=== PATIENT | male | born 1950 | race Caucasian/White ===

== ENCOUNTER 2021-03-01 10:02 | Outpatient (REF) | payer MEDICARE, SELFPAY ==
[2021-03-01 11:39] LABS: MANUAL DIFF FLAG NO
[2021-03-01 11:44] LABS: Basophils Percent Auto 1.1 % (0-2); Eosinophils Absolute Auto 0.1 X10*3/uL (0.0-0.4); Eosinophils Percent Auto 3.3 % (0-4); Glucose Urine UA NEG (NEG); Hemoglobin 14.7 g/dl (14.0-18.0); Imm Gran Abs Auto 0.01 X10*3/uL (0.00-0.03); Imm Gran Pct Auto 0.3 % (0.0-0.4); Leukocyte Esterase Urine NEG (NEG); Lymphocytes Absolute Auto 0.7 X10*3/uL (1.2-4.9); Lymphocytes Percent Auto 18.4 % (20-40); Mean Corpuscular HGB Conc 32.7 g/dl (31.0-36.0); Mean Corpuscular Hemoglobin 32.7 pg (27.0-33.0); Mean Corpuscular Volume 100.2 fL (80-98); Mean Platelet Volume 11.2 fL (9.4-12.4); Monocytes Absolute Auto 0.3 X10*3/uL (0.1-1.2); Monocytes Percent Auto 8.4 % (2-11); Neutrophils Absolute Auto 2.5 X10*3/uL (2.0-8.3); Neutrophils Percent Auto 68.5 % (45-73); Nitrite Urine NEG (NEG); Platelet Count 225 X10*3/uL (160-400); Red Blood Count 4.49 X10*6/uL (4.60-5.80); Red Cell Distribution Width 12.8 % (11.0-16.0); Urine Blood NEG (NEG); Urine Ketones NEG (NEG); Urine Protein NEG (NEG-TRACE); White Blood Count 3.6 X10*3/uL (4.8-10.8)
[2021-03-01 11:45] LABS: Appearance Urine CLEAR; Color Urine YELLOW
[2021-03-01 12:05] LABS: Alanine Aminotransferase 28 U/L (0-40); Albumin Level 4.3 g/dL (3.5-5.0); Alkaline Phosphatase 150 U/L (39-117); Anion Gap 14 (12-20); Aspartate Amino Transferase 33 U/L (5-37); Bilirubin Total 0.4 mg/dL (0.0-1.0); Blood Urea Nitrogen 16 mg/dL (9-16); Calcium 9.1 mg/dL (8.4-10.2); Carbon Dioxide 28 mmol/L (22-29); Chloride 104 mmol/L (96-108); Cholesterol 195 mg/dL; Estimated Glomerular Filt Rate > 60; Glucose Random 102 mg/dL (60-115); HDL Cholesterol 59 mg/dL; LDL Cholesterol Calculated 115 mg/dl; Magnesium 2.1 mg/dL (1.6-2.6); Potassium 4.3 mmol/L (3.3-5.1); Sodium 142 mmol/L (135-145); Total Protein 7.3 g/dL (6.5-8.0); Triglycerides 108 mg/dL
[2021-03-01 12:27] LABS: Free T4 (Free Thyroxine) 0.79 ng/dL (0.71-1.85); Prostate Specific Antigen Scr 1.79 ng/mL (<0.05-4.0); Thyroid Stimulating Hormone 2.53 uIU/mL (0.32-4.0)
[2021-03-01 12:37] LABS: WBC Urine 0 /HPF (0-4)
[2021-03-01 12:44] LABS: Phenytoin Dilantin 21.6 ug/mL (10.0-20.0)
[2021-03-01 12:47] LABS: Folate > 20.0 ng/mL (> or = 4.0); Vitamin B12 825 pg/mL (200-900)
== END 2021-03-01 10:03 | disposition home or self-care (01) ==
LOC: HO.LAB 10:02
PROVIDERS: PCP Internal Medicine; Visit Provider Internal Medicine
DX: G40.909 Epilepsy, unspecified, not intractable, without status epilepticus (principal); E78.00 Pure hypercholesterolemia, unspecified; R35.0 Frequency of micturition; Z12.5 Encounter for screening for malignant neoplasm of prostate
CPT/HCPCS: 36415; 80053; 80061; 80185; 81001; 82607; 82746; 83735; 84153; 84439; 84443; 85025

== ENCOUNTER 2021-06-23 08:00 | Inpatient (IN) | payer MEDICARE, SELFPAY ==
[2021-06-23] VITALS (10 sets, daily range): BP systolic 125–199; BP diastolic 47–87; PULSE 55–74; RESP 16–18; TEMP 35.6–36.9; O2SAT 92–100; BMI 17.9; BMI 20.3
--- NOTE | ~2021-06-23 | XR_ITS ---
EXAMINATION: XR HIP, RIGHT CLINICAL INFORMATION: Fall. COMPARISON: None TECHNIQUE: Two views of the right hip. AP view pelvis FINDINGS: There is a proximal right femoral fracture with mild displacement. There is no dislocation. The left hip joint is normal without any fracture or dislocation. The SI joints are symmetrical and normal. The pelvic bones are normal. The soft tissues are normal. XR/XR hip RT min 2V IMPRESSION: Proximal right femoral fracture with mild displacement. No dislocation.
--- NOTE | ~2021-06-23 | FL_ITS ---
EXAMINATION: Intraoperative fluoroscopy CLINICAL INFORMATION: Right intramedullary nail COMPARISON: Right hip x-rays 06/23/2021 TECHNIQUE: Intraoperative fluoroscopy was provided for use by Dr. Matthews. A total of 4 images were saved to PACS. A radiologist was not present during imaging. Today's dictation is only for administrative purposes to document intraoperative fluoroscopic usage. TOTAL FLUOROSCOPIC TIME: 0.5 minutes FL/FL guidance in OR FINDINGS~\^^ Intraoperative fluoroscopy provided for use by Dr. Matthews. Please see operative note for detailed findings.
--- NOTE | ~2021-06-23 | CT_ITS ---
EXAMINATION: CT BRAIN WITHOUT CONTRAST. CT CHEST WITHOUT CONTRAST. CLINICAL INFORMATION: Fall. COMPARISON: MRI brain 03/09/2019 TECHNIQUE: 5 mm thin axial and reformatted 2 mm thin sagittal and coronal images of brain were obtained without contrast. Subsequently axial 5 mm thin and reformatted 3 mm thin sagittal coronal images of chest were obtained. DLP 835. FINDINGS: There is no acute intra-axial, extra-axial bleed, masses, collection or midline shift. There is no acute infarction or lesion. There is no edema. The lateral ventricles are symmetrical in size and configuration but mildly prominent. There is mild periventricular hypodensity in both cerebral hemispheres without mass effect. There is a right parietal cortical hypodensity likely old infarct or postoperative change. 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 Bone windows reveal no calvarial abnormality. There is right parietal focal craniotomy from previous intervention. Bilateral paranasal sinuses and mastoid air cells are well-aerated. CHEST: Mild centrilobular emphysema without any acute process. There is no pulmonary nodule, mass or consolidation. There is mild bilateral upper and lower lobe dependent atelectasis. The heart size is enlarged. Great vessels are normal caliber. 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 There is no anterior to the pericardium is a hypodense elongated oval lesion measuring 4.9 x 2.7 cm on sagittal image 47/21 and 3.6 cm wide on axial image 32/16. It measures 9 Hounsfield units and most likely represent a pericardial cyst. Minimal coronary artery calcifications are seen bilaterally. No pericardial effusion seen. There is mild bilateral posterior pleural thickening. No effusion or calcified plaques. Small shotty lymph nodes are seen in the axilla. Imaging through the upper abdomen reveals visualized liver, spleen, gallbladder and pancreas to be unremarkable. There are bilateral renal cysts Bone windows reveal mild exaggerated thoracic kyphosis with degenerative spondylosis. No fracture or lytic process seen. The conus calcification is seen in T9 and T10 vertebra. CT/CT head/brain wo con IMPRESSION: Emphysematous changes of both lungs with dependent atelectasis in both upper and lower lobes. 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 There is no solid component visualized. There are coronary artery calcifications present. Bilateral posterior pleural thickening. Mild cardiomegaly. There is no acute intracranial process seen. Right parietal encephalomalacia with overlying right parietal small craniotomy from previous intervention. There is no finding of a prominent cisterna magna and left anterior middle cranial fossa arachnoid cyst.
--- NOTE | 2021-06-23 08:01 | ED_ITS ---
HPI - Fall General Chief Complaint: Fall Stated Complaint: mechanical fall Time Seen by Provider: 06/23/21 08:01 Source: patient and EMS Mode of arrival: EMS Limitations: no limitations History of Present Illness MD complaint: fall Onset (ago): minute(s) Fall from: standing Fall witnessed: yes, by bystander Place fall occurred: other (gym) Loss of consciousness: none Prolonged down time: no Symptoms prior to fall: none Context: tripped/slipped Location of injury: back and pelvis (r hip) Severity: moderate Quality: aching Associated symptoms (after fall): denies Related Data Home Medications Medication Instructions Recorded Confirmed ascorbic acid (vitamin C) 1,000 mg 1 g PO DAILY tab 03/01/21 06/23/21 tablet ferrous sulfate 325 mg (65 mg 325 mg PO DAILY 03/01/21 06/23/21 iron) tablet (Feosol) fexofenadine 180 mg tablet 180 mg PO DAILY 03/01/21 06/23/21 magnesium oxide 400 mg PO DAILY 03/01/21 06/23/21 vitamin B complex 1 tab PO DAILY 03/01/21 06/23/21 cyanocobalamin (vitamin B-12) 250 0 mcg PO DAILY 06/23/21 mcg tablet vitamin A 10,000 unit capsule 0 unit PO DAILY 06/23/21 Previous Rx's Medication Instructions Recorded amlodipine 10 mg tablet 10 mg PO DAILY #90 tab 09/08/20 metoprolol succinate 25 mg 25 mg PO DAILY #90 tab 09/08/20 tablet,extended release 24 hr phenytoin sodium extended 100 mg 300 mg PO DAILY 90 Days #270 cap 09/08/20 capsule Allergies Allergy/AdvReac Type Severity Reaction Status Date / Time hydrochlorothiazide Allergy Unknown Verified 09/29/19 00:00 lisinopril Allergy Unknown Verified 09/29/19 00:00 No Known Allergies Allergy Unknown Unverified 04/14/20 14:42 Review of Systems Review of Systems: Constitutional : No Fever, No Chills ENT/Mouth : No Ear Pain, No Hoarseness, No sore throat Eyes: No Eye Pain, No Swelling, No Redness, No Foreign Body Cardiovascular : No Chest Pain, No SOB Respiratory : No Cough, No Dyspnea Gastrointestinal : No Nausea, No Vomiting, No Diarrhea, No abdominal Pain Genitourinary : No Dysuria, No Hematuria Musculoskeletal : positive joint pain, No Myalgias, No Joint Swelling, pos back pain Skin : No Skin lacerations, No rash Neuro : No Weakness, No Numbness, No Loss of Consciousness, No Dizziness, No Headache Psych : No Anxiety/Panic, No Depression Heme/Lymph: no easy bruising, no Lymphadenopathy Endocrine : No Polyuria, No Polydipsia All other systems reviewed and are negative [facility] Past Medical History Attestation statement: The following information was validated with the patient. Source: old records reviewed Medical History Anxiety Cataract Hereditary hemorrhagic telangiectasia Hypertension Seizure disorder Vitamin B12 deficiency Surgical History H/O brain surgery History of hydrocelectomy Social History Social History Alcohol intake: never Patient Tobacco Use Status: Former Tobacco user Years Smoked: 1994 stopped Advance Directives: Yes Advance Directives Information Provided: Yes Advance Directives on File: No Physical Exam Vital Signs: Vital Signs: Last Vital Signs Temp 96.0 F L 06/23/21 08:14 Pulse 62 06/23/21 08:14 Resp 16 06/23/21 08:14 BP 199/73 H 06/23/21 08:14 Pulse Ox 97 06/23/21 08:14 Body Mass Index 17.9 Appearance: Alert. Oriented X3. No acute distress. Eyes: Pupils equal, round and reactive to light. ENT: Pharynx normal. Neck: Normal inspection. Neck supple. no pain in midline full ROM no pain CVS: Normal heart rate and rhythm. Pulses normal. Respiratory: No respiratory distress. Breath sounds normal. Abdomen: Soft and nontender. Back: ttp upper thoracic Skin: Skin warm and dry. Normal skin color. Normal skin turgor. Extremities: No lower extremity edema. R hip moderate ttp distal NV intact Neuro: Oriented X 3. No motor deficit. No sensory deficit. Course Course Course Narrative: message sent to orthopedics - Henny PA admit to medicine Procedures Orthopedic Splinting/Casting Injury #1: Side: right Lower Extremity Injury Location: upper leg Lower Extremity Immobilizer: knee immobilizer MDM - Fall MDM Narrative Medical decision making narrative: 71 yo male with no AC therapy presents with mechanical fall at gym at this time no head strike or LOC he has no neck pain - c/o R hip pain and thoracic pain will obtain CT head given age, CT chest and R hip films he declines pain medications at this time. Dispo per results and findings. Lab Data Result diagrams: 06/23/21 09:49 06/23/21 09:49 Labs: Lab Results 06/23/21 06/23/21 06/23/21 Range/Units 09:49 09:49 09:49 WBC 6.8 (4.8-10.8) X10*3/uL RBC 4.42 L (4.60-5.80) X10*6/uL Hgb 14.5 (14.0-18.0) g/dl Hct 42.8 (42.0-52.0) % MCV 96.8 (80.0-98.0) fL MCH 32.8 (27.0-33.0) pg MCHC 33.9 (31.0-36.0) g/dl RDW 13.0 (11.0-16.0) % Plt Count 175 (160-400) X10*3/uL MPV 10.0 (9.4-12.4) fL Immature Gran % (Auto) 0.9 H (0.0-0.4) % Neut % (Auto) 86.0 H (45-73) % Lymph % (Auto) 7.0 L (20-40) % [place] % (Auto) 5.4 (2-11) % Eos % (Auto) 0.6 (0-4) % Baso % (Auto) 0.1 (0-2) % Lymph # (Auto) 0.5 L (1.2-4.9) X10*3/uL [place] # (Auto) 0.4 (0.1-1.2) X10*3/uL Eos # (Auto) 0.0 (0.0-0.4) X10*3/uL Baso # (Auto) 0.0 (0.0-0.2) X10*3/uL Abs Immat Gran (auto) 0.06 H (0.00-0.03) X10*3/uL Absolute Neuts (auto) 5.9 (2.0-8.3) x10*3/uL Absolute Nucleated RBC 0.000 (0.0-0.012) X10*3/uL Nucleated RBC % (auto) 0.0 (0.0-0.2) /100WBC PT 13.1 H (9.9-13.0) SEC INR 1.2 H (0.9-1.1) APTT 29.7 (24.1-38.0) SEC Sodium 139 (135-145) mmol/L Potassium 4.5 (3.3-5.1) mmol/L Chloride 104 (96-108) mmol/L Carbon Dioxide 26 (22-29) mmol/L Anion Gap 14 (12-20) BUN 17 H (9-16) mg/dL Creatinine 1.02 (0.5-1.4) mg/dL Estim Creat Clear Calc 46.0 Estimated GFR > 60 Random Glucose 173 H D (60-115) mg/dL Calcium 8.9 (8.4-10.2) mg/dL COVID-19 (FELIX) (Negative) COVID-19 Clin Com 06/23/21 Range/Units 09:49 WBC (4.8-10.8) X10*3/uL RBC (4.60-5.80) X10*6/uL Hgb (14.0-18.0) g/dl Hct (42.0-52.0) % MCV (80.0-98.0) fL MCH (27.0-33.0) pg MCHC (31.0-36.0) g/dl RDW (11.0-16.0) % Plt Count (160-400) X10*3/uL MPV (9.4-12.4) fL Immature Gran % (Auto) (0.0-0.4) % Neut % (Auto) (45-73) % Lymph % (Auto) (20-40) % [place] % (Auto) (2-11) % Eos % (Auto) (0-4) % Baso % (Auto) (0-2) % Lymph # (Auto) (1.2-4.9) X10*3/uL [place] # (Auto) (0.1-1.2) X10*3/uL Eos # (Auto) (0.0-0.4) X10*3/uL Baso # (Auto) (0.0-0.2) X10*3/uL Abs Immat Gran (auto) (0.00-0.03) X10*3/uL Absolute Neuts (auto) (2.0-8.3) x10*3/uL Absolute Nucleated RBC (0.0-0.012) X10*3/uL Nucleated RBC % (auto) (0.0-0.2) /100WBC PT (9.9-13.0) SEC INR (0.9-1.1) APTT (24.1-38.0) SEC Sodium (135-145) mmol/L Potassium (3.3-5.1) mmol/L Chloride (96-108) mmol/L Carbon Dioxide (22-29) mmol/L Anion Gap (12-20) BUN (9-16) mg/dL Creatinine (0.5-1.4) mg/dL Estim Creat Clear Calc Estimated GFR Random Glucose (60-115) mg/dL Calcium (8.4-10.2) mg/dL COVID-19 (FELIX) Negative (Negative) COVID-19 Clin Com See Note ECG Data Attestation: I personally reviewed and interpreted this ECG as follows: ECG interpretation date: 06/23/21 ECG interpretation time: 09:58 Interpretation: Rate: 60 Rhythm: NSR with 1st degree AVB [place]: left, LVH Normal P waves. 1st degree AVB Normal QRS complex. ST T wave : nonspecific, no JORGE qTC: normal prior studies: no acute ischemia The study has been interpreted contemporaneously by me. . Discharge Plan Discharge Clinical Impression: Femoral fracture Qualifiers: Encounter type: initial encounter Femur location: unspecified portion of femur Fracture type: closed Fracture morphology: unspecified fracture morphology Laterality: right Qualified Code(s): S72.91XA - Unspecified fracture of right femur, initial encounter for closed fracture Patient Disposition: Admitted As Inpatient
--- NOTE | 2021-06-23 09:29 | ECG_ITS ---
Test Reason : FALL Blood Pressure : / mmHG Vent. Rate : 060 BPM Atrial Rate : 060 BPM P-R Int : 266 ms QRS Dur : 102 ms QT Int : 448 ms P-R-T Axes : 055 -22 029 degrees QTc Int : 448 ms Sinus rhythm with 1st degree A-V block Moderate voltage criteria for LVH, may be normal variant ( Sokolow-Moore , Fenton product ) Nonspecific T wave abnormality Left axis deviation Abnormal ECG When compared with ECG of 03-APR-2018 13:00, Nonspecific T wave abnormality now evident in Lateral leads Referred By: Brisa Sorenson Electronically Signed By:VIKTOR CARRILLO MD
[2021-06-23 09:55] LABS: MANUAL DIFF FLAG NO
[2021-06-23] MEDS: Morphine Sulfate 2 MG/ML CARTRIDGE IVPUSH ×2 (09:55→13:49)
[2021-06-23 10:03] LABS: Basophils Percent Auto 0.1 % (0-2); Eosinophils Percent Auto 0.6 % (0-4); Hematocrit 42.8 % (42.0-52.0); Hemoglobin 14.5 g/dl (14.0-18.0); Imm Gran Abs Auto 0.06 X10*3/uL (0.00-0.03); Imm Gran Pct Auto 0.9 % (0.0-0.4); Lymphocytes Absolute Auto 0.5 X10*3/uL (1.2-4.9); Mean Corpuscular HGB Conc 33.9 g/dl (31.0-36.0); Mean Corpuscular Hemoglobin 32.8 pg (27.0-33.0); Mean Corpuscular Volume 96.8 fL (80.0-98.0); Monocytes Absolute Auto 0.4 X10*3/uL (0.1-1.2); Monocytes Percent Auto 5.4 % (2-11); Neutrophils Absolute Auto 5.9 x10*3/uL (2.0-8.3); Platelet Count 175 X10*3/uL (160-400); Red Blood Count 4.42 X10*6/uL (4.60-5.80); White Blood Count 6.8 X10*3/uL (4.8-10.8)
--- NOTE | 2021-06-23 10:04 | PHA.MEDREC ---
Med rec complete no issues, patient takes several vitamins, a couple he does not know the strength of Pharmacy Consult ? Medication Reconciliation Pharmacy has completed the medication reconciliation.
[2021-06-23 10:06] LABS: INTERNATIONAL NORM RATIO 1.2 (0.9-1.1); Prothrombin Time 13.1 SEC (9.9-13.0)
[2021-06-23 10:09] LABS: Partial Thromboplastin Time 29.7 SEC (24.1-38.0)
[2021-06-23 10:10] LABS: Anion Gap 14 (12-20); Blood Urea Nitrogen 17 mg/dL (9-16); Calcium 8.9 mg/dL (8.4-10.2); Carbon Dioxide 26 mmol/L (22-29); Chloride 104 mmol/L (96-108); Estimated Glomerular Filt Rate > 60; Glucose Random 173 mg/dL (60-115); Potassium 4.5 mmol/L (3.3-5.1); Sodium 139 mmol/L (135-145)
[2021-06-23 10:12] LABS: COVID-19 Test Negative (Negative); IDNOW Serial# 9DD0AD1C
--- NOTE | 2021-06-23 10:42 | P.HPHOSP_ITS ---
History of Present Illness Date of Service: 06/23/21 Chief Complaint: Fall and right hip pain 71 year old male with Epilepsy-- has not had seizures in years, hypertension. Patient was in the gym this morning and was handling weight when he lost footing and fell, he is clear that there was no siezure, no dizziness, no chest pain, no sob. He was having pain in thr right hip and an xray has confirmed a right hip fracture. He suffered no head injury Review of Systems Review of Systems: Gen: no fever Resp: no sob, no cough CV: no chest, no NIEVES, no leg edema GI: No n/v, no abd pain Neuro: No confusion Yes all other systems are reviewed and are negative [facility] Medical History (Updated 06/23/21 @ 10:52 by Kenneth Lewis MD) Anxiety Cataract Hereditary hemorrhagic telangiectasia Hypertension Seizure disorder Vitamin B12 deficiency Family History Mother CAD (coronary artery disease) Surgical History H/O brain surgery History of hydrocelectomy Social History Household Members: None Housing: House Do you presently have visiting nurse or other home services: No Alcohol intake: never Patient Tobacco Use Status: Former Tobacco user Years Smoked: 1994 stopped Advance Directives Date on File: 06/23/21 service: No Current occupational status: retired Meds Allergies Allergy/AdvReac Type Severity Reaction Status Date / Time hydrochlorothiazide Allergy Unknown Unknown Verified 06/23/21 16:07 lisinopril Allergy Unknown Unknown Verified 06/23/21 16:07 Active Medications: Current Medications Pharmacy Consult (Consult Rx Perform Med Rec) 1 each MISCELLANE ONCE PRN PRN Reason: Consult order Home Medications Medication Instructions Recorded Confirmed Last Taken Type ascorbic acid (vitamin C) 1,000 mg 1 g PO DAILY tab 03/01/21 06/23/21 Unknown History tablet ferrous sulfate 325 mg (65 mg 325 mg PO DAILY 03/01/21 06/23/21 Unknown History iron) tablet (Feosol) fexofenadine 180 mg tablet 180 mg PO DAILY 03/01/21 06/23/21 Unknown History magnesium oxide 400 mg PO DAILY 03/01/21 06/23/21 Unknown History vitamin B complex 1 tab PO DAILY 03/01/21 06/23/21 Unknown History cyanocobalamin (vitamin B-12) 250 0 mcg PO DAILY 06/23/21 Unknown History mcg tablet vitamin A 10,000 unit capsule 0 unit PO DAILY 06/23/21 Unknown History Physical Exam Vital Signs and Narrative: Vital Signs: Last Vital Signs Temp 96.0 F L 06/23/21 08:14 Pulse 62 06/23/21 08:14 Resp 16 06/23/21 08:14 BP 199/73 H 06/23/21 08:14 Pulse Ox 97 06/23/21 08:14 Body Mass Index 17.9 Const: Other: Constitutional: Alert, in no distress, skiny. Mental Status: Oriented to person, place and time. Eyes: Pupils are equal, round and reactive to light. Ear, Nose and Throat: Oropharynx clear, mucous membranes moist. Ears and nose without eformities. Trachea midline. Respiratory: Clear to auscultation. No wheezing, rales or rhonchi. Cardiovascular: S1 S2 regular. No murmurs, rubs or gallops. Gastrointestinal: Abdomen soft, non-tender, non-distended. Normal bowel sounds.? Neurologic: Cranial nerves II-XII grossly intact. No focal neurological deficits. Moves all extremities spontaneously.? Skin: No rashes or lesions.? Musculoskeletal: No cyanosis or clubbing, right hip pain with movment of the hip Psychiatric: Normal mood and affect? Results Labs CBC and Chem 7: 06/24/21 05:42 06/24/21 05:42 Labs: Laboratory Results - last 24 hr 06/23/21 06/23/21 06/23/21 09:49 09:49 09:49 MCV 96.8 MCH 32.8 MCHC 33.9 RDW 13.0 Plt Count 175 MPV 10.0 Immature Gran % (Auto) 0.9 H Neut % (Auto) 86.0 H Lymph % (Auto) 7.0 L [place] % (Auto) 5.4 Eos % (Auto) 0.6 Baso % (Auto) 0.1 Lymph # (Auto) 0.5 L [place] # (Auto) 0.4 Eos # (Auto) 0.0 Baso # (Auto) 0.0 Abs Immat Gran (auto) 0.06 H Absolute Neuts (auto) 5.9 Absolute Nucleated RBC 0.000 Nucleated RBC % (auto) 0.0 PT 13.1 H INR 1.2 H APTT 29.7 Anion Gap 14 Estim Creat Clear Calc 46.0 Estimated GFR > 60 Random Glucose 173 H D Calcium 8.9 COVID-19 (FELIX) COVID-19 Clin Com 06/23/21 09:49 MCV MCH MCHC RDW Plt Count MPV Immature Gran % (Auto) Neut % (Auto) Lymph % (Auto) [place] % (Auto) Eos % (Auto) Baso % (Auto) Lymph # (Auto) [place] # (Auto) Eos # (Auto) Baso # (Auto) Abs Immat Gran (auto) Absolute Neuts (auto) Absolute Nucleated RBC Nucleated RBC % (auto) PT INR APTT Anion Gap Estim Creat Clear Calc Estimated GFR Random Glucose Calcium COVID-19 (FELIX) Negative COVID-19 Clin Com See Note Imaging Radiologist's Impressions: Impressions Chest CT 06/23/21 08:07 IMPRESSION: Emphysematous changes of both lungs with dependent atelectasis in both upper and lower lobes. 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 There is no solid component visualized. There are coronary artery calcifications present. Bilateral posterior pleural thickening. Mild cardiomegaly. There is no acute intracranial process seen. Right parietal encephalomalacia with overlying right parietal small craniotomy from previous intervention. There is no finding of a prominent cisterna magna and left anterior middle cranial fossa arachnoid cyst. Head CT 06/23/21 08:07 IMPRESSION: Emphysematous changes of both lungs with dependent atelectasis in both upper and lower lobes. 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 There is no solid component visualized. There are coronary artery calcifications present. Bilateral posterior pleural thickening. Mild cardiomegaly. There is no acute intracranial process seen. Right parietal encephalomalacia with overlying right parietal small craniotomy from previous intervention. There is no finding of a prominent cisterna magna and left anterior middle cranial fossa arachnoid cyst. Hip X-Ray 06/23/21 08:07 IMPRESSION: Proximal right femoral fracture with mild displacement. No dislocation. Assessment and Plan (1) Hypertension: Status: Acute (2) Femoral fracture: Qualifiers: Encounter type: initial encounter Femur location: unspecified portion of femur Fracture morphology: unspecified fracture morphology Fracture type: closed Laterality: right Qualified Code(s): S72.91XA - Unspecified fracture of right femur, initial encounter for closed fracture Status: Acute 71 year old male with HTN, seizure desorder here with mechanical fall resulting in right hip fracture, 1/ Hip fracture due to mechanical fall-- Will need operative repair, Ortho aware. I reviewed ECG with no acute ischemic changes, at low to moderate risk for periop cardiovascular complications, however no indication for further testing at this time. 2/ HTN--with accelerated BP, likely from from pain -continue home meds Metoprolol, Norvascs and if BP continues to be high will make further adjustment 3/Seizure d/o--continue Dilantin, check level 4/B12 deficiency--oral replacement. Quality Stroke Does the patient have a stroke diagnosis?: No VTE Prior VTE?: No VTE Risk Level:: Medical - moderate - high VTE Device Contraindication: Patient Refused VTE Drug Contraindication: N/A - Med Ordered
--- NOTE | 2021-06-23 10:53 | P.HPOP_ITS ---
History of Present Illness History of Present Illness Date of Service: 06/23/21 Chief complaint: mechanical fall Narrative: Terry Aguirre is a 71 year old male who presents to the emergency department after sustaining a fall earlier this morning at the gym. He states that he was putting away weight is when twisted and began to fall. he stated he protected is head and then fell onto the right hip and onto his back. There was another gym member nearby who assisted him and called for an ambulance to be transported to the emergency department. [facility] hip subtrochanteric hip fracture. Orthopedics was then consulted for further evaluation and treatment. The patient reports that he does not use any assistive devices for ambulation. He lives alone but has the help of family members and neighbors if needed. He denies any major surgeries. Past medical history is only significant for seizures last being many years ago and hypertension. Denies any alcohol, smoking or illicit drug use. Review of Systems Review of Systems: Yes all other systems are reviewed and are negative PMFSH Past Medical History Medical History (Updated 06/23/21 @ 10:52 by Kenneth Lewis MD) Anxiety Cataract Hereditary hemorrhagic telangiectasia Hypertension Seizure disorder Vitamin B12 deficiency Family History Family History Mother CAD (coronary artery disease) Surgical History Surgical History H/O brain surgery History of hydrocelectomy Social History Social History Alcohol intake: never Patient Tobacco Use Status: Former Tobacco user Years Smoked: 1994 stopped Advance Directives: Yes Advance Directives Information Provided: Yes Advance Directives on File: No Meds Allergies Allergy/AdvReac Type Severity Reaction Status Date / Time hydrochlorothiazide Allergy Unknown Verified 09/29/19 00:00 lisinopril Allergy Unknown Verified 09/29/19 00:00 No Known Allergies Allergy Unknown Unverified 04/14/20 14:42 Active Medications: Current Medications Pharmacy Consult (Consult Rx Perform Med Rec) 1 each MISCELLANE ONCE PRN PRN Reason: Consult order Home Medications Medication Instructions Recorded Confirmed Last Taken Type ascorbic acid (vitamin C) 1,000 mg 1 g PO DAILY tab 03/01/21 06/23/21 Unknown History tablet ferrous sulfate 325 mg (65 mg 325 mg PO DAILY 03/01/21 06/23/21 Unknown History iron) tablet (Feosol) fexofenadine 180 mg tablet 180 mg PO DAILY 03/01/21 06/23/21 Unknown History magnesium oxide 400 mg PO DAILY 03/01/21 06/23/21 Unknown History vitamin B complex 1 tab PO DAILY 03/01/21 06/23/21 Unknown History cyanocobalamin (vitamin B-12) 250 0 mcg PO DAILY 06/23/21 Unknown History mcg tablet vitamin A 10,000 unit capsule 0 unit PO DAILY 06/23/21 Unknown History Physical Exam Vital Signs: Vital Signs: Last Vital Signs Temp 96.0 F L 06/23/21 08:14 Pulse 62 06/23/21 08:14 Resp 16 06/23/21 08:14 BP 199/73 H 06/23/21 08:14 Pulse Ox 97 06/23/21 08:14 Body Mass Index 17.9 Const: General: cooperative, healthy appearing and no acute distress Resp: Effort & Inspection: normal respiratory effort and able to speak in complete sentences Cardio: Rate: regular rate Peripheral pulses: Peripheral pulses 2+ throughout GI: Palpation (GI): Soft to palpation Skin: Lesions: no lesions Rashes: no rashes Extrem: Other: Right lower extremity is externally rotated. Pain with log roll. Sensation is intact. Pedal pulse intact. Results Labs Result Diagrams: 06/23/21 09:49 06/23/21 09:49 Labs: Abnormal lab results 06/23/21 06/23/21 06/23/21 Range/Units 09:49 09:49 09:49 RBC 4.42 L (4.60-5.80) X10*6/uL Immature Gran % (Auto) 0.9 H (0.0-0.4) % Neut % (Auto) 86.0 H (45-73) % Lymph % (Auto) 7.0 L (20-40) % Lymph # (Auto) 0.5 L (1.2-4.9) X10*3/uL Abs Immat Gran (auto) 0.06 H (0.00-0.03) X10*3/uL PT 13.1 H (9.9-13.0) SEC INR 1.2 H (0.9-1.1) BUN 17 H (9-16) mg/dL Random Glucose 173 H D (60-115) mg/dL H & H 06/23/21 Range/Units 09:49 Hgb 14.5 (14.0-18.0) g/dl Hct 42.8 (42.0-52.0) % Coagulation 06/23/21 Range/Units 09:49 INR 1.2 H (0.9-1.1) All other labs normal. Assessment and Plan (1) Femoral fracture: Qualifiers: Encounter type: initial encounter Femur location: unspecified portion of femur Fracture morphology: unspecified fracture morphology Fracture type: closed Laterality: right Qualified Code(s): S72.91XA - Unspecified fracture of right femur, initial encounter for closed fracture Status: Acute Mr. Aguirre is a 71 year old male who presents to the emergency department after sustaining a fall earlier this morning at the gym. He states that he was putting away weight is when twisted and began to fall. he stated he protected is head and then fell onto the right hip and onto his back. There was another gym member nearby who assisted him and called for an ambulance to be transported to the emergency department. X-rays obtained in the emergency department reveal a right hip subtrochanteric hip fracture. Orthopedics was then consulted for further evaluation and treatment. The patient reports that he does not use any assistive devices for ambulation. He lives alone but has the help of family members and neighbors if needed. He denies any major surgeries. Past medical history is only significant for seizures last being many years ago and hypertension. Denies any alcohol, smoking or illicit drug use. I discussed the case with Dr. Matthews and explained the extent of the injury to the patient and options available which include surgical intervention. I explained the procedure in detail along with the length of recovery and rehab course. I explained the risk, benefits and alternatives. Risk including, but not limited to infection, blood clots, bleeding, non union or malunion and nerve/tissue damage to surrounding areas. I answered all their questions and wi th their understanding they have consented to move forward with Operative Fixation of the right hip. The patient will be T&S, med clearance obtained and NPO after midnight. Quality Stroke Does the patient have a stroke diagnosis?: No VTE Prior VTE?: No VTE Risk Level:: Surgical - high VTE Device Contraindication: N/A - Device Ordered VTE Drug Contraindication: N/A - Med Ordered Procedures Date of Service Date of Service: 06/23/21
--- NOTE | 2021-06-23 10:53 | PC.NURSE ---
Seen by ortho, plan for admission. R leg immobilizer placed. pt appears comfortable at this time
--- NOTE | 2021-06-23 11:28 | PC.NURSE ---
Plan for surgery tomorrow
--- NOTE | 2021-06-23 13:14 | MHC.CM.PN ---
pt lives alone in his home. he reports that he is very independent , he is retired; he drives a car and goes to the gym daily for 6 am. he has no children , but is freindly c his neighbors and has a brother that lives in [place] who will be involved in his dc plan if he returns home. Pt does not want to go to [facility] p his surgery ; he prefers to return home c home PT (for which a ref. has been made) and walker, and the help of neighbors and brother. his brother will transport pt home at [place]. cm to cont. to follow.
[2021-06-23] MEDS: 0.9 % Sodium Chloride Flush 3 ML SYRINGE IVFLUSH (15:54)
--- NOTE | 2021-06-23 18:15 | P.CONAN_ITS ---
[facility] Active Problems Active Problems: All Active Problems (Updated 06/23/21 @ 10:52 by Kenneth amezquita MD) Hypertension (Acute) Femoral fracture (Acute) Frequency of micturition (Acute) Medicare annual wellness visit, initial (Acute) Hereditary hemorrhagic telangiectasia (Acute) Seizure disorder (Acute) Past Medical History Medical History (Updated 06/23/21 @ 10:52 by Kenneth Lewis MD) Anxiety Cataract Hereditary hemorrhagic telangiectasia Hypertension Seizure disorder Vitamin B12 deficiency Family History Family History Mother CAD (coronary artery disease) Family history of problems with anesthesia: No Surgical History Surgical History H/O brain surgery History of hydrocelectomy History of Problems with Anesthesia: No Social History Social History Alcohol intake: never Patient Tobacco Use Status: Former Tobacco user Years Smoked: 1994 stopped service: No Current occupational status: retired [employer] Allergies Allergy/AdvReac Type Severity Reaction Status Date / Time hydrochlorothiazide Allergy Unknown Unknown Verified 06/23/21 16:07 lisinopril Allergy Unknown Unknown Verified 06/23/21 16:07 Active Medications: Current Medications Acetaminophen (Acetaminophen 325 Mg Tablet) 650 mg PO Q6H PRN PRN Reason: Pain, Mild (Pain Scale 1-3) Morphine Sulfate (Morphine Sulfate 2 Mg/Ml Cartridge) 2 mg IVPUSH Q6H PRN; Protocol PRN Reason: Pain, Severe (Pain Scale 7-10) Last Admin: 06/23/21 13:49 Dose: 2 mg Documented by: Pharmacy Consult (Consult Rx Perform Med Rec) 1 each MISCELLANE ONCE PRN PRN Reason: Consult order Sodium Chloride (0.9 % Sodium Chloride Flush 3 Ml Syringe) 3 ml IVFLUSH [facility] Last Admin: 06/23/21 15:54 Dose: 3 ml Documented by: Home Medications Medication Instructions Recorded Confirmed Last Taken Type ascorbic acid (vitamin C) 1,000 mg 1 g PO DAILY tab 03/01/21 06/23/21 Unknown History tablet ferrous sulfate 325 mg (65 mg 325 mg PO DAILY 03/01/21 06/23/21 Unknown History iron) tablet (Feosol) fexofenadine 180 mg tablet 180 mg PO DAILY 03/01/21 06/23/21 Unknown History magnesium oxide 400 mg PO DAILY 03/01/21 06/23/21 Unknown History vitamin B complex 1 tab PO DAILY 03/01/21 06/23/21 Unknown History cyanocobalamin (vitamin B-12) 250 0 mcg PO DAILY 06/23/21 Unknown History mcg tablet vitamin A 10,000 unit capsule 0 unit PO DAILY 06/23/21 Unknown History Exam Exam Date and Time: June 23, [id number] Height,Weight and Vital Signs: Height 5 ft 5 in Weight 48.988 kg Last Vital Signs Temp 97.8 F 06/23/21 15:08 Pulse 63 06/23/21 15:08 Resp 18 06/23/21 15:08 BP 153/58 H 06/23/21 15:08 Pulse Ox 97 06/23/21 15:08 Pertinent Lab Results Pertinent Lab Results: Laboratory Tests 06/23/21 06/23/21 06/23/21 09:49 09:49 09:49 WBC 6.8 RBC 4.42 L Hgb 14.5 Hct 42.8 MCV 96.8 MCH 32.8 MCHC 33.9 RDW 13.0 Plt Count 175 MPV 10.0 Immature Gran % (Auto) 0.9 H Neut % (Auto) 86.0 H Lymph % (Auto) 7.0 L [place] % (Auto) 5.4 Eos % (Auto) 0.6 Baso % (Auto) 0.1 Lymph # (Auto) 0.5 L [place] # (Auto) 0.4 Eos # (Auto) 0.0 Baso # (Auto) 0.0 Abs Immat Gran (auto) 0.06 H Absolute Neuts (auto) 5.9 Absolute Nucleated RBC 0.000 Nucleated RBC % (auto) 0.0 PT 13.1 H INR 1.2 H APTT 29.7 Sodium 139 Potassium 4.5 Chloride 104 Carbon Dioxide 26 Anion Gap 14 BUN 17 H Creatinine 1.02 Estim Creat Clear Calc 46.0 Estimated GFR > 60 Random Glucose 173 H D Calcium 8.9 COVID-19 (FELIX) COVID-19 Clin Com 06/23/21 09:49 WBC RBC Hgb Hct MCV MCH MCHC RDW Plt Count MPV Immature Gran % (Auto) Neut % (Auto) Lymph % (Auto) [place] % (Auto) Eos % (Auto) Baso % (Auto) Lymph # (Auto) [place] # (Auto) Eos # (Auto) Baso # (Auto) Abs Immat Gran (auto) Absolute Neuts (auto) Absolute Nucleated RBC Nucleated RBC % (auto) PT INR APTT Sodium Potassium Chloride Carbon Dioxide Anion Gap BUN Creatinine Estim Creat Clear Calc Estimated GFR Random Glucose Calcium COVID-19 (FELIX) Negative COVID-19 Clin Com See Note Airway Mallampati Class: II TM Dist: >3cm Neck ROM: Full Loose/Missing/Broken Teeth: No Heart: RRR Lungs: CTa Assessment and Plan Assessment Anesthesia Assessment: Anesthesia Plan Discussed Final Anesthetic Review Family History of Problems with Anesthesia: No History of Problems with Anesthesia: No NPO: Yes ASA Class: III Final Preanesthetic Review: No Changes in Pt Med Stat, Meds/Allgs Chart Reviewed, Consent Obtained/Reviewed and Anes Risks/Benef Reviewed Patient Risk: Intermediate Procedure Risk: Intermediate Anesthetic Plan Anesthetic Plan: GA Disposition: Standard PACU
--- NOTE | 2021-06-23 18:45 | MHC.SHP ---
Pre-Procedural Eval Section A Date of Service: 06/23/21 The patient is an INPATIENT: Yes Changes since office visit: Yes Patient answered all questions; No Cold of Flu in the past 2 weeks, No New Medical Problems and No Changes in Medication The History & Physical has been completed within 30 days and I have reviewed it.: Yes Section B Chief Complaint: hip fracture Allergies: Allergies Allergy/AdvReac Type Severity Reaction Status Date / Time hydrochlorothiazide Allergy Unknown Unknown Verified 06/23/21 16:07 lisinopril Allergy Unknown Unknown Verified 06/23/21 16:07 Plan I have reviewed the history and physical and performed a pertinent physical examination on my patient. No changes have occurred unless specified.
--- NOTE | 2021-06-23 19:43 | PM.OP ---
Brief Operative Note Date of Service: 06/23/21 Pre-op diagnosis: right hip IT fracture Post-op diagnosis: same Procedure: Right hip cephalomeduallry nail Implants: [place] [id number] x 130 deg with 105 x 10.5 hip screw and 37.5 5.0 interlocking Surgeon: Devendra Matthews MD Anesthesia: GETA, GLMA and local Was an Apparatus Repair Mechanic used for this Procedure?: No Estimated blood loss (mL): 100 IV fluids (mL): 700 Pathology: none sent Condition: stable Disposition: PACU
--- NOTE | 2021-06-23 19:46 | W.PM.OPN ---
Operative Note Operative Note Date of Service: 06/23/21 Narrative: Pre-op diagnosis: right hip IT fracture Post-op diagnosis: same Procedure: Right hip cephalomeduallry nail Implants: [place] [id number] x 130 deg with 105 x 10.5 hip screw and 37.5 5.0 interlocking Surgeon: Devendra Matthesw MD Anesthesia: GETA, GLMA and local Was an Senior Data Warehouse Architect used for this Procedure?: No Estimated blood loss (mL): 100 IV fluids (mL): 700 Pathology: none sent Condition: stable Disposition: PACU Procedure in detail: Patient was brought to the operating room and prepped and draped in standard sterile fashion. Time-out was called to identify proper site procedure proper surgeon and IV antibiotics per weight were administered. She was positioned on the fracture table and a traction and slight internal rotation were performed and biplanar fluoroscopy confirmed initial fracture reduction. I then made a stab incision proximal to the greater trochanter in using a guidewire made a entry point just lateral to the tip of the greater trochanter and placed a guidewire into the femoral metadiaphysis. I then over-reamed with 15 mm Reamer placed my ball-tip guidewire down distally in the femur. I selected a [id number] x 130 deg nail. I then turned my attention to the hip screw where I used a guidewire and a tip apex distance of less than 1.5 measured my hip screw. I then pre drilled and placed a 105 mm hip screw using biplanar fluoroscopy. Once I was satisfied with the position of the hip screw I turned my attention to the distal aspect of the nail. Using the targeting guide I drilled and measured and placed a 37.5 mm screw. I then placed my proximal set screw and then removed all extraneous instrumentation. Final biplanar radiographs were taken. I was satisfied with the position of the hardware and the fracture reduction. I copiously irrigated and closed with absorbable sutures varghese and injected 30 mL of into the area of the incisions. Traction was let down patient was placed in sterile dressing awakened from anesthesia brought to recovery room stable condition there were no known complications.
[2021-06-24] VITALS (7 sets, daily range): BP systolic 136–174; BP diastolic 64–73; PULSE 60–74; RESP 16–18; TEMP 36.2–37.2; O2SAT 94–97
[2021-06-24] MEDS: 0.9 % Sodium Chloride Flush 3 ML SYRINGE IVFLUSH ×5 (00:48→23:30)
[2021-06-24] MEDS: ceFAZolin Sodium/Dextrose,Iso 2 GM/50 ML PIGGYBACK IV (00:53)
[2021-06-24] MEDS: Morphine Sulfate 2 MG/ML CARTRIDGE IVPUSH ×3 (00:54→23:29)
[2021-06-24 06:15] LABS: MANUAL DIFF FLAG NO
[2021-06-24 06:23] LABS: Basophils Percent Auto 0.2 % (0-2); Hematocrit 39.5 % (42.0-52.0); Hemoglobin 13.3 g/dl (14.0-18.0); Imm Gran Abs Auto 0.03 X10*3/uL (0.00-0.03); Imm Gran Pct Auto 0.4 % (0.0-0.4); Lymphocytes Absolute Auto 0.8 X10*3/uL (1.2-4.9); Lymphocytes Percent Auto 9.6 % (20-40); Mean Corpuscular HGB Conc 33.7 g/dl (31.0-36.0); Mean Corpuscular Hemoglobin 32.9 pg (27.0-33.0); Mean Corpuscular Volume 97.8 fL (80.0-98.0); Mean Platelet Volume 10.5 fL (9.4-12.4); Monocytes Percent Auto 12.2 % (2-11); Neutrophils Absolute Auto 6.6 x10*3/uL (2.0-8.3); Neutrophils Percent Auto 77.6 % (45-73); Platelet Count 177 X10*3/uL (160-400); Red Blood Count 4.04 X10*6/uL (4.60-5.80); Red Cell Distribution Width 13.1 % (11.0-16.0); White Blood Count 8.5 X10*3/uL (4.8-10.8)
[2021-06-24 06:38] LABS: Anion Gap 14 (12-20); Blood Urea Nitrogen 20 mg/dL (9-16); Calcium 8.3 mg/dL (8.4-10.2); Carbon Dioxide 27 mmol/L (22-29); Chloride 103 mmol/L (96-108); Creatinine Clr Calc Pharmacy 49.7; Estimated Glomerular Filt Rate > 60; Glucose Random 80 mg/dL (60-115); Sodium 139 mmol/L (135-145)
--- NOTE | 2021-06-24 08:13 | P.PNOP_ITS ---
Subjective Subjective Date of Service: 06/24/21 Interval history: POD1 s/p right hip IM Nail. Patient is resting comfortably in bed. No overnight events. Pain is well managed. No additional complaints. Physical Exam Vital Signs: Vital Signs: Last Vital Signs Temp 98.5 F 06/24/21 08:00 Pulse 74 06/24/21 08:00 Resp 16 06/24/21 08:00 BP 160/70 H 06/24/21 08:00 Pulse Ox 94 06/24/21 08:00 Body Mass Index 20.3 Const: General: cooperative, healthy appearing and no acute distress Resp: Effort & Inspection: normal respiratory effort and able to speak in complete sentences Cardio: Rate: regular rate Peripheral pulses: Peripheral pulses 2+ th roughout GI: Palpation (GI): Soft to palpation Skin: Lesions: no lesions Rashes: no rashes Extrem: Other: Right hip dressing is clean, dry, and intact. Patient is able to dorsiflex and plantarflex. Sensation intact. Pedal pulse intact. Procedures Date of Service Date of Service: 06/24/21 Progress Note: A&P Assessment and plan (1) Femoral fracture: Status: Acute Assessment and Plan: Continue pain mgmnt Begin Lovenox for dvt ppx begin PT for right hip IM Nail Dispo planning-Pending PT eval, pain mgmnt Fall Risk Details Current Medications: Current Medications Acetaminophen (Acetaminophen 325 Mg Tablet) 650 mg PO Q6H PRN PRN Reason: Pain, Mild (Pain Scale 1-3) Fentanyl (Fentanyl Citrate/Pf 100 Mcg/2 Ml Vial) 25 mcg IVPUSH Q5M PRN; Protocol PRN Reason: Pain, Moderate (Pain Scale 4-6 Hydromorphone HCl (Hydromorphone Hcl 0.5 Mg/0.5 Ml Syringe) 0.5 mg IVPUSH Q5M PRN; Protocol PRN Reason: Pain, Severe (Pain Scale 7-10) Promethazine HCl 12.5 mg/ (Sodium Chloride) 50.5 mls @ 202 mls/hr IV ONCE PRN PRN Reason: Nausea and Vomiting Cefazolin Sodium/Dextrose (Ancef) 2 gm in 50 mls @ 100 mls/hr IV POSTOP YASMINE Last Infusion: 06/24/21 01:28 Dose: Infused Documented by: Morphine Sulfate (Morphine Sulfate 2 Mg/Ml Cartridge) 2 mg IVPUSH Q6H PRN; Protocol PRN Reason: Pain, Severe (Pain Scale 7-10) Last Admin: 06/24/21 00:54 Dose: 2 mg Documented by: Oxycodone HCl (Oxycodone Hcl Immed Release 5 Mg Tablet) 5 mg PO ONCE PRN PRN Reason: Pain, Severe (Pain Scale 7-10) Pharmacy Consult (Consult Rx Perform Med Rec) 1 each MISCELLANE ONCE PRN PRN Reason: Consult order Sodium Chloride (0.9 % Sodium Chloride Flush 3 Ml Syringe) [facility] Last Admin: 06/24/21 00:48 Dose: 3 ml Documented by: Time Spent With Patient Time: Total time spent is greater than 50% in coordination of care (as documented) at patient's floor/unit and/or counseling patient: Time with patient: less than 15 minutes Quality Stroke Does the patient have a stroke diagnosis?: No VTE Prior VTE?: No VTE Risk Level:: Surgical - high VTE Device Contraindication: N/A - Device Ordered VTE Drug Contraindication: N/A - Med Ordered
--- NOTE | 2021-06-24 09:16 | P.PNIM_ITS ---
Subjective Subjective Date of Service: 06/24/21 Interval History: f/u on hip fracture, operated on yesterday--doing well with pain Review of Systems no fever no hip pain Physical Exam Vital Signs: Vital Signs: Last Vital Signs Temp 98.5 F 06/24/21 08:00 Pulse 74 06/24/21 08:00 Resp 16 06/24/21 08:00 BP 160/70 H 06/24/21 08:00 Pulse Ox 94 06/24/21 08:00 Body Mass Index 20.3 Const: Other: General: AO X 3, no acute distress Resp: CTA bilateral CVS: S1,S2,RRR GI: +BS, NT, no distention Skin: No rash, wound d/c/i Neuro: motor grossly intact Psych: appropriate affect Objective Data Active Medications Acetaminophen (Acetaminophen 325 Mg Tablet) 650 mg PO Q6H PRN PRN Reason: Pain, Mild (Pain Scale 1-3) Amlodipine Besylate (Amlodipine Besylate 10 Mg Tablet) 10 mg PO DAILY YASMINE; Protocol Enoxaparin Sodium (Enoxaparin Sodium 40 Mg/0.4 Ml Syringe) 40 mg SUBCUT Q24H YASMINE Fentanyl (Fentanyl Citrate/Pf 100 Mcg/2 Ml Vial) 25 mcg IVPUSH Q5M PRN; Protocol PRN Reason: Pain, Moderate (Pain Scale 4-6 Hydromorphone HCl (Hydromorphone Hcl 0.5 Mg/0.5 Ml Syringe) 0.5 mg IVPUSH Q5M PRN; Protocol PRN Reason: Pain, Severe (Pain Scale 7-10) Promethazine HCl 12.5 mg/ (Sodium Chloride) 50.5 mls @ 202 mls/hr IV ONCE PRN PRN Reason: Nausea and Vomiting Cefazolin Sodium/Dextrose (Ancef) 2 gm in 50 mls @ 100 mls/hr IV POSTOP YASMINE Last Infusion: 06/24/21 01:28 Dose: 0 mls/hr Documented by: DOMINIQUE Magnesium Oxide (Magnesium Oxide 400 Mg Tablet) 400 mg PO DAILY YASMINE Metoprolol Succinate (Metoprolol Succinate Er 25 Mg Tab.Er.24h) 25 mg PO DAILY YASMINE; Protocol Morphine Sulfate (Morphine Sulfate 2 Mg/Ml Cartridge) 2 mg IVPUSH Q6H PRN; Protocol PRN Reason: Pain, Severe (Pain Scale 7-10) Last Admin: 06/24/21 08:21 Dose: 2 mg Documented by: MAYUR Multivitamins/Vitamin C (Multivitamin Tablet) 1 tab PO DAILY [facility] Non-Formulary Medication (Ferrous Sulfate [Feosol]) 325 mg PO DAILY [facility] Non-Formulary Medication (Fexofenadine) 180 mg PO DAILY [facility] Oxycodone HCl (Oxycodone Hcl Immed Release 5 Mg Tablet) 5 mg PO ONCE PRN PRN Reason: Pain, Severe (Pain Scale 7-10) Pharmacy Consult (Consult Rx Perform Med Rec) 1 each MISCELLANE ONCE PRN PRN Reason: Consult order Phenytoin Sodium (Phenytoin Sodium Extended 100 Mg Capsule) 300 mg PO DAILY [facility] Sodium Chloride (0.9 % Sodium Chloride Flush 3 Ml Syringe) 3 ml IVFLUSH QSHIFT [facility] Last Admin: 06/24/21 08:22 Dose: 3 ml Documented by: MAYUR Labs CBC & Chem 7: 06/24/21 05:42 06/24/21 05:42 Labs: Laboratory Results - last 24 hr 06/23/21 06/23/21 06/23/21 09:49 09:49 09:49 MCV 96.8 MCH 32.8 MCHC 33.9 RDW 13.0 Plt Count 175 MPV 10.0 Immature Gran % (Auto) 0.9 H Neut % (Auto) 86.0 H Lymph % (Auto) 7.0 L [place] % (Auto) 5.4 Eos % (Auto) 0.6 Baso % (Auto) 0.1 Lymph # (Auto) 0.5 L [place] # (Auto) 0.4 Eos # (Auto) 0.0 Baso # (Auto) 0.0 Abs Immat Gran (auto) 0.06 H Absolute Neuts (auto) 5.9 Absolute Nucleated RBC 0.000 Nucleated RBC % (auto) 0.0 PT 13.1 H INR 1.2 H APTT 29.7 Anion Gap 14 Estim Creat Clear Calc 46.0 Estimated GFR > 60 Random Glucose 173 H D Calcium 8.9 COVID-19 ([facility]EL[facility]) COVID-19 Clin Com 06/23/21 06/24/21 06/24/21 09:49 05:42 05:42 MCV 97.8 MCH 32.9 MCHC 33.7 RDW 13.1 Plt Count 177 MPV 10.5 Immature Gran % (Auto) 0.4 Neut % (Auto) 77.6 H Lymph % (Auto) 9.6 L [place] % (Auto) 12.2 H Eos % (Auto) 0.0 Baso % (Auto) 0.2 Lymph # (Auto) 0.8 L [place] # (Auto) 1.0 Eos # (Auto) 0.0 Baso # (Auto) 0.0 Abs Immat Gran (auto) 0.03 Absolute Neuts (auto) 6.6 Absolute Nucleated RBC 0.000 Nucleated RBC % (auto) 0.0 PT INR APTT Anion Gap 14 Estim Creat Clear Calc 49.7 Estimated GFR > 60 Random Glucose 80 D Calcium 8.3 L D COVID-19 (FELIX) Negative COVID-19 Clin Com See Note Assessment and Plan (1) Femoral fracture: Status: Acute (2) Seizure disorder: Status: Acute (3) Hypertension: Status: Acute Assessment and Plan: 71 year old male with HTN, seizure desorder here with mechanical fall resulting in right hip fracture, 1/ Hip fracture due to mechanical fall-- s/p operative repair 06/23, doing -pain management, PT/OT, lovenox for DVT prophylaxis 2/ HTN--restart Norvasc 10 daily, Toprolol 25 daily 3/Seizure d/o--continue Dilantin 4/B12 deficiency--oral replacement. Quality Stroke Does the patient have a stroke diagnosis?: No VTE Prior VTE?: No VTE Risk Level:: Medical - moderate - high VTE Device Contraindication: Patient Refused VTE Drug Contraindication: N/A - Med Ordered
[2021-06-24] MEDS: Magnesium Oxide 400 MG TABLET PO (09:48)
[2021-06-24] MEDS: Phenytoin Sodium Extended 100 MG CAPSULE 300 MG PO (09:48)
[2021-06-24] MEDS: Multivitamin TABLET 1 TAB PO (09:48)
[2021-06-24] MEDS: Metoprolol Succinate ER 25 MG TAB.ER.24H PO (09:48)
[2021-06-24] MEDS: amLODIPine Besylate 10 MG TABLET PO (09:49)
[2021-06-24] MEDS: Ferrous Sulfate 324 MG TABLET.DR PO (09:49)
[2021-06-24] MEDS: Loratadine 10 MG TABLET PO (09:49)
[2021-06-24] MEDS: Enoxaparin Sodium 40 MG/0.4 ML SYRINGE SUBCUT (15:18)
[2021-06-24] MEDS: Acetaminophen 325 MG TABLET 650 MG PO (15:29)
[2021-06-25] VITALS (7 sets, daily range): BP systolic 129–165; BP diastolic 60–70; PULSE 62–70; RESP 17–18; TEMP 36.2–37.3; O2SAT 94–98
[2021-06-25 06:07] LABS: MANUAL DIFF FLAG NO
[2021-06-25 06:26] LABS: Anion Gap 13 (12-20); Blood Urea Nitrogen 20 mg/dL (9-16); Calcium 8.1 mg/dL (8.4-10.2); Carbon Dioxide 27 mmol/L (22-29); Chloride 105 mmol/L (96-108); Estimated Glomerular Filt Rate > 60; Glucose Random 121 mg/dL (60-115); Potassium 4.6 mmol/L (3.3-5.1); Sodium 140 mmol/L (135-145)
[2021-06-25 06:32] LABS: Basophils Percent Auto 0.3 % (0-2); Eosinophils Percent Auto 0.1 % (0-4); Hematocrit 33.9 % (42.0-52.0); Hemoglobin 11.5 g/dl (14.0-18.0); Imm Gran Abs Auto 0.02 X10*3/uL (0.00-0.03); Imm Gran Pct Auto 0.3 % (0.0-0.4); Lymphocytes Absolute Auto 0.9 X10*3/uL (1.2-4.9); Lymphocytes Percent Auto 12.3 % (20-40); Mean Corpuscular HGB Conc 33.9 g/dl (31.0-36.0); Mean Corpuscular Hemoglobin 33.3 pg (27.0-33.0); Mean Corpuscular Volume 98.3 fL (80.0-98.0); Mean Platelet Volume 10.3 fL (9.4-12.4); Monocytes Absolute Auto 0.8 X10*3/uL (0.1-1.2); Monocytes Percent Auto 10.9 % (2-11); Neutrophils Absolute Auto 5.5 x10*3/uL (2.0-8.3); Neutrophils Percent Auto 76.1 % (45-73); Platelet Count 131 X10*3/uL (160-400); Red Blood Count 3.45 X10*6/uL (4.60-5.80); Red Cell Distribution Width 12.9 % (11.0-16.0); White Blood Count 7.2 X10*3/uL (4.8-10.8)
[2021-06-25] MEDS: Phenytoin Sodium Extended 100 MG CAPSULE 300 MG PO (08:24)
[2021-06-25] MEDS: 0.9 % Sodium Chloride Flush 3 ML SYRINGE IVFLUSH ×2 (08:24→15:12)
[2021-06-25] MEDS: Ferrous Sulfate 324 MG TABLET.DR PO (08:25)
[2021-06-25] MEDS: Loratadine 10 MG TABLET PO (08:25)
[2021-06-25] MEDS: Metoprolol Succinate ER 25 MG TAB.ER.24H PO (08:25)
[2021-06-25] MEDS: Multivitamin TABLET 1 TAB PO (08:25)
[2021-06-25] MEDS: Magnesium Oxide 400 MG TABLET PO (08:25)
[2021-06-25] MEDS: amLODIPine Besylate 10 MG TABLET PO (08:25)
[2021-06-25] MEDS: Acetaminophen 325 MG TABLET 650 MG PO (08:38)
[2021-06-25] MEDS: oxyCODONE HCl Immed Release 5 MG TABLET PO (08:38)
--- NOTE | 2021-06-25 09:05 | HO.POSTANES ---
Post Anesthesia Evaluation Post Anesthesia Evaluation Vital Signs: Vital Signs Temp Pulse Resp BP Pulse Ox 06/25/21 07:56 97.5 F 68 18 165/68 H 95 06/25/21 03:56 98.3 F 66 17 151/70 H 95 06/25/21 00:00 98.6 F 70 17 155/70 H 94 Anesthesia: General LMA Mental Status: Awake Pain Control: Satisfactory Nausea/Vomiting: None Hydration: Adequate Anesthesia-Related Issues: No Anes. Related Issues
--- NOTE | 2021-06-25 11:40 | HO.PM.IMPN ---
Subjective Subjective Date of Service: 06/25/21 Interval History: f/u on hip fracture, POD2, had some pain at night as he only wanted APAP, better pain control this morning. Review of Systems no fever no hip pain Physical Exam Vital Signs: Vital Signs: Last Vital Signs Temp 97.5 F 06/25/21 07:56 Pulse 68 06/25/21 07:56 Resp 18 06/25/21 07:56 BP 165/68 H 06/25/21 07:56 Pulse Ox 95 06/25/21 07:56 Body Mass Index 20.3 Const: Other: General: AO X 3, no acute distress Resp: CTA bilateral CVS: S1,S2,RRR GI: +BS, NT, no distention Skin: No rash, wound d/c/i Neuro: motor grossly intact Psych: appropriate affect Objective Data Active Medications Acetaminophen (Acetaminophen 325 Mg Tablet) 650 mg PO Q6H PRN PRN Reason: Pain, Mild (Pain Scale 1-3) Last Admin: 06/25/21 08:38 Dose: 650 mg Documented by: RICK Amlodipine Besylate (Amlodipine Besylate 10 Mg Tablet) 10 mg PO DAILY [facility]; Protocol Last Admin: 06/25/21 08:25 Dose: 10 mg Documented by: RICK Enoxaparin Sodium (Enoxaparin Sodium 40 Mg/0.4 Ml Syringe) 40 mg SUBCUT Q24H [facility] Last Admin: 06/24/21 15:18 Dose: 40 mg Documented by: SB Fentanyl (Fentanyl Citrate/Pf 100 Mcg/2 Ml Vial) 25 mcg IVPUSH Q5M PRN; Protocol PRN Reason: Pain, Moderate (Pain Scale 4-6 Ferrous Sulfate (Ferrous Sulfate 324 Mg Tablet.Dr) 324 mg PO DAILY [facility] Last Admin: 06/25/21 08:25 Dose: 324 mg Documented by: RICK Hydromorphone HCl (Hydromorphone Hcl 0.5 Mg/0.5 Ml Syringe) 0.5 mg IVPUSH Q5M PRN; Protocol PRN Reason: Pain, Severe (Pain Scale 7-10) Promethazine HCl 12.5 mg/ (Sodium Chloride) 50.5 mls @ 202 mls/hr IV ONCE PRN PRN Reason: Nausea and Vomiting Cefazolin Sodium/Dextrose (Ancef) 2 gm in 50 mls @ 100 mls/hr IV POSTOP [facility] Last Infusion: 06/24/21 01:28 Dose: 0 mls/hr Documented by: DOMINIQUE Loratadine (Loratadine 10 Mg Tablet) 10 mg PO DAILY [facility] Last Admin: 06/25/21 08:25 Dose: 10 mg Documented by: RICK Magnesium Oxide (Magnesium Oxide 400 Mg Tablet) 400 mg PO DAILY [facility] Last Admin: 06/25/21 08:25 Dose: 400 mg Documented by: RICK Metoprolol Succinate (Metoprolol Succinate Er 25 Mg Tab.Er.24h) 25 mg PO DAILY [facility]; Protocol Last Admin: 06/25/21 08:25 Dose: 25 mg Documented by: RICK Morphine Sulfate (Morphine Sulfate 2 Mg/Ml Cartridge) 2 mg IVPUSH Q6H PRN; Protocol PRN Reason: Pain, Severe (Pain Scale 7-10) Last Admin: 06/24/21 23:29 Dose: 2 mg Documented by: YING Multivitamins/Vitamin C (Multivitamin Tablet) 1 tab PO DAILY [facility] Last Admin: 06/25/21 08:25 Dose: 1 tab Documented by: RICK Pharmacy Consult (Consult Rx Perform Med Rec) 1 each MISCELLANE ONCE PRN PRN Reason: Consult order Phenytoin Sodium (Phenytoin Sodium Extended 100 Mg Capsule) 300 mg PO DAILY [facility] Last Admin: 06/25/21 08:24 Dose: 300 mg Documented by: RICK Sodium Chloride (0.9 % Sodium Chloride Flush 3 Ml Syringe) 3 ml IVFLUSH QSHIFT [facility] Last Admin: 06/25/21 08:24 Dose: 3 ml Documented by: RICK Labs CBC & Chem 7: 06/25/21 05:55 06/25/21 05:55 Labs: Laboratory Results - last 24 hr 06/25/21 06/25/21 05:55 05:55 MCV 98.3 H MCH 33.3 H MCHC 33.9 RDW 12.9 Plt Count 131 L D MPV 10.3 Immature Gran % (Auto) 0.3 Neut % (Auto) 76.1 H Lymph % (Auto) 12.3 L [place] % (Auto) 10.9 Eos % (Auto) 0.1 Baso % (Auto) 0.3 Lymph # (Auto) 0.9 L [place] # (Auto) 0.8 Eos # (Auto) 0.0 Baso # (Auto) 0.0 Abs Immat Gran (auto) 0.02 Absolute Neuts (auto) 5.5 Absolute Nucleated RBC 0.000 Nucleated RBC % (auto) 0.0 Anion Gap 13 Estim Creat Clear Calc 59.0 Estimated GFR > 60 Random Glucose 121 H D Calcium 8.1 L Assessment and Plan (1) Femoral fracture: Status: Acute (2) Hypertension: Status: Acute Assessment and Plan: 71 year old male with HTN, seizure desorder here with mechanical fall resulting in right hip fracture, 1/ Hip fracture due to mechanical fall-- s/p operative repair 06/23, doing well -pain management, PT/OT, lovenox for DVT prophylaxis--will likely need rehab, CM aware 2/ HTN--restart Norvasc 10 daily, Toprolol 25 daily 3/Seizure d/o--continue Dilantin, no seizure 4/B12 deficiency--oral replacement. Quality Stroke Does the patient have a stroke diagnosis?: No VTE Prior VTE?: No VTE Risk Level:: Medical - moderate - high VTE Device Contraindication: Patient Refused VTE Drug Contraindication: N/A - Med Ordered
[2021-06-25] MEDS: Enoxaparin Sodium 40 MG/0.4 ML SYRINGE SUBCUT (15:11)
[2021-06-25] MEDS: Morphine Sulfate 2 MG/ML CARTRIDGE IVPUSH (15:11)
[2021-06-26] MEDS: 0.9 % Sodium Chloride Flush 3 ML SYRINGE IVFLUSH ×2 (01:19→08:37)
[2021-06-26 03:55] VITALS: BP 144/63; PULSE 66; RESP 17; TEMP 36.9; O2SAT 95
[2021-06-26 04:38] LABS: MANUAL DIFF FLAG NO
[2021-06-26 04:40] LABS: Basophils Percent Auto 0.3 % (0-2); Eosinophils Absolute Auto 0.1 X10*3/uL (0.0-0.4); Eosinophils Percent Auto 1.1 % (0-4); Hematocrit 34.3 % (42.0-52.0); Hemoglobin 11.8 g/dl (14.0-18.0); Imm Gran Abs Auto 0.03 X10*3/uL (0.00-0.03); Imm Gran Pct Auto 0.5 % (0.0-0.4); Lymphocytes Percent Auto 15.7 % (20-40); Mean Corpuscular HGB Conc 34.4 g/dl (31.0-36.0); Mean Corpuscular Hemoglobin 33.6 pg (27.0-33.0); Mean Corpuscular Volume 97.7 fL (80.0-98.0); Mean Platelet Volume 10.4 fL (9.4-12.4); Monocytes Absolute Auto 0.7 X10*3/uL (0.1-1.2); Monocytes Percent Auto 11.6 % (2-11); Neutrophils Absolute Auto 4.5 x10*3/uL (2.0-8.3); Neutrophils Percent Auto 70.8 % (45-73); Platelet Count 151 X10*3/uL (160-400); Red Blood Count 3.51 X10*6/uL (4.60-5.80); Red Cell Distribution Width 12.9 % (11.0-16.0); White Blood Count 6.4 X10*3/uL (4.8-10.8)
[2021-06-26 04:59] LABS: Anion Gap 15 (12-20); Blood Urea Nitrogen 19 mg/dL (9-16); Calcium 8.2 mg/dL (8.4-10.2); Carbon Dioxide 24 mmol/L (22-29); Chloride 102 mmol/L (96-108); Estimated Glomerular Filt Rate > 60; Glucose Random 110 mg/dL (60-115); Potassium 4.1 mmol/L (3.3-5.1); Sodium 137 mmol/L (135-145)
[2021-06-26 07:37] VITALS: BP 185/77; PULSE 74; RESP 16; TEMP 36.6; O2SAT 98
--- NOTE | 2021-06-26 07:50 | P.PNOP_ITS ---
Subjective Subjective Date of Service: 06/26/21 Interval history: POD 3 s/p Rt hip IMN No overnight events He has been out of bed working with PT and getting in to a chair Has c/o left sided chest pain but point to his ribs. Pain is with inhale/exhale Physical Exam Vital Signs: Vital Signs: Last Vital Signs Temp 97.8 F 06/26/21 07:37 Pulse 74 06/26/21 07:37 Resp 16 06/26/21 07:37 BP 185/77 H 06/26/21 07:37 Pulse Ox 98 06/26/21 07:37 Body Mass Index 20.3 Const: General: cooperative, healthy appearing and no acute distress Resp: Effort & Inspection: normal respiratory effort and able to speak in complete sentences Cardio: Rate: regular rate Peripheral pulses: Peripheral pulses 2+ throughout GI: Palpation (GI): Soft to palpation Skin: General skin exam: no rashes or lesions noted Extrem: Other: Right hip bandage c/d/i. No erythema, hip flexion with mild discomfort. Procedures Date of Service Date of Service: 06/26/21 Progress Note: A&P Assessment and plan (1) Femoral fracture: Status: Acute Assessment and Plan: cont pain mgmnt cont PT/Ot cont lvoenox x 6 weeks dispo -cleared orthopedically Fall Risk Details Current Medications: Current Medications Acetaminophen (Acetaminophen 325 Mg Tablet) 650 mg PO Q6H PRN PRN Reason: Pain, Mild (Pain Scale 1-3) Last Admin: 06/25/21 08:38 Dose: 650 mg Documented by: Amlodipine Besylate (Amlodipine Besylate 10 Mg Tablet) 10 mg PO DAILY [facility]; Protocol Last Admin: 06/25/21 08:25 Dose: 10 mg Documented by: Enoxaparin Sodium (Enoxaparin Sodium 40 Mg/0.4 Ml Syringe) 40 mg SUBCUT Q24H [facility] Last Admin: 06/25/21 15:11 Dose: 40 mg Documented by: Fentanyl (Fentanyl Citrate/Pf 100 Mcg/2 Ml Vial) 25 mcg IVPUSH Q5M PRN; Protocol PRN Reason: Pain, Moderate (Pain Scale 4-6 Ferrous Sulfate (Ferrous Sulfate 324 Mg Tablet.) 324 mg PO DAILY [facility] Last Admin: 06/25/21 08:25 Dose: 324 mg Documented by: Hydromorphone HCl (Hydromorphone Hcl 0.5 Mg/0.5 Ml Syringe) 0.5 mg IVPUSH Q5M PRN; Protocol PRN Reason: Pain, Severe (Pain Scale 7-10) Promethazine HCl 12.5 mg/ (Sodium Chloride) 50.5 mls @ 202 mls/hr IV ONCE PRN PRN Reason: Nausea and Vomiting Cefazolin Sodium/Dextrose (Ancef) 2 gm in 50 mls @ 100 mls/hr IV POSTOP [facility] Last Infusion: 06/24/21 01:28 Dose: Infused Documented by: Loratadine (Loratadine 10 Mg Tablet) 10 mg PO DAILY [facility] Last Admin: 06/25/21 08:25 Dose: 10 mg Documented by: Magnesium Oxide (Magnesium Oxide 400 Mg Tablet) 400 mg PO DAILY [facility] Last Admin: 06/25/21 08:25 Dose: 400 mg Documented by: Metoprolol Succinate (Metoprolol Succinate Er 25 Mg Tab.Er.24h) 25 mg PO DAILY [facility]; Protocol Last Admin: 06/25/21 08:25 Dose: 25 mg Documented by: Morphine Sulfate (Morphine Sulfate 2 Mg/Ml Cartridge) 2 mg IVPUSH Q6H PRN; Protocol PRN Reason: Pain, Severe (Pain Scale 7-10) Last Admin: 06/25/21 15:11 Dose: 2 mg Documented by: Multivitamins/Vitamin C (Multivitamin Tablet) 1 tab PO DAILY [facility] Last Admin: 06/25/21 08:25 Dose: 1 tab Documented by: Pharmacy Consult (Consult Rx Perform Med Rec) 1 each MISCELLANE ONCE PRN PRN Reason: Consult order Phenytoin Sodium (Phenytoin Sodium Extended 100 Mg Capsule) 300 mg PO DAILY [facility] Last Admin: 06/25/21 08:24 Dose: 300 mg Documented by: Sodium Chloride (0.9 % Sodium Chloride Flush 3 Ml Syringe) 3 ml IVFLUSH QSHIFT [facility] Last Admin: 06/26/21 01:19 Dose: 3 ml Documented by: Time Spent With Patient Time: Total time spent is greater than 50% in coordination of care (as documented) at patient's floor/unit and/or counseling patient: Time with patient: less than 15 minutes Quality Stroke Does the patient have a stroke diagnosis?: No VTE Prior VTE?: No VTE Risk Level:: Medical - moderate - high VTE Device Contraindication: Patient Refused VTE Drug Contraindication: N/A - Med Ordered
[2021-06-26 08:19] VITALS: PULSE 74; O2SAT 98
[2021-06-26] MEDS: Metoprolol Succinate ER 25 MG TAB.ER.24H PO (08:36)
[2021-06-26] MEDS: Multivitamin TABLET 1 TAB PO (08:36)
[2021-06-26] MEDS: Morphine Sulfate 2 MG/ML CARTRIDGE IVPUSH (08:36)
[2021-06-26] MEDS: Ferrous Sulfate 324 MG TABLET.DR PO (08:36)
[2021-06-26] MEDS: Phenytoin Sodium Extended 100 MG CAPSULE 300 MG PO (08:37)
[2021-06-26] MEDS: amLODIPine Besylate 10 MG TABLET PO (08:37)
[2021-06-26] MEDS: Magnesium Oxide 400 MG TABLET PO (08:37)
[2021-06-26] MEDS: Loratadine 10 MG TABLET PO (08:37)
--- NOTE | 2021-06-26 09:23 | MHC.CM.PN ---
NURSE CARE MANAGRR NTE CASE DISCUSSED WITH STAFF NURSE AND PHYSICAL THEArpist , physicL JEAN[facility]TE IS RECOMENDING SHORT TERM REHAB , PATIENT IS IN AGREEMENT WITH THIS AND WOULD LIKE TO GO TO [facility] , REFERRAL SENT TO THEM DISCHARGE STR -REF TO [facility] ? DISCHARGE 06/26- WILL NEED HCP WILL NEED DATE OF SECOND MODERNA VACUINATION
--- NOTE | 2021-06-26 11:04 | P.DS_ITS ---
DS: Providers Provider Date of Service: 06/26/21 Date of admission: 06/23/21 11:00 Primary care physician: Ye Silveira MD DS: Diagnosis Discharge Diagnosis (1) Femoral fracture: Status: Acute DS: Summary Hospital Course Hospital Course: Chief Complaint: Fall and right hip pain 71 year old male with ? Epilepsy-- has not had seizures in years, hypertension.? Patient was in the gym this morning and was handling weight when he lost footing and fell, he is clear that there was no siezure, no dizziness, no chest pain, no sob. He was having pain in thr right hip and an xray has confirmed a right hip fracture. He suffered no head injury Hospital course: Patient Underwent operative field prepared the same day by Dr. Matthews and is doing well postoperatively. His has been evaluated by Physical therapy and advised to go to short-term rehab which the patient is agreeable to. He will be on oxycodone for pain control and Lovenox for DVT prophylaxis for a total of 6 weeks. He is to continue home meds for seizure desorder and HTN--Toprol XL is being increased to 50 from 25 for optimal blood pressure control. To short term rehab for less than 30 days Time Spent with Patient Time attestation: Total time spent providing and/or coordinating discharge services: Discharge coordination time: Greater than 30 minutes Quality: Stroke Does the patient have a stroke diagnosis?: No Physical Exam Vital Signs: Vital Signs: Last Vital Signs Temp 97.8 F 06/26/21 07:37 Pulse 74 06/26/21 08:19 Resp 16 06/26/21 07:37 BP 185/77 H 06/26/21 07:37 Pulse Ox 98 06/26/21 08:19 Body Mass Index 20.3 DS: Data Data Completed and Pending Labs on day of discharge: Laboratory Results - last 24 hr 06/26/21 06/26/21 04:24 04:24 WBC 6.4 RBC 3.51 L Hgb 11.8 L Hct 34.3 L MCV 97.7 MCH 33.6 H MCHC 34.4 RDW 12.9 Plt Count 151 L MPV 10.4 Immature Gran % (Auto) 0.5 H Neut % (Auto) 70.8 Lymph % (Auto) 15.7 L [place] % (Auto) 11.6 H Eos % (Auto) 1.1 Baso % (Auto) 0.3 Lymph # (Auto) 1.0 L [place] # (Auto) 0.7 Eos # (Auto) 0.1 Baso # (Auto) 0.0 Abs Immat Gran (auto) 0.03 Absolute Neuts (auto) 4.5 Absolute Nucleated RBC 0.000 Nucleated RBC % (auto) 0.0 Sodium 137 Potassium 4.1 Chloride 102 Carbon Dioxide 24 Anion Gap 15 BUN 19 H Creatinine 0.83 Estim Creat Clear Calc 64.0 Estimated GFR > 60 Random Glucose 110 Calcium 8.2 L Discharge Plan Discharge Anticipated Discharge Date/Time: 06/26/21 11:02 Patient Disposition: Xfer SNF Discharge Diagnosis: Hip fracture Referrals: [facility] [Outside] - 1 Day ([facility]- [phone] FOR SHORT TERM REHAB [address] [place] [id number] [facility] FOR TRANSPORTATION) Hiral Inman PA-C [Physician Manager Filter] - 2 Weeks (07/07/21 at 10:15) Po,Ye Chaparro MD [Primary Care Provider] - 1 Week Discharge Medications: New enoxaparin 40 mg/0.4 mL Syringe 40 mg subcut Q24H 42 Days Qty: 16.8 RF: 0 oxycodone 5 mg tablet 5 mg PO Q6H PRN (Reason: pain (scale score 7-10)) Qty: 14 RF: 0 docusate sodium [Colace] 100 mg capsule 100 mg PO BID Qty: 60 RF: 0 metoprolol succinate [Toprol XL] 50 mg tablet extended release 24 hr 50 mg PO DAILY Qty: 30 RF: 0 Continued amlodipine 10 mg tablet 10 mg PO DAILY Qty: 90 RF: 2 phenytoin sodium extended 100 mg capsule 300 mg PO DAILY 90 Days Qty: 270 RF: 2 vitamin A 10,000 unit Capsule 0 unit PO DAILY RF: 0 cyanocobalamin (vitamin B-12) 250 mcg Tablet 0 mcg PO DAILY RF: 0 ascorbic acid (vitamin C) 1,000 mg tablet 1 g PO DAILY RF: 0 ferrous sulfate [Feosol] 325 mg (65 mg iron) tablet 325 mg PO DAILY RF: 0 magnesium oxide 400 mg magnesium tablet 400 mg PO DAILY RF: 0 vitamin B complex Tablet 1 tab PO DAILY RF: 0 fexofenadine 180 mg tablet 180 mg PO DAILY RF: 0 Discontinued metoprolol succinate 25 mg tablet extended release 24 hr 25 mg PO DAILY Qty: 90 RF: 2 Discharge Orders: Discharge Order (Routine); Ordered 06/26/21 Ordered By: Kenneth Lewis Diet: advance to usual diet Activity on Discharge: As tolerated Stand Alone Forms: Patient Portal Discharge page Care Plan Goals: Gait training, strengthening, ADLs Continue lovenox x6 weeks Keep dressing clean,dry and intact-no showering or tub baths Follow up with Orthopedics in 2 weeks Health Concerns: See above Plan of Treatment: to short term rehab for less than 30 days Assessment: as above Discharge Date/Time: 06/26/21 15:40
--- NOTE | 2021-06-26 11:13 | HO.PM.IMPN ---
Subjective Subjective Date of Service: 06/26/21 Interval History: f/u on hip fracture, POD2, did ok with PT, pain is better Review of Systems no fever no hip pain Physical Exam Vital Signs: Vital Signs: Last Vital Signs Temp 97.8 F 06/26/21 07:37 Pulse 74 06/26/21 08:19 Resp 16 06/26/21 07:37 BP 185/77 H 06/26/21 07:37 Pulse Ox 98 06/26/21 08:19 Body Mass Index 20.3 Const: Other: General: AO X 3, no acute distress Resp: CTA bilateral CVS: S1,S2,RRR GI: +BS, NT, no distention Skin: No rash, wound d/c/i Neuro: motor grossly intact Psych: appropriate affect Objective Data Active Medications Acetaminophen (Acetaminophen 325 Mg Tablet) 650 mg PO Q6H PRN PRN Reason: Pain, Mild (Pain Scale 1-3) Last Admin: 06/25/21 08:38 Dose: 650 mg Documented by: RICK Amlodipine Besylate (Amlodipine Besylate 10 Mg Tablet) 10 mg PO DAILY [facility]; Protocol Last Admin: 06/26/21 08:37 Dose: 10 mg Documented by: JUWAN Enoxaparin Sodium (Enoxaparin Sodium 40 Mg/0.4 Ml Syringe) 40 mg SUBCUT Q24H [facility] Last Admin: 06/25/21 15:11 Dose: 40 mg Documented by: PIYUSH Fentanyl (Fentanyl Citrate/Pf 100 Mcg/2 Ml Vial) 25 mcg IVPUSH Q5M PRN; Protocol PRN Reason: Pain, Moderate (Pain Scale 4-6 Ferrous Sulfate (Ferrous Sulfate 324 Mg Tablet.) 324 mg PO DAILY [facility] Last Admin: 06/26/21 08:36 Dose: 324 mg Documented by: JUWAN Hydromorphone HCl (Hydromorphone Hcl 0.5 Mg/0.5 Ml Syringe) 0.5 mg IVPUSH Q5M PRN; Protocol PRN Reason: Pain, Severe (Pain Scale 7-10) Promethazine HCl 12.5 mg/ (Sodium Chloride) 50.5 mls @ 202 mls/hr IV ONCE PRN PRN Reason: Nausea and Vomiting Cefazolin Sodium/Dextrose (Ancef) 2 gm in 50 mls @ 100 mls/hr IV POSTOP [facility] Last Infusion: 06/24/21 01:28 Dose: 0 mls/hr Documented by: DOMINIQUE Loratadine (Loratadine 10 Mg Tablet) 10 mg PO DAILY [facility] Last Admin: 06/26/21 08:37 Dose: 10 mg Documented by: JUWAN Magnesium Oxide (Magnesium Oxide 400 Mg Tablet) 400 mg PO DAILY [facility] Last Admin: 06/26/21 08:37 Dose: 400 mg Documented by: JUWAN Metoprolol Succinate (Metoprolol Succinate Er 25 Mg Tab.Er.24h) 25 mg PO DAILY [facility]; Protocol Last Admin: 06/26/21 08:36 Dose: 25 mg Documented by: JUWAN Morphine Sulfate (Morphine Sulfate 2 Mg/Ml Cartridge) 2 mg IVPUSH Q6H PRN; Protocol PRN Reason: Pain, Severe (Pain Scale 7-10) Last Admin: 06/26/21 08:36 Dose: 2 mg Documented by: JUWAN Multivitamins/Vitamin C (Multivitamin Tablet) 1 tab PO DAILY [facility] Last Admin: 06/26/21 08:36 Dose: 1 tab Documented by: JUWAN Pharmacy Consult (Consult Rx Perform Med Rec) 1 each MISCELLANE ONCE PRN PRN Reason: Consult order Phenytoin Sodium (Phenytoin Sodium Extended 100 Mg Capsule) 300 mg PO DAILY [facility] Last Admin: 06/26/21 08:37 Dose: 300 mg Documented by: JUWAN Sodium Chloride (0.9 % Sodium Chloride Flush 3 Ml Syringe) 3 ml IVFLUSH QSHIFT [facility] Last Admin: 06/26/21 08:37 Dose: 3 ml Documented by: JUWAN Labs CBC & Chem 7: 06/26/21 04:24 06/26/21 04:24 Labs: Laboratory Results - last 24 hr 06/26/21 06/26/21 04:24 04:24 MCV 97.7 MCH 33.6 H MCHC 34.4 RDW 12.9 Plt Count 151 L MPV 10.4 Immature Gran % (Auto) 0.5 H Neut % (Auto) 70.8 Lymph % (Auto) 15.7 L [place] % (Auto) 11.6 H Eos % (Auto) 1.1 Baso % (Auto) 0.3 Lymph # (Auto) 1.0 L [place] # (Auto) 0.7 Eos # (Auto) 0.1 Baso # (Auto) 0.0 Abs Immat Gran (auto) 0.03 Absolute Neuts (auto) 4.5 Absolute Nucleated RBC 0.000 Nucleated RBC % (auto) 0.0 Anion Gap 15 Estim Creat Clear Calc 64.0 Estimated GFR > 60 Random Glucose 110 Calcium 8.2 L Assessment and Plan (1) Femoral fracture: Status: Acute Assessment and Plan: 71 year old male with HTN, seizure desorder here with mechanical fall resulting in right hip fracture, 1/ Hip fracture due to mechanical fall-- s/p operative repair 06/23, doing well -pain management, PT/OT, lovenox for DVT prophylaxis--will likely need rehab, CM aware 2/ HTN--continue Norvasc 10 daily, Toprolol 25 daily (increase to 50) for optimal BP control 3/Seizure d/o--continue Dilantin, no seizure 4/B12 deficiency--oral replacement. Lovenox for DVT prophylaxis Quality Stroke Does the patient have a stroke diagnosis?: No VTE Prior VTE?: No VTE Risk Level:: Medical - moderate - high VTE Device Contraindication: Patient Refused VTE Drug Contraindication: N/A - Med Ordered
[2021-06-26 11:29] VITALS: BP 153/65; PULSE 69; RESP 16; TEMP 36.4; O2SAT 98
--- NOTE | 2021-06-26 13:23 | MHC.CM.PN ---
NURSE CONTRACTOR GENERAL ENGINEERING NOTE PATIENT ACCEPTED AT ALL FACILITIES FIRST [facility] WOULD BE [facility] AND [facility] ACCEPTED BY BOTH. CALLED AND SPOKE WITH COLE DIEHL AT [facility] SHE WILL BE ACCEPTING PATIENT ACTION WHEELCHA[employer] [facility]AN TRANSPORT CONFIRMED WITH PATIENTS PHARMACY [facility] [address] [place] [phone] CONFIMED WITH THE PHARMACIST PATIENT RECIVED HIS FIRST MODERNA VACCINE 09/27/20 2ND 10/15/20 AND BOOSTER 05/22/21 PATIENT HAS HCP PREPARED BY PUNCH PRESS OPERATOR AT HOME , HE FEELS COMFORTABLE HAVING HIS FRIEND GO AND PICK IT UP AND BRING TO [facility] INFORMED HOSPITALIST , STAFF NRUSER AND GREASER OPERATOR OF THE DISCHARGED
[2021-06-26 14:09] LABS: COVID-19 Test Negative (Negative)
[2021-06-26 14:16] VITALS: BMI 20.3
[2021-06-26] MEDS: Enoxaparin Sodium 40 MG/0.4 ML SYRINGE SUBCUT (15:25)
== END 2021-06-26 15:40 | disposition skilled nursing facility (03) | DRG 482 ==
LOC: HO.ED 09:33 → HO.EDOVER 11:29 → HO.S3 18:41
PROVIDERS: Orthopaedic Surgery; Physician Assistant; Admitting Provider Internal Medicine; Emergency Provider Emergency Medicine; PCP Internal Medicine; Visit Provider Internal Medicine
PROC: 0QS636Z Reposition Right Upper Femur with Intramedullary Internal Fixation Device, Percutaneous Approach (ICD-10-PCS; principal; 2021-06-23 19:00)
DX: S72.91XA Unspecified fracture of right femur, initial encounter for closed fracture (principal); W18.30XA Fall on same level, unspecified, initial encounter; Y93.B9 Activity, other involving muscle strengthening exercises; Y92.9 Unspecified place or not applicable; G40.909 Epilepsy, unspecified, not intractable, without status epilepticus; E53.8 Deficiency of other specified B group vitamins; Z20.822 Contact with and (suspected) exposure to COVID-19; Z79.899 Other long term (current) drug therapy
CPT/HCPCS: 36415; 70450; 71250; 73502; 80048; 85025; 85610; 85730; 87635; 93005; 97110; 97116; 97162; 97166; 99285; C1713; C1769; J0131; J0690; J1100; J1650; J2250; J2270; J2405; J3010

== ENCOUNTER 2021-07-07 08:42 | Outpatient (REF) | payer MEDICARE, SELFPAY ==
--- NOTE | ~2021-07-07 | XR_ITS ---
EXAMINATION: XR PELVIS. XR HIP, RIGHT. CLINICAL INFORMATION: Pain, fracture fixation. COMPARISON: 06/23/2021 TECHNIQUE: AP radiograph of the pelvis. AP and crosstable lateral views of the right hip. FINDINGS: Surgical fixation of the right hip intertrochanteric fracture is in near-anatomic alignment. Skin varghese overlie the operative site. No sign of complication. XR/XR hip RT min 2V IMPRESSION: Standard postoperative appearance of the right hip fracture fixation.
--- NOTE | ~2021-07-07 | XR_ITS ---
EXAMINATION: XR PELVIS. XR HIP, RIGHT. CLINICAL INFORMATION: Pain, fracture fixation. COMPARISON: 06/23/2021 TECHNIQUE: AP radiograph of the pelvis. AP and crosstable lateral views of the right hip. FINDINGS: Surgical fixation of the right hip intertrochanteric fracture is in near-anatomic alignment. Skin varghese overlie the operative site. No sign of complication. XR/XR pelvis 1-2V IMPRESSION: Standard postoperative appearance of the right hip fracture fixation.
== END 2021-07-07 08:43 | disposition home or self-care (01) ==
LOC: HO.HOSX 08:42
PROVIDERS: Visit Provider Orthopaedic Surgery
DX: S72.91XD Unspecified fracture of right femur, subsequent encounter for closed fracture with routine healing (principal)
CPT/HCPCS: 72170; 73502; 99212

== ENCOUNTER 2021-07-10 00:15 | Outpatient (REF) | payer SELFPAY | END 2021-07-10 00:16 | disposition home or self-care (01) | LOC: HO.MMNH1L 00:15 | PROVIDERS: Visit Provider Family Medicine | DX: Z13.89 Encounter for screening for other disorder (principal) ==

== ENCOUNTER → 2021-08-04 08:57 | Outpatient (BNVA) | payer MEDICARE, SELFPAY | PROVIDERS: Visit Provider Orthopaedic Surgery | DX: S72.91XD Unspecified fracture of right femur, subsequent encounter for closed fracture with routine healing (principal); Z98.890 Other specified postprocedural states | CPT/HCPCS: 99212 ==

== ENCOUNTER 2021-11-02 08:51 | Outpatient (REF) | payer MEDICARE, SELFPAY ==
--- NOTE | ~2021-11-02 | XR_ITS ---
EXAMINATION: XR HAND AND WRIST, RIGHT CLINICAL INFORMATION: Pain. COMPARISON: None TECHNIQUE: 4 views of the right hand and wrist. FINDINGS: There is calcification of the triangular fibrocartilage. There is some degenerative narrowing with spurring about the triscaphe joint and mild spurring about the 1st carpometacarpal joint. There is some mild degenerative narrowing and spurring about the 2nd distal interphalangeal joint. No suspicious erosive changes are appreciated. There is soft tissue swelling seen overlying the dorsum of the wrist. There appears to be some spurring about the dorsum of the wrist in the proximal carpal row. I cannot tell if some of this may be related to a triquetral fracture and clinical correlation with trauma is suggested. XR/XR hand wrist RT IMPRESSION: Soft tissue swelling about the dorsum of the wrist. Degenerative change about the triscaphe joint and 1st carpometacarpal joint. Triangular cartilage calcification. Some irregularity which may be related to spurring seen on lateral view of the proximal carpal row. I cannot rule out a triquetral dorsal avulsion fracture on this study. Clinical correlation suggested.
[2021-11-02 09:18] LABS: MANUAL DIFF FLAG NO
[2021-11-02 09:45] LABS: Basophils Percent Auto 0.6 % (0-2); Eosinophils Absolute Auto 0.1 X10*3/uL (0.0-0.4); Hematocrit 44.2 % (42.0-52.0); Hemoglobin 14.7 g/dl (14.0-18.0); Imm Gran Abs Auto 0.01 X10*3/uL (0.00-0.03); Imm Gran Pct Auto 0.2 % (0.0-0.4); Lymphocytes Absolute Auto 0.9 X10*3/uL (1.2-4.9); Lymphocytes Percent Auto 17.8 % (20-40); Mean Corpuscular HGB Conc 33.3 g/dl (31.0-36.0); Mean Corpuscular Hemoglobin 32.4 pg (27.0-33.0); Mean Corpuscular Volume 97.4 fL (80.0-98.0); Mean Platelet Volume 9.8 fL (9.4-12.4); Monocytes Absolute Auto 0.4 X10*3/uL (0.1-1.2); Monocytes Percent Auto 8.2 % (2-11); Neutrophils Absolute Auto 3.5 x10*3/uL (2.0-8.3); Neutrophils Percent Auto 71.2 % (45-73); Platelet Count 271 X10*3/uL (160-400); Red Blood Count 4.54 X10*6/uL (4.60-5.80); Red Cell Distribution Width 12.1 % (11.0-16.0); White Blood Count 4.9 X10*3/uL (4.8-10.8)
[2021-11-02 10:25] LABS: Alanine Aminotransferase 27 U/L (0-40); Albumin Level 4.1 g/dL (3.5-5.0); Alkaline Phosphatase 170 U/L (39-117); Anion Gap 15 (12-20); Aspartate Amino Transferase 27 U/L (5-37); Bilirubin Total 0.5 mg/dL (0.0-1.0); Blood Urea Nitrogen 22 mg/dL (9-16); Calcium 9.1 mg/dL (8.4-10.2); Carbon Dioxide 27 mmol/L (22-29); Chloride 102 mmol/L (96-108); Estimated Glomerular Filt Rate > 60; Glucose Random 111 mg/dL (60-115); Potassium 4.6 mmol/L (3.3-5.1); Sodium 139 mmol/L (135-145); Total Protein 7.1 g/dL (6.5-8.0); Uric Acid 5.8 mg/dL (3.4-7.0)
[2021-11-08 14:06] LABS: Vitamin D 25-OH, D2 <4 ng/mL; Vitamin D 25-OH, D3 20 ng/mL; Vitamin D 25-OH, Total 20 ng/mL (30-100)
== END 2021-11-02 08:52 | disposition home or self-care (01) ==
LOC: HO.XRAY 08:51
PROVIDERS: PCP Internal Medicine; Visit Provider Nurse Practitioner Acute Care
DX: M25.531 Pain in right wrist (principal)
CPT/HCPCS: 36415; 73110; 73130; 80053; 82306; 84550; 85025

== ENCOUNTER 2021-11-16 09:12 | Outpatient (REF) | payer MEDICARE, SELFPAY ==
[2021-11-16 10:05] LABS: Appearance Urine CLEAR; Color Urine YELLOW; Glucose Urine UA NEG (NEG); Leukocyte Esterase Urine NEG (NEG); Nitrite Urine NEG (NEG); Specific Gravity - Urine <= 1.005 (1.005-1.025); UACC Culture Trigger NO; Urine Blood TRACE (NEG); Urine Ketones NEG (NEG); Urine Protein NEG (NEG-TRACE)
[2021-11-16 10:22] LABS: RBC Urine 0-2 /HPF (0); WBC Urine 0 /HPF (0-4)
== END 2021-11-16 09:13 | disposition home or self-care (01) ==
LOC: HO.LAB 09:12
PROVIDERS: PCP Internal Medicine; Visit Provider Nurse Practitioner Family
DX: R39.15 Urgency of urination (principal)
CPT/HCPCS: 81001; 81003

== ENCOUNTER 2021-11-28 10:44 | Outpatient (REF) | payer MEDICARE, SELFPAY ==
--- NOTE | ~2021-11-28 | XR_ITS ---
EXAMINATION: XR HAND, RIGHT CLINICAL INFORMATION: Pain. COMPARISON: None TECHNIQUE: PA, lateral, and oblique views of the right hand. FINDINGS: There is loss of PIP and DIP joint space with periarticular spurring. No visible acute fracture, dislocation or subluxation seen. There is calcification of TFC. There is diffuse osteopenia. XR/XR hand RT min 3V IMPRESSION: Mild degenerative changes right hand. No visible acute fracture or dislocation. Diffuse osteopenia.
== END 2021-11-28 10:45 | disposition home or self-care (01) ==
LOC: HO.HOSX 10:44
PROVIDERS: PCP Internal Medicine; Visit Provider Orthopaedic Surgery
DX: M79.641 Pain in right hand (principal); M25.531 Pain in right wrist; R20.0 Anesthesia of skin; R20.2 Paresthesia of skin
CPT/HCPCS: 73130; 99202

== ENCOUNTER 2021-11-29 07:26 | Outpatient (REF) | payer MEDICARE, SELFPAY ==
[2021-11-29 08:12] LABS: Appearance Urine CLEAR; Color Urine YELLOW; Glucose Urine UA NEG (NEG); Leukocyte Esterase Urine NEG (NEG); Nitrite Urine NEG (NEG); PH 6.5 (5.0-8.0); Specific Gravity - Urine 1.015 (1.005-1.025); Urine Blood NEG (NEG); Urine Ketones NEG (NEG); Urine Protein NEG (NEG-TRACE)
== END 2021-11-29 07:27 | disposition home or self-care (01) ==
LOC: HO.LAB 07:26
PROVIDERS: PCP Internal Medicine; Visit Provider Nurse Practitioner Family
DX: R31.9 Hematuria, unspecified (principal)
CPT/HCPCS: 81003

== ENCOUNTER 2022-02-22 08:33 | Outpatient (REF) | payer MEDICARE, SELFPAY ==
--- NOTE | 2022-02-22 08:36 | EMG_ITS ---
Bilateral median and ulnar motor and sensory studies were performed, bilateral radial sensory studies were performed, and paraspinal muscles were tested with a needle. IMPRESSION: 1. [id number] bilateral median neuropathy across carpal tunnel. 2. Mild bilateral ulnar neuropathy across cubital tunnel. MD LENNY Echavarria/DYLONL / [id number]
== END 2022-02-22 08:34 | disposition home or self-care (01) ==
LOC: HO.NEURO 08:33
PROVIDERS: Visit Provider Internal Medicine
DX: R20.0 Anesthesia of skin (principal)
CPT/HCPCS: 95886; 95911

== ENCOUNTER 2022-05-26 07:03 | Outpatient (REF) | payer MEDICARE, SELFPAY ==
[2022-05-26 08:43] LABS: Anion Gap 15 (12-20); Blood Urea Nitrogen 20 mg/dL (9-16); Calcium 8.9 mg/dL (8.4-10.2); Carbon Dioxide 27 mmol/L (22-29); Chloride 105 mmol/L (96-108); Estimated Glomerular Filt Rate > 60; Glucose Fasting 94 mg/dL (60-99); Potassium 4.4 mmol/L (3.3-5.1); Sodium 143 mmol/L (135-145)
[2022-05-26 09:06] LABS: Prostate Specific Antigen 2.27 ng/mL (<0.05-4.0)
== END 2022-05-26 07:04 | disposition home or self-care (01) ==
LOC: HO.LAB 07:03
PROVIDERS: PCP Internal Medicine; Visit Provider Nurse Practitioner Family
DX: Z13.1 Encounter for screening for diabetes mellitus (principal); Z12.5 Encounter for screening for malignant neoplasm of prostate
CPT/HCPCS: 36415; 80048; 84153

== ENCOUNTER 2022-06-06 08:06 | Outpatient (REF) | payer MEDICARE, SELFPAY ==
--- NOTE | ~2022-06-06 | MM_ITS ---
EXAMINATION: BONE DENSITOMETRY CLINICAL INDICATION: Age-related osteoporosis without current pathological fracture. COMPARISON: This is the patient's baseline examination. TECHNIQUE: Using a [employer] DXA System (software version: 13.1) manufactured by [email or web address], dual-energy x-ray absorptiometry was performed of the lumbar spine and left hip. The images are of good technical quality. Summary results are attached. FINDINGS: AP SPINE L1-L4: BMD 0.800 g/cm2, Z-score -2.0, T-score -3.5, osteoporosis. LEFT FEMUR, NECK: BMD 0.598 g/cm2, Z-score -1.7, T-score -3.6, osteoporosis. LEFT FEMUR, TOTAL: BMD 0.655 g/cm2, Z-score -1.8, T-score -3.1, osteoporosis. IDENTIFIED RISK FACTORS: History of adult fracture. Recurrent falls. Low body weight. HISTORY OF FRACTURE: Femur/hip. MEDICATIONS: Vitamin D. MM/XR DEXA axial skeleton IMPRESSION: 1. DIAGNOSIS: Severe osteoporosis based on the lowest T-score value of -3.6 in the femoral neck and the prior history of fracture applying World Health Organization criteria. 2. 10-YEAR FRACTURE RISK PREDICTION, FRAX: According to the guidelines, FRAX calculation should only be performed on patients in the osteopenia bone density category.?Therefore, FRAX was not performed on this patient.? 3. Treatment Recommendations: NOF guidelines recommend consideration for treatment in postmenopausal women and men age 50 and older presenting with the following: -A hip or vertebral (clinical or morphometric) fracture. -T-score less than or equal to -2.5 at the femoral neck or spine after appropriate evaluation to exclude secondary causes. -Low bone mass at the hip or spine and a 10-year fracture probability by FRAX of greater than or equal to 3% for hip fracture or greater than or equal to 20% for major osteoporotic fracture based on the [place] adapted WHO algorithm. 4. Other Recommendations: All treatment decisions require clinical judgment and consideration of individual patient factors, including patient preferences, comorbidities, previous drug use, risk factors not captured in the FRAX model (e.g. frailty, falls, vitamin D deficiency, increased bone turnover, interval significant decline in bone density) and possible under or overestimation of fracture risk by FRAX. Additional medical evaluation for secondary cause of low bone mineral density may be appropriate. FUTURE SCAN RECOMMENDATION: People with diagnosed cases of osteoporosis or at high risk for fracture should have regular bone mineral density tests. For patients eligible for Medicare, routine testing is allowed once every 2 years. The testing frequency can be increased to one year for patients who have rapidly progressing disease, those who are receiving or discontinuing medical therapy to restore bone mass, or have additional risk factors.
== END 2022-06-06 08:07 | disposition home or self-care (01) ==
LOC: HO.MAMMO 08:06
PROVIDERS: PCP Internal Medicine; Visit Provider Internal Medicine
DX: M81.0 Age-related osteoporosis without current pathological fracture (principal)
CPT/HCPCS: 77080

== ENCOUNTER 2022-06-08 09:53 | Outpatient (REF) | payer MEDICARE, SELFPAY ==
[2022-06-11 17:27] LABS: Calcium (PTHI) 9.2 mg/dL (8.6-10.3); PTHI 69 pg/mL (16-77)
[2022-06-15 05:28] LABS: Testosterone, Total 478 ng/dL (250-1100)
[2022-06-17 13:46] LABS: Creatinine Random Urine 72 mg/dL (20-320); Metanephrine, Free Rand Ur 362 mcg/g cr (21-153); Normetanephrine, Free Rand Ur 977 mcg/g cr (108-524); Total Metanephrine, Free RU 1339 mcg/g cr (149-603)
== END 2022-06-08 09:54 | disposition home or self-care (01) ==
LOC: HO.LAB 09:53
PROVIDERS: PCP Internal Medicine; Visit Provider Internal Medicine
DX: I10 Essential (primary) hypertension (principal); M80.851A Other osteoporosis with current pathological fracture, right femur, initial encounter for fracture
CPT/HCPCS: 36415; 83835; 83970; 84402; 84403

== ENCOUNTER 2022-06-11 12:23 | Outpatient (REF) | payer MEDICARE, SELFPAY ==
[2022-06-17 13:52] LABS: Metanephrine, Free 93 pg/mL (<=57); Normetanephrines, Free 405 pg/mL (<=148); Total Metanephrine, Free 498 pg/mL (<=205)
== END 2022-06-11 12:24 | disposition home or self-care (01) ==
LOC: HO.LAB 12:23
PROVIDERS: Visit Provider Internal Medicine
DX: I10 Essential (primary) hypertension (principal)
CPT/HCPCS: 36415; 83835

== ENCOUNTER → 2022-06-19 08:31 | Outpatient (BNVA) | payer MEDICARE, SELFPAY | PROVIDERS: PCP Internal Medicine; Visit Provider Internal Medicine Endocrinology, Diabetes & Metabolism | DX: I10 Essential (primary) hypertension (principal) | CPT/HCPCS: 36415; 82384; 99202 ==

== ENCOUNTER 2022-06-19 09:29 | Outpatient (REF) | payer MEDICARE, SELFPAY ==
[2022-07-04 12:33] LABS: Catecholamine Frac, Total 1747 pg/mL
== END 2022-06-19 09:30 | disposition home or self-care (01) ==
LOC: HO.10HDL 09:29
PROVIDERS: Visit Provider Internal Medicine Endocrinology, Diabetes & Metabolism
DX: Z13.89 Encounter for screening for other disorder (principal)
CPT/HCPCS: 36415; 82384

== ENCOUNTER 2022-06-22 07:56 | Outpatient (REF) | payer MEDICARE, SELFPAY ==
[2022-06-22 08:58] LABS: Creatinine, 24Hr Urine 1.2 G/Day (1.0-2.0); Creatinine, mg/dL 99.14; Total Volume 24 Hour Urine 1250 mL
[2022-06-27 14:58] LABS: Metanephrine, Free 24U 269 mcg/24 h (90-315); Normetanephrine, Free 24U 602 mcg/24 h (122-676); Total Metanephrine, Free 24U 871 mcg/24 h (224-832); Total Volume 24U 1250 mL
== END 2022-06-22 07:57 | disposition home or self-care (01) ==
LOC: HO.LNP 07:56
PROVIDERS: Visit Provider Internal Medicine Endocrinology, Diabetes & Metabolism
DX: I10 Essential (primary) hypertension (principal)
CPT/HCPCS: 82570; 83835

== ENCOUNTER 2022-07-05 06:50 | Outpatient (REF) | payer MEDICARE, SELFPAY ==
--- NOTE | ~2022-07-05 | CT_ITS ---
EXAMINATION: CT CHEST WITH CONTRAST CT ABDOMEN AND PELVIS WITH CONTRAST CLINICAL INFORMATION: Essential hypertension. Rule out pheochromocytoma. COMPARISON: 06/23/2021 TECHNIQUE: Multidetector volumetric imaging was performed through the chest, abdomen and pelvis following the administration of oral and 85 mL of Omnipaque 350 intravenous contrast. Sagittal and coronal reformatted images were obtained on the technologist's workstation. Axial MIP volume rendering provided. This CT examination was performed using dose optimization techniques as appropriate, variously including the following: *Automated exposure control *Adjustment of mA and/or kV according to patient size (this includes techniques or standardized protocols for targeted exams where dose is matched to indication/reason for exam; i.e. extremities or head) *Use of iterative reconstruction technique DLP: 265 mGy-cm. FINDINGS: CHEST: Lungs: Minimal secretions noted in the trachea. The central airways are otherwise patent. Bibasilar atelectasis/scarring. Mild paraseptal and centrilobular emphysema which is greatest at the apices. No dense consolidation. No pleural effusion or pneumothorax. Mediastinum: Mildly enlarged heart. No pericardial effusion. No mediastinal lymphadenopathy. Redemonstration of a thyroid goiter with the left lobe extending inferiorly into the anterior superior mediastinum. There is a prominent heterogeneous low-attenuation nodule measuring 3.8 cm again noted. Separately more inferiorly in the anterior mediastinum there is a cystic lesion measuring 3.9 x 2.7 x 4.9 cm. This is unchanged from the prior study and could be a pericardial cyst. There is no enhancing mass. Coronary Artery Calcification: Mild. Chest Wall/Axilla: No lymphadenopathy. No chest wall mass. ABDOMEN/PELVIS: Liver, Gallbladder, Biliary Tree: The liver is normal in size, shape, and attenuation. No focal hepatic lesion or biliary ductal dilatation is present. The gallbladder is unremarkable with no evidence of radiopaque gallstones, gallbladder wall thickening, or pericholecystic inflammatory changes. Pancreas: Unremarkable. Spleen: Unremarkable. Adrenal Glands: Unremarkable. Kidneys and Ureters: The kidneys are normal in size, shape, and attenuation. No hydronephrosis, hydroureter or calculi seen. No perinephric stranding. Simple bilateral renal cysts for which no specific follow-up is recommended. Bladder: Unremarkable. Gastrointestinal Tract: The stomach is unremarkable. Normal caliber small bowel. No obstruction. No colonic wall thickening or inflammation. Large diffuse colonic stool burden. Portions of the colon extend to the entry point of bilateral inguinal hernias. The appendix is unremarkable. Abdominal Wall: Bilateral inguinal hernias are noted with portions of the colon extending to the entry points, particularly on the right. Lymphovascular Structures: Lymph nodes: Normal. Vascular: Normal caliber aorta with moderate atherosclerotic calcification. Pelvic Viscera: The prostate and seminal vesicles are unremarkable. OSSEOUS STRUCTURES: No acute or suspicious osseous abnormality. Mild degenerative change throughout the spine. Chronic appearing mild compression deformity involving the T4 vertebral body, which is somewhat progressed from the [address]/CT abdomen pelvis w IV con IMPRESSION: 1. No suspicious findings in the chest, abdomen, or pelvis. 2. Redemonstration of thyroid goiter with the left lobe extending into the anterior superior mediastinum. There is a heterogeneous low-attenuation nodule measuring 3.8 cm. Not performed elsewhere, this can be further evaluated with thyroid ultrasound. 3. Unchanged cystic lesion in the anterior mediastinum which could be a pericardial cyst. 4. Large colonic stool burden. Portions of the colon extend to the entry point of bilateral inguinal hernias, particularly on the right. 5. Chronic appearing mild compression deformity of the T4 vertebral body, which is somewhat progressed from the 2020 study.
[2022-07-05 07:17] LABS: Blood Urea Nitrogen 20 mg/dL (9-16); Estimated Glomerular Filt Rate > 60
[2022-07-05] MEDS: iohexoL 350 MG/ML 100 ML INFUS..BTL IV (09:03)
[2022-07-05 10:41] LABS: Appearance Urine Turbid; Color Urine Yellow; Glucose Urine UA Negative (Negative); Leukocyte Esterase Urine Trace (Negative); Nitrite Urine Negative (Negative); PH >= 9.0 (5.0-9.0); UMIC TRIGGER UACC YES; Urine Blood Negative (Negative); Urine Ketones Negative (Negative); Urine Protein Negative (Neg-Trace)
[2022-07-05 10:51] LABS: Bacteria Urine None Seen (None Seen); Hyaline Casts Urine 0-2 /LPF (0-2); Squamous Epithelial Cell Urine 0-2 /HPF (0-2); WBC Urine 0-5 /HPF (0-5)
[2022-07-11 14:07] LABS: Metanephrine, Free 108 pg/mL (<=57); Normetanephrines, Free 436 pg/mL (<=148); Total Metanephrine, Free 544 pg/mL (<=205)
== END 2022-07-05 06:51 | disposition home or self-care (01) ==
LOC: HO.CT 06:50
PROVIDERS: Nurse Practitioner Family; PCP Internal Medicine; Visit Provider Internal Medicine Endocrinology, Diabetes & Metabolism
DX: D35.00 Benign neoplasm of unspecified adrenal gland (principal); I10 Essential (primary) hypertension
CPT/HCPCS: 36415; 71260; 74177; 81001; 82565; 83835; 84520; Q9967

== ENCOUNTER 2022-07-27 07:52 | Outpatient (REF) | payer MEDICARE, SELFPAY ==
--- NOTE | ~2022-07-27 | US_ITS ---
EXAMINATION: ULTRASOUND OF KIDNEYS WITH RENAL ARTERY DOPPLER CLINICAL INFORMATION: Hypertension. COMPARISON: CT abdomen pelvis on 07/05/2022. TECHNIQUE: Ultrasound of the kidneys was performed along with color flow Doppler imaging and velocity measurements in the proximal mid and distal renal arteries. Aortic velocities were measured and renal/aortic ratios were calculated. FINDINGS: The kidneys appeared normal with the right kidney measuring 13.2 cm and the left kidney measuring 11.5 cm. Bilateral simple renal cysts do not require follow-up. No renal masses, renal stones or hydronephrosis is seen. Renal cortical thickness appears normal. Velocity measurements in the proximal mid and distal renal arteries are normal aside from the mid right renal artery and the proximal left renal artery which were not visualized. Velocity in the aorta is normal and, therefore, the renal aortic ratios are normal.. T Interlobar resistive indices of the right kidney measure greater than 0.80. Interlobar resistive indices of the left kidney measure less than 0.80. he bladder appeared unremarkable. US/US renal BI IMPRESSION: 1. No evidence to suggest renal artery stenosis. 2. Elevated resistive indices of the bilateral kidneys can be seen with medical renal disease. .
--- NOTE | ~2022-07-27 | US_ITS ---
EXAMINATION: ULTRASOUND OF KIDNEYS WITH RENAL ARTERY DOPPLER CLINICAL INFORMATION: Hypertension. COMPARISON: CT abdomen pelvis on 07/05/2022. TECHNIQUE: Ultrasound of the kidneys was performed along with color flow Doppler imaging and velocity measurements in the proximal mid and distal renal arteries. Aortic velocities were measured and renal/aortic ratios were calculated. FINDINGS: The kidneys appeared normal with the right kidney measuring 13.2 cm and the left kidney measuring 11.5 cm. Bilateral simple renal cysts do not require follow-up. No renal masses, renal stones or hydronephrosis is seen. Renal cortical thickness appears normal. Velocity measurements in the proximal mid and distal renal arteries are normal aside from the mid right renal artery and the proximal left renal artery which were not visualized. Velocity in the aorta is normal and, therefore, the renal aortic ratios are normal.. T Interlobar resistive indices of the right kidney measure greater than 0.80. Interlobar resistive indices of the left kidney measure less than 0.80. he bladder appeared unremarkable. US/US renal doppler IMPRESSION: 1. No evidence to suggest renal artery stenosis. 2. Elevated resistive indices of the bilateral kidneys can be seen with medical renal disease. .
== END 2022-07-27 07:53 | disposition home or self-care (01) ==
LOC: HO.US 07:52
PROVIDERS: Visit Provider Internal Medicine
DX: I10 Essential (primary) hypertension (principal)
CPT/HCPCS: 76775; 93975

== ENCOUNTER 2022-08-13 14:34 | Outpatient (REF) | payer MEDICARE, SELFPAY ==
[2022-08-13 17:10] LABS: Urine Cytology See Pathology rpt
== END 2022-08-13 14:35 | disposition home or self-care (01) ==
LOC: HO.LAB 14:34
PROVIDERS: PCP Internal Medicine; Visit Provider Nurse Practitioner Family
DX: R39.15 Urgency of urination (principal); R35.0 Frequency of micturition; R31.29 Other microscopic hematuria
CPT/HCPCS: 51798; 88112; 99202

== ENCOUNTER 2022-08-23 12:49 | Outpatient (REF) | payer MEDICARE, SELFPAY ==
[2022-08-23 13:01] LABS: MANUAL DIFF FLAG NO
[2022-08-23 13:11] LABS: Basophils Percent Auto 0.7 % (0-2); Eosinophils Absolute Auto 0.1 X10*3/uL (0.0-0.4); Eosinophils Percent Auto 2.7 % (0-4); Hemoglobin 14.5 g/dl (14.0-18.0); Imm Gran Abs Auto 0.02 X10*3/uL (0.00-0.03); Imm Gran Pct Auto 0.5 % (0.0-0.4); Lymphocytes Absolute Auto 0.8 X10*3/uL (1.2-4.9); Lymphocytes Percent Auto 19.8 % (20-40); Mean Corpuscular HGB Conc 34.5 g/dl (31.0-36.0); Mean Corpuscular Hemoglobin 33.3 pg (27.0-33.0); Mean Corpuscular Volume 96.6 fL (80.0-98.0); Mean Platelet Volume 9.9 fL (9.4-12.4); Monocytes Absolute Auto 0.4 X10*3/uL (0.1-1.2); Monocytes Percent Auto 8.9 % (2-11); Neutrophils Absolute Auto 2.8 x10*3/uL (2.0-8.3); Neutrophils Percent Auto 67.4 % (45-73); Platelet Count 169 X10*3/uL (160-400); Red Blood Count 4.35 X10*6/uL (4.60-5.80); White Blood Count 4.1 X10*3/uL (4.8-10.8)
[2022-08-23 13:41] LABS: Alanine Aminotransferase 25 U/L (0-40); Albumin Level 3.9 g/dL (3.5-5.0); Alkaline Phosphatase 103 U/L (39-117); Anion Gap 10 (12-20); Aspartate Amino Transferase 24 U/L (5-37); Bilirubin Total 0.4 mg/dL (0.0-1.0); Blood Urea Nitrogen 29 mg/dL (9-16); Calcium 8.8 mg/dL (8.4-10.2); Carbon Dioxide 30 mmol/L (22-29); Chloride 105 mmol/L (96-108); Estimated Glomerular Filt Rate > 60; Glucose Random 121 mg/dL (60-115); Potassium 5.1 mmol/L (3.3-5.1); Sodium 140 mmol/L (135-145); Total Protein 6.3 g/dL (6.5-8.0)
[2022-08-23 13:56] LABS: Free T4 (Free Thyroxine) 0.87 ng/dL (0.71-1.85); Thyroid Stimulating Hormone 1.25 uIU/mL (0.32-4.0)
[2022-08-23 15:42] LABS: Appearance Urine Clear; Color Urine Yellow; Glucose Urine UA Negative (Negative); Leukocyte Esterase Urine Negative (Negative); Nitrite Urine Negative (Negative); PH 7.5 (5.0-9.0); Specific Gravity - Urine 1.015 (1.005-1.025); Urine Blood Negative (Negative); Urine Ketones Negative (Negative); Urine Protein Negative (Neg-Trace)
[2022-08-23 15:45] LABS: Bacteria Urine None Seen (None Seen); Hyaline Casts Urine 0-2 /LPF (0-2); RBC Urine 0-2 /HPF (0-2); Squamous Epithelial Cell Urine 0-2 /HPF (0-2); WBC Urine 0-5 /HPF (0-5)
[2022-08-27 13:53] LABS: Metanephrine, Free 106 pg/mL (<=57); Normetanephrines, Free 472 pg/mL (<=148); Total Metanephrine, Free 578 pg/mL (<=205)
== END 2022-08-23 12:50 | disposition home or self-care (01) ==
LOC: HO.LAB 12:49
PROVIDERS: Internal Medicine Endocrinology, Diabetes & Metabolism; PCP Internal Medicine; Visit Provider Internal Medicine
DX: I10 Essential (primary) hypertension (principal); R39.15 Urgency of urination; D35.00 Benign neoplasm of unspecified adrenal gland
CPT/HCPCS: 36415; 80053; 81001; 81003; 83835; 84439; 84443; 85025

== ENCOUNTER 2022-09-06 10:37 | Outpatient (REF) | payer MEDICARE, SELFPAY ==
--- NOTE | ~2022-09-06 | US_ITS ---
EXAMINATION: US PELVIS LIMITED (BLADDER) CLINICAL INFORMATION: Urgency of urination. COMPARISON: CT abdomen and pelvis with contrast 07/05/2022. TECHNIQUE: Real-time imaging of the bladder. FINDINGS: BLADDER: Well distended and normal. Bilateral ureteral jets are demonstrated. Prevoid bladder volume is 99.7 mL. Postvoid bladder volume is 79.5 mL. The prostate volume is 12.1 mL. US/US bladder IMPRESSION: Postvoid bladder residual of 79.5 mL.
== END 2022-09-06 10:38 | disposition home or self-care (01) ==
LOC: HO.US 10:37
PROVIDERS: Visit Provider Nurse Practitioner Family
DX: R39.15 Urgency of urination (principal); R35.0 Frequency of micturition; R35.1 Nocturia
CPT/HCPCS: 76857

== ENCOUNTER 2022-10-01 14:46 | Outpatient (REF) | payer MEDICARE, SELFPAY ==
--- NOTE | ~2022-10-01 | US_ITS ---
EXAMINATION: US THYROID CLINICAL INFORMATION: Nontoxic goiter, unspecified. COMPARISON: CT chest 07/05/2022. TECHNIQUE: Linear transducer grayscale and color Doppler examination with attention to the region of the thyroid. FINDINGS: SIZE: Measurements of the thyroid lobes and nodules are given in sagittal, anteroposterior and transverse dimensions respectively. Right Thyroid Lobe: 3.6 x 2.0 x 1.3 cm, volume 4.9 mL. Parenchyma: The gland echotexture is homogeneous. Thyroid vascularity is normal. Left Thyroid Lobe: 5.7 x 3.8 x 4.2 cm, volume 47.9 mL. Parenchyma: The gland echotexture is homogeneous. Thyroid vascularity is normal. Isthmus: 0.5 cm in maximum AP dimension. Estimated total number of nodules greater than or equal to 1 cm: 1. Belling Machine Operator nodules are described as follows: 1. Location: Right mid/lower pole. Size: 0.6 x 0.3 x 0.5 cm, volume 0.05 mL. Nodule characteristics: Composition: Cystic(0). ACR TI-RADS total points: 0 ACR TI-RADS category: 1 2. Location: Left mid pole. Size: 5.3 x 3.4 x 4.6 cm, volume 43.8 mL. Nodule characteristics: Composition: Solid/almost completely solid (2). Echogenicity: Hyperechoic (1). Shape: Not taller than wide (0). Margins: Extrathyroidal extension (3). Echogenic Foci: Macrocalcifications (1). ACR TI-RADS total points: 7 ACR TI-RADS category: 5 NODES: No lymphadenopathy is seen in the tissue surrounding the thyroid gland. US/US thyroid IMPRESSION: A 5.3 cm in maximal diameter left thyroid lobe nodule meets ACR biopsy criteria and is amenable to ultrasound-guided biopsy, if clinically indicated and not already performed. ACR TI-RADS RECOMMENDATION REFERENCE: Ultrasound-guided fine-needle aspiration, followup ultrasound, no further follow up. * TR1 (0 point) and TR2 (2 points): No FNA or follow up. * TR3 (3 points): FNA if more than or equal to 2.5 cm in maximum dimension, followup ultrasound in 1, 3 and 5 years if 1.5 to 2.4 cm in maximum dimension. * TR4 (4-6 points): FNA if more than or equal to 1.5 cm in maximum dimension, followup ultrasound in 1, 2, 3 and 5 years if 1 to 1.4 cm in maximum dimension. * TR5 (more than or equal to 7 points): FNA if more than or equal to 1 cm in maximum dimension, followup ultrasound every year for 5 years if 0.5 to 0.9 cm in maximum dimension. * TR3, TR4 or TR5 nodules that are below the size threshold for followup receive no follow up.
== END 2022-10-01 14:47 | disposition home or self-care (01) ==
LOC: HO.US 14:46
PROVIDERS: PCP Internal Medicine; Visit Provider Internal Medicine
DX: E04.9 Nontoxic goiter, unspecified (principal)
CPT/HCPCS: 76536

== ENCOUNTER → 2022-10-05 08:47 | Outpatient (BNVA) | payer MEDICARE, SELFPAY | PROVIDERS: PCP Internal Medicine; Visit Provider Nurse Practitioner Family | DX: N40.1 Benign prostatic hyperplasia with lower urinary tract symptoms (principal); R35.1 Nocturia | CPT/HCPCS: 51798; 99212 ==

== ENCOUNTER → 2022-10-12 08:49 | Outpatient (BNVA) | payer MEDICARE, SELFPAY | PROVIDERS: PCP Internal Medicine; Visit Provider Internal Medicine Endocrinology, Diabetes & Metabolism | DX: E04.9 Nontoxic goiter, unspecified (principal); I10 Essential (primary) hypertension; E53.8 Deficiency of other specified B group vitamins | CPT/HCPCS: 99212 ==

== ENCOUNTER 2022-10-23 08:28 | Outpatient (REF) | payer MEDICARE, SELFPAY ==
--- NOTE | ~2022-10-23 | US_ITS ---
EXAMINATION: US ULTRASOUND-GUIDED FINE-NEEDLE LEFT THYROID ASPIRATION BIOPSY CLINICAL INDICATION: Large left midpole nodule measuring 5.3 cm. COMPARISON: Ultrasound thyroid 10/03/2022. TECHNIQUE: Following explaining ultrasound-guided left thyroid nodule aspiration biopsy procedure, benefits and risks, a written consent was obtained. Patient was placed supine with head extended on an ultrasound stretcher. Preliminary ultrasound imaging was obtained through the left anterior neck and an optimal site was selected and marked on the skin. The marked area was cleaned and draped in usual sterile manner. 1% lidocaine was administered at the puncture site. Through a small skin incision, a 25-gauge fine-needle biopsy connected to a syringe was administered and aspiration biopsy was performed x4. Postprocedure complete hemostasis was achieved. Patient tolerated the procedure extremely well. Simple dressing was applied postprocedure. FINDINGS: There is a large cystic central and solid peripheral nodule midpole of left thyroid lobe measuring 5.4 x 3.7 cm. A 5-pass fine-needle aspiration biopsy of this nodule was performed. Preliminary results revealed atypical thyroid tissue. Definite results are pending US/US guided fine needle asp IMPRESSION: Successful ultrasound-guided fine-needle biopsy aspiration of left midpole nodule performed.
[2022-10-23] MEDS: Lidocaine HCl 1 % MPF 5 ML VIAL SUBCUT (09:37)
== END 2022-10-23 08:29 | disposition home or self-care (01) ==
LOC: HO.US 08:28
PROVIDERS: PCP Internal Medicine; Visit Provider Internal Medicine Endocrinology, Diabetes & Metabolism
DX: E04.9 Nontoxic goiter, unspecified (principal)
CPT/HCPCS: 10005; 88172; 88173; 88177; 88305

== ENCOUNTER → 2022-11-07 08:01 | Outpatient (BNVA) | payer MEDICARE, SELFPAY | PROVIDERS: PCP Internal Medicine; Visit Provider Internal Medicine Endocrinology, Diabetes & Metabolism | DX: E04.9 Nontoxic goiter, unspecified (principal) | CPT/HCPCS: 99212 ==

== ENCOUNTER 2023-02-05 07:41 | Outpatient (AMB) | payer MEDICARE, SELFPAY ==
--- NOTE | 2023-02-05 07:42 | MHC.OFFVIS ---
Intake Vital Signs 02/05/23 07:43 Height 5 ft 4.29 in Weight 120 lb 2.431 oz BMI 20.4 BP 108/58 L Blood Pressure Location Rt brachial Position Sitting Pulse 64 Pulse Source Pulse Oximeter Intake Visit Reasons: Thyroid nodule Intake Note: Patient present for Thyroid Nodule follow up visit. Simulation Engineer Required: No Accompanied by: Self / Same As Patient Allergies hydrochlorothiazide Allergy (Unknown, Verified 02/05/23 07:44) Unknown lisinopril Allergy (Unknown, Verified 02/05/23 07:44) Unknown Medication List - Last Reconciled 02/05/23 by Say Stafford MD amlodipine 10 mg PO DAILY ascorbic acid (vitamin C) 1 g PO DAILY calcitriol 0.25 mcg PO DAILY cyanocobalamin (vitamin B-12) PT UNSURE OF WHAT DOSE HE TAKES ferrous sulfate (Feosol) 325 mg PO DAILY fexofenadine 180 mg PO DAILY losartan 50 mg PO DAILY 90 days magnesium oxide 400 mg PO DAILY phenytoin sodium extended 300 mg (3 x 100 mg) PO DAILY 90 days sennosides-docusate sodium 8.6-50 mg (Senna-S) 2 tab-caps (2 x 8.6-50 mg) PO BEDTIME 30 days terazosin 5 mg PO BEDTIME 90 days vitamin A PATIENT NOT SURE OF WHAT DOSE vitamin B complex 1 tab PO DAILY Zn-pyg [id number] palmet caps PO HPI HPI Comments History of Present Illness Details This is a 72-year-old male with a history of uncontrolled hypertension found to have elevated plasma metanephrines and normetanephrines. Pt experiences no sx of pheochromoctyoma . He denies use of tricyclic antidepressants or use of Flexeril. He takes for HTN. There is no family hx of hypertension . Has hx of HTN for 10 yrs . Was seen at [facility] by endocrine who felt that a pheochromocytoma should not be pursued with negative imaging. Today, patient is here because of a large left midpole nodule. Pt just learned about it. Difficulty swallowing No dypnea on recumbency . Denies symptoms of hypothyroidism or hypothyroidism. Denies obstructive symptoms.Mom had thyroid problems but not sure of nature . No hx of neck irradiation. 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 Right Thyroid Lobe: 3.6 x 2.0 x 1.3 cm, volume 4.9 mL. Parenchyma: The gland echotexture is homogeneous. Thyroid vascularity is normal. Left Thyroid Lobe: 5.7 x 3.8 x 4.2 cm, volume 47.9 mL. Parenchyma: The gland echotexture is homogeneous. Thyroid vascularity is normal. Isthmus: 0.5 cm in maximum AP dimension. Estimated total number of nodules greater than or equal to 1 cm: 1. Projection Engineer nodules are described as follows: 1. Location: Right mid/lower pole. ?? ? Size: 0.6 x 0.3 x 0.5 cm, volume 0.05 mL. ?? ? Nodule characteristics: ?? ? Composition: Cystic(0). ?? ? ACR TI-RADS total points: 0 ?? ? ACR TI-RADS category: 1 2. Location: Left mid pole. ?? ? Size: 5.3 x 3.4 x 4.6 cm, volume 43.8 mL. ?? ? Nodule characteristics: ?? ? Composition: Solid/almost completely solid (2). ?? ? Echogenicity: Hyperechoic (1). ?? ? Shape: Not taller than wide (0). ?? ? Margins: Extrathyroidal extension (3). ?? ? Echogenic Foci: Macrocalcifications (1). ?? ? ACR TI-RADS total points: 7 ?? ? ACR TI-RADS category: 5 NODES: No lymphadenopathy is seen in the tissue surrounding the thyroid gland. US/US thyroid IMPRESSION: A 5.3 cm in maximal diameter left thyroid lobe nodule meets ACR biopsy criteria and is amenable to ultrasound-guided biopsy, if clinically indicated and not already performed. 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 Examination of monolayer preparation and cell block slides reveals a hypocellular specimen with atypical follicular cells with anisonucleosis, overlap, few grooves, and visible nucleoli.? Cyst-lining cells are also noted.? Few macrophages, some colloid, and abundant blood also present.? Afirma testing pending; addendum to follow. [facility] Medical History (Updated 12/28/22 @ 09:03 by Ye Silveira MD) Anxiety Cataract Dizziness Finger numbness Frequency of micturition Hematuria Hereditary hemorrhagic telangiectasia Hypertension Microscopic hematuria Nocturia Numbness and tingling in both hands Pheochromocytoma Right wrist pain Screening for diabetes mellitus Screening for prostate cancer Seizure disorder Urinary urgency Vitamin B12 deficiency Wrist pain, acute Surgical History H/O brain surgery History of colonoscopy History of hip surgery History of hydrocelectomy History of lobectomy of thyroid Family History Mother CAD (coronary artery disease) Social History Household Members: None Housing: House Do you presently have visiting nurse or other home services: No Alcohol intake: never Patient Tobacco Use Status: Former Tobacco user Tobacco use type: Cigarette Years Smoked: 1994 stopped e-Cigarette/Vaping Use: Never Used Second Hand Smoke Exposure: No Advance Directives Date on File: 06/23/21 service: No Current occupational status: retired Current occupation: left hand dominant Cognitive needs: No Hearing needs: No Vision needs: No Physical Exam Vital Signs: Last Vital Signs Pulse 64 02/05/23 07:43 BP 108/58 L 02/05/23 07:43 BMI result Body Mass Index 20.4 Const Other: Healing scar status post left lobectomy. Right lobe is without the presence of any palpable nodules Assessment & Plan Assessment & Plan (1) Thyroid goiter: Comment: 06/2022 Ct scan, Septembertypical follicular cells of undetermined significance (category 3) typical follicular cells of undetermined significance Code(s): E04.9 - Nontoxic goiter, unspecified Plan: This 72-year-old white male with a history of a large left midpole thyroid nodule. 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 Perhaps in a few years, repeat thyroid ultrasound to be done to tract the size of the right thyroid nodule which is subcentimeter. He returned back to endocrinology as needed. Orders: Orders Thyroid Stimulating Hormone Today K59.00 - Constipation, unspecified Free T4 (Free Thyroxine) Today K59.00 - Constipation, unspecified Coding Level of Care Code Est Pt Level 3 (53544) Diagnoses Thyroid goiter E04.9
[2023-02-05 07:43] VITALS: BP 108/58; PULSE 64; BMI 20.4
== END 2023-02-05 08:00 | disposition home or self-care (01) ==
LOC: HO.ENCR 07:41
PROVIDERS: PCP Internal Medicine; Visit Provider Internal Medicine Endocrinology, Diabetes & Metabolism
DX: E04.9 Nontoxic goiter, unspecified (principal)
CPT/HCPCS: 99213

== ENCOUNTER 2023-02-05 07:41 | Outpatient (REF) | payer MEDICARE, SELFPAY ==
[2023-02-05 08:30] LABS: MANUAL DIFF FLAG NO
[2023-02-05 09:15] LABS: Eosinophils Absolute Auto 0.1 X10*3/uL (0.0-0.4); Eosinophils Percent Auto 3.2 % (0-4); Hematocrit 42.7 % (42.0-52.0); Hemoglobin 14.6 g/dl (14.0-18.0); Lymphocytes Absolute Auto 0.6 X10*3/uL (1.2-4.9); Lymphocytes Percent Auto 20.6 % (20-40); Mean Corpuscular HGB Conc 34.2 g/dl (31.0-36.0); Mean Corpuscular Hemoglobin 33.3 pg (27.0-33.0); Mean Corpuscular Volume 97.3 fL (80.0-98.0); Mean Platelet Volume 10.2 fL (9.4-12.4); Monocytes Absolute Auto 0.4 X10*3/uL (0.1-1.2); Monocytes Percent Auto 11.3 % (2-11); Neutrophils Percent Auto 63.9 % (45-73); Platelet Count 158 X10*3/uL (160-400); Red Blood Count 4.39 X10*6/uL (4.60-5.80); Red Cell Distribution Width 13.1 % (11.0-16.0); White Blood Count 3.1 X10*3/uL (4.8-10.8)
[2023-02-05 10:01] LABS: Alanine Aminotransferase 28 U/L (0-40); Albumin Level 3.7 g/dL (3.5-5.0); Alkaline Phosphatase 127 U/L (39-117); Anion Gap 14 (12-20); Aspartate Amino Transferase 25 U/L (5-37); Bilirubin Total 0.4 mg/dL (0.0-1.0); Blood Urea Nitrogen 30 mg/dL (9-16); Calcium 9.2 mg/dL (8.4-10.2); Carbon Dioxide 25 mmol/L (22-29); Chloride 104 mmol/L (96-108); Cholesterol 165 mg/dL; Estimated Glomerular Filt Rate > 60; Glucose Random 81 mg/dL (60-115); HDL Cholesterol 69 mg/dL; LDL Cholesterol Calculated 91 mg/dl; Magnesium 2.1 mg/dL (1.6-2.6); Potassium 4.9 mmol/L (3.3-5.1); Sodium 138 mmol/L (135-145); Total Protein 6.5 g/dL (6.5-8.0); Triglycerides 28 mg/dL
[2023-02-05 10:23] LABS: Vitamin B12 893 pg/mL (200-900)
== END 2023-02-05 07:42 | disposition home or self-care (01) ==
LOC: HO.LAB 07:41
PROVIDERS: PCP Internal Medicine; Visit Provider Internal Medicine Endocrinology, Diabetes & Metabolism
DX: E04.9 Nontoxic goiter, unspecified (principal); K59.00 Constipation, unspecified; E78.00 Pure hypercholesterolemia, unspecified
CPT/HCPCS: 36415; 80053; 80061; 82607; 82746; 83735; 85025; 99212

== ENCOUNTER 2023-04-08 09:28 | Outpatient (REF) | payer MEDICARE, SELFPAY ==
[2023-04-08 11:42] LABS: Prostate Specific Antigen 3.07 ng/mL (<0.05-4.0)
[2023-04-08 11:43] LABS: Free T4 (Free Thyroxine) 0.67 ng/dL (0.71-1.85); Thyroid Stimulating Hormone 4.51 uIU/mL (0.32-4.0)
== END 2023-04-08 09:29 | disposition home or self-care (01) ==
LOC: HO.LAB 09:28
PROVIDERS: Absent Provider Internal Medicine; PCP Internal Medicine; Visit Provider Nurse Practitioner Family
DX: N40.0 Benign prostatic hyperplasia without lower urinary tract symptoms (principal); E04.9 Nontoxic goiter, unspecified; R35.1 Nocturia; I10 Essential (primary) hypertension; R39.9 Unspecified symptoms and signs involving the genitourinary system; K59.00 Constipation, unspecified; Z79.899 Other long term (current) drug therapy; Z12.5 Encounter for screening for malignant neoplasm of prostate
CPT/HCPCS: 36415; 51798; 81003; 83735; 84153; 84439; 84443; 99212

== ENCOUNTER 2023-04-08 09:28 | Outpatient (AMB) | payer MEDICARE, SELFPAY ==
--- NOTE | 2023-04-08 09:25 | MHC.OFFVIS ---
Intake Intake Visit Reasons: 6m/PVR Intake Note: Patient is present for follow up PVR/BPH/Nocturia Urology Medications: terazosin Blood Thinner: none PVR:0ml's Wastewater Superintendent Required: No Accompanied by: Self / Same As Patient Allergies hydrochlorothiazide Allergy (Unknown, Verified 04/08/23 22:23) Unknown lisinopril Allergy (Unknown, Verified 04/08/23 22:23) Unknown Medication List - Last Reconciled 04/08/23 by DENISE Ansari- amlodipine 10 mg PO DAILY ascorbic acid (vitamin C) 1 g PO DAILY calcitriol 0.25 mcg PO DAILY cyanocobalamin (vitamin B-12) PT UNSURE OF WHAT DOSE HE TAKES ferrous sulfate (Feosol) 325 mg PO DAILY fexofenadine 180 mg PO DAILY levothyroxine (Synthroid) 25 mcg PO DAILY losartan 50 mg PO DAILY 90 days magnesium oxide 400 mg PO DAILY phenytoin sodium extended 300 mg (3 x 100 mg) PO DAILY 90 days sennosides-docusate sodium 8.6-50 mg (Senna-S) 2 tab-caps (2 x 8.6-50 mg) PO BEDTIME 30 days terazosin 5 mg PO BEDTIME 90 days vitamin A PATIENT NOT SURE OF WHAT DOSE vitamin B complex 1 tab PO DAILY Zn-pyg [id number]-zzo palmet caps PO HPI HPI Comments History of Present Illness Details Holden is a pleasant 72-year-old male patient of Dr. Silveira. He has a past medical history of microscopic hematuria, nocturia, pheochromocytoma, dizziness, seizure disorder, hypertension, vitamin B12 deficiency, anxiety, and hereditary hemorrhagic telangiectasia. He presents to the office today for a follow up. Of note, patient was seen approximately 6 months ago at which time he was started on 5 mg of terazosin for lower urinary tract symptoms. Workup of lower urinary tract symptoms included a bladder ultrasound that resulted with the bladder being well distended in normal. Bilateral ureteral jets are demonstrated. Prostate volume is 12.1 mL. Patient had previously trialed tamsulosin however did not feel any improvement in lower urinary tract symptoms on this medication. He continues to report to be happy with current voiding parameters on terazosin 5 mg daily. He does report at times urinary frequency, urinary urgency, and episode of nocturia vary. He reports he feels urinary symptoms worsen with his anxiety. However, currently he denies any bothersome urinary issues or concerns at this time. In review of patients chart PSA 05/26/22 2.27 and Testsoterone 06/08/22 478 ng/dL. Patient reports that although he has erectile dysfunction it is not bothersome for him at this time. He denies hematuria, incontinence, flank pain, foul-smelling urine, dysuria, fever, and or chills. He otherwise denies any other issues or concerns at this time. In office urinalysis within normal limits. PVR 0 mL. PFS Medical History Microscopic hematuria Nocturia Pheochromocytoma Screening for prostate cancer Screening for diabetes mellitus Finger numbness Right wrist pain Numbness and tingling in both hands Hematuria Dizziness Urinary urgency Wrist pain, acute Frequency of micturition Cataract Seizure disorder Hypertension Vitamin B12 deficiency Anxiety Hereditary hemorrhagic telangiectasia Surgical History History of lobectomy of thyroid History of colonoscopy History of hip surgery History of hydrocelectomy H/O brain surgery Family History Mother CAD (coronary artery disease) Social History Household Members: None Housing: House Do you presently have visiting nurse or other home services: No Alcohol intake: never Patient Tobacco Use Status: Former Tobacco user Tobacco use type: Cigarette Years Smoked: 1994 stopped e-Cigarette/Vaping Use: Never Used Second Hand Smoke Exposure: No Advance Directives Date on File: 06/23/21 service: No Current occupational status: retired Current occupation: left hand dominant Cognitive needs: No Hearing needs: No Vision needs: No Review of Systems Const Reports as per HPI Eyes Reports no additional complaints ENT Reports no additional complaints Card Reports as per HPI Resp Reports no additional complaints GI Details: Patient reports having history of intermittent constipation. Reports as per HPI Musc Reports as per HPI Neuro Reports as per HPI Psych Reports as per HPI Endo Reports as per HPI Paulo/Lymph Details: Patient has a history of HHT Physical Exam Const General: cooperative, healthy appearing, comfortable, no acute distress, well developed, alert and awake Nutritional Appearance: thin Orientation/consciousness: patient oriented x3 Limitations: no limitations HEENT Head: Yes normal to inspection, Yes normocephalic and Yes atraumatic Ears: hearing grossly normal bilaterally Eyes General: appearance normal, both eyes and all related structures Neck Neck: Yes normal visual inspection and Yes trachea midline Chest Chest palpation & inspection: normal inspection of the chest Resp Effort & Inspection: normal respiratory effort and able to speak in complete sentences Cardio Rate: regular rate GI Inspection: Yes normal to inspection General: Yes no CVA tenderness Back/Spine/Pelvis Back: no CVA tenderness Neuro General: patient oriented x3 Extrem General: Yes normal to inspection Psych Appearance: grossly normal and well kempt Mental Status: mental status grossly normal Speech and movement: Normal speech and movement present and Clear speech present Affect: normal affect Attitude: cooperative Thought process: Normal thought process present Thought content: Normal thought content present Insight: Good insight present (Psych) Judgement: Good judgement present (Psych) Office Procedures Post Void Residual Post Residual Void Post Void Residual (PVR): 0 [id number] Void Residual by ultrasound Results AMB Urinalysis, Automated UA Leukoctes 0.2 Preeti/uL Last Edit by Crispy Gamer on 04/08/23 09:43 UA Nitrite Last Edit by Crispy Gamer on 04/08/23 09:43 UA Urobilinogen 0.2 mg/dL Last Edit by Crispy Gamer on 04/08/23 09:43 UA Protein 0 mg/dL Last Edit by Crispy Gamer on 04/08/23 09:43 UA pH 6.0 Last Edit by Crispy Gamer on 04/08/23 09:43 UA Blood 0 Puneet/uL Last Edit by Crispy Gamer on 04/08/23 09:43 UA Specific Benicia 1.015 Last Edit by Crispy Gamer on 04/08/23 09:43 UA Ketone Negative Last Edit by Crispy Gamer on 04/08/23 09:43 UA Bilirubin 0 mg/dL Last Edit by Crispy Gamer on 04/08/23 09:43 UA Glucose 0 mg/dL Last Edit by Crispy Gamer on 04/08/23 09:43 Results Reviewed Results Reviewed: Laboratory Last Values Urine pH (Auto) 6.0 04/08/23 09:42 Specific Benicia (Auto) 1.015 04/08/23 09:42 Urine Protein (Auto) 0 mg/dL 04/08/23 09:42 Glucose (UA)(Auto) 0 mg/dL 04/08/23 09:42 Urine Ketones (Auto) Negative 04/08/23 09:42 Urine Blood (Auto) 0 Puneet/uL 04/08/23 09:42 Urine Bilirubin (Auto) 0 mg/dL 04/08/23 09:42 Urine Urobilinogen (Auto) 0.2 mg/dL 04/08/23 09:42 Leukocyte Esterase (Auto) 0.2 Preeti/uL 04/08/23 09:42 Assessment & Plan Assessment & Plan (1) BPH (benign prostatic hyperplasia): Code(s): N40.0 - Benign prostatic hyperplasia without lower urinary tract symptoms (2) Lower urinary tract symptoms: Code(s): R39.9 - Unspecified symptoms and signs involving the genitourinary system Plan In office urinalysis results reviewed with the patient today; as noted above. PVR 0 mL. Patient reports significant improvement in lower urinary tract symptoms on terazosin 5 mg daily Patient denies any bothersome urinary issues or concerns at this time. Discussed obtaining PSA now and in 1 year for further assessment evaluation. Discussed bladder triggers/irritants. Discussed limiting fluids 3-4 hours prior to bed to assist with decreasing episodes of nocturia. Follow-up in 1 year with labs to be completed prior; or sooner with any issues, concerns, and or questions. Orders: Orders AMB Urinalysis Automated Today N40.0 - Benign prostatic hyperplasia without lower urinary tract symptoms, Z13.9 - Encounter for screening, unspecified Prostate Specific Antigen 364 Days N40.0 - Benign prostatic hyperplasia without lower urinary tract symptoms AMB Post Void Residual by ultrasound Today N40.0 - Benign prostatic hyperplasia without lower urinary tract symptoms Prostate Specific Antigen Today N40.0 - Benign prostatic hyperplasia without lower urinary tract symptoms Patient Instructions: The patient had an opportunity to ask questions regarding the treatment plan. All questions were answered. Physical exam, labs, and imaging were discussed and reviewed in detail. As well as risks, benefits, and discussion of treatment choices. No major barriers to understanding were identified. The patient expressed understanding and agreement with the above treatment plan. The patient was made aware they should contact our office by phone for worsening of their current condition, the appearance of new symptoms, or with any questions or concerns. Compliance is encouraged with any medications and follow up testing that is ordered. It is a privilege to be allowed the opportunity to participate in? your urological care.? Again, if you have any questions or concerns If you have any questions or concerns please do not hesitate to contact me. The office is [phone]. This note is constructed using voice recognition software. While every effort has been made to ensure accuracy job change crew member errors may have been included. Yours sincerely, DENISE Ansari-KRISTI Coding Level of Care Code Est Pt Level 3 (40046) Diagnoses BPH (benign prostatic hyperplasia) N40.0 Lower urinary tract symptoms R39.9 CPT Codes Post Residual Void - PVR CPT Code: 51395-Klrg Void Residual by ultrasound ([id number])
== END 2023-04-08 09:53 | disposition home or self-care (01) ==
PROVIDERS: PCP Internal Medicine; Visit Provider Nurse Practitioner Family
DX: N40.0 Benign prostatic hyperplasia without lower urinary tract symptoms (principal); R39.9 Unspecified symptoms and signs involving the genitourinary system
CPT/HCPCS: 99213

== ENCOUNTER 2023-04-18 09:20 | Outpatient (AMB) | payer MEDICARE, SELFPAY ==
[2023-04-18 09:22] VITALS: BP 138/62; PULSE 72; O2SAT 97; BMI 20.4
--- NOTE | 2023-04-18 09:22 | A.OFFPC_ITS ---
Vital Signs 04/18/23 09:22 Height 5 ft 4.29 in Weight 120 lb BMI 20.4 BP 138/62 Blood Pressure Location Lt brachial Position Sitting Pulse 72 Pulse Source Pulse Oximeter Pulse Oximetry (%) 97 Oxygen Delivery Method Room Air Intake Visit Reasons: 3 month f/u Allergies hydrochlorothiazide Allergy (Unknown, Verified 04/18/23 09:23) Unknown lisinopril Allergy (Unknown, Verified 04/18/23 09:23) Unknown Medication List - Last Reconciled 04/18/23 by Ye Silveira MD amlodipine 10 mg PO DAILY ascorbic acid (vitamin C) 1 g PO DAILY calcitriol 0.25 mcg PO DAILY cyanocobalamin (vitamin B-12) PT UNSURE OF WHAT DOSE HE TAKES ferrous sulfate (Feosol) 325 mg PO DAILY fexofenadine 180 mg PO DAILY levothyroxine (Synthroid) 25 mcg PO DAILY losartan 50 mg PO DAILY 90 days magnesium oxide 400 mg PO DAILY phenytoin sodium extended 300 mg (3 x 100 mg) PO DAILY 90 days sennosides-docusate sodium 8.6-50 mg (Senna-S) 2 tab-caps (2 x 8.6-50 mg) PO BEDTIME 30 days terazosin 5 mg PO BEDTIME 90 days vitamin A PATIENT NOT SURE OF WHAT DOSE vitamin B complex 1 tab PO DAILY Zn-pyg [id number]-yvu palmet caps PO Tobacco use date assessed: 12/28/22 Fall risk assessment: No Falls in past year Last assessed Fall Risk: 04/18/23 Dental Screening Dental Screen Date: 04/18/23 Did you have a dental visit in the last 12 months?: Yes Did you have a dental problem in the last 6 months where you did not have access to dental care?: No Was dental information given to patient?: Patient has dentist HPI 3 month f/u HPI Details 72-year-old male with the history of thy roid goiter , hypertension, urinary retention and BPH, osteoporosis and constipation last seen in December 2022. Patient is here for follow-up. Colonoscopy was in 2016 last bone density was May 2022 patient continues to follow-up with Urology seen in 04/08/2023. 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 Patient follows up with endocrinology PFSH Medical History Microscopic hematuria Nocturia Pheochromocytoma Screening for prostate cancer Screening for diabetes mellitus Finger numbness Right wrist pain Numbness and tingling in both hands Hematuria Dizziness Urinary urgency Wrist pain, acute Frequency of micturition Cataract Seizure disorder Hypertension Vitamin B12 deficiency Anxiety Hereditary hemorrhagic telangiectasia Surgical History History of lobectomy of thyroid History of colonoscopy History of hip surgery History of hydrocelectomy H/O brain surgery Family History Mother CAD (coronary artery disease) Social History Household Members: None Housing: House Do you presently have visiting nurse or other home services: No Alcohol intake: never Patient Tobacco Use Status: Former Tobacco user Tobacco use type: Cigarette Years Smoked: 1994 stopped e-Cigarette/Vaping Use: Never Used Second Hand Smoke Exposure: No Advance Directives Date on File: 06/23/21 service: No Current occupational status: retired Current occupation: left hand dominant Cognitive needs: No Hearing needs: No Vision needs: No Questionnaire PHQ-9 Over the last 2 weeks, how often have you been bothered by any of the following problems? 1. Little interest or pleasure in doing things: not at all 2. Feeling down, depressed, or hopeless: not at all 3. Trouble falling or staying asleep, or sleeping too much: not at all 4. Feeling tired or having little energy: not at all 5. Poor appetite or overeating: not at all 6. Feeling bad about yourself - or that you are a failure or have let yourself or your family down: not at all 7. Trouble concentrating on things, such as reading the newspaper or watching television: not at all 8. Moving or speaking so slowly that other people could have noticed. Or the opposite - being so fidgety or restless that you have been moving around a lot more than usual: not at all 9. Thoughts that you would be better off or of hurting yourself in some way: not at all Total score: 0 Depression Screening Interpretation: Negative Source: Developed by Drs. Say Wilkins, Judith Mcgovern, Pancho Kennedy and colleagues, with an educational rk from [employer]. Thrive Questionnaire Date Thrive assessed: 09/12/22 AUDIT C Alcohol Use Questionnaire (AUDIT-C) 1. How often do you have a drink containing alcohol?: Never 2. How many drinks containing alcohol do you have on a typical day when you are drinking?: 1 or 2 (0) 3. How often do you have six or more drinks on one occasion?: Never Total Score: 0 Score Reviewed/Action Taken: No BAIRON-7 AMB Questionnaire BAIRON-7 Date BAIRON - 7 assessed: 09/12/22 Source: Developed by Drs. Say Wilkins, Judith Mcgovern, Pancho Kennedy and colleagues, with an educational rk from [employer]. Physical exam (Primary Care) Vital Signs: Last Vital Signs Pulse 72 04/18/23 09:22 BP 138/62 04/18/23 09:22 Pulse Ox 97 04/18/23 09:22 Oxygen Delivery Method Room Air 04/18/23 09:22 BMI result Body Mass Index 20.4 Tobacco/Smoking Status: Tobacco use Status Tobacco use date assessed 12/28/22 04/18/23 09:27 Patient Tobacco Use Status Former Tobacco user 04/18/23 09:27 Tobacco use type Cigarette 04/18/23 09:27 e-Cigarette/Vaping Use Never Used 04/18/23 09:27 PHQ-9: PHQ-9 Score PHQ-9: Total score 0 04/18/23 09:27 Depression Screening Interpretation: Negative Thrive Assessment: Date of Thrive Assessment Date Thrive assessed 09/12/22 04/18/23 09:27 Const General: alert; No acute distress Eyes Conjunctivae: conjunctivae normal Resp Auscultation: clear to auscultation bilaterally Cardio Rate: regular rate Rhythm: regular rhythm GI Inspection: Yes normal to inspection Extrem General: Yes normal to inspection and No edema Assessment and Plan Assessment & Plan (1) Thyroid goiter: Comment: 06/2022 Ct scan, Septembertypical follicular cells of undetermined significance (category 3) typical follicular cells of undetermined significance 12/[address] Bennett follicular neoplasm Code(s): E04.9 - Nontoxic goiter, unspecified Plan: Status post left thyroid lobectomy patient has followed up with endocrinology. Retest of TSH revealed mildly elevated TSH and advised to retest in 2 months (2) Hypothyroid: Code(s): E03.9 - Hypothyroidism, unspecified Plan: Continue with present thyroid medication . Advised retesting of TSH (3) BPH (benign prostatic hyperplasia): Code(s): N40.0 - Benign prostatic hyperplasia without lower urinary tract symptoms Plan: Patient follows up with urology and has been placed on terazosin with good results (4) Osteoporosis with fracture: Code(s): M80.80XA - Other osteoporosis with current pathological fracture, unspecified site, initial encounter for fracture Plan: Calcium plus vitamin-D, placed on calcitriol will request for bone density next year (5) Hypertension: Code(s): I10 - Essential (primary) hypertension Plan: Continue with blood pressure medication. Decrease salt intake and exercise patient on amlodipine 10 mg once a day and losartan 50 mg once a day Coding Level of Care Code Est Pt Level 4 (00183) Diagnoses Thyroid goiter E04.9 Hypothyroid E03.9 BPH (benign prostatic hyperplasia) N40.0 Osteoporosis with fracture M80.80XA Hypertension I10 Additional Codes PHQ-9 - 70492 - PHQ-9 Billing: ([id number])
== END 2023-04-18 09:50 | disposition home or self-care (01) ==
PROVIDERS: PCP Internal Medicine; Visit Provider Internal Medicine
DX: E03.9 Hypothyroidism, unspecified (principal); E04.9 Nontoxic goiter, unspecified; I10 Essential (primary) hypertension; N40.0 Benign prostatic hyperplasia without lower urinary tract symptoms; M80.80XA Other osteoporosis with current pathological fracture, unspecified site, initial encounter for fracture
CPT/HCPCS: 99214

== ENCOUNTER 2023-05-29 08:51 | Outpatient (AMB) | payer MEDICARE, SELFPAY ==
[2023-05-29 09:04] VITALS: BP 126/58; PULSE 64; O2SAT 99; BMI 20.4
--- NOTE | 2023-05-29 09:04 | A.OFFVIS_ITS ---
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 Allergies hydrochlorothiazide Allergy (Unknown, Verified 05/29/23 09:15) Unknown lisinopril Allergy (Unknown, Verified 05/29/23 09:15) Unknown Medication List - Last Reconciled 05/29/23 by DENISE Cintron amlodipine 10 mg PO DAILY ascorbic acid (vitamin C) 1 g PO DAILY calcitriol 0.25 mcg PO DAILY cyanocobalamin (vitamin B-12) PT UNSURE OF WHAT DOSE HE TAKES ferrous sulfate (Feosol) 325 mg PO DAILY fexofenadine 180 mg PO DAILY levothyroxine (Synthroid) 25 mcg PO DAILY losartan 50 mg PO DAILY 90 days magnesium oxide 400 mg PO DAILY phenytoin sodium extended 300 mg (3 x 100 mg) PO DAILY 90 days sennosides-docusate sodium 8.6-50 mg (Senna-S) 2 tab-caps (2 x 8.6-50 mg) PO BEDTIME 30 days terazosin 5 mg PO BEDTIME 90 days vitamin A PATIENT NOT SURE OF WHAT DOSE vitamin B complex 1 tab PO DAILY Zn-pyg rlum-[id number]-jus palmet caps PO HPI [facility] G0439 HPI Details Patient is a 73-year-old male who presents today for subsequent wellness visit. Patient of Dr. Silveira. Patient is up-to-date with his health preventative screenings and immunizations. Bone density screen 05/2022 which showed severe osteoporosis. [place] of care was reviewed with the patient and he was provided with a screening schedule. Patient has a healthcare proxy in place and he will provide office with copy, patient was provided with a MOLST form. [facility] Medical History (Updated 05/29/23 @ 09:30 by DENISE Cintron) Uncontrolled hypertension Fracture of triquetral bone of wrist Lower urinary tract symptoms Compression fx, thoracic spine Femoral fracture Medicare annual wellness visit, initial Microscopic hematuria Nocturia Pheochromocytoma Screening for prostate cancer Screening for diabetes mellitus Finger numbness Right wrist pain Numbness and tingling in both hands Hematuria Dizziness Urinary urgency Wrist pain, acute Frequency of micturition Cataract Seizure disorder Hypertension Vitamin B12 deficiency Anxiety Hereditary hemorrhagic telangiectasia Surgical History History of lobectomy of thyroid History of colonoscopy History of hip surgery History of hydrocelectomy H/O brain surgery Family History Mother CAD (coronary artery disease) Social History Household Members: None Housing: House Do you presently have visiting nurse or other home services: No Alcohol intake: never Patient Tobacco Use Status: Former Tobacco user Tobacco use type: Cigarette Years Smoked: 1994 stopped e-Cigarette/Vaping Use: Never Used Second Hand Smoke Exposure: No Advance Directives Date on File: 06/23/21 service: No Current occupational status: retired Current occupation: left hand dominant Cognitive needs: No Hearing needs: No Vision needs: No Questionnaire Medicare Wellness Checkup [age] What gender do you identify with?: male During the past 4 weeks, how much have you been bothered by emotional problems such as feeling anxious, depressed, irritable, sad or downhearted, and blue?: not at all During the past 4 weeks, has your physical & emotional health limited your social activities with family, friends, neighbors, or groups?: not at all During the past 4 weeks, how much bodily pain have you generally had?: mild pain During the past 4 weeks, was someone available to help you if you needed & wanted help?: yes, as much as I wanted During the past 4 weeks, what was the hardest physical activity you could do for at least 2 minutes?: heavy Can you get to places out of walking distance without help? (For eg., can you travel alone on buses, taxis or drive your car?): Yes Can you go shopping for groceries or clothes without someone's help?: Yes Can you prepare your own meals?: Yes Can you do your housework without help?: Yes Because of any health problems, do you need the help of another person with your personal care needs such as eating, bathing, dressing or getting around the thiago se?: No Can you handle your own money without help?: Yes During the past 4 weeks, how would you rate your health in general?: very good During the past 4 weeks how have things been going for you?: pretty well Are you having difficulties driving your car?: no Do you always fasten your seat belt when you are in a car?: yes, usually During past 4 weeks, have you been bothered by the following: never: Trouble eating well?, seldom: Falling or dizzy when standing up (falling ) and sometimes: Sexual problems?, Teeth or denture problems?, Problems using the telephone? and Tiredness or fatigue? Have you fallen 2 or more times in the past year?: Yes Are you afraid of falling?: No Are you a smoker?: no During the past 4 weeks, how many drinks of wine, beer, or other alcoholic beverages did you have?: no alcohol at all Do you exercise for about 20 minutes 3 or more times a week?: yes, most of the time Have you been given information to help with the following?: no: Hazards in your house that might hurt you? and no: Keeping track of your medications? How often do you have trouble taking medicines the way you have been told to take them?: I always take medicine as prescribed How confident are you that you can control & manage most of your health problems?: somewhat confident What is your race?: White Mini Mental State Exam (MMSE) Orientation What is the (year) (season) (date) (day) (month)?: year, season, date, day and month Score Score: 5 Activity of Daily Living Bathing - sponge bath, tub bath or shower: receives no assistance (gets in/out by self, if usual bathing means Dressing - getting clothes from closets & drawers, including inner/outer garments & fasteners.: gets clothes & gets completely dressed without help Toileting - going to the 'toilet room' for urine/bowel elimination & cleaning self/arranging clothes: goes to toilet room, cleans self, arranges clothes without help Transfer: moves in & out of bed and chair without help (may use support object) Continence: controls urination/bowel movements completely by self Feeding: feeds self without help Total Score: 0 Information obtained from: patient Using telephone: independent Traveling: independent Shopping: independent Preparing meals: independent Housework: independent Taking medicine: independent Managing money: independent PHQ-9 Over the last 2 weeks, how often have you been bothered by any of the following problems? 1. Little interest or pleasure in doing things: not at all 2. Feeling down, depressed, or hopeless: not at all 3. Trouble falling or staying asleep, or sleeping too much: not at all 4. Feeling tired or having little energy: not at all 5. Poor appetite or overeating: not at all 6. Feeling bad about yourself - or that you are a failure or have let yourself or your family down: not at all 7. Trouble concentrating on things, such as reading the newspaper or watching television: not at all 8. Moving or speaking so slowly that other people could have noticed. Or the opposite - being so fidgety or restless that you have been moving around a lot more than usual: not at all 9. Thoughts that you would be better off or of hurting yourself in some way: not at all Total score: 0 Depression Screening Interpretation: Negative Depression Screening Done: Yes 70518 - PHQ-9 Billing: Yes Source: Developed by Drs. Say Wilkins, Judith Mcgovern, Pancho Kennedy and colleagues, with an educational rk from [employer]. Physical Exam Vital Signs: Last Vital Signs Pulse 64 05/29/23 09:04 BP 126/58 L 05/29/23 09:04 Pulse Ox 99 05/29/23 09:04 Oxygen Delivery Method Room Air 05/29/23 09:04 BMI result Body Mass Index 20.4 Const General: cooperative and no acute distress Orientation/consciousness: patient oriented x3 HEENT Other: Whisper test: pass Neuro Other: Balance: Normal Get up and walk: able to Romberg: negative Tandem gait: able to General: patient oriented x3 Assessment & Plan Assessment & Plan (1) Hypertension: Code(s): I10 - Essential (primary) hypertension Plan: Continue current treatment Low-sodium diet and exercise as tolerated (2) Adult general medical exam: Code(s): Z00.00 - Encounter for general adult medical examination without abnormal findings (3) Hypothyroid: Code(s): E03.9 - Hypothyroidism, unspecified Plan: On levothyroxine (4) Constipation: Code(s): K59.00 - Constipation, unspecified Plan: On sennosides-docusate sodium (5) BPH (benign prostatic hyperplasia): Code(s): N40.0 - Benign prostatic hyperplasia without lower urinary tract symptoms Plan: Continue to follow-up with [facility] Quality Reporting (2019) Depression/Bipolar (159/160/161/177) PHQ-9: Total score: 0 Coding Level of Care Code Medicare Subsequent (G0439) Diagnoses Hypertension I10 Adult general medical exam Z00.00 Hypothyroid E03.9 Constipation K59.00 BPH (benign prostatic hyperplasia) N40.0 CPT Codes Advance Care Planning - Time spent: 1-15 minutes, not on file ([id number]) Advance Care Planning Advance Care Planning discussion: Exists, not on file Date of discussion: 05/29/23 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
== END 2023-05-29 09:26 | disposition home or self-care (01) ==
PROVIDERS: Visit Provider Nurse Practitioner Family
DX: Z00.00 Encounter for general adult medical examination without abnormal findings (principal); I10 Essential (primary) hypertension; E03.9 Hypothyroidism, unspecified; K59.00 Constipation, unspecified; N40.0 Benign prostatic hyperplasia without lower urinary tract symptoms
CPT/HCPCS: 1124F; G0439

== ENCOUNTER 2023-09-30 08:35 | Outpatient (REF) | payer MEDICARE, SELFPAY ==
--- NOTE | ~2023-09-30 | XR_ITS ---
EXAMINATION: XR PELVIS CLINICAL INFORMATION: Right hip pain COMPARISON: 07/07/2021 TECHNIQUE: 2 views of pelvis. FINDINGS: Patient status post placement of intramedullary gabriel and dynamic screw in the right hip for fracture. Alignment is not seen. Hardware well positioned. There is no joint space narrowing. XR/XR pelvis 1-2V IMPRESSION: Well-positioned hardware with healed fracture.
== END 2023-09-30 08:36 | disposition home or self-care (01) ==
LOC: HO.HOSX 08:35
PROVIDERS: PCP Internal Medicine; Visit Provider Orthopaedic Surgery
DX: S72.91XD Unspecified fracture of right femur, subsequent encounter for closed fracture with routine healing (principal); M25.551 Pain in right hip; X58.XXXD Exposure to other specified factors, subsequent encounter; Z98.890 Other specified postprocedural states; Z96.9 Presence of functional implant, unspecified
CPT/HCPCS: 72170; 99212

== ENCOUNTER 2023-09-30 08:35 | Outpatient (AMB) | payer MEDICARE, SELFPAY ==
--- NOTE | 2023-09-30 08:39 | MHC.OFFVIS ---
Intake Vital Signs 09/30/23 08:40 Height 5 ft 4 in Weight 120 lb BMI 20.6 Intake Visit Reasons: Ov- Right hip pain Intake Note: Terry is a 73 year old male who presents today for a follow up of his right hip, s/p Right Hip IMN 06/23/21. Patient reports that he is doing well. He does have occasional flair ups of pain, he seems to have increased pain with more activity which resolves with rest. Allergies hydrochlorothiazide Allergy (Unknown, Verified 09/30/23 08:40) Unknown lisinopril Allergy (Unknown, Verified 09/30/23 08:40) Unknown HPI Ov- Right hip pain HPI Details Terry is a 73 year old man who presents for a follow up of his right hip IMN, DOS: 06/23/21. He says he is doing well overall. He has some flares of hip pain, but this is occasional, and some increased pain after some activity. He says his pain resolves with rest. The pain is over the thigh. He is unable to play tennis or return to his prior level of activity. [facility] Medical History (Updated 09/30/23 @ 10:16 by Devendra Matthews MD) Femoral fracture Uncontrolled hypertension Fracture of triquetral bone of wrist Lower urinary tract symptoms Compression fx, thoracic spine Medicare annual wellness visit, initial Microscopic hematuria Nocturia Pheochromocytoma Screening for prostate cancer Screening for diabetes mellitus Finger numbness Right wrist pain Numbness and tingling in both hands Hematuria Dizziness Urinary urgency Wrist pain, acute Frequency of micturition Cataract Seizure disorder Hypertension Vitamin B12 deficiency Anxiety Hereditary hemorrhagic telangiectasia Surgical History History of lobectomy of thyroid History of colonoscopy History of hip surgery History of hydrocelectomy H/O brain surgery Family History Mother CAD (coronary artery disease) Social History Household Members: None Housing: House Do you presently have visiting nurse or other home services: No Alcohol intake: never Comment: I don't really have a number; low Patient Tobacco Use Status: Former Tobacco user Tobacco use type: Cigarette Years Smoked: 1994 stopped e-Cigarette/Vaping Use: Never Used Second Hand Smoke Exposure: No Advance Directives Date on File: 06/23/21 service: No Current occupational status: retired Current occupation: left hand dominant Cognitive needs: No Hearing needs: No Vision needs: No Review of Systems Const All systems reviewed & are unremarkable except as noted in HPI and below Physical Exam Vital Signs: BMI result Body Mass Index 20.6 Const General: no acute distress, alert and awake Orientation/consciousness: patient oriented x3 HEENT Head: Yes normocephalic and Yes atraumatic Mouth: moist mucous membranes Eyes General: appearance normal, both eyes and all related structures EOM: EOMs intact bilaterally Chest Other: no audible wheezing. Resp Other: No audible wheezing Effort & Inspection: normal respiratory effort and able to speak in complete sentences Cardio Other: Radial pulse palpable with no rythmic abnormalities Jugular venous distension: no JVD Back/Spine/Pelvis Cervical Spine: normal cervical lordosis Skin General skin exam: turgor normal Rashes: no rashes Neuro General: patient oriented x3 Extrem Other: TTP lateral thigh over distal screw neg impingement nl gait Psych Appearance: grossly normal Mental Status: mental status grossly normal Speech and movement: Normal speech and movement present Affect: normal affect Attitude: cooperative Results Reviewed Results Reviewed: I personally reviewed relevant radiographs. Unchanged position right IMN. Trochanteric enthesophyte more prominent now. Mild hip OA bilaterally Assessment & Plan Assessment & Plan (1) Femoral fracture: Comment: Right June 2021 Dr. Matthews Code(s): S72.90XA - Unspecified fracture of unspecified femur, initial encounter for closed fracture Qualifiers: Encounter type: initial encounter Femur location: unspecified portion of femur Fracture morphology: unspecified fracture morphology Fracture type: closed Laterality: right Qualified Code(s): S72.91XA - Unspecified fracture of right femur, initial encounter for closed fracture (2) Retained orthopedic hardware: Code(s): Z96.9 - Presence of functional implant, unspecified Plan: S/p right IMN in 2020 Has been unable to get back to all activities with intermitant thigh pain. The fracture is healed. I recommend screw removal distally to see if this helps. I discussed that it may not be of benefit but that it is a small procedure. I discussed the risks benefits and alternatives including but not limited to the risk of pain, infection, fracture, need for further surgery as well as potential medical complications. He expressed understanding. Plan Prepared for Devendra Matthews MD by César Lopez, medical microbiologist, on 09/30/23 at 8:47 AM, EST. Orders: Orders XR pelvis 1-2V Today M25.559 - Pain in unspecified hip Coding Level of Care Code Est Pt Level 4 (91296) Diagnoses Femoral fracture S72.91XA Encounter type: initial encounter Femur location: unspecified portion of femur Fracture morphology: unspecified fracture morphology Fracture type: closed Laterality: right Retained orthopedic hardware Z96.9
[2023-09-30 08:40] VITALS: BMI 20.6
== END 2023-09-30 09:14 | disposition home or self-care (01) ==
PROVIDERS: PCP Internal Medicine; Visit Provider Orthopaedic Surgery
DX: T84.84XA Pain due to internal orthopedic prosthetic devices, implants and grafts, initial encounter (principal)
CPT/HCPCS: 99214

== ENCOUNTER 2023-10-17 08:29 | Outpatient (AMB) | payer MEDICARE, SELFPAY ==
[2023-10-17 08:38] VITALS: BP 138/60; PULSE 58; O2SAT 99; BMI 20.4
--- NOTE | 2023-10-17 08:38 | MHC.PC.OV ---
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 Allergies hydrochlorothiazide Allergy (Unknown, Verified 10/17/23 08:39) Unknown lisinopril Allergy (Unknown, Verified 10/17/23 08:39) Unknown Medication List - Last Reconciled 10/17/23 by Ye Silveira MD amlodipine 10 mg PO DAILY ascorbic acid (vitamin C) 1 g PO DAILY calcitriol 0.25 mcg PO DAILY cyanocobalamin (vitamin B-12) PT UNSURE OF WHAT DOSE HE TAKES ferrous sulfate (Feosol) 325 mg PO DAILY fexofenadine 180 mg PO DAILY levothyroxine (Synthroid) 25 mcg PO DAILY losartan 50 mg PO DAILY 90 days magnesium oxide 400 mg PO DAILY phenytoin sodium extended 300 mg (3 x 100 mg) PO DAILY 90 days sennosides-docusate sodium 8.6-50 mg (Senna-S) 2 tab-caps (2 x 8.6-50 mg) PO BEDTIME 30 days terazosin 5 mg PO BEDTIME 90 days vitamin A PATIENT NOT SURE OF WHAT DOSE vitamin B complex 1 tab PO DAILY Zn-pyg hmhi-[id number]-otr palmet caps PO Tobacco use date assessed: 10/17/23 Fall risk assessment: No Falls in past year Last assessed Fall Risk: 10/17/23 Dental Screening Dental Screen Date: 10/17/23 Did you have a dental visit in the last 12 months?: No Did you have a dental problem in the last 6 months where you did not have access to dental care?: No HPI Hypertension HPI Details 73-year-old male with thyroid goiter status post thyroid lobectomy left hypothyroid, BPH osteoporosis hypertension last seen in March 2023. Patient's colonoscopy last done in 2016 and bone density last done in May 2022. Review of the notes follows up with ortho for right hip pain status post right hip surgery intramedullary nailing May 2021 fracture has healed and has been recommended screw removal and this is scheduled.. Patient was seen by the nurse practitioner in May [facility] Medical History (Updated 10/17/23 @ 09:03 by Ye Silveira MD) Femoral fracture Uncontrolled hypertension Fracture of triquetral bone of wrist Lower urinary tract symptoms Compression fx, thoracic spine Medicare annual wellness visit, initial Microscopic hematuria Nocturia Pheochromocytoma Screening for prostate cancer Screening for diabetes mellitus Finger numbness Right wrist pain Numbness and tingling in both hands Hematuria Dizziness Urinary urgency Wrist pain, acute Frequency of micturition Cataract Seizure disorder Hypertension Vitamin B12 deficiency Anxiety Hereditary hemorrhagic telangiectasia Surgical History History of lobectomy of thyroid History of colonoscopy History of hip surgery History of hydrocelectomy H/O brain surgery Family History Mother CAD (coronary artery disease) Social History Household Members: None Housing: House Do you presently have visiting nurse or other home services: No Alcohol intake: never Comment: I don't really have a number; low Patient Tobacco Use Status: Former Tobacco user Tobacco use type: Cigarette Years Smoked: 1994 stopped e-Cigarette/Vaping Use: Never Used Second Hand Smoke Exposure: No Advance Directives Date on File: 06/23/21 service: No Current occupational status: retired Current occupation: left hand dominant Cognitive needs: No Hearing needs: No Vision needs: No Questionnaire Thrive Questionnaire Date Thrive assessed: 10/17/23 I am a: Patient What is your living situation today?: I have a steady place to live Within the past 12 months, did the food you bought not last and you didn't have the money to get more?: Never true Within the past 12 months, did you worry whether your food would run out before you got money to buy more?: Never true Do you have trouble paying for medicines?: No Do you have trouble getting transportation to medical appointments?: No Do you have trouble paying your heating and electricity bill?: No Do you have trouble taking care of your child, family member or friend?: No Do you have trouble with day-to-day activities such as bathing, preparing meals, shopping, managing finances, etc.?: No Are you currently unemployed and looking for a job?: No Are you interested in more education?: No Please select the resources that you would like help with: None THRIVE Score: 0 AUDIT C Alcohol Use Questionnaire (AUDIT-C) 1. How often do you have a drink containing alcohol?: Never 2. How many drinks containing alcohol do you have on a typical day when you are drinking?: 1 or 2 (0) 3. How often do you have six or more drinks on one occasion?: Never Total Score: 0 Score Reviewed/Action Taken: No BAIRON-7 AMB Questionnaire BAIRON-7 Date BAIRON - 7 assessed: 10/17/23 Source: Developed by Drs. Say Wilkins, Judith Mcgovern, Pancho Kennedy and colleagues, with an educational rk from [employer]. Physical exam (Primary Care) Vital Signs: Last Vital Signs Pulse 58 10/17/23 08:38 BP 138/60 10/17/23 08:38 Pulse Ox 99 10/17/23 08:38 Oxygen Delivery Method Room Air 10/17/23 08:38 BMI result Body Mass Index 20.4 Tobacco/Smoking Status: Tobacco use Status Tobacco use date assessed 10/17/23 10/17/23 08:44 Patient Tobacco Use Status Former Tobacco user 10/17/23 08:44 Tobacco use type Cigarette 10/17/23 08:44 e-Cigarette/Vaping Use Never Used 10/17/23 08:44 Thrive Assessment: Date of Thrive Assessment Date Thrive assessed 10/17/23 10/17/23 08:44 Const General: alert; No acute distress Eyes Conjunctivae: conjunctivae normal Resp Auscultation: clear to auscultation bilaterally Cardio Rate: regular rate Rhythm: regular rhythm GI Inspection: Yes normal to inspection Extrem General: Yes normal to inspection and No edema Assessment and Plan Assessment & Plan (1) Retained orthopedic hardware: Comment: June 2021 right IMN femoral fracture Code(s): Z96.9 - Presence of functional implant, unspecified Plan: Patient has a planned procedure to remove the screw on the rightIMNfemoral fracture (2) Hypothyroid: Code(s): E03.9 - Hypothyroidism, unspecified Plan: Continue with present thyroid medication but will need blood work (3) Osteoporosis with fracture: Code(s): M80.80XA - Other osteoporosis with current pathological fracture, unspecified site, initial encounter for fracture Plan: Bone density up-to-date May 2022 (4) Hypertension: Code(s): I10 - Essential (primary) hypertension Plan: Continue with blood pressure medication. Decrease salt intake and exercise presently on amlodipine 10 mg once a day losartan 50 mg once a day pressure remained to be a little bit elevated and so will increase the losartan to 100 mg once a day Orders: Orders Comprehensive Met. Panel 3 Months I10 - Essential (primary) hypertension Free T4 (Free Thyroxine) 3 Months I10 - Essential (primary) hypertension Lipid Panel 3 Months E78.00 - Pure hypercholesterolemia, unspecified, I10 - Essential (primary) hypertension Complete Blood Count Auto Diff 3 Months I10 - Essential (primary) hypertension Thyroid Stimulating Hormone 3 Months I10 - Essential (primary) hypertension Vitamin B12 and Folate 3 Months I10 - Essential (primary) hypertension Medications: Changed From losartan 50 mg PO DAILY 90 days 90 tabs 1RF I10 - Essential (primary) hypertension To losartan 100 mg PO DAILY 90 days 90 tabs 1RF I10 - Essential (primary) hypertension Coding Level of Care Code Est Pt Level 4 (90075) Diagnoses Retained orthopedic hardware Z96.9 Hypothyroid E03.9 Osteoporosis with fracture M80.80XA Hypertension I10
== END 2023-10-17 09:22 | disposition home or self-care (01) ==
PROVIDERS: PCP Internal Medicine; Visit Provider Internal Medicine
DX: E03.9 Hypothyroidism, unspecified (principal); Z96.9 Presence of functional implant, unspecified; M80.80XA Other osteoporosis with current pathological fracture, unspecified site, initial encounter for fracture; I10 Essential (primary) hypertension
CPT/HCPCS: 99214

== ENCOUNTER 2023-10-17 09:28 | Outpatient (REF) | payer MEDICARE, SELFPAY ==
[2023-10-17 11:04] LABS: Free T4 (Free Thyroxine) 0.69 ng/dL (0.71-1.85); Thyroid Stimulating Hormone 5.17 uIU/mL (0.32-4.0)
== END 2023-10-17 09:29 | disposition home or self-care (01) ==
LOC: HO.LAB 09:28
PROVIDERS: PCP Internal Medicine; Visit Provider Internal Medicine
DX: I10 Essential (primary) hypertension (principal)
CPT/HCPCS: 36415; 84439; 84443

== ENCOUNTER 2023-10-30 11:06 | Day surgery (SDC) | payer MEDICARE, SELFPAY ==
[2023-10-28 07:33] VITALS: BMI 20.6
--- NOTE | 2023-10-29 08:46 | HO.ANESPROP2 ---
Documented by User: Loraine King NP 10/29/23 08:48 HPI - Anesthesia Eval Consult details Narrative: 73yo Right Femoral Hardware Removal PMFSH Active Problems Active Problems: All Active Problems (Updated 10/17/23 @ 09:03 by Ye Silveira MD) Retained orthopedic hardware (Acute) Femoral fracture (Acute) Hypothyroid (Acute) Constipation (Acute) BPH (benign prostatic hyperplasia) (Acute) Bilateral inguinal hernia (Acute) Urinary retention (Acute) Thyroid goiter (Acute) Adult general medical exam (Acute) Ulnar neuropathy of both upper extremities (Acute) Carpal tunnel syndrome on both sides (Acute) Vitamin D deficiency (Acute) Osteoporosis with fracture (Acute) Hypertension (Acute) Vitamin D deficiency (Acute) Hereditary hemorrhagic telangiectasia (Acute) Past Medical History Medical History Lower urinary tract symptoms Compression fx, thoracic spine Microscopic hematuria Nocturia Pheochromocytoma Uncontrolled hypertension Screening for prostate cancer Screening for diabetes mellitus Finger numbness Right wrist pain Numbness and tingling in both hands Hematuria Fracture of triquetral bone of wrist Dizziness Urinary urgency Wrist pain, acute Femoral fracture Frequency of micturition Medicare annual wellness visit, initial Cataract Seizure disorder Hypertension Vitamin B12 deficiency Anxiety Hereditary hemorrhagic telangiectasia Family History Family History Mother CAD (coronary artery disease) Family history of problems with anesthesia: No Surgical History Surgical History History of lobectomy of thyroid History of colonoscopy History of hip surgery History of hydrocelectomy H/O brain surgery History of Problems with Anesthesia: No Social History Social History Household Members: None Housing: House Do you presently have visiting nurse or other home services: No Alcohol intake: never Comment: I don't really have a number; low Patient Tobacco Use Status: Former Tobacco user Quit Date: >10 yrs ago Tobacco use type: Cigarette Years Smoked: 1994 stopped e-Cigarette/Vaping Use: Never Used Second Hand Smoke Exposure: No Use of substances other than those prescribed or required for medical reasons: No Are you DNR?: No Advance Directives: No Advance Directives Information Provided: Yes Advance Directives Date on File: 06/23/21 service: No Current occupational status: retired Current occupation: left hand dominant Cognitive needs: No Hearing needs: No Vision needs: No Meds Allergies Allergy/AdvReac Type Severity Reaction Status Date / Time hydrochlorothiazide Allergy Unknown Unknown Verified 10/30/23 11:42 lisinopril Allergy Unknown Unknown Verified 10/30/23 11:42 Home Medications Medication Instructions Recorded Confirmed Last Taken Type ascorbic acid (vitamin C) 1,000 mg 1 g PO DAILY 03/01/21 10/17/23 Unknown History tablet ferrous sulfate 325 mg (65 mg 325 mg PO DAILY 03/01/21 10/17/23 Unknown History iron) tablet (Feosol) fexofenadine 180 mg tablet 180 mg PO DAILY 03/01/21 10/17/23 Unknown History magnesium oxide 400 mg PO DAILY 03/01/21 10/17/23 Unknown History vitamin B complex 1 tab PO DAILY 03/01/21 10/17/23 Unknown History cyanocobalamin (vitamin B-12) 250 0 mcg PO DAILY 06/23/21 10/17/23 Unknown History mcg tablet vitamin A 3,000 mcg (10,000 unit) 0 unit PO DAILY 06/23/21 10/17/23 Unknown History capsule Zn-pyg gduf-hsgpcn-jcs palmet cap PO 02/20/22 10/17/23 Unknown History capsule Exam Height,Weight and Vital Signs: Height 5 ft 4 in Weight 54.431 kg Assessment and Plan Assessment Anesthesia Assessment: Chart Reviewed Final Anesthetic Review Family History of Problems with Anesthesia: No History of Problems with Anesthesia: No Documented by User: Jan Max MD 10/30/23 14:01 [facility] Past Medical History Medical History Lower urinary tract symptoms Compression fx, thoracic spine Microscopic hematuria Nocturia Pheochromocytoma Uncontrolled hypertension Screening for prostate cancer Screening for diabetes mellitus Finger numbness Right wrist pain Numbness and tingling in both hands Hematuria Fracture of triquetral bone of wrist Dizziness Urinary urgency Wrist pain, acute Femoral fracture Frequency of micturition Medicare annual wellness visit, initial Cataract Seizure disorder Hypertension Vitamin B12 deficiency Anxiety Hereditary hemorrhagic telangiectasia Family History Family History Mother CAD (coronary artery disease) Surgical History Surgical History History of lobectomy of thyroid History of colonoscopy History of hip surgery History of hydrocelectomy H/O brain surgery Social History Social History Household Members: None Housing: House Do you presently have visiting nurse or other home services: No Alcohol intake: never Comment: I don't really have a number; low Patient Tobacco Use Status: Former Tobacco user Quit Date: >10 yrs ago Tobacco use type: Cigarette Years Smoked: 1994 stopped e-Cigarette/Vaping Use: Never Used Second Hand Smoke Exposure: No Use of substances other than those prescribed or required for medical reasons: No Are you DNR?: No Advance Directives: No Advance Directives Information Provided: Yes Advance Directives Date on File: 06/23/21 service: No Current occupational status: retired Current occupation: left hand dominant Cognitive needs: No Hearing needs: No Vision needs: No Meds Allergies Allergy/AdvReac Type Severity Reaction Status Date / Time hydrochlorothiazide Allergy Unknown Unknown Verified 10/30/23 11:42 lisinopril Allergy Unknown Unknown Verified 10/30/23 11:42 Home Medications Medication Instructions Recorded Confirmed Last Taken Type ascorbic acid (vitamin C) 1,000 mg 1 g PO DAILY 03/01/21 10/17/23 Unknown History tablet ferrous sulfate 325 mg (65 mg 325 mg PO DAILY 03/01/21 10/17/23 Unknown History iron) tablet (Feosol) fexofenadine 180 mg tablet 180 mg PO DAILY 03/01/21 10/17/23 Unknown History magnesium oxide 400 mg PO DAILY 03/01/21 10/17/23 Unknown History vitamin B complex 1 tab PO DAILY 03/01/21 10/17/23 Unknown History cyanocobalamin (vitamin B-12) 250 0 mcg PO DAILY 06/23/21 10/17/23 Unknown History mcg tablet vitamin A 3,000 mcg (10,000 unit) 0 unit PO DAILY 06/23/21 10/17/23 Unknown History capsule Zn-pyg edzx-hhgabw-nhm palmet cap PO 02/20/22 10/17/23 Unknown History capsule Exam Airway Mallampati Class: II TM Dist: >3cm Neck ROM: Full Loose/Missing/Broken Teeth: Yes Heart: rrr+[id number] Lungs: cta b/l Assessment and Plan Assessment Anesthesia Assessment: Anesthesia Plan Discussed Final Anesthetic Review NPO: Yes ASA Class: III Final Preanesthetic Review: No Changes in Pt Med Stat, Meds/Allgs Chart Reviewed, Consent Obtained/Reviewed and Anes Risks/Benef Reviewed Patient Risk: Intermediate Procedure Risk: Intermediate Assessment/Block/Sedation in SS: Assess/Block/Sedation-SS Anesthetic Plan Anesthetic Plan: MAC: Disposition: Standard PACU
--- NOTE | ~2023-10-30 | FL_ITS ---
EXAMINATION: XR FLUOROSCOPY WITH IMAGES CLINICAL INFORMATION: Right hip screw removal. COMPARISON: Pelvis 09/30/2023. TECHNIQUE: Fluoroscopy Supervised By: Dr. Devendra Matthews. Fluoroscopy Time: 0.0 minutes. Cumulative Dose: 0.81337 mGy. DAP: [id number] Gycm2. Images: 1. FINDINGS: The distal tip of the right intramedullary gabriel is visible on the single image and the distal retention screw has been removed. FL/FL guidance in OR IMPRESSION: Operative fluoroscopy.
[2023-10-30 11:47] VITALS: BMI 20.5
--- NOTE | 2023-10-30 12:05 | MHC.SHP ---
Pre-Procedural Eval Section A - 24 Hr Update-Section A only Date of Service: 10/30/23 The patient is an INPATIENT: No Changes since office visit: No Cold of Flu in the past 2 weeks, No New Medical Problems, No Changes in Medication and No Patient answered all questions The patient has been examined within 24 hours of the surgical procedure. The History & Physical has been completed within 30 days and I have reviewed it.: Yes Section B - Complete if H&P > 30 days Chief Complaint: Pain in unspecified hip Allergies: Allergies Allergy/AdvReac Type Severity Reaction Status Date / Time hydrochlorothiazide Allergy Unknown Unknown Verified 10/30/23 11:42 lisinopril Allergy Unknown Unknown Verified 10/30/23 11:42 Plan I have reviewed the history and physical and performed a pertinent physical examination on my patient. No changes have occurred unless specified. Time Spent With Patient Time: Total time managing care of this patient today ____ minutes.
[2023-10-30 12:09] VITALS: BP 146/60; PULSE 64; RESP 15; TEMP 36.8; O2SAT 97
[2023-10-30] MEDS: Lactated Ringers 1,000 ML 100 ML IVCONT (12:10)
[2023-10-30 14:08] VITALS: BP 122/45; PULSE 57; RESP 16; TEMP 36.7; O2SAT 100
--- NOTE | 2023-10-30 14:10 | PM.OP ---
Brief Operative Note Date of Service: 10/30/23 Pre-op diagnosis: Retained Ortho Hardware Post-op diagnosis: same Procedure: Removal of hardware right femur Surgeon: Devendra Matthews MD Anesthesia: MAC and local Was an Glove Turner And Former Automatic used for this Procedure?: No Estimated blood loss (mL): 1 IV fluids (mL): 400 Pathology: other Condition: stable Disposition: PACU
[2023-10-30 14:23] VITALS: BP 130/48; PULSE 57; RESP 18; TEMP 36.7; O2SAT 97
--- NOTE | 2023-11-01 16:36 | W.PM.OPN ---
Operative Note Operative Note Date of Service: 10/30/23 Narrative: Date of Service: 10/30/23 Pre-op diagnosis: Retained Ortho Hardware Post-op diagnosis: same Procedure: Removal of hardware right femur Surgeon: Devendra Matthews MD Anesthesia: MAC and local Was an Ironworker Machine Operator used for this Procedure?: No Estimated blood loss (mL): 1 IV fluids (mL): 400 Pathology: other Condition: stable Disposition: PACU Procedure in detail: Patient was brought to the operating room and placed in the supine position on the surgical table. He was prepped and draped in standard sterile fashion and a time out was called to identify proper site, proper procedure and IV antibiotics per weight were administered. I began by making an incision over the previous surgical incision. Blunt dissection was then taken down to the distal screw. RotaryView hexagonal screwdriver was used and the screws removed without difficulty. I then irrigated and performed a layered closure with varghese on the skin. Local anesthetic was administered before and after incision. The patient was placed in sterile dressings, extubated and brought to the recovery room in stable condition. There were no known complications.
== END 2023-10-30 15:41 | disposition home or self-care (01) ==
PROVIDERS: PCP Internal Medicine; Visit Provider Orthopaedic Surgery
PROC: (CPT 20680; principal; 2023-10-30 14:10)
DX: T85.848A Pain due to other internal prosthetic devices, implants and grafts, initial encounter (principal); G89.18 Other acute postprocedural pain; M25.551 Pain in right hip; Z96.9 Presence of functional implant, unspecified; M16.0 Bilateral primary osteoarthritis of hip; Y79.3 Surgical instruments, materials and orthopedic devices (including sutures) associated with adverse incidents; Y92.9 Unspecified place or not applicable; M81.0 Age-related osteoporosis without current pathological fracture; G40.909 Epilepsy, unspecified, not intractable, without status epilepticus; E55.9 Vitamin D deficiency, unspecified; I10 Essential (primary) hypertension; Z79.899 Other long term (current) drug therapy; Z88.8 Allergy status to other drugs, medicaments and biological substances; Z98.890 Other specified postprocedural states; Z87.891 Personal history of nicotine dependence
CPT/HCPCS: 20680; J0131; J0690; J2250; J2405; J2704; J2795; J3010

== ENCOUNTER → 2023-10-30 11:06 | Outpatient (BNV) | payer MEDICARE, SELFPAY | PROVIDERS: PCP Internal Medicine; Visit Provider Orthopaedic Surgery | DX: T84.84XA Pain due to internal orthopedic prosthetic devices, implants and grafts, initial encounter (principal) | CPT/HCPCS: 20680 ==

== ENCOUNTER 2023-11-07 09:13 | Outpatient (REF) | payer MEDICARE, SELFPAY ==
--- NOTE | ~2023-11-07 | XR_ITS ---
EXAMINATION: XR FEMUR, RIGHT CLINICAL INFORMATION: Presence of functional implant at an unspecified. COMPARISON: 09/30/2023, 07/07/2021. TECHNIQUE: AP and lateral views of the right femur were obtained. FINDINGS: Redemonstration of right intramedullary gabriel and dynamic screw. Transfixing right hip intertrochanteric fracture identified on exam of 07/07/2021. Hardware appears intact. Alignment maintained. Mild degenerative changes in the right hip and knee. Surgical varghese right thigh. XR/XR femur RT 2V IMPRESSION: Redemonstration of right intramedullary gabriel and dynamic screw transfixing right hip intertrochanteric fracture identified on exam of 07/07/2021. Hardware appears intact. Alignment maintained. Mild degenerative changes in the right hip and knee.
== END 2023-11-07 09:14 | disposition home or self-care (01) ==
LOC: HO.HOSX 09:13
PROVIDERS: Visit Provider Physician Assistant
DX: S72.91XD Unspecified fracture of right femur, subsequent encounter for closed fracture with routine healing (principal); Z96.9 Presence of functional implant, unspecified; Z98.890 Other specified postprocedural states; X58.XXXD Exposure to other specified factors, subsequent encounter
CPT/HCPCS: 73552; 99212

== ENCOUNTER 2023-11-07 12:30 | Outpatient (AMB) | payer MEDICARE, SELFPAY ==
[2023-11-07 12:39] VITALS: BMI 20.4
--- NOTE | 2023-11-07 12:39 | A.OFFVIS_ITS ---
Intake Vital Signs 11/07/23 12:39 Height 5 ft 4 in Weight 119 lb BMI 20.4 Intake Visit Reasons: PO RT KAM[place] 10/30/23 NE Intake Note: Holden is a 73 year old male who presents today for a post op appointment s/p RT hip KAMILLE 10/30/23 NE. Patient reports he is doing well he has changed his bandage and states it looks good and feeling better each day. Allergies hydrochlorothiazide Allergy (Unknown, Verified 11/07/23 12:49) Unknown lisinopril Allergy (Unknown, Verified 11/07/23 12:49) Unknown HPI PO RT KAMILLE 10/30/23 NE HPI Details 73-year-old male who presents in the off ice today 8 days status post right femur removal of hardware, which was performed on 10/30/[address] Matthews. While in the office today the patient reports he is doing well. He confirms changing his bandage. He claims the right lower extremity looks good and is feeling better daily. [facility] Medical History Lower urinary tract symptoms Compression fx, thoracic spine Microscopic hematuria Nocturia Pheochromocytoma Uncontrolled hypertension Screening for prostate cancer Screening for diabetes mellitus Finger numbness Right wrist pain Numbness and tingling in both hands Hematuria Fracture of triquetral bone of wrist Dizziness Urinary urgency Wrist pain, acute Femoral fracture Frequency of micturition Medicare annual wellness visit, initial Cataract Seizure disorder Hypertension Vitamin B12 deficiency Anxiety Hereditary hemorrhagic telangiectasia Surgical History History of lobectomy of thyroid History of colonoscopy History of hip surgery History of hydrocelectomy H/O brain surgery Family History Mother CAD (coronary artery disease) Social History Household Members: None Housing: House Do you presently have visiting nurse or other home services: No Alcohol intake: never Comment: I don't really have a number; low Patient Tobacco Use Status: Former Tobacco user Quit Date: >10 yrs ago Tobacco use type: Cigarette Years Smoked: 1994 stopped e-Cigarette/Vaping Use: Never Used Second Hand Smoke Exposure: No Advance Directives Date on File: 06/23/21 service: No Current occupational status: retired Current occupation: left hand dominant Cognitive needs: No Hearing needs: No Vision needs: No Physical Exam Vital Signs: BMI result Body Mass Index 20.4 Extrem Other: Small lateral thigh incision clean dry and intact Assessment & Plan Assessment & Plan (1) Retained orthopedic hardware: Comment: June 2021 right IMN femoral fracture Code(s): Z96.9 - Presence of functional implant, unspecified Plan: Status post removal of distal interlocking screw for intramedullary nail after intertrochanteric femur fracture 3 years ago. He feels fine. I think it is too early for his varghese to come out but incision looks good. Follow up next week for staple removal. Otherwise continue activity as tolerated. Orders: Orders XR femur RT 2V Today Z96.9 - Presence of functional implant, unspecified Coding Level of Care Code Global (97835) Diagnoses Retained orthopedic hardware Z96.9
== END 2023-11-07 13:02 | disposition home or self-care (01) ==
PROVIDERS: PCP Internal Medicine; Visit Provider Orthopaedic Surgery
DX: Z96.9 Presence of functional implant, unspecified (principal)
CPT/HCPCS: 99024

== ENCOUNTER 2023-11-13 08:30 | Outpatient (AMB) | payer MEDICARE, SELFPAY ==
--- NOTE | 2023-11-13 09:01 | MHC.OFFVIS ---
Intake Intake Visit Reasons: PO - RT KAMILLE 10/30/23 NE Intake Note: Terry is a 73 year old male who presents today for staple removal s/p RT hip KAMILLE 10/30/23 NE. Allergies hydrochlorothiazide Allergy (Unknown, Verified 11/13/23 09:02) Unknown lisinopril Allergy (Unknown, Verified 11/13/23 09:02) Unknown HPI PO - RT KAMILLE 10/30/23 NE HPI Details 73-year-old male who presents in the office today 2 weeks status removal of distal interlocking screw for intramedullary nail after a right intertrochanteric femur fracture 3 years ago, which was performed on 10/30/[address] Matthews. Patient was last seen in the office on 11/07/[address] Matthews. [facility] Medical History Lower urinary tract symptoms Compression fx, thoracic spine Microscopic hematuria Nocturia Pheochromocytoma Uncontrolled hypertension Screening for prostate cancer Screening for diabetes mellitus Finger numbness Right wrist pain Numbness and tingling in both hands Hematuria Fracture of triquetral bone of wrist Dizziness Urinary urgency Wrist pain, acute Femoral fracture Frequency of micturition Medicare annual wellness visit, initial Cataract Seizure disorder Hypertension Vitamin B12 deficiency Anxiety Hereditary hemorrhagic telangiectasia Surgical History History of lobectomy of thyroid History of colonoscopy History of hip surgery History of hydrocelectomy H/O brain surgery Family History Mother CAD (coronary artery disease) Social History Household Members: None Housing: House Do you presently have visiting nurse or other home services: No Alcohol intake: never Comment: I don't really have a number; low Patient Tobacco Use Status: Former Tobacco user Quit Date: >10 yrs ago Tobacco use type: Cigarette Years Smoked: 1994 stopped e-Cigarette/Vaping Use: Never Used Second Hand Smoke Exposure: No Advance Directives Date on File: 06/23/21 service: No Current occupational status: retired Current occupation: left hand dominant Cognitive needs: No Hearing needs: No Vision needs: No Review of Systems Const All systems reviewed & are unremarkable except as noted in HPI and below Physical Exam Const General: cooperative, healthy appearing and no acute distress Resp Effort & Inspection: normal respiratory effort and able to speak in complete sentences Cardio Rate: regular rate Peripheral pulses: Peripheral pulses 2+ throughout GI Palpation (GI): Soft to palpation Skin Lesions: no lesions Rashes: no rashes Extrem Other: Right thigh incision site is c/d/i. [place] intact. No signs of infection. NVI. Assessment & Plan Assessment & Plan (1) Retained orthopedic hardware: Comment: June 2021 right IMN femoral fracture Code(s): Z96.9 - Presence of functional implant, unspecified Plan Mr. Aguirre is a 73-year-old male who presents in the office today 2 weeks status removal of distal interlocking screw for intramedullary nail after a right intertrochanteric femur fracture 3 years ago, which was performed on 10/30/[address] Matthews. Patient was last seen in the office on 11/07/[address] Matthews. [place] were removed and steri-stripes were applied. He may return to normal activities as tolerated. Follow-up will be PRN, or sooner if needed. Patient Instructions: Scribed by Pat Engel medical librarian, for Hiral Inman PA-C on 11/12/2023 at 8:40 am, EST. Coding Level of Care Code Global (84355) Diagnoses Retained orthopedic hardware Z96.9
== END 2023-11-13 09:18 | disposition home or self-care (01) ==
PROVIDERS: PCP Internal Medicine; Visit Provider Physician Assistant
DX: Z96.9 Presence of functional implant, unspecified (principal)
CPT/HCPCS: 99024

== ENCOUNTER → 2023-11-13 08:30 | Outpatient (BNVA) | payer MEDICARE, SELFPAY | PROVIDERS: PCP Internal Medicine; Visit Provider Physician Assistant | DX: Z47.89 Encounter for other orthopedic aftercare (principal); Z96.9 Presence of functional implant, unspecified; Z98.890 Other specified postprocedural states | CPT/HCPCS: 99212 ==

== ENCOUNTER 2023-12-06 15:31 | Outpatient (AMB) | payer MEDICARE, SELFPAY ==
--- NOTE | 2023-12-06 11:41 | A.OFFPC_ITS ---
Intake Visit Reasons: Cold Symptoms Craft Recruiter Required: No Accompanied by: Self / Same As Patient Allergies hydrochlorothiazide Allergy (Unknown, Verified 11/13/23 09:02) Unknown lisinopril Allergy (Unknown, Verified 11/13/23 09:02) Unknown Tobacco use date assessed: 10/17/23 Dental Screening Dental Screen Date: 10/17/23 HPI Cold Symptoms HPI Details 73-year-old male with hypothyroid osteop orosis hypertension calling in for an acute problem. cough productive mid october, no fevers, , no sore throat, states lightheaded, states BP low 115/55 but this am 112/65 105 feels lot of gas patient has been feeling better now and discussed about the blood pressure if he is sick and blood pressure is low may cut the losartan to 50 mg only. [facility] Medical History Lower urinary tract symptoms Compression fx, thoracic spine Microscopic hematuria Nocturia Pheochromocytoma Uncontrolled hypertension Screening for prostate cancer Screening for diabetes mellitus Finger numbness Right wrist pain Numbness and tingling in both hands Hematuria Fracture of triquetral bone of wrist Dizziness Urinary urgency Wrist pain, acute Femoral fracture Frequency of micturition Medicare annual wellness visit, initial Cataract Seizure disorder Hypertension Vitamin B12 deficiency Anxiety Hereditary hemorrhagic telangiectasia Surgical History History of lobectomy of thyroid History of colonoscopy History of hip surgery History of hydrocelectomy H/O brain surgery Family History Mother CAD (coronary artery disease) Social History Household Members: None Housing: House Do you presently have visiting nurse or other home services: No Alcohol intake: never Comment: I don't really have a number; low Patient Tobacco Use Status: Former Tobacco user Quit Date: >10 yrs ago Tobacco use type: Cigarette Years Smoked: 1994 stopped e-Cigarette/Vaping Use: Never Used Second Hand Smoke Exposure: No Advance Directives Date on File: 06/23/21 service: No Current occupational status: retired Current occupation: left hand dominant Cognitive needs: No Hearing needs: No Vision needs: No Questionnaire PHQ-9 Over the last 2 weeks, how often have you been bothered by any of the following problems? 1. Little interest or pleasure in doing things: not at all 2. Feeling down, depressed, or hopeless: not at all 3. Trouble falling or staying asleep, or sleeping too much: not at all 4. Feeling tired or having little energy: not at all 5. Poor appetite or overeating: not at all 6. Feeling bad about yourself - or that you are a failure or have let yourself or your family down: not at all 7. Trouble concentrating on things, such as reading the newspaper or watching television: not at all 8. Moving or speaking so slowly that other people could have noticed. Or the opposite - being so fidgety or restless that you have been moving around a lot more than usual: not at all 9. Thoughts that you would be better off or of hurting yourself in some way: not at all Total score: 0 Depression Screening Interpretation: Negative Depression Screening Done: Yes 97288 - PHQ-9 Billing: Yes Source: Developed by Drs. Say Wilkins, Judith Mcgovern, Pancho Kennedy and colleagues, with an educational rk from [employer]. Thrive Questionnaire Date Thrive assessed: 12/06/23 I am a: Patient What is your living situation today?: I have a steady place to live Within the past 12 months, did the food you bought not last and you didn't have the money to get more?: Never true Within the past 12 months, did you worry whether your food would run out before you got money to buy more?: Never true Do you have trouble paying for medicines?: No Do you have trouble getting transportation to medical appointments?: No Do you have trouble paying your heating and electricity bill?: No Do you have trouble taking care of your child, family member or friend?: No Do you have trouble with day-to-day activities such as bathing, preparing meals, shopping, managing finances, etc.?: No Are you currently unemployed and looking for a job?: No Are you interested in more education?: No Please select the resources that you would like help with: None Currently or been in a relationship where the following occur: no concerns reported THRIVE Score: 0 AUDIT C Alcohol Use Questionnaire (AUDIT-C) 1. How often do you have a drink containing alcohol?: Never 3. How often do you have six or more drinks on one occasion?: Never Total Score: 0 BAIRON-7 AMB Questionnaire BAIRON-7 Date BAIRON - 7 assessed: 10/17/23 Source: Developed by Drs. Say Wilkins, Judith Mcgovern, Pancho Kennedy and colleagues, with an educational rk from [employer]. Physical exam (Primary Care) Tobacco/Smoking Status: Tobacco use Status Tobacco use date assessed 10/17/23 12/06/23 11:41 Patient Tobacco Use Status Former Tobacco user 12/06/23 11:41 Tobacco use type Cigarette 12/06/23 11:41 e-Cigarette/Vaping Use Never Used 12/06/23 11:41 PHQ-9: PHQ-9 Score PHQ-9: Total score 0 12/06/23 15:30 Depression Screening Interpretation: Negative Thrive Assessment: Date of Thrive Assessment Date Thrive assessed 12/06/23 12/06/23 15:30 Currently or been in a relationship where the following occur: no concerns reported Telehealth Telehealth Telehealth Platform: Telephone Location of provider rendering services: practice address Location of patient: address on file Patient Identification confirmed using: Name, : Yes Telehealth method: voice only Patient verbally consented to treatment: Yes Patient verbally consented to billing insurance company: Yes Patient informed of any privacy concerns related to visit: Yes Minutes spent on Phone/Video with Pt.: 15 Assessment and Plan Assessment & Plan (1) Hypertension: Code(s): I10 - Essential (primary) hypertension Plan: Discussed that if the blood pressure is low because he cigarette now to decrease the losartan to 50 mg once a day but once better and blood pressure is getting higher to get back to 100 mg. (2) Acute bronchitis: Code(s): J20.9 - Acute bronchitis, unspecified Plan: Increase oral fluids and did prescribe antibiotic just in case. Advised rest. Medications: New azithromycin (Zithromax) For 250 mg dose pack: take 500 mg today (day 1), then 250 mg for 4 days (days 2-5) PO 6 tabs 0RF J20.9 - Acute bronchitis, unspecified Coding Level of Care Code Tele Est Pt Level 3 (85651) Diagnoses Hypertension I10 Acute bronchitis J20.9
== END 2023-12-06 17:11 | disposition home or self-care (01) ==
LOC: HO.HMGH 15:31
PROVIDERS: PCP Internal Medicine; Visit Provider Internal Medicine
DX: I10 Essential (primary) hypertension (principal); J20.9 Acute bronchitis, unspecified
CPT/HCPCS: 99442

== ENCOUNTER 2024-01-10 07:16 | Outpatient (REF) | payer MEDICARE, SELFPAY ==
[2024-01-10 07:37] LABS: MANUAL DIFF FLAG NO
[2024-01-10 08:00] LABS: Basophils Absolute Auto 0.1 X10*3/uL (0.0-0.2); Basophils Percent Auto 1.2 % (0-2); Eosinophils Absolute Auto 0.2 X10*3/uL (0.0-0.4); Eosinophils Percent Auto 3.9 % (0-4); Hemoglobin 14.2 g/dl (14.0-18.0); Imm Gran Abs Auto 0.01 X10*3/uL (0.00-0.03); Imm Gran Pct Auto 0.2 % (0.0-0.4); Lymphocytes Absolute Auto 0.9 X10*3/uL (1.2-4.9); Lymphocytes Percent Auto 17.7 % (20-40); Mean Corpuscular HGB Conc 33.8 g/dl (31.0-36.0); Mean Corpuscular Hemoglobin 33.4 pg (27.0-33.0); Mean Corpuscular Volume 98.8 fL (80.0-98.0); Mean Platelet Volume 9.7 fL (9.4-12.4); Monocytes Absolute Auto 0.4 X10*3/uL (0.1-1.2); Monocytes Percent Auto 8.4 % (2-11); Neutrophils Absolute Auto 3.3 x10*3/uL (2.0-8.3); Neutrophils Percent Auto 68.6 % (45-73); Platelet Count 206 X10*3/uL (160-400); Red Blood Count 4.25 X10*6/uL (4.60-5.80); Red Cell Distribution Width 14.2 % (11.0-16.0); White Blood Count 4.9 X10*3/uL (4.8-10.8)
[2024-01-10 08:46] LABS: Alanine Aminotransferase 34 U/L (0-40); Albumin Level 3.7 g/dL (3.5-5.0); Alkaline Phosphatase 162 U/L (39-117); Anion Gap 13 (12-20); Aspartate Amino Transferase 38 U/L (5-37); Bilirubin Total 0.4 mg/dL (0.0-1.0); Blood Urea Nitrogen 26 mg/dL (9-16); Calcium 9.1 mg/dL (8.4-10.2); Carbon Dioxide 27 mmol/L (22-29); Chloride 108 mmol/L (96-108); Cholesterol 177 mg/dL (<200); Estimated Glomerular Filt Rate > 60; Glucose Random 94 mg/dL (60-115); HDL Cholesterol 61 mg/dL (>40); LDL Cholesterol Calculated 107 mg/dL (<100); Potassium 4.6 mmol/L (3.3-5.1); Sodium 143 mmol/L (135-145); Total Protein 6.7 g/dL (6.5-8.0); Triglycerides 47 mg/dL (<150)
[2024-01-10 09:02] LABS: Free T4 (Free Thyroxine) 0.86 ng/dL (0.71-1.85); Thyroid Stimulating Hormone 3.77 uIU/mL (0.32-4.0)
[2024-01-10 09:04] LABS: Folate 12.2 ng/mL (> or = 4.0); Vitamin B12 930 pg/mL (200-900)
== END 2024-01-10 07:17 | disposition home or self-care (01) ==
LOC: HO.LAB 07:16
PROVIDERS: PCP Internal Medicine; Visit Provider Internal Medicine
DX: E03.9 Hypothyroidism, unspecified (principal); I10 Essential (primary) hypertension; E78.00 Pure hypercholesterolemia, unspecified
CPT/HCPCS: 36415; 80053; 80061; 82607; 82746; 84439; 84443; 85025

== ENCOUNTER 2024-02-13 08:50 | Outpatient (AMB) | payer MEDICARE, SELFPAY ==
[2024-02-13 08:53] VITALS: BP 136/58; PULSE 67; O2SAT 96; BMI 20.4
--- NOTE | 2024-02-13 08:53 | A.OFFPC_ITS ---
Vital Signs 02/13/24 08:53 Height 5 ft 3 in Weight 115 lb BMI 20.4 BP 136/58 L Blood Pressure Location Lt brachial Position Sitting Pulse 67 Pulse Source Pulse Oximeter Pulse Oximetry (%) 96 Oxygen Delivery Method Room Air Intake Visit Reasons: hypothyroid, HTN Allergies hydrochlorothiazide Allergy (Unknown, Verified 02/13/24 08:54) Unknown lisinopril Allergy (Unknown, Verified 02/13/24 08:54) Unknown Tobacco use date assessed: 10/17/23 Fall risk assessment: No Falls in past year Last assessed Fall Risk: 02/13/24 Dental Screening Dental Screen Date: 10/17/23 HPI hypothyroid, HTN HPI Details 73-year-old male with a history of hered itary hemorrhagic telangiectasia hypertension osteoporosis thyroid goiter with hypothyroidism coming in for follow-up. Last seen in November 2023. Patient's colonoscopy last done in 2016 and the last bone density was done in 06/17/2022 patient is being followed up by orthopedics October 30 2023 status post removal of distal interlocking screw for intramedullary nail after a right intertrochanteric fracture femur 3 years ago. dry wall basement- has a cough- - February 04- sick but better now. BP at home cough is better. complains R knee pain deny fall or trauma- long time 70' and also L arm pain. R arm pain 1 year decline referral but advised physical therapy [facility] Medical History Lower urinary tract symptoms Compression fx, thoracic spine Microscopic hematuria Nocturia Pheochromocytoma Uncontrolled hypertension Screening for prostate cancer Screening for diabetes mellitus Finger numbness Right wrist pain Numbness and tingling in both hands Hematuria Fracture of triquetral bone of wrist Dizziness Urinary urgency Wrist pain, acute Femoral fracture Frequency of micturition Medicare annual wellness visit, initial Cataract Seizure disorder Hypertension Vitamin B12 deficiency Anxiety Hereditary hemorrhagic telangiectasia Surgical History History of lobectomy of thyroid History of colonoscopy History of hip surgery History of hydrocelectomy H/O brain surgery Family History Mother CAD (coronary artery disease) Social History Household Members: None Housing: House Do you presently have visiting nurse or other home services: No Alcohol intake: never Comment: I don't really have a number; low Patient Tobacco Use Status: Former Tobacco user Tobacco use type: Cigarette Years Smoked: 1994 stopped e-Cigarette/Vaping Use: Never Used Second Hand Smoke Exposure: No Advance Directives Date on File: 06/23/21 service: No Current occupational status: retired Current occupation: left hand dominant Cognitive needs: No Hearing needs: No Vision needs: No Questionnaire PHQ-9 Over the last 2 weeks, how often have you been bothered by any of the following problems? 1. Little interest or pleasure in doing things: not at all 2. Feeling down, depressed, or hopeless: not at all 3. Trouble falling or staying asleep, or sleeping too much: not at all 4. Feeling tired or having little energy: not at all 5. Poor appetite or overeating: not at all 6. Feeling bad about yourself - or that you are a failure or have let yourself or your family down: not at all 7. Trouble concentrating on things, such as reading the newspaper or watching television: not at all 8. Moving or speaking so slowly that other people could have noticed. Or the opposite - being so fidgety or restless that you have been moving around a lot more than usual: not at all 9. Thoughts that you would be better off or of hurting yourself in some way: not at all Total score: 0 Depression Screening Interpretation: Negative Depression Screening Done: Yes 96212 - PHQ-9 Billing: Yes Source: Developed by Drs. Say Wilkins, Judith Mcgovern, Pancho Kennedy and colleagues, with an educational rk from [employer]. Thrive Questionnaire Date Thrive assessed: 12/06/23 AUDIT C Alcohol Use Questionnaire (AUDIT-C) 1. How often do you have a drink containing alcohol?: Never 3. How often do you have six or more drinks on one occasion?: Never Total Score: 0 BAIRON-7 AMB Questionnaire BAIRON-7 Date BAIRON - 7 assessed: 10/17/23 Source: Developed by Drs. Say Wilkins, Judith Mcgovern, Pancho Kennedy and colleagues, with an educational rk from [employer]. Physical exam (Primary Care) Vital Signs: Last Vital Signs Pulse 67 02/13/24 08:53 BP 136/58 L 02/13/24 08:53 Pulse Ox 96 02/13/24 08:53 Oxygen Delivery Method Room Air 02/13/24 08:53 BMI result Body Mass Index 20.4 Tobacco/Smoking Status: Tobacco use Status Tobacco use date assessed 10/17/23 02/13/24 08:55 Patient Tobacco Use Status Former Tobacco user 02/13/24 08:55 Tobacco use type Cigarette 02/13/24 08:55 e-Cigarette/Vaping Use Never Used 02/13/24 08:55 PHQ-9: PHQ-9 Score PHQ-9: Total score 0 02/13/24 08:55 Depression Screening Interpretation: Negative Thrive Assessment: Date of Thrive Assessment Date Thrive assessed 12/06/23 02/13/24 08:55 Const General: alert; No acute distress Eyes Conjunctivae: conjunctivae normal Resp Auscultation: clear to auscultation bilaterally Cardio Rate: regular rate Rhythm: regular rhythm GI Inspection: Yes normal to inspection Extrem General: Yes normal to inspection and No edema Assessment and Plan Assessment & Plan (1) Hypothyroid: Code(s): E03.9 - Hypothyroidism, unspecified Plan: Continue with present thyroid medication at 25 mcg 2023 last blood work (2) Hypertension: Code(s): I10 - Essential (primary) hypertension Plan: Continue with blood pressure medication. Decrease salt intake and exercise presently on losartan 100 mg once a day and amlodipine 10 mg once a day (3) Osteoporosis with fracture: Comment: 05/2022 Code(s): M80.80XA - Other osteoporosis with current pathological fracture, unspecified site, initial encounter for fracture Plan: Patient is up-to-date with bone density (4) Right arm pain: Code(s): M79.601 - Pain in right arm Orders: Orders Phenytoin Dilantin Today I10 - Essential (primary) hypertension Complete Blood Count Auto Diff Today I10 - Essential (primary) hypertension XR shoulder RT min 2V Today M79.601 - Pain in right arm OT Evaluation and Treatment Today M79.601 - Pain in right arm Referrals Orthopedics Referral M79.601 - Pain in right arm Coding Level of Care Code Est Pt Level 4 (67903) Diagnoses Hypothyroid E03.9 Hypertension I10 Osteoporosis with fracture M80.80XA Right arm pain M79.601
== END 2024-02-13 09:39 | disposition home or self-care (01) ==
PROVIDERS: PCP Internal Medicine; Visit Provider Internal Medicine
DX: E03.9 Hypothyroidism, unspecified (principal); I10 Essential (primary) hypertension; M80.80XA Other osteoporosis with current pathological fracture, unspecified site, initial encounter for fracture; M79.601 Pain in right arm
CPT/HCPCS: 99214

== ENCOUNTER 2024-03-05 08:50 | Outpatient (AMB) | payer MEDICARE, SELFPAY ==
--- NOTE | 2024-03-05 08:54 | A.OFFVIS_ITS ---
Vital Signs 03/05/24 08:57 Height 5 ft 3 in Weight 115 lb BMI 20.4 Intake Visit Reasons: New Prob - Right shoulder pain Intake Note: Terry is a 73 year old left hand dominant male who presents today for a new problem visit with complaints of right shoulder pain. Patient reports that his shoulder has been increasingly painful with activity. He is unable to lift the arm, has painful and limited ROM. Denies numbness and tingling. Ne previous treatment, He will take a Tylenol occasionally for his pain. Allergies hydrochlorothiazide Allergy (Unknown, Verified 02/13/24 08:54) Unknown lisinopril Allergy (Unknown, Verified 02/13/24 08:54) Unknown HPI HPI New Prob - Right shoulder pain: Details: This is a 73-year-old gentleman who comes in today with right shoulder and right knee pain. His right shoulder has been bothering him for a few months now. He denies injury. He has pain with overhead activity and at night but he is sleeping. He is starting physical therapy tomorrow. He denies injury. With respect to his right knee he has intermittent right knee pain. There are days where he is able to walk without difficulty on other days where he feels pain with basic activities. Again he denies injury. [facility] Medical History Lower urinary tract symptoms Compression fx, thoracic spine Microscopic hematuria Nocturia Pheochromocytoma Uncontrolled hypertension Screening for prostate cancer Screening for diabetes mellitus Finger numbness Right wrist pain Numbness and tingling in both hands Hematuria Fracture of triquetral bone of wrist Dizziness Urinary urgency Wrist pain, acute Femoral fracture Frequency of micturition Medicare annual wellness visit, initial Cataract Seizure disorder Hypertension Vitamin B12 deficiency Anxiety Hereditary hemorrhagic telangiectasia Surgical History History of lobectomy of thyroid History of colonoscopy History of hip surgery History of hydrocelectomy H/O brain surgery Family History Mother CAD (coronary artery disease) Social History Household Members: None Housing: House Do you presently have visiting nurse or other home services: No Alcohol intake: never Comment: I don't really have a number; low Patient Tobacco Use Status: Former Tobacco user Tobacco use type: Cigarette Years Smoked: 1994 stopped e-Cigarette/Vaping Use: Never Used Second Hand Smoke Exposure: No Advance Directives Date on File: 06/23/21 service: No Current occupational status: retired Current occupation: left hand dominant Cognitive needs: No Hearing needs: No Vision needs: No Physical Exam Vital Signs: BMI result Body Mass Index 20.4 Extrem Other: Right shoulder with positive Traylor and Neer He is kyphotic and forward flexion and combined glenohumeral abduction are painf ul. He has a normal gait with tenderness to palpation medial compartment right knee Results Reviewed Results Reviewed: I reviewed his right shoulder radiographs and they are largely normal. Assessment & Plan Assessment & Plan (1) Right knee pain: Code(s): M25.561 - Pain in right knee Category: Medical Plan: Terry has intermittent right knee pain. I recommend a home exercise program with physical therapy. I will include this in a faxed note to them as he is starting physical therapy this week. (2) Painful arc syndrome of right shoulder: Code(s): M75.101 - Unspecified rotator cuff tear or rupture of right shoulder, not specified as traumatic Category: Medical Plan: He has been prescribed physical therapy for his right shoulder. We discussed this as well as the possibility of injections. At this time however he would prefer to stick with therapy only. He will return to see me up proximally 6-8 weeks after a full course of physical therapy. Orders: Orders PT Evaluation and Treatment Today Devendra Matthews MD M25.561 - Pain in right knee, M75.101 - Unspecified rotator cuff tear or rupture of right shoulder, not specified as traumatic XR shoulder RT min 2V Today Hiral Inman PA-C M25.519 - Pain in unspecified shoulder Coding Level of Care Code Est Pt Level 4 (68432) Diagnoses Right knee pain M25.561 Painful arc syndrome of right shoulder M75.101
[2024-03-05 08:57] VITALS: BMI 20.4
== END 2024-03-05 09:11 | disposition home or self-care (01) ==
PROVIDERS: PCP Internal Medicine; Visit Provider Physician Assistant
DX: M75.101 Unspecified rotator cuff tear or rupture of right shoulder, not specified as traumatic (principal); M25.561 Pain in right knee
CPT/HCPCS: 99214

== ENCOUNTER 2024-03-05 11:10 | Outpatient (REF) | payer MEDICARE, SELFPAY ==
--- NOTE | ~2024-03-05 | XR_ITS ---
EXAMINATION: XR SHOULDER, RIGHT CLINICAL INFORMATION: Pain in the shoulder. COMPARISON: X-rays of the right humerus December 2015. TECHNIQUE: 3 views of the right shoulder FINDINGS: The bones and soft tissues are normal. No fracture. Glenohumeral and acromioclavicular alignment is anatomic with normal joint space. No abnormal soft tissue calcifications. XR/XR shoulder RT min 2V IMPRESSION: Normal right shoulder. Electronically signed by: López Griggs MD 04/17/2024 07:54 AM EDT RP
== END 2024-03-05 11:11 | disposition home or self-care (01) ==
LOC: HO.HOSX 11:10
PROVIDERS: Visit Provider Physician Assistant
DX: M25.561 Pain in right knee (principal); M75.101 Unspecified rotator cuff tear or rupture of right shoulder, not specified as traumatic
CPT/HCPCS: 73030; 99212

== ENCOUNTER 2024-04-09 10:00 | Outpatient (RCR) | payer MEDICARE, SELFPAY ==
--- NOTE | 2024-03-24 13:11 | MHC.PT.EP ---
[facility] [place] Office [place] Office [place] Office [address] [phone] F: [phone] F: [phone] F: [phone] F: [phone] Physical Therapy Plan of Care Date of Evaluation: 03/24/24 Date of Surgery: NA Diagnosis: R SHOULDER PAIN Assessment: Pt IS 73 YO M REFERRED TO PT FROM ORTHO (DR FRAIRE) WITH R SHLDER PAIN WHICH IS CHRONIC. Pt REPORTS PAIN STARTED SAME TIME FRACTURED R HIP (3 YRS AGO) . HAD XRAY ON 03/05 (REPORT NOT IN COMPUTER YET). PRESENTS WITH POOR POSTURE LIMITED ROM AND STRENGTH R UE. NEG DROP ARM TEST FOR COMPLETE TEAR SUPRASPINATUS, BUT SEEMINGLY HAS SOME IRRITATION/TEARING SUPRASPINATUS. SHOULD BENEFIT FROM PT TO ADDRESS THESE ISSUES. Frequency and Duration: The patient will be seen 2X/WK X 6 WKS Short Term Goals: 1. INCREASED POSTURE AWARENESS AND AWARENESS OF SHLDER CARE 2. INCREASED R SHLDER ROM ABD X 10 DEGREES 3. 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 I HEP WITH DC EX PLAN 2. INCREASED R SHLDER ABDUCTION TO 100 DEGREES 3. DECREASED R SHLDER PAIN AT LEAST 50% WITH ADLS Treatment Plan: Modalities to reduce pain, spasms and effusion. Manual therapy to restore motion and function. Therapeutic exercise to improve strength and flexibility. Neuromuscular re-education for posture and balance. Therapeutic activities to return to functional activities of daily living. Electronically signed by: IAN MUSA PT Please sign and return to therapist. Thank you for your referral.
--- NOTE | 2024-05-13 15:24 | MHC.PT.DC ---
[facility] [place] Office [place] Office [place] Office [address] [phone] F: [phone] F: [phone] F: [phone] F: [phone] Physical Therapy Discharge Report Diagnosis: R SHOULDER PAIN Date of Surgery: NA Date of Evaluation: 03/24/24 Date of Discharge: 05/13/24 Treatments to Date: 6 Cancellations to Date: No Shows to Date: Discharge Status: Independent with HEP Patient Elected to Stop Recommend MD Follow-up Discharge Summary: PER LAST 2 ASSESSMENTS 'CONTINUES WITH POOR POSTURE BUT INCREASED POSTURE AWARENESS, POOR ABILITY TO CONTRACT SCAP MMS IN PRONE INITIALLY'[ End ] 'Pt progressed w/resisted bands w/o px. ' Pt THEN CALLED TO SELF-DC Electronically signed by: IAN MUSA PT Please sign and return to therapist. Thank you for your referral.
== END 2024-05-13 15:25 | disposition home or self-care (01) ==
LOC: HO.PT 10:00
PROVIDERS: PCP Internal Medicine; Visit Provider Orthopaedic Surgery
DX: M75.101 Unspecified rotator cuff tear or rupture of right shoulder, not specified as traumatic (principal); M25.561 Pain in right knee
CPT/HCPCS: 97110; 97161; 97535

== ENCOUNTER 2024-05-14 08:28 | Outpatient (REF) | payer MEDICARE, SELFPAY ==
--- NOTE | ~2024-05-14 | XR_ITS ---
EXAMINATION: XR SHOULDER, RIGHT CLINICAL INFORMATION: Pain in right arm COMPARISON: X-rays of the right shoulder March 05, 2024 TECHNIQUE: AP external rotation, Grashey, scapular Y, and axillary views of the right shoulder. FINDINGS: The bones and soft tissues are normal. No fracture. Glenohumeral and acromioclavicular alignment is anatomic with normal joint space. No abnormal soft tissue calcifications. XR/XR shoulder RT min 2V IMPRESSION: Normal right shoulder. Electronically signed by: López Griggs MD 05/20/2024 01:20 PM EDT
--- NOTE | ~2024-05-14 | XR_ITS ---
EXAMINATION: XR KNEE, RIGHT CLINICAL INFORMATION: Pain in the right knee COMPARISON: None available. TECHNIQUE: Two views of the right knee. FINDINGS: There are marginal osteophytes of the patellofemoral compartment without definite joint space narrowing indicative of mild arthrosis. The medial lateral compartments are unremarkable. Surrounding soft tissues normal. XR/XR knee RT 2V IMPRESSION: Mild osteoarthritis of the right knee. Electronically signed by: López Griggs MD 05/20/2024 09:59 AM EDT RP
[2024-05-14 08:52] LABS: MANUAL DIFF FLAG NO
[2024-05-14 09:12] LABS: Basophils Percent Auto 0.8 % (0-2); Eosinophils Absolute Auto 0.1 X10*3/uL (0.0-0.4); Eosinophils Percent Auto 2.4 % (0-4); Hematocrit 40.8 % (42.0-52.0); Hemoglobin 14.2 g/dl (14.0-18.0); Imm Gran Abs Auto 0.01 X10*3/uL (0.00-0.03); Imm Gran Pct Auto 0.3 % (0.0-0.4); Lymphocytes Absolute Auto 0.7 X10*3/uL (1.2-4.9); Lymphocytes Percent Auto 20.1 % (20-40); Mean Corpuscular HGB Conc 34.8 g/dl (31.0-36.0); Mean Corpuscular Volume 97.6 fL (80.0-98.0); Mean Platelet Volume 9.2 fL (9.4-12.4); Monocytes Absolute Auto 0.3 X10*3/uL (0.1-1.2); Monocytes Percent Auto 8.4 % (2-11); Neutrophils Absolute Auto 2.5 x10*3/uL (2.0-8.3); Platelet Count 199 X10*3/uL (160-400); Red Blood Count 4.18 X10*6/uL (4.60-5.80); Red Cell Distribution Width 13.5 % (11.0-16.0); White Blood Count 3.7 X10*3/uL (4.8-10.8)
[2024-05-14 09:40] LABS: Phenytoin Dilantin 16.5 ug/mL (10.0-20.0)
[2024-05-14 09:58] LABS: Prostate Specific Antigen 3.83 ng/mL (<0.05-4.0)
[2024-05-14 10:08] LABS: Free T4 (Free Thyroxine) 0.89 ng/dL (0.71-1.85); Thyroid Stimulating Hormone 3.65 uIU/mL (0.32-4.0)
== END 2024-05-14 08:29 | disposition home or self-care (01) ==
LOC: HO.LAB 08:28
PROVIDERS: Nurse Practitioner Family; PCP Internal Medicine; Visit Provider Internal Medicine
DX: M25.561 Pain in right knee (principal); M79.601 Pain in right arm; N40.0 Benign prostatic hyperplasia without lower urinary tract symptoms; I10 Essential (primary) hypertension; E03.9 Hypothyroidism, unspecified; Z12.5 Encounter for screening for malignant neoplasm of prostate
CPT/HCPCS: 36415; 73030; 73560; 80185; 84153; 84439; 84443; 85025

== ENCOUNTER 2024-06-04 10:19 | Outpatient (AMB) | payer MEDICARE, SELFPAY ==
[2024-06-04 10:22] VITALS: BP 120/58; PULSE 90; O2SAT 97; BMI 21.1
--- NOTE | 2024-06-04 10:22 | A.OFFVIS_ITS ---
Intake Vital Signs 06/04/24 10:22 Height 5 ft 3 in Weight 119 lb 0.6 oz BMI 21.1 BP 120/58 L Blood Pressure Location Lt brachial Position Sitting Pulse 90 Pulse Source Pulse Oximeter Pulse Oximetry (%) 97 Oxygen Delivery Method Room Air Intake Visit Reasons: SWV [id number] Allergies hydrochlorothiazide Allergy (Unknown, Verified 06/04/24 10:22) Unknown lisinopril Allergy (Unknown, Verified 06/04/24 10:22) Unknown Medication List - Last Reconciled 06/04/24 by Ye Silveira MD amlodipine 10 mg PO DAILY ascorbic acid (vitamin C) 1 g PO DAILY brimonidine 0.2% drps ophthalmic (eye) calcitriol 0.25 mcg PO DAILY cyanocobalamin (vitamin B-12) PT UNSURE OF WHAT DOSE HE TAKES ferrous sulfate (Feosol) 325 mg PO DAILY [kelp PO] levothyroxine (Synthroid) 25 mcg PO DAILY losartan 100 mg PO DAILY 90 days magnesium oxide 400 mg PO DAILY phenytoin sodium extended 300 mg (3 x 100 mg) PO DAILY 90 days vitamin A PATIENT NOT SURE OF WHAT DOSE vitamin B complex 1 tab PO DAILY vitamin E (dl, acetate) 450 mg PO DAILY HPI SWV G0439 HPI Details 74-year-old male with hypothyroid hypert ension osteoporosis last seen in 02/15/2024 patient is for annual well visit today. Patient's last colonoscopy was done in 2016. Bone density 06/17/2022. 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 Patient also had some right knee pain and was advised exercise program., notes am BP high . PAtient states problem with brimonidine tartrate and goes to eye and lasik. advised to call ophtha. complains of numbness of the feet for about a year, deny fall or trauma Colonoscopy colitis July 2016 Dr. Lucero Severe osteoporosis May 2022 [facility] Dr. Claudy Noble, Dr. Matthews,[facility] [place] History Lower urinary tract symptoms Compression fx, thoracic spine Microscopic hematuria Nocturia Pheochromocytoma Uncontrolled hypertension Screening for prostate cancer Screening for diabetes mellitus Finger numbness Right wrist pain Numbness and tingling in both hands Hematuria Fracture of triquetral bone of wrist Dizziness Urinary urgency Wrist pain, acute Femoral fracture Frequency of micturition Medicare annual wellness visit, initial Cataract Seizure disorder Hypertension Vitamin B12 deficiency Anxiety Hereditary hemorrhagic telangiectasia Surgical History History of lobectomy of thyroid History of colonoscopy History of hip surgery History of hydrocelectomy H/O brain surgery Family History Mother CAD (coronary artery disease) Social History Household Members: None Housing: House Do you presently have visiting nurse or other home services: No Alcohol intake: never Comment: I don't really have a number; low Patient Tobacco Use Status: Former Tobacco user Tobacco use type: Cigarette Years Smoked: 1994 stopped e-Cigarette/Vaping Use: Never Used Second Hand Smoke Exposure: No Advance Directives Date on File: 06/23/21 service: No Current occupational status: retired Current occupation: left hand dominant Cognitive needs: No Hearing needs: No Vision needs: No Questionnaire Medicare Wellness Checkup [age] What gender do you identify with?: male During the past 4 weeks, how much have you been bothered by emotional problems such as feeling anxious, depressed, irritable, sad or downhearted, and blue?: not at all During the past 4 weeks, has your physical & emotional health limited your social activities with family, friends, neighbors, or groups?: not at all During the past 4 weeks, how much bodily pain have you generally had?: very mild pain During the past 4 weeks, was someone available to help you if you needed & wanted help?: yes, a little During the past 4 weeks, what was the hardest physical activity you could do for at least 2 minutes?: heavy Can you get to places out of walking distance without help? (For eg., can you travel alone on buses, taxis or drive your car?): Yes Can you go shopping for groceries or clothes without someone's help?: Yes Can you prepare your own meals?: Yes Can you do your housework without help?: Yes Because of any health problems, do you need the help of another person with your personal care needs such as eating, bathing, dressing or getting around the house?: No Can you handle your own money without help?: Yes During the past 4 weeks, how would you rate your health in general?: very good During the past 4 weeks how have things been going for you?: pretty well Are you having difficulties driving your car?: no Do you always fasten your seat belt when you are in a car?: yes, usually During past 4 weeks, have you been bothered by the following: never: Falling or dizzy when standing up (falling ), Trouble eating well?, Teeth or denture problems? and Problems using the telephone? and sometimes: Sexual problems? and Tiredness or fatigue? Have you fallen 2 or more times in the past year?: No Are you afraid of falling?: Yes Are you a smoker?: no During the past 4 weeks, how many drinks of wine, beer, or other alcoholic beverages did you have?: no alcohol at all Do you exercise for about 20 minutes 3 or more times a week?: yes, most of the time Have you been given information to help with the following?: no: Hazards in your house that might hurt you? and no: Keeping track of your medications? How often do you have trouble taking medicines the way you have been told to take them?: I always take medicine as prescribed How confident are you that you can control & manage most of your health problems?: very confident What is your race?: White PHQ-9 Over the last 2 weeks, how often have you been bothered by any of the following problems? 1. Little interest or pleasure in doing things: more than half the days 2. Feeling down, depressed, or hopeless: not at all 3. Trouble falling or staying asleep, or sleeping too much: not at all 4. Feeling tired or having little energy: several days 5. Poor appetite or overeating: not at all 6. Feeling bad about yourself - or that you are a failure or have let yourself or your family down: not at all 7. Trouble concentrating on things, such as reading the newspaper or watching television: not at all 8. Moving or speaking so slowly that other people could have noticed. Or the opposite - being so fidgety or restless that you have been moving around a lot more than usual: not at all 9. Thoughts that you would be better off or of hurting yourself in some way: not at all Total score: 3 Depression Screening Interpretation: Negative Depression Screening Done: Yes 25370 - PHQ-9 Billing: Yes Source: Developed by Drs. Say Wilkins, Judith Mcgovern, Pancho Kennedy and colleagues, with an educational rk from [employer]. Review of Systems Const Denies poor appetite and Denies weakness Eyes Denies no additional complaints ENT Reports Normal hearing present, Denies dizziness, Denies nasal congestion, Denies tinnitus and Denies sore throat Card Denies chest pain, Denies syncope, Denies rapid heart rate and Denies dyspnea Resp Denies cough and Denies dyspnea GI Denies change in stool character, Reports constipation, Denies diarrhea, Denies nausea and Denies vomiting Denies dysuria and Denies urinary frequency Neuro Reports Normal hearing present, Denies confusion, Denies dizziness, Denies syncope and Denies weakness Psych Denies confusion Physical Exam Vital Signs: Last Vital Signs Pulse 90 06/04/24 10:22 BP 120/58 L 06/04/24 10:22 Pulse Ox 97 06/04/24 10:22 Oxygen Delivery Method Room Air 06/04/24 10:22 BMI result Body Mass Index 21.1 Const General: No confusion Orientation/consciousness: No confusion HEENT Head: Yes normocephalic Ears: external ears normal and TM's normal bilaterally Face and sinus: Yes normal facial exam Mouth: moist mucous membranes Throat: Yes tonsils normal Eyes Conjunctivae: conjunctivae normal Pupils: Equal, round and reactive pupils present and Pupil accommodation reflex normal Direct Ophthalmoscopy: normal light reflex Neck Neck: No lymphadenopathy Thyroid: Thyroid normal Chest Chest palpation & inspection: normal inspection of the chest Resp Effort & Inspection: normal respiratory effort and no audible wheezes Auscultation: clear to auscultation bilaterally, no crackles, no wheezes and lung sounds not diminished Cardio Rate: regular rate Rhythm: regular rhythm Peripheral pulses: radial pulses present and dorsalis pedis present GI Palpation (GI): no masses Auscultation: normal bowel sounds and normoactive bowel sounds Rectal Exam - Male: Yes deferred Skin General skin exam: no rashes or lesions noted Rashes: no rashes Neuro General: No confusion Cranial nerves: Yes Equal, round and reactive pupils present and Yes Normal hearing present Cognition (Neuro): normal cognition Gait exam (Neuro): Normal gait present Motor exam (neuro): 5/5 motor strength present throughout Deep tendon reflexes (DTR's): Right brachioradialis reflex intensity grade: 2+, Left brachioradialis reflex intensity grade: 2+, Right patellar reflex intensity grade: 2+ and Left patellar reflex intensity grade: 2+ Extrem General: No edema Assessment & Plan Assessment & Plan (1) Medicare annual wellness visit, subsequent: Code(s): Z00.00 - Encounter for general adult medical examination without abnormal findings Plan: Patient is advised to eat healthy, keep well hydrated, keep active and have adeq uate sleep. (2) Hereditary hemorrhagic telangiectasia: Comment: Larisa powell Code(s): I78.0 - Hereditary hemorrhagic telangiectasia Plan: Continuing to monitor (3) Hypertension: Code(s): I10 - Essential (primary) hypertension Qualifiers: Hypertension type: primary hypertension Qualified Code(s): I10 - Essential (primary) hypertension Plan: Continue with blood pressure medication. Decrease salt intake and exercise on amlodipine 10 mg once a day losartan 100 mg once a day (4) Osteoporosis with fracture: Comment: 05/2022 Code(s): M80.80XA - Other osteoporosis with current pathological fracture, unspecified site, initial encounter for fracture Plan: Continuing to monitor bone density. Discussed about calcium and vitamin-D. (5) Painful arc syndrome of right shoulder: Code(s): M75.101 - Unspecified rotator cuff tear or rupture of right shoulder, not specified as traumatic Plan: Patient follows up with ortho has had physical therapy (6) Hypothyroid: Code(s): E03.9 - Hypothyroidism, unspecified Qualifiers: Hypothyroidism type: acquired Qualified Code(s): E03.9 - Hypothyroidism, unspecified Plan: Continue with thyroid medication (7) BPH (benign prostatic hyperplasia): Code(s): N40.0 - Benign prostatic hyperplasia without lower urinary tract symptoms Qualifiers: Lower urinary tract symptom presence: symptoms present Lower urinary tract symptom detail: urinary frequency Qualified Code(s): N40.1 - Benign prostatic hyperplasia with lower urinary tract symptoms; R35.0 - Frequency of micturition Plan: Continue with terazosin (8) Numbness and tingling of both feet: Code(s): R20.0 - Anesthesia of skin; R20.2 - Paresthesia of skin Plan: nerve condution test advised Orders: Orders XR DEXA axial skeleton Today M80.80XA - Other osteoporosis with current pathological fracture, unspecified site, initial encounter for fracture, M81.0 - Age-related osteoporosis without current pathological fracture NE nerve conduction velocity Today R20.0 - Anesthesia of skin, R20.2 - Paresthesia of skin NE electromyogram (EMG) Today R20.0 - Anesthesia of skin, R20.2 - Paresthesia of skin Quality Reporting (2020) Depression/Bipolar (159/160/161/177) PHQ-9: Total score: 3 Coding Level of Care Code Medicare Subsequent (G0439) Diagnoses Medicare annual wellness visit, subsequent Z00.00 Hereditary hemorrhagic telangiectasia I78.0 Primary hypertension I10 Hypertension type: primary hypertension Osteoporosis with fracture M80.80XA Painful arc syndrome of right shoulder M75.101 Acquired hypothyroidism E03.9 Hypothyroidism type: acquired Benign prostatic hyperplasia with urinary frequency N40.1; R35.0 Lower urinary tract symptom presence: symptoms present Lower urinary tract symptom detail: urinary frequency Numbness and tingling of both feet R20.0; R20.2 Additional Codes PHQ-9 - 86599 - PHQ-9 Billing: Yes ([id number])
== END 2024-06-04 11:26 | disposition home or self-care (01) ==
LOC: HO.HMCH 10:20
PROVIDERS: PCP Internal Medicine; Visit Provider Internal Medicine
DX: Z00.00 Encounter for general adult medical examination without abnormal findings (principal); I78.0 Hereditary hemorrhagic telangiectasia; I10 Essential (primary) hypertension; M80.80XA Other osteoporosis with current pathological fracture, unspecified site, initial encounter for fracture; M75.101 Unspecified rotator cuff tear or rupture of right shoulder, not specified as traumatic; E03.9 Hypothyroidism, unspecified; N40.1 Benign prostatic hyperplasia with lower urinary tract symptoms; R35.0 Frequency of micturition; R20.0 Anesthesia of skin; R20.2 Paresthesia of skin

== ENCOUNTER → 2024-06-04 10:19 | Outpatient (BNVA) | payer MEDICARE, SELFPAY | PROVIDERS: PCP Internal Medicine; Visit Provider Internal Medicine | DX: Z00.00 Encounter for general adult medical examination without abnormal findings (principal); I78.0 Hereditary hemorrhagic telangiectasia; I10 Essential (primary) hypertension; M75.101 Unspecified rotator cuff tear or rupture of right shoulder, not specified as traumatic; E03.9 Hypothyroidism, unspecified; N40.1 Benign prostatic hyperplasia with lower urinary tract symptoms; R35.0 Frequency of micturition; R20.0 Anesthesia of skin; R20.2 Paresthesia of skin | CPT/HCPCS: 96127 ==

== ENCOUNTER 2024-06-23 05:29 | Outpatient (REF) | payer MEDICARE, SELFPAY ==
--- NOTE | 2024-06-23 05:30 | EMG_ITS ---
Bilateral tibial and peroneal motor studies were performed. Bilateral sural, superficial peroneal, and median, lateral plantar mixed sensory studies were performed. Tibial H-reflexes were obtained and needle examination was performed. 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 MD LENNY Echavarria/DYLONL / [id number]
== END 2024-06-23 05:30 | disposition home or self-care (01) ==
LOC: HO.NEURO 05:29
PROVIDERS: PCP Internal Medicine; Visit Provider Internal Medicine
DX: R20.0 Anesthesia of skin (principal); R20.2 Paresthesia of skin
CPT/HCPCS: 95886; 95913

== ENCOUNTER 2024-07-10 07:50 | Outpatient (REF) | payer MEDICARE, SELFPAY ==
--- NOTE | ~2024-07-10 | MM_ITS ---
EXAMINATION: BONE DENSITOMETRY CLINICAL INDICATION: Age-related osteoporosis without current pathological fracture. COMPARISON: Baseline BD dated 06/06/2022. TECHNIQUE: Using a Four Interactive DXA System (software version: 13.1) manufactured by [employer], dual-energy x-ray absorptiometry was performed of the lumbar spine and left hip. The images are of good technical quality. Summary results are attached. FINDINGS: LEFT FEMUR, NECK: Current: BMD 0.603 g/cm2, Z-score -1.7, T-score -3.6, osteoporosis. Baseline: BMD 0.598 g/cm2. LEFT FEMUR, TOTAL: Current: BMD 0.653 g/cm2, Z-score -1.8, T-score -3.1, osteoporosis, 0.3% decrease from baseline (<5% change is not significant). Baseline: BMD 0.655 g/cm2. AP SPINE L1-L4: Current: BMD 0.837 g/cm2, Z-score -1.8, T-score -3.2, osteoporosis, 4.6% increase from baseline (<5% change is not significant). Baseline: BMD 0.800 g/cm2. IDENTIFIED RISK FACTORS: Osteoporosis, recurrent falls, low body weight, history of fracture (adult). HISTORY OF FRACTURE: Hip. MEDICATIONS: Vitamin D. MM/XR DEXA axial skeleton IMPRESSION: 1. DIAGNOSIS: Severe osteoporosis based on the lowest T-score value of -3.6 in the femur neck and history of fracture of hip applying World Health Organization criteria. 2. 10-YEAR FRACTURE RISK PREDICTION, FRAX: According to the guidelines, FRAX calculation should only be performed on patients in the osteopenia bone density category. Therefore, FRAX was not performed on this patient. 3. Treatment Recommendations: NOF guidelines recommend consideration for treatment in postmenopausal women and men age 50 and older presenting with the following: -A hip or vertebral (clinical or morphometric) fracture. -T-score less than or equal to -2.5 at the femoral neck or spine after appropriate evaluation to exclude secondary causes. -Low bone mass at the hip or spine and a 10-year fracture probability by FRAX of greater than or equal to 3% for hip fracture or greater than or equal to 20% for major osteoporotic fracture based on the [place] adapted WHO algorithm. 4. Other Recommendations: All treatment decisions require clinical judgment and consideration of individual patient factors, including patient preferences, comorbidities, previous drug use, risk factors not captured in the FRAX model (e.g. frailty, falls, vitamin D deficiency, increased bone turnover, interval significant decline in bone density) and possible under or overestimation of fracture risk by FRAX. Additional medical evaluation for secondary cause of low bone mineral density may be appropriate. FUTURE SCAN RECOMMENDATION: People with diagnosed cases of osteoporosis or at high risk for fracture should have regular bone mineral density tests. For patients eligible for Medicare, routine testing is allowed once every 2 years. The testing frequency can be increased to one year for patients who have rapidly progressing disease, those who are receiving or discontinuing medical therapy to restore bone mass, or have additional risk factors. Electronically signed by: Atilio Ochoa MD 07/10/2024 01:55 PM SHAYLEE MCWILLIAMS
== END 2024-07-10 07:51 | disposition home or self-care (01) ==
LOC: HO.MAMMO 07:50
PROVIDERS: PCP Internal Medicine; Visit Provider Internal Medicine
DX: M81.0 Age-related osteoporosis without current pathological fracture (principal); M80.80XA Other osteoporosis with current pathological fracture, unspecified site, initial encounter for fracture
CPT/HCPCS: 77080

== ENCOUNTER 2024-08-26 10:19 | Outpatient (AMB) | payer MEDICARE, SELFPAY ==
--- NOTE | 2024-08-26 10:41 | A.OFFPC_ITS ---
Vital Signs 08/26/24 10:44 Height 5 ft 3 in Weight 123 lb BMI 21.8 BP 158/70 H Blood Pressure Location Lt brachial Position Sitting Pulse 78 Pulse Source Pulse Oximeter Pulse Oximetry (%) 96 Oxygen Delivery Method Room Air Intake Visit Reasons: high bp Allergies hydrochlorothiazide Allergy (Unknown, Verified 08/26/24 10:44) Unknown lisinopril Allergy (Unknown, Verified 08/26/24 10:44) Unknown Medication List - Last Reconciled 08/26/24 by Ye Silveira MD amlodipine 10 mg PO DAILY ascorbic acid (vitamin C) 1 g PO DAILY brimonidine 0.2% drps ophthalmic (eye) calcitriol 0.25 mcg PO DAILY cyanocobalamin (vitamin B-12) PT UNSURE OF WHAT DOSE HE TAKES ferrous sulfate (Feosol) 325 mg PO DAILY [kelp PO] levothyroxine (Synthroid) 25 mcg PO DAILY losartan 100 mg PO DAILY 90 days magnesium oxide 400 mg PO DAILY metoprolol succinate ER 25 mg PO DAILY phenytoin sodium extended 300 mg (3 x 100 mg) PO DAILY 90 days vitamin A PATIENT NOT SURE OF WHAT DOSE vitamin B complex 1 tab PO DAILY vitamin E (dl, acetate) 450 mg PO DAILY Tobacco use date assessed: 08/26/24 Fall risk assessment: No Falls in past year Last assessed Fall Risk: 08/26/24 Dental Screening Dental Screen Date: 08/26/24 Did you have a dental visit in the last 12 months?: Yes Did you have a dental problem in the last 6 months where you did not have access to dental care?: No Was dental information given to patient?: Patient has dentist HPI high bp HPI Details The patient is a 74-year-old male presenting with elevated blood pressure. The patient reports recent blood pressure measurements of 161 mmHg and 158 mmHg, despite his current regimen of amlodipine and losartan. He expressed frustration with these readings and a desire to avoid additional medications if possible. Lifestyle factors were discussed, including the patient's dietary habits, which occasionally include fast food. The patient acknowledged recent weight gain, which he attributed in part to wearing heavy boots during his last weigh-in. He reported compliance with his current medications, noting no recent changes. Additionally, the patient mentioned a history of neurologic problems with an upcoming nerve test scheduled in August and recent communication with his neurologist regarding adjustments to his current regimen. [facility] Medical History Lower urinary tract symptoms Compression fx, thoracic spine Microscopic hematuria Nocturia Pheochromocytoma Uncontrolled hypertension Screening for prostate cancer Screening for diabetes mellitus Finger numbness Right wrist pain Numbness and tingling in both hands Hematuria Fracture of triquetral bone of wrist Dizziness Urinary urgency Wrist pain, acute Femoral fracture Frequency of micturition Medicare annual wellness visit, initial Cataract Seizure disorder Hypertension Vitamin B12 deficiency Anxiety Hereditary hemorrhagic telangiectasia Surgical History History of lobectomy of thyroid History of colonoscopy History of hip surgery History of hydrocelectomy H/O brain surgery Family History Mother CAD (coronary artery disease) Social History Household Members: None Housing: House Do you presently have visiting nurse or other home services: No Alcohol intake: never Comment: I don't really have a number; low Patient Tobacco Use Status: Former Tobacco user Tobacco use type: Cigarette Years Smoked: 1994 stopped e-Cigarette/Vaping Use: Never Used Second Hand Smoke Exposure: No Advance Directives Date on File: 06/23/21 service: No Current occupational status: retired Current occupation: left hand dominant Cognitive needs: No Hearing needs: No Vision needs: No Questionnaire PHQ-9 Over the last 2 weeks, how often have you been bothered by any of the following problems? 1. Little interest or pleasure in doing things: more than half the days 2. Feeling down, depressed, or hopeless: not at all 3. Trouble falling or staying asleep, or sleeping too much: not at all 4. Feeling tired or having little energy: several days 5. Poor appetite or overeating: not at all 6. Feeling bad about yourself - or that you are a failure or have let yourself or your family down: not at all 7. Trouble concentrating on things, such as reading the newspaper or watching television: not at all 8. Moving or speaking so slowly that other people could have noticed. Or the opposite - being so fidgety or restless that you have been moving around a lot more than usual: not at all 9. Thoughts that you would be better off or of hurting yourself in some way: not at all Total score: 3 Depression Screening Interpretation: Negative Depression Screening Done: Yes 36347 - PHQ-9 Billing: Yes Source: Developed by Drs. Say Wilkins, Judith Mcgovern, Pancho Kennedy and colleagues, with an educational rk from [employer]. Thrive Questionnaire Date Thrive assessed: 08/26/24 I am a: Patient What is your living situation today?: I have a steady place to live Within the past 12 months, did the food you bought not last and you didn't have the money to get more?: Never true Within the past 12 months, did you worry whether your food would run out before you got money to buy more?: Never true Do you have trouble paying for medicines?: No Do you have trouble getting transportation to medical appointments?: No Do you have trouble paying your heating and electricity bill?: No Do you have trouble taking care of your child, family member or friend?: No Do you have trouble with day-to-day activities such as bathing, preparing meals, shopping, managing finances, etc.?: No Are you currently unemployed and looking for a job?: No Are you interested in more education?: No Currently or been in a relationship where the following occur: No concerns reported THRIVE Score: 0 AUDIT C Alcohol Use Questionnaire (AUDIT-C) 1. How often do you have a drink containing alcohol?: Never 3. How often do you have six or more drinks on one occasion?: Never Total Score: 0 BAIRON-7 AMB Questionnaire BAIRON-7 Date BAIRON - 7 assessed: 08/26/24 Feeling nervous, anxious, or on edge: 0 = Not at all Not being able to stop or control worryin = Not at all Worrying too much about different things: 0 = Not at all Trouble relaxin = Not at all Being so restless that it is hard to sit still: 0 = Not at all Becoming easily annoyed or irritable: 0 = Not at all Feeling afraid as if something awful might happen: 0 = Not at all Total BAIRON-7 score (0-4 normal; 5-9 mild; 10-14 moderate; 15-21 severe): 0 Source: Developed by Judith Argueta.W. Froilan, Pancho Kennedy and colleagues, with an educational rk from [employer]. Physical exam (Primary Care) Vital Signs: Last Vital Signs Pulse 78 08/26/24 10:44 BP 158/70 H 08/26/24 10:44 Pulse Ox 96 08/26/24 10:44 Oxygen Delivery Method Room Air 08/26/24 10:44 BMI result Body Mass Index 21.8 Tobacco/Smoking Status: Tobacco use Status Tobacco use date assessed 08/26/24 08/26/24 10:47 Patient Tobacco Use Status Former Tobacco user 08/26/24 10:43 Tobacco use type Cigarette 08/26/24 10:43 e-Cigarette/Vaping Use Never Used 08/26/24 10:43 PHQ-9: PHQ-9 Score PHQ-9: Total score 3 08/26/24 11:30 Depression Screening Interpretation: Negative Thrive Assessment: Date of Thrive Assessment Date Thrive assessed 08/26/24 08/26/24 10:47 Currently or been in a relationship where the following occur: No concerns reported Const General: alert; No acute distress Eyes Conjunctivae: conjunctivae normal Resp Auscultation: clear to auscultation bilaterally Cardio Rate: regular rate Rhythm: regular rhythm GI Inspection: Yes normal to inspection Extrem General: Yes normal to inspection and No edema Coding Level of Care Code Est Pt Level 4 (87300) Complex EM visit Add On G2211 Diagnoses Primary hypertension I10 Hypertension type: primary hypertension Acquired hypothyroidism E03.9 Hypothyroidism type: acquired Peripheral neuropathy G62.9 Additional Codes PHQ-9 - 13869 - PHQ-9 Billing: Yes ([id number]) Assessment & Plan Assessment & Plan (1) Hypertension: Code(s): I10 - Essential (primary) hypertension Category: Medical Qualifiers: Hypertension type: primary hypertension Qualified Code(s): I10 - Essential (primary) hypertension (2) Hypothyroid: Code(s): E03.9 - Hypothyroidism, unspecified Category: Medical Qualifiers: Hypothyroidism type: acquired Qualified Code(s): E03.9 - Hypothyroidism, unspecified (3) Peripheral neuropathy: Code(s): G62.9 - Polyneuropathy, unspecified Category: Medical Plan - Essential Hypertension: Initiate a low-dose third antihypertensive medication to further manage elevated blood pressure. Continue current medications, amlodipine and losartan, with the new medication taken in the morning. Monitor dietary habits and encourage adherence to a healthy diet, minimizing fast food intake. - History of neurologic problems: Proceed with the scheduled nerve test in August for further evaluation. Recommend following up with the neurologist for any necessary adjustments to current neurologic treatment. - Preventative Health: Encourage flu vaccination and update for RSV, emphasizing the importance of vaccinations for protection during flu season and cautioning that vaccines do not confer invincibility. Remind patient to maintain caution regarding viral exposures. Orders: Orders Free T4 (Free Thyroxine) Today E03.9 - Hypothyroidism, unspecified Lipid Panel Today E03.9 - Hypothyroidism, unspecified, E78.00 - Pure hypercholesterolemia, unspecified Thyroid Stimulating Hormone Today E03.9 - Hypothyroidism, unspecified Comprehensive Met. Panel Today E03.9 - Hypothyroidism, unspecified Vitamin B12 and Folate Today E03.9 - Hypothyroidism, unspecified Magnesium Today E03.9 - Hypothyroidism, unspecified Complete Blood Count Auto Diff Today E03.9 - Hypothyroidism, unspecified Phenytoin Dilantin Today E03.9 - Hypothyroidism, unspecified Phosphorus Today E03.9 - Hypothyroidism, unspecified Medications: New metoprolol succinate ER 25 mg PO DAILY 30 tabs 4RF I10 - Essential (primary) hypertension
[2024-08-26 10:44] VITALS: BP 158/70; PULSE 78; O2SAT 96; BMI 21.8
--- OUTSIDE RECORDS SUMMARY | 2024-08-26 12:19 | XMS_ITS ---
Author Organization [facility] Address Unknown Allergies, Adverse Reactions, Alerts Substance Reaction Status Noted Date Resolved Date Lisinopril active 06/26/2021 Hydrochlorothiazide active 06/26/2021 Problems Problem Status Start Date End Date FRACTURE OF UNSPECIFIED PART OF NECK OF RIGHT FEMUR, SUBSEQUENT ENCOUNTER FOR CLOSED FRACTURE WITH ROUTINE HEALING (Primary) (S72.001D - ICD-10-CM) ACTIVE 06/26/2021 OTHER SEIZURES (G40.89 - ICD-10-CM) ACTIVE 06/26 VITAMIN B12 DEFICIENCY ANEMI A, UNSPECIFIED (D51.9 - ICD-10-CM) ACTIVE 06/26/2021 ANXIETY DISORDER, UNSPECIFIED (F41.9 - ICD-10-CM) ACTI VE 06/26/2021 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 with no home health services [facility] 1 04:03 pm EST - 1 04:02 pm EST Immunizations Vaccine Date SARS-COV-2 (COVID-19) 10/25/2020 12:00 a m EDT SARS-COV-2 (COVID-19) 09/28/2020 12:00 a m EST Pfizer Covid-19 Booster (SARS-COV-2) vac cine 05/22/2021 12:00 am EDT Social History
== END 2024-08-26 11:47 | disposition home or self-care (01) ==
LOC: HO.HMCH 10:19
PROVIDERS: PCP Internal Medicine; Visit Provider Internal Medicine
DX: I10 Essential (primary) hypertension (principal); E03.9 Hypothyroidism, unspecified; G62.9 Polyneuropathy, unspecified

== ENCOUNTER → 2024-08-26 10:19 | Outpatient (BNVA) | payer MEDICARE, SELFPAY | PROVIDERS: PCP Internal Medicine; Visit Provider Internal Medicine | DX: I10 Essential (primary) hypertension (principal); E03.9 Hypothyroidism, unspecified; G62.9 Polyneuropathy, unspecified | CPT/HCPCS: 96127; 99212 ==

== ENCOUNTER 2024-09-09 07:00 | Outpatient (REF) | payer MEDICARE, SELFPAY ==
[2024-09-09 07:13] LABS: MANUAL DIFF FLAG NO
[2024-09-09 07:37] LABS: Basophils Absolute Auto 0.1 X10*3/uL (0.0-0.2); Basophils Percent Auto 1.3 % (0-2); Eosinophils Absolute Auto 0.2 X10*3/uL (0.0-0.4); Eosinophils Percent Auto 5.5 % (0-4); Imm Gran Abs Auto 0.02 X10*3/uL (0.00-0.03); Imm Gran Pct Auto 0.5 % (0.0-0.4); Lymphocytes Absolute Auto 0.9 X10*3/uL (1.2-4.9); Lymphocytes Percent Auto 24.3 % (20-40); Mean Corpuscular HGB Conc 34.9 g/dl (31.0-36.0); Mean Corpuscular Hemoglobin 33.3 pg (27.0-33.0); Mean Corpuscular Volume 95.6 fL (80.0-98.0); Mean Platelet Volume 9.6 fL (9.4-12.4); Monocytes Absolute Auto 0.5 X10*3/uL (0.1-1.2); Neutrophils Absolute Auto 2.2 x10*3/uL (2.0-8.3); Neutrophils Percent Auto 56.4 % (45-73); Platelet Count 187 X10*3/uL (160-400); Red Cell Distribution Width 13.2 % (11.0-16.0); White Blood Count 3.8 X10*3/uL (4.8-10.8)
[2024-09-09 08:15] LABS: Phenytoin Dilantin 11.1 ug/mL (10.0-20.0)
[2024-09-09 08:22] LABS: Alanine Aminotransferase 27 U/L (0-40); Alkaline Phosphatase 112 U/L (39-117); Anion Gap 11 (12-20); Aspartate Amino Transferase 34 U/L (5-37); Bilirubin Total 0.5 mg/dL (0.0-1.0); Blood Urea Nitrogen 19 mg/dL (9-16); Carbon Dioxide 26 mmol/L (22-29); Chloride 109 mmol/L (96-108); Cholesterol 184 mg/dL (<200); Estimated Glomerular Filt Rate > 60; Glucose Random 95 mg/dL (60-115); HDL Cholesterol 76 mg/dL (>40); LDL Cholesterol Calculated 98 mg/dL (<100); Phosphorus 3.6 mg/dL (2.7-4.5); Potassium 4.4 mmol/L (3.3-5.1); Sodium 142 mmol/L (135-145); Total Protein 7.3 g/dL (6.5-8.0); Triglycerides 53 mg/dL (<150)
[2024-09-09 08:41] LABS: Free T4 (Free Thyroxine) 0.94 ng/dL (0.71-1.85); Thyroid Stimulating Hormone 4.26 uIU/mL (0.32-4.0)
[2024-09-09 08:43] LABS: Folate 16.2 ng/mL (> or = 4.0); Vitamin B12 1110 pg/mL (200-900)
== END 2024-09-09 07:01 | disposition home or self-care (01) ==
LOC: HO.LAB 07:00
PROVIDERS: PCP Internal Medicine; Visit Provider Internal Medicine
DX: E03.9 Hypothyroidism, unspecified (principal); E78.00 Pure hypercholesterolemia, unspecified
CPT/HCPCS: 36415; 80053; 80061; 80185; 82607; 82746; 83735; 84100; 84439; 84443; 85025

== ENCOUNTER 2024-09-11 16:01 | Outpatient (AMB) | payer MEDICARE, SELFPAY ==
--- NOTE | 2024-09-11 16:02 | A.OFFPC_ITS ---
Intake Visit Reasons: Cold Symptoms Allergies hydrochlorothiazide Allergy (Unknown, Verified 09/11/24 16:03) Unknown lisinopril Allergy (Unknown, Verified 09/11/24 16:03) Unknown Tobacco use date assessed: 08/26/24 Fall risk assessment: No Falls in past year Last assessed Fall Risk: 09/11/24 Dental Screening Dental Screen Date: 08/26/24 HPI Cold Symptoms HPI Details 74-year-old male with a history of hyper tension calling in due to blood pressure is running high patient was recently started on metoprolol. [facility] Medical History Lower urinary tract symptoms Compression fx, thoracic spine Microscopic hematuria Nocturia Pheochromocytoma Uncontrolled hypertension Screening for prostate cancer Screening for diabetes mellitus Finger numbness Right wrist pain Numbness and tingling in both hands Hematuria Fracture of triquetral bone of wrist Dizziness Urinary urgency Wrist pain, acute Femoral fracture Frequency of micturition Medicare annual wellness visit, initial Cataract Seizure disorder Hypertension Vitamin B12 deficiency Anxiety Hereditary hemorrhagic telangiectasia Surgical History History of lobectomy of thyroid History of colonoscopy History of hip surgery History of hydrocelectomy H/O brain surgery Family History Mother CAD (coronary artery disease) Social History Household Members: None Housing: House Do you presently have visiting nurse or other home services: No Alcohol intake: never Comment: I don't really have a number; low Patient Tobacco Use Status: Former Tobacco user Tobacco use type: Cigarette Years Smoked: 1994 stopped e-Cigarette/Vaping Use: Never Used Second Hand Smoke Exposure: No Advance Directives Date on File: 06/23/21 service: No Current occupational status: retired Current occupation: left hand dominant Cognitive needs: No Hearing needs: No Vision needs: No Questionnaire Thrive Questionnaire Date Thrive assessed: 08/26/24 BAIRON-7 AMB Questionnaire BAIRON-7 Date BAIRON - 7 assessed: 08/26/24 Source: Developed by Drs. Say Wilkins, Judith Mcgovern, Pancho Kennedy and colleagues, with an educational rk from [employer]. Physical exam (Primary Care) Tobacco/Smoking Status: Tobacco use Status Tobacco use date assessed 08/26/24 09/11/24 16:03 Patient Tobacco Use Status Former Tobacco user 09/11/24 16:03 Tobacco use type Cigarette 09/11/24 16:03 e-Cigarette/Vaping Use Never Used 09/11/24 16:03 Thrive Assessment: Date of Thrive Assessment Date Thrive assessed 08/26/24 09/11/24 16:03 Telehealth Telehealth Telehealth Platform: Telephone Location of provider rendering services: practice address Location of patient: address on file Patient Identification confirmed using: Name, : Yes Telehealth method: voice only Patient verbally consented to treatment: Yes Patient verbally consented to billing insurance company: Yes Patient informed of any privacy concerns related to visit: Yes Minutes spent on Phone/Video with Pt.: 15 Coding Level of Care Code Tele Est Pt Level 3 (99183) Diagnoses Primary hypertension I10 Hypertension type: primary hypertension Assessment & Plan Assessment & Plan (1) Hypertension: Code(s): I10 - Essential (primary) hypertension Category: Medical Qualifiers: Hypertension type: primary hypertension Qualified Code(s): I10 - Essential (primary) hypertension Plan: Patient presently is on amlodipine 10 mg once a day losartan 100 mg once a day and recently added metoprolol 25 mg once a day. Patient can not take hydrochlorothiazide. Advised patient to increase metoprolol to 50 mg once a day Medications: Changed From metoprolol succinate ER 25 mg PO DAILY 30 tabs 4RF I10 - Essential (primary) hypertension To metoprolol succinate ER 50 mg PO DAILY 30 tabs 4RF I10 - Essential (primary) hypertension
== END 2024-09-11 16:44 | disposition home or self-care (01) ==
LOC: HO.HMCH 16:01
PROVIDERS: PCP Internal Medicine; Visit Provider Internal Medicine
DX: I10 Essential (primary) hypertension (principal)

== ENCOUNTER → 2024-09-11 16:01 | Outpatient (BNVA) | payer MEDICARE, SELFPAY | PROVIDERS: PCP Internal Medicine; Visit Provider Internal Medicine ==

== ENCOUNTER 2024-12-01 08:32 | Outpatient (AMB) | payer MEDICARE, SELFPAY ==
[2024-12-01 08:39] VITALS: BP 134/62; PULSE 75; BMI 22.0
--- NOTE | 2024-12-01 08:39 | MHC.PC.OV ---
Vital Signs 12/01/24 08:39 Height 5 ft 3 in Weight 124 lb BMI 22.0 BP 134/62 Blood Pressure Location Lt brachial Position Sitting Pulse 75 Pulse Source Pulse Oximeter Oxygen Delivery Method Room Air Intake Visit Reasons: Hypertension Allergies hydrochlorothiazide Allergy (Unknown, Verified 12/01/24 08:39) Unknown lisinopril Allergy (Unknown, Verified 12/01/24 08:39) Unknown Medication List - Last Reconciled 12/01/24 by Ye Silveira MD amlodipine 10 mg PO DAILY ascorbic acid (vitamin C) 1 g PO DAILY brimonidine 0.2% drps ophthalmic (eye) calcitriol 0.25 mcg PO DAILY cyanocobalamin (vitamin B-12) PT UNSURE OF WHAT DOSE HE TAKES ferrous sulfate (Feosol) 325 mg PO DAILY [kelp PO] levothyroxine (Synthroid) 25 mcg PO DAILY losartan 100 mg PO DAILY 90 days magnesium oxide 400 mg PO DAILY metoprolol succinate ER 50 mg PO DAILY vitamin A PATIENT NOT SURE OF WHAT DOSE vitamin B complex 1 tab PO DAILY vitamin E (dl, acetate) 450 mg PO DAILY Tobacco use date assessed: 08/26/24 Fall risk assessment: No Falls in past year Last assessed Fall Risk: 12/01/24 Dental Screening Dental Screen Date: 08/26/24 HPI Hypertension HPI Details dilantin tapered by Dr. Dodge and doing good. so far no seizures. [facility] Medical History Lower urinary tract symptoms Compression fx, thoracic spine Microscopic hematuria Nocturia Pheochromocytoma Uncontrolled hypertension Screening for prostate cancer Screening for diabetes mellitus Finger numbness Right wrist pain Numbness and tingling in both hands Hematuria Fracture of triquetral bone of wrist Dizziness Urinary urgency Wrist pain, acute Femoral fracture Frequency of micturition Medicare annual wellness visit, initial Cataract Seizure disorder Hypertension Vitamin B12 deficiency Anxiety Hereditary hemorrhagic telangiectasia Surgical History History of lobectomy of thyroid History of colonoscopy History of hip surgery History of hydrocelectomy H/O brain surgery Family History Mother CAD (coronary artery disease) Social History Household Members: None Housing: House Do you presently have visiting nurse or other home services: No Alcohol intake: never Comment: I don't really have a number; low Patient Tobacco Use Status: Former Tobacco user Tobacco use type: Cigarette Years Smoked: 1994 stopped e-Cigarette/Vaping Use: Never Used Second Hand Smoke Exposure: No Advance Directives Date on File: 06/23/21 service: No Current occupational status: retired Current occupation: left hand dominant Cognitive needs: No Hearing needs: No Vision needs: No Questionnaire PHQ-9 Over the last 2 weeks, how often have you been bothered by any of the following problems? 1. Little interest or pleasure in doing things: more than half the days 2. Feeling down, depressed, or hopeless: more than half the days 3. Trouble falling or staying asleep, or sleeping too much: not at all 4. Feeling tired or having little energy: not at all 5. Poor appetite or overeating: not at all 6. Feeling bad about yourself - or that you are a failure or have let yourself or your family down: not at all 7. Trouble concentrating on things, such as reading the newspaper or watching television: not at all 8. Moving or speaking so slowly that other people could have noticed. Or the opposite - being so fidgety or restless that you have been moving around a lot more than usual: not at all 9. Thoughts that you would be better off or of hurting yourself in some way: not at all Total score: 4 Depression Screening Interpretation: Positive Depression Screening Done: Yes 60487 - PHQ-9 Billing: Yes Source: Developed by Drs. Say Wilkins, Judith Mcgovern, Pancho Kennedy and colleagues, with an educational rk from [employer]. Thrive Questionnaire Date Thrive assessed: 11/24/24 I am a: Patient What is your living situation today?: I have a steady place to live Within the past 12 months, did the food you bought not last and you didn't have the money to get more?: I choose not to answer this question Within the past 12 months, did you worry whether your food would run out before you got money to buy more?: Never true Do you have trouble paying for medicines?: No Do you have trouble getting transportation to medical appointments?: I choose not to answer this question Do you have trouble paying your heating and electricity bill?: I choose not to answer this question Do you have trouble taking care of your child, family member or friend?: No Do you have trouble with day-to-day activities such as bathing, preparing meals, shopping, managing finances, etc.?: No Are you currently unemployed and looking for a job?: No Are you interested in more education?: I choose not to answer this question Please select the resources that you would like help with: Transportation Currently or been in a relationship where the following occur: No concerns reported THRIVE Score: 0 AUDIT C Alcohol Use Questionnaire (AUDIT-C) 1. How often do you have a drink containing alcohol?: Never 2. How many drinks containing alcohol do you have on a typical day when you are drinking?: 1 or 2 3. How often do you have six or more drinks on one occasion?: Never Total Score: 0 BAIRON-7 AMB Questionnaire BAIRON-7 Date BAIRON - 7 assessed: 08/26/24 Feeling nervous, anxious, or on edge: 0 = Not at all Not being able to stop or control worryin = Not at all Worrying too much about different things: 1 = Several days Trouble relaxin = Several days Being so restless that it is hard to sit still: 0 = Not at all Becoming easily annoyed or irritable: 0 = Not at all Feeling afraid as if something awful might happen: 1 = Several days Total BAIRON-7 score (0-4 normal; 5-9 mild; 10-14 moderate; 15-21 severe): 3 Source: Developed by Drs. Say Wilkins, Judith Mcgovern, Pancho Kennedy and colleagues, with an educational rk from [employer]. BAIRON-7 Assessment Billing BAIRON-7 Assessment Tool: BAIRON-7 Assessment 08004 Physical exam (Primary Care) Vital Signs: Last Vital Signs Pulse 75 12/01/24 08:39 BP 134/62 12/01/24 08:39 Oxygen Delivery Method Room Air 12/01/24 08:39 BMI result Body Mass Index 22.0 Tobacco/Smoking Status: Tobacco use Status Tobacco use date assessed 08/26/24 12/01/24 08:40 Patient Tobacco Use Status Former Tobacco user 12/01/24 08:40 Tobacco use type Cigarette 12/01/24 08:40 e-Cigarette/Vaping Use Never Used 12/01/24 08:40 PHQ-9: PHQ-9 Score PHQ-9: Total score 4 12/01/24 09:09 Depression Screening Interpretation: Positive Thrive Assessment: Date of Thrive Assessment Date Thrive assessed 11/24/24 12/01/24 08:40 Currently or been in a relationship where the following occur: No concerns reported Const General: alert; No acute distress Eyes Conjunctivae: conjunctivae normal Resp Auscultation: clear to auscultation bilaterally Cardio Rate: regular rate Rhythm: regular rhythm GI Inspection: Yes normal to inspection Extrem General: Yes normal to inspection and No edema Coding Level of Care Code Est Pt Level 4 (84364) Diagnoses Acquired hypothyroidism E03.9 Hypothyroidism type: acquired Primary hypertension I10 Hypertension type: primary hypertension Benign prostatic hyperplasia with urinary frequency N40.1; R35.0 Lower urinary tract symptom detail: urinary frequency Lower urinary tract symptom presence: symptoms present Carpal tunnel syndrome on both sides G56.03 Additional Codes BAIRON-7 Assessment Billing - BAIRON-7 Assessment Tool: BAIRON-7 Assessment 48329 ([id number]) PHQ-9 - 34957 - PHQ-9 Billing: Yes ([id number]) Assessment & Plan Assessment & Plan (1) Hypothyroid: Code(s): E03.9 - Hypothyroidism, unspecified Category: Medical Qualifiers: Hypothyroidism type: acquired Qualified Code(s): E03.9 - Hypothyroidism, unspecified Plan: Continue with thyroid medication August 2024 last blood work (2) Hypertension: Code(s): I10 - Essential (primary) hypertension Category: Medical Qualifiers: Hypertension type: primary hypertension Qualified Code(s): I10 - Essential (primary) hypertension Plan: Continue with blood pressure medication. Decrease salt intake and exercise on amlodipine 10 mg once a day losartan 100 mg once a day metoprolol 50 mg once a day (3) BPH (benign prostatic hyperplasia): Code(s): N40.0 - Benign prostatic hyperplasia without lower urinary tract symptoms Category: Medical Qualifiers: Lower urinary tract symptom detail: urinary frequency Lower urinary tract symptom presence: symptoms present Qualified Code(s): N40.1 - Benign prostatic hyperplasia with lower urinary tract symptoms; R35.0 - Frequency of micturition Plan: Stable (4) Carpal tunnel syndrome on both sides: Comment: Right thumb, 3rd and 4th finger January 2022 Code(s): G56.03 - Carpal tunnel syndrome, bilateral upper limbs Category: Medical Plan History of Present Illness The patient is a 74-year-old male presenting with a follow-up for multiple chronic conditions. He has a history of essential hypertension managed with medications, most recently excluding losartan due to lower blood pressure readings, particularly since November. Despite experiencing pressures as low as 107/70 mmHg, he remains stable, with the patient instructed to report any significant drops. The patient?s thyroid condition, indicated by mildly elevated TSH, is monitored through continued thyroid medication. Additionally, elevated vitamin B12 levels were found, prompting discontinuation of B12 supplements. Carpal tunnel syndrome presents with nocturnal pins and needles in both hands, more so on the left, not improved with current wrist splint use. Previous tests confirmed carpal tunnel but further evaluation may be required given ongoing symptoms affecting physical activity, including resistance training. Dietary management is in place to reduce gastrointestinal discomfort caused by certain foods, with modifications yielding some relief upon avoiding dairy and peanuts. The patient is adapting to lactose-free products while moderating intake of other trigger foods. Health Maintenance - Bone Density: Conducted in June 2024 - Colonoscopy: Last done in 2016 - Current dietary adjustments for management of gastrointestinal symptoms - Exercise recommended but limited due to carpal tunnel symptoms Social History - Reduced physical activity due to carpal tunnel syndrome - Moderates dietary intake to alleviate gastrointestinal symptoms - Enjoys tennis, currently limited due to hand symptoms Review of Systems - Cardiovascular: Denies chest pain or palpitations - Neurological: Reports pins and needles sensations in hands; denies seizures - Gastrointestinal: Reports excessive gas, improves with dietary adjustments - Musculoskeletal: Reports symptoms consistent with carpal tunnel syndrome Physical Exam - Cardiovascular- Blood pressure measurements conducted Results - Labs: August blood work showed mildly elevated TSH, high vitamin B12 levels, normal complete blood count except for mild leukopenia, normal electrolytes, stable kidney function, normal blood sugar, normal liver function tests, and good cholesterol levels. Plan I have advised the continuation of current antihypertensive regimen, noting excellent control for the most part, with a plan to monitor blood pressure closely. We have discontinued losartan and will reassess if pressures drop below recommended thresholds. For carpal tunnel syndrome, wrist splints will be used while observing if the symptoms persist; if so, a referral to orthopedics might be warranted. I have discussed vitamin management by stopping current supplements due to elevated levels. Hypothyroidism medication adjustment will follow TSH level monitoring. Dietary adjustments were suggested for gastrointestinal issues, stressing lactose-free options and moderation in consumption of trigger foods. Regular follow-ups in three months or sooner if adverse symptoms develop are scheduled. Patient was informed and verbally consented to the use of an ambient scribe for clinic note documentation during this visit. Discussion Notes I discussed with the patient the need for ongoing monitoring of blood pressure, especially given the recent cessation of losartan. We agreed on using amlodipine and metoprolol as mainstays of management for essential hypertension. The patient was informed about the importance of tracking and reporting any abnormal falls in blood pressure to prevent hypotensive complications. For hypothyroidism, continuous medication with planned follow-up on TSH status was agreed upon. With elevated vitamin B12 linked to supplements, I advised discontinuation to avoid potential side effects. Regarding carpal tunnel treatment, we agreed on current wrist splint use, allowing possible future orthopedic evaluation if symptoms intensify. Dietary modifications for gastrointestinal relief were recommended, and the patient acknowledged replacing lactose-rich foods with lactose-free alternatives. Follow-up was set for three months unless further issues arose, encouraged open communication if necessary. Patient Instructions - Continue taking blood pressure medications as prescribed. - Measure blood pressure at home; report if below 110 mmHg. - Stop taking B12 supplements due to high levels. - Use wrist splints at night for carpal tunnel syndrome. - Adjust diet by avoiding trigger foods such as peanuts and dairy. - Use lactose-free products as needed. - Follow up in three months or sooner if any issues arise. - Notify me if experiencing significant changes in symptoms. Orders: Orders NE electromyogram (EMG) Today G56.03 - Carpal tunnel syndrome, bilateral upper limbs NE nerve conduction velocity Today G56.03 - Carpal tunnel syndrome, bilateral upper limbs
--- OUTSIDE RECORDS SUMMARY | 2024-12-01 08:56 | XMS_ITS ---
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 Name Role Phone Daniel Paredes Unavailable Unavailable Jolie, Kayla Unavailable Unavailable Allergies and adverse reactions Code CodeSystem Substance Reaction Severity StartDate Concern Status 35512 RXNORM Lisinopril Unknown 06/26/2021 active 5487 RXNORM Hydrochlorothiazide Unknown 06/26/2021 a ctive Care Team Name Role Address Phone Organization Dates Kayla Dave PCP [address], [address], [place] (Office): [facility] 06/26/2021 - 07/06/2021 Daniel Paredes Attending Physician [address] [facility] [address] [place], [address], [place] (Office): : [facility] 06/26/2021 - 07/06/2021 Immunizations Immunization Status Vaccine Details Vaccine Code CodeSystem Andry e Notes SARS-COV-2 (COVID-19) completed SARS-COV-2 (COVID-19) vaccine, mRNA, spike protein, LNP, preservative free, 10 mcg/0.2mL dose, keyana-sucrose formulation Mfg: MODERNA Step 2 of Multi-step with next step required 218 CVX created date: 06/26/2021 administered date: 10/25/2020 SARS-COV-2 (COVID-19) completed SARS-COV-2 (COVID-19) vaccine, mRNA, spike protein, LNP, preservative free, 10 mcg/0.2mL dose, keyana-sucrose formulation Mfg: MODERNA Step 1 of Multi-step with next step required 218 CVX created date: 06/26/2021 administered date: 09/28/2020 Pfizer Covid-19 Booster (SARS-COV-2) vaccine completed SARS-COV-2 (COVID-19) vaccine, mRNA, spike protein, LNP, preservative free, 30 mcg/0.3mL dose Mfg: MODERNA 208 CVX created date: 06/26/2021 administered date: 05/22/2021 Mental Status Section Date Assessment Total Score Description 07/06/2021 BIMS 14 cognitively int act CAM 0 No delirium ind icated PHQ-9 02 minimal depress ion 07/02/2021 BIMS 14 cognitively int act CAM 0 No delirium ind icated PHQ-9 02 minimal depress ion Problems Problem # Description Date of onset Resolved Date Code CodeSystem Concern Status 1 ANXIETY DISORDER, UNSPECIFIED 06/26/[address] active 2 DIFFICULTY IN WALKING, NOT ELSEWHERE CLASSIFIED 06/26/[address] active 3 DYSPHAGIA, OROPHARYNGEAL PHASE 06/26/[address] active 4 ESSENTIAL (PRIMARY) HYPERTENSION 06/26/[address] active 5 FRACTURE OF UNSPECIFIED PART OF NECK OF RIGHT FEMUR, SUBSEQUENT ENCOUNTER FOR CLOSED FRACTURE WITH ROUTINE HEALING 06/26/[address] active 6 HEREDITARY HEMORRHAGIC TELANGIECTASIA 06/26/[address] active 7 HISTORY OF FALLING 06/26/[address] active 8 OTHER SEIZURES 06/26/[address] act jordon 9 UNSPECIFIED CATARACT 06/26/[address] active 10 VITAMIN B12 DEFICIENCY ANEMIA, UNSPECIFIED 06/26/[address] active Reason for Referral No Reasons for Referral Entered Social History Social History Observation Description Start Date End Date Code Code System Current Smoking Status Tobacco smoking consumption unknown 163987243 SNOMED CT Sex Assigned At Male 1950 52568-6 [facility] Vital Signs Code Code System Vitals Name Values and Units Timing Information 10316-9 [facility] Pain Level Value=0.0 07/06/2021 8462-4 [facility] Blood Pressure-Diastolic Value=65 Un its=mmHg 07/05/2021 8480-6 [facility] Blood Pressure-Systolic Hgwuy=388 Un its=mmHg 07/05/2021 8867-4 [facility] Heart rate Value=62.0 Units=/min 02/2021 9279-1 [facility] Respiratory Rate Value=18.0 Units=/m in 07/05/2021 8310-5 [facility] Body Temperature Value=97.7 Units=?? F 07/05/2021 11897-9 [facility] O2 % BldC Oximetry Value=98.0 Units= % 07/05/2021 93554-4 [facility] Weight Bydqo=647.8 Units=Lbs 02/2021 8302-2 [facility] Height Value=65.0 Units=Inches 06/27/2021
== END 2024-12-01 09:25 | disposition home or self-care (01) ==
LOC: HO.HMCH 08:33
PROVIDERS: PCP Internal Medicine; Visit Provider Internal Medicine
DX: E03.9 Hypothyroidism, unspecified (principal); I10 Essential (primary) hypertension; N40.1 Benign prostatic hyperplasia with lower urinary tract symptoms; R35.0 Frequency of micturition; G56.03 Carpal tunnel syndrome, bilateral upper limbs

== ENCOUNTER → 2024-12-01 08:32 | Outpatient (BNVA) | payer MEDICARE, SELFPAY | PROVIDERS: PCP Internal Medicine; Visit Provider Internal Medicine | DX: E03.9 Hypothyroidism, unspecified (principal); I10 Essential (primary) hypertension; N40.1 Benign prostatic hyperplasia with lower urinary tract symptoms; R35.0 Frequency of micturition; G56.03 Carpal tunnel syndrome, bilateral upper limbs | CPT/HCPCS: 96127; 99212 ==

== ENCOUNTER 2025-04-02 08:35 | Outpatient (AMB) | payer MEDICARE, SELFPAY ==
--- NOTE | 2025-04-02 08:40 | MHC.PC.OV ---
Vital Signs 04/02/25 08:42 Height 5 ft 3 in Weight 118 lb BMI 20.9 BP 148/68 H Blood Pressure Location Lt brachial Position Sitting Pulse 54 Pulse Source Pulse Oximeter Pulse Oximetry (%) 98 Oxygen Delivery Method Room Air Intake Visit Reasons: Hypertension Allergies hydrochlorothiazide Allergy (Unknown, Verified 04/02/25 08:43) Unknown lisinopril Allergy (Unknown, Verified 04/02/25 08:43) Unknown Medication List - Last Reconciled 04/02/25 by Ye Silveira MD amlodipine 10 mg PO DAILY ascorbic acid (vitamin C) 1 g PO DAILY brimonidine 0.2% drps ophthalmic (eye) calcitriol 0.25 mcg PO DAILY cyanocobalamin (vitamin B-12) PT UNSURE OF WHAT DOSE HE TAKES ferrous sulfate (Feosol) 325 mg PO DAILY [kelp PO] levothyroxine (Synthroid) 25 mcg PO DAILY magnesium oxide 400 mg PO DAILY metoprolol succinate ER 50 mg PO DAILY vitamin A PATIENT NOT SURE OF WHAT DOSE vitamin B complex 1 tab PO DAILY vitamin E (dl, acetate) 450 mg PO DAILY Tobacco use date assessed: 08/26/24 Fall risk assessment: No Falls in past year Last assessed Fall Risk: 04/02/25 Dental Screening Dental Screen Date: 08/26/24 HPI Hypertension HPI Details BP at home is good . noted dizziness but concern on bradycardia. but not taking losartan also. BP has remaied under control but heart rate has been in the bradycardic rate. Patient has had 1 episode of dizziness but has not had it since then. Blood pressure under control otherwise no nausea no vomiting no chest pains no shortness a breath no bowel bladder symptoms. [facility] Medical History Lower urinary tract symptoms Compression fx, thoracic spine Microscopic hematuria Nocturia Pheochromocytoma Uncontrolled hypertension Screening for prostate cancer Screening for diabetes mellitus Finger numbness Right wrist pain Numbness and tingling in both hands Hematuria Fracture of triquetral bone of wrist Dizziness Urinary urgency Wrist pain, acute Femoral fracture Frequency of micturition Medicare annual wellness visit, initial Cataract Seizure disorder Hypertension Vitamin B12 deficiency Anxiety Hereditary hemorrhagic telangiectasia Surgical History History of lobectomy of thyroid History of colonoscopy History of hip surgery History of hydrocelectomy H/O brain surgery Family History Mother CAD (coronary artery disease) Social History Household Members: None Housing: House Do you presently have visiting nurse or other home services: No Alcohol intake: never Comment: I don't really have a number; low Patient Tobacco Use Status: Former Tobacco user Tobacco use type: Cigarette Years Smoked: 1994 stopped e-Cigarette/Vaping Use: Never Used Second Hand Smoke Exposure: No Advance Directives Date on File: 06/23/21 service: No Current occupational status: retired Current occupation: left hand dominant Cognitive needs: No Hearing needs: No Vision needs: No Questionnaire PHQ-9 Over the last 2 weeks, how often have you been bothered by any of the following problems? 1. Little interest or pleasure in doing things: more than half the days 2. Feeling down, depressed, or hopeless: more than half the days 3. Trouble falling or staying asleep, or sleeping too much: not at all 4. Feeling tired or having little energy: not at all 5. Poor appetite or overeating: not at all 6. Feeling bad about yourself - or that you are a failure or have let yourself or your family down: not at all 7. Trouble concentrating on things, such as reading the newspaper or watching television: not at all 8. Moving or speaking so slowly that other people could have noticed. Or the opposite - being so fidgety or restless that you have been moving around a lot more than usual: not at all 9. Thoughts that you would be better off or of hurting yourself in some way: not at all Total score: 4 Depression Screening Interpretation: Positive Depression Screening Done: Yes [id number] - PHQ-9 Billing: Yes Source: Developed by Drs. Say Wilkins, Judith Mcgovern, Pancho Kennedy and colleagues, with an educational rk from [id number]. Thrive Questionnaire Date Thrive assessed: 11/24/24 I am a: Patient What is your living situation today?: I have a steady place to live Within the past 12 months, did the food you bought not last and you didn't have the money to get more?: I choose not to answer this question Within the past 12 months, did you worry whether your food would run out before you got money to buy more?: Never true Do you have trouble paying for medicines?: No Do you have trouble getting transportation to medical appointments?: I choose not to answer this question Do you have trouble paying your heating and electricity bill?: I choose not to answer this question Do you have trouble taking care of your child, family member or friend?: No Do you have trouble with day-to-day activities such as bathing, preparing meals, shopping, managing finances, etc.?: No Are you currently unemployed and looking for a job?: No Are you interested in more education?: I choose not to answer this question Please select the resources that you would like help with: Transportation Currently or been in a relationship where the following occur: No concerns reported THRIVE Score: 0 AUDIT C Alcohol Use Questionnaire (AUDIT-C) 1. How often do you have a drink containing alcohol?: Never 2. How many drinks containing alcohol do you have on a typical day when you are drinking?: 1 or 2 3. How often do you have six or more drinks on one occasion?: Never Total Score: 0 BAIRON-7 AMB Questionnaire BAIRON-7 Date BAIRON - 7 assessed: 08/26/24 Source: Developed by Drs. Say Wilkins, Judith Mcgovern, Pancho Kennedy and colleagues, with an educational rk from [employer]. Physical exam (Primary Care) Vital Signs: Last Vital Signs Pulse 54 04/02/25 08:42 BP 148/68 H 04/02/25 08:42 Pulse Ox 98 04/02/25 08:42 Oxygen Delivery Method Room Air 04/02/25 08:42 BMI result Body Mass Index 20.9 Tobacco/Smoking Status: Tobacco use Status Tobacco use date assessed 08/26/24 04/02/25 08:51 Patient Tobacco Use Status Former Tobacco user 04/02/25 08:51 Tobacco use type Cigarette 04/02/25 08:51 e-Cigarette/Vaping Use Never Used 04/02/25 08:51 PHQ-9: PHQ-9 Score PHQ-9: Total score 4 04/02/25 09:02 Depression Screening Interpretation: Positive Thrive Assessment: Date of Thrive Assessment Date Thrive assessed 11/24/24 04/02/25 08:51 Currently or been in a relationship where the following occur: No concerns reported Const General: alert; No acute distress Eyes Conjunctivae: conjunctivae normal Resp Auscultation: clear to auscultation bilaterally Cardio Rate: regular rate Rhythm: regular rhythm GI Inspection: Yes normal to inspection Extrem General: Yes normal to inspection and No edema Coding Level of Care Code Est Pt Level 4 (03740) Diagnoses Primary hypertension I10 Hypertension type: primary hypertension Acquired hypothyroidism E03.9 Hypothyroidism type: acquired Osteoporosis with fracture M80.80XA Peripheral neuropathy G62.9 Additional Codes PHQ-9 - 50232 - PHQ-9 Billing: Yes ([id number]) Assessment & Plan Assessment & Plan (1) Hypertension: Code(s): I10 - Essential (primary) hypertension Category: Medical Qualifiers: Hypertension type: primary hypertension Qualified Code(s): I10 - Essential (primary) hypertension Plan: Continue with blood pressure medication. Decrease salt intake and exercise patient on amlodipine 10 mg once a day metoprolol 50 mg once a day (2) Hypothyroid: Code(s): E03.9 - Hypothyroidism, unspecified Category: Medical Qualifiers: Hypothyroidism type: acquired Qualified Code(s): E03.9 - Hypothyroidism, unspecified Plan: Continue with thyroid medication (3) Osteoporosis with fracture: Comment: 05/2022 Code(s): M80.80XA - Other osteoporosis with current pathological fracture, unspecified site, initial encounter for fracture Category: Medical Plan: Discussed about calcium and vitamin-D and keeping active (4) Peripheral neuropathy: Code(s): G62.9 - Polyneuropathy, unspecified Category: Medical Plan: Conservative treatment Plan History of Present Illness The patient is a 74-year-old male presenting for follow-up on multiple chronic conditions including hypertension, hypothyroidism, and peripheral neuropathy. The patient has a history of erythritire hemorrhagic telangiectasia and hypertension, managed with amlodipine and metoprolol. He reports a 6-pound weight loss and has experienced dizziness, which he attributes to metoprolol, although it has not recurred recently. The patient underwent a thyroidectomy in December 2022 due to goiter and is currently hypothyroid, managed with thyroid medication. His thyroid levels were noted to be mildly elevated in recent blood work, necessitating follow-up. He has osteoporosis, for which calcium and vitamin D intake, along with physical activity, were discussed as part of conservative management. Peripheral neuropathy is another chronic condition, with the patient reporting no recent exacerbations. Preventative care includes a colonoscopy last performed in 2016 and a bone density test in June 2024. Recent blood work in August showed normal blood counts with mild leukopenia, normal electrolytes, renal function, and cholesterol levels, but elevated B12 and thyroid levels. Health Maintenance - Colonoscopy last performed in 2016 - Bone density test in June 2024 - Discussed calcium and vitamin D intake for osteoporosis management - Encouraged physical activity - Blood pressure management with amlodipine and metoprolol - Thyroid function follow-up due to mild elevation Social History - Exercise: Regular gym attendance - Nutrition: Consumes fruits, vegetables, and calcium-rich foods such as milk and leafy greens Review of Systems - General: Reports 6-pound weight loss - Neurological: Reports dizziness, denies recent episodes - Cardiovascular: Denies chest pain, palpitations - Gastrointestinal: Reports normal bowel movements - Genitourinary: Reports increased urination one night, denies ongoing issues Physical Exam Results - Labs: Normal blood count with mild leukopenia, normal electrolytes, renal function, and cholesterol levels, elevated B12 and thyroid levels Plan Patient was informed and verbally consented to the use of an ambient scribe for clinic note documentation during this visit. 1. Hypertension The patient is currently managed on amlodipine 10 mg and metoprolol 50 mg daily. Blood pressure is under control, and the patient is advised to continue with the current regimen. 2. Hypothyroidism The patient is on thyroid medication following a thyroidectomy in December 2022. Recent labs indicate mildly elevated thyroid levels, and follow-up testing is planned before the next visit. 3. Osteoporosis Management includes dietary calcium and vitamin D supplementation, along with regular physical activity. The patient is encouraged to maintain a diet rich in calcium and engage in weight-bearing exercises. 4. Peripheral Neuropathy The patient reports no recent exacerbations of peripheral neuropathy. 5. Leukopenia Mild leukopenia was noted in recent blood work, with no immediate intervention required. 6. Bradycardia The patient has experienced bradycardia, which is being monitored. Discussion Notes During the visit, we discussed the management of hypertension with amlodipine and metoprolol, ensuring blood pressure remains controlled. The patient is advised to continue thyroid medication with follow-up labs planned due to mildly elevated thyroid levels. We emphasized the importance of calcium and vitamin D intake for osteoporosis management and encouraged regular physical activity. The patient is informed about the need for follow-up on thyroid function and to maintain current medications for blood pressure control. Patient Instructions - Continue taking amlodipine and metoprolol as prescribed. - Maintain thyroid medication and follow up with labs before the next visit. - Ensure adequate intake of calcium and vitamin D through diet. - Engage in regular physical activity, including weight-bearing exercises. - Monitor for any symptoms of dizziness or changes in health status. Orders: Orders Complete Blood Count Auto Diff 2 Months I10 - Essential (primary) hypertension Comprehensive Met. Panel 2 Months I10 - Essential (primary) hypertension Free T4 (Free Thyroxine) 2 Months I10 - Essential (primary) hypertension Prostate Specific Antigen Scr 2 Months I10 - Essential (primary) hypertension Lipid Panel 2 Months E78.00 - Pure hypercholesterolemia, unspecified, I10 - Essential (primary) hypertension Thyroid Stimulating Hormone 2 Months I10 - Essential (primary) hypertension Vitamin B12 and Folate 2 Months I10 - Essential (primary) hypertension Vitamin D 25-OH Total 2 Months I10 - Essential (primary) hypertension
[2025-04-02 08:42] VITALS: BP 148/68; PULSE 54; O2SAT 98; BMI 20.9
--- OUTSIDE RECORDS SUMMARY | 2025-04-02 09:04 | XMS_ITS | Patient Health Record ---
Author Organization [facility] Address [address] [place] [address] Care Team Providers Care Oceanography Professor Name Role Phone Po Ye OLIVAS Primary Care Provider Say Dominguez [phone] Reason For Referral No Information Medications Medication SIG (Take, Route, Frequency, Duration) Notes Start Date End Date Status Phenytoin Sodium Extended 100 MG TK ONE C PO TID Oral for 30 Active amLODIPine Besylate 10 MG TK 1 T PO ONCE A DAY Oral for 30 Active iron Active Metoprolol Succinate ER 25 MG TK 1 T PO D Oral for 30 Acti ve Immunizations Vaccine Route Administration Date Status Comme nts Influenza Unknown 04/28/2016 Administered Problems Problem Type SNOMED Code ICD Code Onset Dates Problem Status W/U Status Risk Notes Problem [id number] Encounter for screening for malignant neoplasm of colon (Z12.11) Active confirmed Problem [id number] 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 Problem Screening for malignant neoplasm of rectum ([id number]) Encounter for screening for malignant neoplasm of rectum (Z12.12) Active confirmed Plan Of Treatment Future Test Test Name Order Date COLONOSCOPY 06/05/2016 Insurance Providers Payer Name Payer Address Payer Phone Subscriber Number Group Number Insured Name Patient Relationship to Insured Coverage Start Date Coverage End Date MEDICARE OF [place] [address] [place] [address] [id number] GINA KEY Self - patient is the insured [employer] ATTN CLAIMS [address] [place] [address] [id number] GINA KEY Self - patient is the insured Medical (General) History Medical History History ICD Code EGD 06/2006--question of gas tric telangiectasias, but otherwise normal upper endoscopy History of ischemic colitis--colonoscopy 06/2006--no polyps Hereditary hemorrhagic telan giectasia--history of epistaxis and anemia--on Iron supplements Seizure disorder Denies VT,DM,CVA,Lung disease,renal dise ase HTN Surgical History Surgery Date(Month/Year) Craniotomy as a child for a head injury Hydrocele 2016
== END 2025-04-02 09:16 | disposition home or self-care (01) ==
LOC: HO.HMCH 08:36
PROVIDERS: PCP Internal Medicine; Visit Provider Internal Medicine
DX: I10 Essential (primary) hypertension (principal); E03.9 Hypothyroidism, unspecified; M80.80XA Other osteoporosis with current pathological fracture, unspecified site, initial encounter for fracture; G62.9 Polyneuropathy, unspecified

== ENCOUNTER → 2025-04-02 08:35 | Outpatient (BNVA) | payer MEDICARE, SELFPAY | PROVIDERS: PCP Internal Medicine; Visit Provider Internal Medicine | DX: I10 Essential (primary) hypertension (principal); E03.9 Hypothyroidism, unspecified; G62.9 Polyneuropathy, unspecified; D72.819 Decreased white blood cell count, unspecified; R00.1 Bradycardia, unspecified; E78.00 Pure hypercholesterolemia, unspecified; M80.80XA Other osteoporosis with current pathological fracture, unspecified site, initial encounter for fracture; X58.XXXA Exposure to other specified factors, initial encounter; Y93.9 Activity, unspecified; Y92.9 Unspecified place or not applicable; Y99.9 Unspecified external cause status | CPT/HCPCS: 96127; 99212 ==

== ENCOUNTER 2025-05-19 06:06 | Outpatient (REF) | payer MEDICARE, SELFPAY ==
--- OUTSIDE RECORDS SUMMARY | 2025-05-19 06:09 | XMS_ITS | Patient Health Record ---
Author Organization [facility] Address [address] [place] [address] Care Team Providers Care Insurance Administrative Assistant Name Role Phone Po Ye OLIVAS Primary Care Provider Say Dominguez [phone] Reason For Referral No Information Medications Medication SIG (Take, Route, Frequency, Duration) Notes Start Date End Date Status Phenytoin Sodium Extended 100 MG TK ONE C PO TID Oral; Duration: 30 Active amLODIPine Besylate 10 MG TK 1 T PO ONCE A DAY Oral; Duration: 30 Active iron Active Metoprolol Succinate ER 25 MG TK 1 T PO D Oral; Duration: 30 Active Immunizations Vaccine Route Administration Date Status Comme nts Influenza Unknown 04/28/2016 Administered Problems Problem Type SNOMED Code ICD Code Onset Dates Problem Status W/U Status Risk Notes Problem Screening for malignant neoplasm of colon (510389677) Encounter for screening for malignant neoplasm of colon (Z12.11) Active confirmed Problem Hereditary hemorrhagic telangiectasia (84637525) 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 Problem Screening for malignant neoplasm of rectum (573533405) Encounter for screening for malignant neoplasm of rectum (Z12.12) Active confirmed Plan Of Treatment Future Test Test Name Order Date COLONOSCOPY 06/05/2016 Insurance Providers Payer Name Payer Address Payer Phone Subscriber Number Group Number Insured Name Patient Relationship to Insured Coverage Start Date Coverage End Date MEDICARE OF [place] [address] [place] [id number] [phone] [id number] GINA KEY Self - patient is the insured MED[employer] ATTN CLAIMS [address] [place] [address] [id number] GINA KEY Self - patient is the insured Medical (General) History Medical History History ICD Code EGD 06/2006--question of gas tric telangiectasias, but otherwise normal upper endoscopy History of ischemic colitis--colonoscopy 06/2006--no polyps Hereditary hemorrhagic telan giectasia--history of epistaxis and anemia--on Iron supplements Seizure disorder Denies OR,DM,CVA,Lung disease,renal dise ase HTN Surgical History Surgery Date(Month/Year) Craniotomy as a child for a head injury Hydrocele 2016
[2025-05-19 06:20] LABS: MANUAL DIFF FLAG NO
[2025-05-19 07:47] LABS: Hematocrit 39.2 % (42.0-52.0); Hemoglobin 12.8 g/dl (14.0-18.0); Imm Gran Abs Auto 0.01 X10*3/uL (0.00-0.03); Imm Gran Pct Auto 0.2 % (0.0-0.4); Lymphocytes Absolute Auto 1.1 X10*3/uL (1.2-4.9); Mean Corpuscular HGB Conc 32.7 g/dl (31.0-36.0); Mean Corpuscular Hemoglobin 31.8 pg (27.0-33.0); Mean Corpuscular Volume 97.3 fL (80.0-98.0); NRBC Abs Auto 0.000 X10*3/uL (0.0-0.012); NRBC Pct Auto 0.0 /100WBC (0.0-0.2); Platelet Count 189 X10*3/uL (160-400); Red Blood Count 4.03 X10*6/uL (4.60-5.80); White Blood Count 4.6 X10*3/uL (4.8-10.8)
[2025-05-19 08:19] LABS: Albumin Level 3.8 g/dL (3.5-5.0); Alkaline Phosphatase 136 U/L (39-117); Anion Gap 12 (12-20); Aspartate Amino Transferase 51 U/L (5-37); Blood Urea Nitrogen 35 mg/dL (9-16); Calcium 8.7 mg/dL (8.4-10.2); Carbon Dioxide 24 mmol/L (22-29); Chloride 110 mmol/L (96-108); Cholesterol 154 mg/dL (<200); Estimated Glomerular Filt Rate 51; HDL Cholesterol 59 mg/dL (>40); Potassium 3.9 mmol/L (3.3-5.1); Sodium 142 mmol/L (135-145); Total Protein 6.5 g/dL (6.5-8.0); Triglycerides 47 mg/dL (<150)
[2025-05-19 08:30] LABS: Alanine Aminotransferase 44 U/L (0-40)
[2025-05-19 08:41] LABS: Free T4 (Free Thyroxine) 1.05 ng/dL (0.71-1.85); Thyroid Stimulating Hormone 3.26 uIU/mL (0.32-4.0)
[2025-05-19 09:04] LABS: Folate 13.6 ng/mL (> or = 4.0); Vitamin B12 349 pg/mL (200-900)
== END 2025-05-19 06:07 | disposition home or self-care (01) ==
LOC: HO.LAB 06:06
PROVIDERS: PCP Internal Medicine; Visit Provider Internal Medicine
DX: I10 Essential (primary) hypertension (principal); E78.00 Pure hypercholesterolemia, unspecified; Z12.5 Encounter for screening for malignant neoplasm of prostate
CPT/HCPCS: 36415; 80053; 80061; 82306; 82607; 82746; 84153; 84439; 84443; 85025

== ENCOUNTER 2025-05-21 13:54 | Emergency (ER) | payer MEDICARE, SELFPAY ==
--- NOTE | ~2025-05-21 | CT_ITS ---
EXAMINATION: CT HEAD NECK ANGIOGRAPHY WITH IV CONTRAST STROKE HISTORY: Sudden onset dizziness, difficulty with COMPARISON: Correlation is made with the unenhanced head CT performed immediately prior. TECHNIQUE: Helical axial images were obtained from the aortic arch to the vertex after intravenous injection of contrast per standard departmental protocol. MIP/3D reconstructions were obtained and reviewed. One or more of the following techniques was used for dose reduction: Automated exposure control, adjustment of the mA and/or kV according to patient size, use of iterative reconstruction technique. DLP: 694 mGy-cm FINDINGS: CTA NECK: AORTIC ARCH: The visualized portions of the arch as well as innominate, right subclavian, and left subclavian arteries show no hemodynamically significant stenosis. Right common carotid artery: There is no large vessel occlusion or hemodynamically significant stenosis. Right internal carotid artery: There is a small amount of calcified plaque at the origin of the internal carotid artery. There is no large vessel occlusion or hemodynamically significant stenosis. Left common carotid artery: There is no large vessel occlusion or hemodynamically significant stenosis. Left internal carotid artery: There is a small amount of calcified plaque at the origin of the internal carotid artery. There is no large vessel occlusion or hemodynamically significant stenosis. (Extracranial internal carotid artery stenosis estimates are based on use of distal ICA as the denominator.) Right vertebral artery: There is no large vessel occlusion or hemodynamically significant stenosis. Left vertebral artery: There is no large vessel occlusion or hemodynamically significant stenosis. CTA HEAD: Right intracranial ICA: There is no large vessel occlusion, hemodynamically significant stenosis, or aneurysm. Right FARSHAD: There is no large vessel occlusion, hemodynamically significant stenosis, or aneurysm. Right MCA: There is no large vessel occlusion, hemodynamically significant stenosis, or aneurysm. Left intracranial ICA: There is no large vessel occlusion or hemodynamically significant stenosis. There is a 3 mm aneurysm at the intracranial internal carotid artery bifurcation. An elongated neck extends superiorly. Left FARSHAD: There is no large vessel occlusion, hemodynamically significant stenosis, or aneurysm. Left MCA: There is no large vessel occlusion, hemodynamically significant stenosis, or aneurysm. Basilar artery: There is no large vessel occlusion, hemodynamically significant stenosis, or aneurysm. Superior cerebellar arteries: There is no large vessel occlusion, hemodynamically significant stenosis, or aneurysm. Right HOT [employer] O[employer]ATOR: There is no large vessel occlusion, hemodynamically significant stenosis, or aneurysm. Left HOT METAL [employer] OPERATOR: There is no large vessel occlusion, hemodynamically significant stenosis, or aneurysm. VEINS: Venous enhancement is within normal limits for this technique. SOFT TISSUES: The bilateral parotid and submandibular glands are unremarkable. There is a subcentimeter right thyroid nodule. The left thyroid gland appears absent. No laryngeal abnormality is identified. There is no cervical lymphadenopathy. CT/CT angio head neck STROKE IMPRESSION: 1. No evidence of large vessel occlusion or hemodynamically significant stenosis in the head or neck. 2. 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 Electronically signed by: Say Ugarte MD 05/21/2025 02:29 PM EDT
--- NOTE | ~2025-05-21 | CT_ITS ---
EXAMINATION: CT HEAD WITHOUT IV CONTRAST STROKE HISTORY: Sudden onset of dizziness, difficulty. TECHNIQUE: Unenhanced helical CT of the head was performed per standard departmental protocol. Coronal and sagittal reformats of the head were also evaluated. One or more of the following techniques was used for dose reduction: Automated exposure control, adjustment of the mA and/or kV according to patient size, use of iterative reconstruction technique. DLP: 728 mGy-cm COMPARISON: Comparison is made with the prior examination dated 06/23/2021. FINDINGS: BRAIN: There is diffuse prominence of the ventricular system and cortical sulci, consistent with atrophy. Periventricular and subcortical white matter hypodensities are noted which are nonspecific, but often seen in the setting of small vessel ischemic disease. 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 There is no mass effect or midline shift. No intra- or extra-axial fluid collections are identified. SINUSES: There are polyps versus mucous retention cysts in the right maxillary sinus. The mastoid air cells and middle ear cavities are well pneumatized. ORBITS: The visualized orbits are unremarkable. BONES/SOFT TISSUES: The extracranial soft tissues are unremarkable. The calvarium is intact. No suspicious lytic or sclerotic lesions. CT/CT head for STROKE IMPRESSION: No acute intracranial abnormality. Findings were discussed with Dr. Bridges in the emergency room on 05/21/2025 at 2:18 PM. Electronically signed by: Say Ugarte MD 05/21/2025 02:19 PM EDT
--- NOTE | 2025-05-21 13:59 | ED.NEUROSD ---
HPI - Neuro Symptoms/Deficit General Chief Complaint: Abdominal Pain Stated Complaint: STROKE ALERT,N/O DIZZINESS,SPEECH,LKW [id number] Time Seen by Provider: 05/21/25 13:59 Source: patient and EMS Mode of arrival: EMS Limitations: no limitations History of Present Illness ED Provider: Dr. Carlos Alberto Bridges HPI Narrative: 75-year-old male with a history of hypertension, thyroid disease, pheochromocytoma, seizures who was brought to emergency department by EMS for possible stroke alert. The patient's last well-known time was noon. Patient states that he was raking leaves in his yd for about 1 hour. He then went into the house and developed ?stomach pain?. He points to his epigastric area and lower abdomen when asked to localize the pain. He states the pain has been intermittent and was 6/10 at its worse. States the pain is almost completely resolved. He states he felt lightheaded, his whole-body felt weak, his mouth was dry, he had difficulty talking and thinking. He denied chest pain, shortness of breath, dyspnea on exertion, fever or chills. Patient states he has difficulty with indigestion and ?a lot of gas?. He takes antacids and charcoal which makes his stool black but he has noted bloody stools. He states that 1 week prior when he was raking leaves he states that his phone notified him that he was in atrial fibrillation. Related Data Home Medications ?Medication ?Instructions ?Recorded ?Confirmed ascorbic acid (vitamin C) 1,000 mg 1 g PO DAILY 03/01/21 04/02/25 tablet ferrous sulfate 325 mg (65 mg 325 mg PO DAILY 03/01/21 04/02/25 iron) tablet (Feosol) magnesium oxide 400 mg PO DAILY 03/01/21 04/02/25 vitamin B complex 1 tab PO DAILY 03/01/21 04/02/25 cyanocobalamin (vitamin B-12) 250 0 mcg PO DAILY 06/23/21 04/02/25 mcg tablet vitamin A 3,000 mcg (10,000 unit) 0 unit PO DAILY 06/23/21 04/02/25 capsule brimonidine 0.2 % eye drops drp ophthalmic (eye) 06/04/24 04/02/25 kelp PO 06/04/24 04/02/25 vitamin E (dl, acetate) 450 mg 450 mg PO DAILY 06/04/24 04/02/25 (1,000 unit) capsule Previous Rx's ?Medication ?Instructions ?Recorded amlodipine 10 mg tablet 10 mg PO DAILY #90 tabs 10/07/24 levothyroxine 25 mcg tablet 25 mcg PO DAILY #90 tabs 10/07/24 (Synthroid) metoprolol succinate 50 mg 50 mg PO DAILY #90 tabs 12/11/24 tablet,extended release 24 hr calcitriol 0.25 mcg capsule 0.25 mcg PO DAILY #90 caps 02/08/25 Allergies Allergy/AdvReac Type Severity Reaction Status Date / Time hydrochlorothiazide Allergy Unknown Unknown Verified 05/21/25 14:22 lisinopril Allergy Unknown Unknown Verified 05/21/25 14:22 Review of Systems Review of Systems: Yes all other systems are reviewed and are negative [facility] Past Medical History [facility] Narrative: Social history: Patient lives alone. He denies tobacco, alcohol and drug use. Medical History Lower urinary tract symptoms Compression fx, thoracic spine Microscopic hematuria Nocturia Pheochromocytoma Uncontrolled hypertension Screening for prostate cancer Screening for diabetes mellitus Finger numbness Right wrist pain Numbness and tingling in both hands Hematuria Fracture of triquetral bone of wrist Dizziness Urinary urgency Wrist pain, acute Femoral fracture Frequency of micturition Medicare annual wellness visit, initial Cataract Seizure disorder Hypertension Vitamin B12 deficiency Anxiety Hereditary hemorrhagic telangiectasia Surgical History History of lobectomy of thyroid History of colonoscopy History of hip surgery History of hydrocelectomy H/O brain surgery Family History Family History Mother CAD (coronary artery disease) Social History Social History Household Members: None Housing: House Do you presently have visiting nurse or other home services: No Alcohol intake: never Comment: I don't really have a number; low Patient Tobacco Use Status: Former Tobacco user Tobacco use type: Cigarette Years Smoked: 1994 stopped e-Cigarette/Vaping Use: Never Used Second Hand Smoke Exposure: No Use of substances other than those prescribed or required for medical reasons: No Advance Directives: Yes Advance Directives on File: Yes Advance Directives Date on File: 06/23/21 Do you have a plan to hurt others: No Plan service: No Current occupational status: retired Current occupation: left hand dominant Cognitive needs: No Hearing needs: No Vision needs: No Physical Exam Vital Signs: Vital Signs: Last Vital Signs Temp 97.6 F 05/21/25 14:00 Pulse 56 05/21/25 19:16 Resp 18 05/21/25 19:16 BP 145/49 H 05/21/25 19:16 Pulse Ox 95 05/21/25 19:16 O2 Del Method Room Air 05/21/25 19:16 BMI result Body Mass Index 20.4 Exam: General: Awake, alert in no distress Head: Normocephalic, atraumatic EENT: PERRL, sclera and conjunctiva are normal, mouth with no erythema or exudates Neck: Supple, no adenopathy Lung: breath sounds symmetric, no wheezing, no rales and no rhonchi Chest: symmetric movement, nontender Heart: regular rate and rhythm, normal S1, S2 no murmurs or rubs Abdomen: soft, non-tender, nondistended, normal bowel sounds Back: no vertebral tenderness, no CVAT Extremities: no deformities, moves all extremities symmetrically, no edema Neuro: General: ?Awake, alert, oriented, normal speech Cranial nerves: ?Cranial nerves ?intact Strength: ?Moves all extremities symmetrically, strength 5/5 Sensory: Diminished noxious stimuli to left lower extremity compared to right Cerebellar: ?Good [id number]-finger, good rapid finger movement, normal heel to hendrix Psych: Pleasant, cooperative Medications Administered Discontinued Medications Generic Name Dose Route Start Last Admin Trade Name Annita PRN Reason Stop Dose Admin Sodium Chloride 1,000 mls @ 999 mls/hr 05/21/25 14:15 05/21/25 16:01 Ns IV 05/21/25 15:15 Infused .Q1H1M YASMINE Infusion Iohexol 100 ml 05/21/25 14:05 05/21/25 14:06 Iohexol 350 Mg/Ml 100 Ml Infus..Btl IV 05/21/25 14:06 75 ml ONCE ONE Administration Ondansetron HCl 4 mg 05/21/25 13:59 05/21/25 14:30 Ondansetron Hcl 4 Mg/2 Ml Vial IVPUSH 05/21/25 14:00 4 mg ONCE ONE Administration Medical Decision Making Medical Decision Making [facility] Narrative: 75-year-old male with a history of hypertension, thyroid disease, pheochromocytoma, seizures who was brought to emergency department by EMS for possible stroke alert. The patient's last well-known time was noon. Patient states that he was raking leaves in his yd for about 1 hour. He then went into the house and developed ?stomach pain?. He points to his epigastric area and lower abdomen when asked to localize the pain. He states the pain has been intermittent and was 6/10 at its worse. States the pain is almost completely resolved. He states he felt lightheaded, his whole-body felt weak, his mouth was dry, he had difficulty talking and thinking. He denied chest pain, shortness of breath, dyspnea on exertion, fever or chills. Patient states he has difficulty with indigestion and ?a lot of gas?. He takes antacids and charcoal which makes his stool black but he has noted bloody stools. He states that 1 week prior when he was raking leaves he states that his phone notified him that he was in atrial fibrillation. Vital signs revealed an elevated blood pressure of 156/57 otherwise unremarkable. NIH stroke scale was 1, neurologic exam was otherwise unremarkable. Patient had no abdominal tenderness on my exam, he had no right upper quadrant tenderness. Differential diagnosis: ?Includes but is not limited to cerebral stroke, cerebellar stroke, TIA, myocardial infarction, myocardial ischemia, diverticulitis, gastritis, pancreatitis, arrhythmia, anemia, electrolyte abnormality Course: 14:43 CT scan of the head without contrast revealed no significant abnormalities. CT angiogram of the head and neck did not reveal any large vessel occlusion or hemodynamically significant stenosis of the head or neck. 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 Given the patient's normal neurologic exam and low NIH stroke scale, I do not think that the patient is a TNK candidate at this time Twelve EKG was unremarkable 19:40 My independent interpretation patient's laboratory evaluation is as follows: WBC 4300. Normocytic anemia with an H&H of 12.1 and 36.9. Coags were normal. Chloride elevated 111. Bicarb low 21. Glucose elevated 139. AST and ALT elevated 75 and 62. AST elevated 163-unclear etiology, the patient is scheduled for an ultrasound as an outpatient. All MRSA and 2nd troponins were detectable but not elevated at 5.7 and 6.7. Urine tox was normal. Alcohol was detectable but below. That has time I do not have a clear etiology for the patient's symptoms. I do not think that the patient had a stroke or myocardial infarction and I did discuss this with him. The patient is feeling back to normal. He was discharged home with printed and verbal instructions. I did discuss the left intracranial internal carotid aneurysm with him. Jamie's given printed and verbal instructions and discharged home Differential Diagnosis Differential Diagnoses: The differential diagnosis associated with the presentation includes (See above) Admission/Observation Consideration of admission/observation: Escalation of care including admission/observation considered (Yes) Lab Data MDM Lab Attestation statement: I reviewed the patient's lab results. 05/21/25 14:42 05/21/25 14:42 Labs: Lab Results 05/21/25 05/21/25 05/21/25 Range/Units 14:02 14:20 14:42 WBC 4.3 L (4.8-10.8) X10*3/uL RBC 3.84 L (4.60-5.80) X10*6/uL Hgb 12.1 L (14.0-18.0) g/dl Hct 36.9 L (42.0-52.0) % MCV 96.1 (80.0-98.0) fL MCH 31.5 (27.0-33.0) pg MCHC 32.8 (31.0-36.0) g/dl RDW 12.9 (11.0-16.0) % Plt Count 182 (160-400) X10*3/uL MPV 10.5 (9.4-12.4) fL Immature Gran % (Auto) 0.2 (0.0-0.4) % Neut % (Auto) 70.5 (45-73) % Lymph % (Auto) 17.0 L (20-40) % Banks % (Auto) 8.4 (2-11) % Eos % (Auto) 3.0 (0-4) % Baso % (Auto) 0.9 (0-2) % Lymph # (Auto) 0.7 L (1.2-4.9) X10*3/uL Banks # (Auto) 0.4 (0.1-1.2) X10*3/uL Eos # (Auto) 0.1 (0.0-0.4) X10*3/uL Baso # (Auto) 0.0 (0.0-0.2) X10*3/uL Abs Immat Gran (auto) 0.01 (0.00-0.03) X10*3/uL Absolute Neuts (auto) 3.0 (2.0-8.3) x10*3/uL Absolute Nucleated RBC 0.000 (0.0-0.012) X10*3/uL Nucleated RBC % (auto) 0.0 (0.0-0.2) /100WBC PT 13.3 H (10.9-12.4) SEC Whole Blood PT 13.9 H (11.1-13.5) sec INR 1.2 H (0.9-1.1) Whole Blood INR 1.2 H (0.9-1.1) APTT 29.2 (26.7-34.1) SEC Sodium 142 (135-145) mmol/L Potassium 4.8 D (3.3-5.1) mmol/L Chloride 111 H (96-108) mmol/L Carbon Dioxide 21 L (22-29) mmol/L Anion Gap 15 (12-20) BUN 25 H (9-16) mg/dL Creatinine 1.27 (0.5-1.4) mg/dL Estim Creat Clear Calc 39.5 Estimated GFR 55 POC Glucose 111 (60-115) mg/dL Random Glucose 139 H (60-115) mg/dL Calcium 8.7 (8.4-10.2) mg/dL Total Bilirubin 0.5 (0.0-1.0) mg/dL Direct Bilirubin 0.3 (0.0-0.5) mg/dL AST 75 H (5-37) U/L ALT 62 H (0-40) U/L Alkaline Phosphatase 163 H (39-117) U/L Troponin I High Sens 5.7 (<3.5-35.0) ng/L Total Protein 6.8 (6.5-8.0) g/dL Albumin 4.0 (3.5-5.0) g/dL Triglycerides 54 (<150) mg/dL Cholesterol 147 (<200) mg/dL LDL Cholesterol, Calc 76 (<100) mg/dL HDL Cholesterol 61 (>40) mg/dL Lipase 25 (8-78) U/L Urine Color Urine Appearance Urine pH (5.0-9.0) Ur Specific [place] (1.005-1.025) Urine Protein (Neg-Trace) mg/dL Urine Glucose (UA) (Negative) mg/dL Urine Ketones (Negative) mg/dL Urine Blood (Negative) Urine Nitrite (Negative) Ur Leukocyte Esterase (Negative) Urine Opiates Screen (Not Detect) Ur Buprenorphine Scrn (Not Detect) ng/mL Ur Oxycodone Screen (Not Detect) ng/mL Urine Methadone Screen (Not Detect) ng/mL Urine Fentanyl Screen (Not Detect) Ur Barbiturates Screen (Not Detect) Ur Phencyclidine Scrn (Not Detect) Ur Amphetamines Screen (Not Detect) U Benzodiazepines Scrn (Not Detect) Urine Cocaine Screen (Not Detect) U Marijuana (THC) Screen (Not Detect) Ethyl Alcohol 12 mg/dL 05/21/25 Range/Units 18:42 WBC (4.8-10.8) X10*3/uL RBC (4.60-5.80) X10*6/uL Hgb (14.0-18.0) g/dl Hct (42.0-52.0) % MCV (80.0-98.0) fL MCH (27.0-33.0) pg MCHC (31.0-36.0) g/dl RDW (11.0-16.0) % Plt Count (160-400) X10*3/uL MPV (9.4-12.4) fL Immature Gran % (Auto) (0.0-0.4) % Neut % (Auto) (45-73) % Lymph % (Auto) (20-40) % Banks % (Auto) (2-11) % Eos % (Auto) (0-4) % Baso % (Auto) (0-2) % Lymph # (Auto) (1.2-4.9) X10*3/uL Banks # (Auto) (0.1-1.2) X10*3/uL Eos # (Auto) (0.0-0.4) X10*3/uL Baso # (Auto) (0.0-0.2) X10*3/uL Abs Immat Gran (auto) (0.00-0.03) X10*3/uL Absolute Neuts (auto) (2.0-8.3) x10*3/uL Absolute Nucleated RBC (0.0-0.012) X10*3/uL Nucleated RBC % (auto) (0.0-0.2) /100WBC PT (10.9-12.4) SEC Whole Blood PT (11.1-13.5) sec INR (0.9-1.1) Whole Blood INR (0.9-1.1) APTT (26.7-34.1) SEC Sodium (135-145) mmol/L Potassium (3.3-5.1) mmol/L Chloride (96-108) mmol/L Carbon Dioxide (22-29) mmol/L Anion Gap (12-20) BUN (9-16) mg/dL Creatinine (0.5-1.4) mg/dL Estim Creat Clear Calc Estimated GFR POC Glucose (60-115) mg/dL Random Glucose (60-115) mg/dL Calcium (8.4-10.2) mg/dL Total Bilirubin (0.0-1.0) mg/dL Direct Bilirubin (0.0-0.5) mg/dL AST (5-37) U/L ALT (0-40) U/L Alkaline Phosphatase (39-117) U/L Troponin I High Sens 6.7 (<3.5-35.0) ng/L Total Protein (6.5-8.0) g/dL Albumin (3.5-5.0) g/dL Triglycerides (<150) mg/dL Cholesterol (<200) mg/dL LDL Cholesterol, Calc (<100) mg/dL HDL Cholesterol (>40) mg/dL Lipase (8-78) U/L Urine Color Yellow Urine Appearance Clear Urine pH 5.5 (5.0-9.0) Ur Specific [place] >= 1.030 H (1.005-1.025) Urine Protein Negative (Neg-Trace) mg/dL Urine Glucose (UA) Negative (Negative) mg/dL Urine Ketones Negative (Negative) mg/dL Urine Blood Negative (Negative) Urine Nitrite Negative (Negative) Ur Leukocyte Esterase Negative (Negative) Urine Opiates Screen Not Detected (Not Detect) Ur Buprenorphine Scrn Not Detected (Not Detect) ng/mL Ur Oxycodone Screen Not Detected (Not Detect) ng/mL Urine Methadone Screen Not Detected (Not Detect) ng/mL Urine Fentanyl Screen Not Detected (Not Detect) Ur Barbiturates Screen Not Detected (Not Detect) Ur Phencyclidine Scrn Not Detected (Not Detect) Ur Amphetamines Screen Not Detected (Not Detect) U Benzodiazepines Scrn Not Detected (Not Detect) Urine Cocaine Screen Not Detected (Not Detect) U Marijuana (THC) Screen Not Detected (Not Detect) Ethyl Alcohol mg/dL Independent Interpretation I performed an independent interpretation of an: EKG Interpretation: My independent interpretation patient's 12 EKG done on 05/21/2025 at 14:29 hours is as follows: Sinus bradycardia rate 54, with a first-degree AV block with a PA interval of 260 milliseconds, normal QRS, prolonged QTC of 491 milliseconds. Inverted T-wave in lead 3 and V1, no ST segment elevation, no ST segment depression, no PACs, no PVCs. Compared to EKG dated 06/23/2021 at 09:53 hours, inverted T-waves are new, first-degree AV block old, prolonged QTC new Radiology Impression Discussion of test interpretation with radiology: I discussed test interpretation with the radiologist and I have reviewed the radiologist's reading. Radiologist Impression: CT head for STROKE IMPRESSION: No acute intracranial abnormality. Findings were discussed with Dr. Bridges in the emergency room on 05/21/2025 at 2:18 PM. Electronically signed by: Say Ugarte MD 05/21/2025 02:[address] angio head neck STROKE IMPRESSION: 1. No evidence of large vessel occlusion or hemodynamically significant stenosis in the head or neck. 2. 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 Electronically signed by: Say Ugarte MD 05/21/2025 02:29 PM EDT Independent Historian Clinical information obtained from an independent historian. History obtained from or confirmed by: EMS Chronic Conditions Patient?s care impacted by: Hypertension Critical Care Time Critical Care Time Critical Care Time: Yes Total Critical Care Time: 45 Attestation: Critical Care: The patient was critically ill with a high probability of imminent or life threatening deterioration. I spent greater than 30 minutes of discontinuous time evaluating the patient,delivering critical care at the bedside, discussing and evaluating pertinent data with consultants. Critical care time does not include time spent performing separately billable procedures or teaching. Total time spent performing critical care was 45 minutes. Discharge Plan Discharge Clinical Impression: Acute alteration in mental status, Chest pain Patient Disposition: Home, Self-Care Additional Instructions: The CT scan of your head did not reveal any stroke or bleeding in the brain The CT angiogram of your head and neck did not reveal any blood clots in your arteries or significant narrowing of the arteries which is reassuring At this time I do not think that you had a stroke as the cause of your symptoms The CT angiogram did reveal a 3 mm carotid artery aneurysm. This has not the cause of your symptoms but you will need to follow up with your doctor for re-evaluation. You may need an MRI and you may possibly need to be seen by a neurologist and Neurosurgery to determine if this aneurysm needs treatment. Your EKG was normal. Your marker of heart damage (troponin) were not elevated. At this time I do not have a clear cause for your symptoms. I do not want you to do any strenuous exercise until your re-evaluated by your doctor. Continue taking medications as prescribed by your providers Follow-up with your doctor in 2 days. Please return to the emergency department if your symptoms get worse or if you develop any symptoms that are concerning to you. CT angio head neck STROKE IMPRESSION: 1. No evidence of large vessel occlusion or hemodynamically significant stenosis in the head or neck. 2. 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 Electronically signed by: Say Ugarte MD 05/21/2025 02:29 PM EDT Prescriptions: No Action amlodipine 10 mg tablet 10 mg PO DAILY Qty: 90 2RF levothyroxine [Synthroid] 25 mcg tablet 25 mcg PO DAILY Qty: 90 3RF metoprolol succinate 50 mg tablet extended release 24 hr 50 mg PO DAILY Qty: 90 1RF calcitriol 0.25 mcg capsule 0.25 mcg PO DAILY Qty: 90 2RF vitamin A 10,000 unit Capsule 0 unit PO DAILY Rx Instructions: PATIENT NOT SURE OF WHAT DOSE cyanocobalamin (vitamin B-12) 250 mcg Tablet 0 mcg PO DAILY Rx Instructions: PT UNSURE OF WHAT DOSE HE TAKES ascorbic acid (vitamin C) 1,000 mg tablet 1 g PO DAILY ferrous sulfate [Feosol] 325 mg (65 mg iron) tablet 325 mg PO DAILY magnesium oxide 400 mg magnesium tablet 400 mg PO DAILY vitamin B complex Tablet 1 tab PO DAILY brimonidine 0.2 % drops ophthalmic (eye) kelp PO vitamin E (dl, acetate) 450 mg (1,000 unit) capsule 450 mg PO DAILY Print Language: Croatian
[2025-05-21 14:00] VITALS: BP 156/57; PULSE 52; RESP 16; TEMP 36.4; O2SAT 97; BMI 20.4
--- NOTE | 2025-05-21 14:02 | ECG_ITS ---
Test Reason : DIZZINESS,APHASIA,R/O AFIB Blood Pressure : */* mmHG Vent. Rate : 54 BPM Atrial Rate : 54 BPM P-R Int : 262 ms QRS Dur : 98 ms QT Int : 518 ms P-R-T Axes : 63 -17 11 degrees QTcB Int : 491 ms Sinus bradycardia with 1st degree A-V block Moderate voltage criteria for LVH, may be normal variant ( R in aVL , Harshal product ) Prolonged QT Abnormal ECG When compared with ECG of 23-Jun-2021 09:53, Nonspecific T wave abnormality no longer evident in Lateral leads Referred By: Carlos Alberto Bridges Electronically Signed By: YAMIL GRESHAM MD
[2025-05-21] MEDS: iohexoL 350 MG/ML 100 ML INFUS..BTL IV (14:06)
[2025-05-21 14:09] LABS: Glucose, Whole Blood 111 mg/dL (60-115)
[2025-05-21 14:26] LABS: Prothrombin Time Whole Bld POC 13.9 sec (11.1-13.5); ~PT, ~INR - Anti Coag Clinic 1.2 (0.9-1.1)
[2025-05-21 14:47] LABS: MANUAL DIFF FLAG NO
[2025-05-21 14:52] LABS: Hematocrit 36.9 % (42.0-52.0); Hemoglobin 12.1 g/dl (14.0-18.0); Imm Gran Abs Auto 0.01 X10*3/uL (0.00-0.03); Imm Gran Pct Auto 0.2 % (0.0-0.4); Lymphocytes Absolute Auto 0.7 X10*3/uL (1.2-4.9); Mean Corpuscular HGB Conc 32.8 g/dl (31.0-36.0); Mean Corpuscular Hemoglobin 31.5 pg (27.0-33.0); Mean Corpuscular Volume 96.1 fL (80.0-98.0); NRBC Abs Auto 0.000 X10*3/uL (0.0-0.012); NRBC Pct Auto 0.0 /100WBC (0.0-0.2); Platelet Count 182 X10*3/uL (160-400); Red Blood Count 3.84 X10*6/uL (4.60-5.80); White Blood Count 4.3 X10*3/uL (4.8-10.8)
[2025-05-21 14:58] LABS: INTERNATIONAL NORM RATIO 1.2 (0.9-1.1); Prothrombin Time 13.3 SEC (10.9-12.4)
[2025-05-21 15:01] LABS: Partial Thromboplastin Time 29.2 SEC (26.7-34.1)
[2025-05-21 15:03] LABS: Stroke Lab Use COMPLETE
[2025-05-21 15:04] LABS: Lipase 25 U/L (8-78)
[2025-05-21 15:06] LABS: Alanine Aminotransferase 62 U/L (0-40); Albumin Level 4.0 g/dL (3.5-5.0); Alkaline Phosphatase 163 U/L (39-117); Anion Gap 15 (12-20); Aspartate Amino Transferase 75 U/L (5-37); Blood Urea Nitrogen 25 mg/dL (9-16); Calcium 8.7 mg/dL (8.4-10.2); Carbon Dioxide 21 mmol/L (22-29); Chloride 111 mmol/L (96-108); Cholesterol 147 mg/dL (<200); Creatinine Clr Calc Pharmacy 39.5; Estimated Glomerular Filt Rate 55; HDL Cholesterol 61 mg/dL (>40); Potassium 4.8 mmol/L (3.3-5.1); Sodium 142 mmol/L (135-145); Total Protein 6.8 g/dL (6.5-8.0); Triglycerides 54 mg/dL (<150)
[2025-05-21 15:10] LABS: Troponin-I High Sensitivity 5.7 ng/L (<3.5-35.0)
--- OUTSIDE RECORDS SUMMARY | 2025-05-21 16:38 | XMS_ITS | Patient Health Record ---
Author Organization 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 Problem Screening for malignant neoplasm of rectum (911085657) Encounter for screening for malignant neoplasm of rectum (Z12.12) Active confirmed Plan Of Treatment Future Test Test Name Order Date COLONOSCOPY 06/05/2016 Insurance Providers Payer Name Payer Address Payer Phone Subscriber Number Group Number Insured Name Patient Relationship to Insured Coverage Start Date Coverage End Date MEDICARE OF [place] [address] [place] [address] [id number] GINA KEY Self - patient is the insured [employer] ATT[employer] CLAIMS [address] [place] [address] [phone] [id number] GINA KEY Self - patient is the insured Medical (General) History Medical History History ICD Code EGD 06/2006--question of gas tric telangiectasias, but otherwise normal upper endoscopy History of ischemic colitis--colonoscopy 06/2006--no polyps Hereditary hemorrhagic telan giectasia--history of epistaxis and anemia--on Iron supplements Seizure disorder Denies CO,DM,CVA,Lung disease,renal dise ase HTN Surgical History Surgery Date(Month/Year) Craniotomy as a child for a head injury Hydrocele 2016
[2025-05-21 18:48] LABS: Appearance Urine Clear; Glucose Urine UA Negative (Negative); PH 5.5 (5.0-9.0); Specific Gravity - Urine >= 1.030 (1.005-1.025)
[2025-05-21 19:16] VITALS: BP 145/49; PULSE 56; RESP 18; O2SAT 95
[2025-05-21 19:21] LABS: Cannabinoid Screen Urine Not Detected (Not Detect)
[2025-05-21 19:28] LABS: Troponin-I High Sensitivity 6.7 ng/L (<3.5-35.0)
--- NOTE | 2025-05-21 20:16 | PC.NURSE ---
Reviewed discharge instructions with pt. pt verbalized understanding, no sign of distress, notified primarily nurse Barbara
--- NOTE | 2025-05-21 20:24 | PC.NURSE ---
While preparing pt for discharge, pt states I dont feel any better than I did when I first got here. Pt c/o feeling lightheaded and my stomach still hurts . Pt was able to eat 1/2 sandwich without diff. Will notify physician
--- NOTE | 2025-05-21 20:30 | PC.NURSE ---
provider into assess pt, per reporting he feeling weak and has upset stomach.
[2025-05-21] MEDS: Magnesium Hydrox/Alum Hydrox 30 ML ORAL.SUSP PO (20:42)
[2025-05-21] MEDS: Lidocaine HCl Viscous 2 % 15 ML SOLUTION 10 ML PO (20:42)
== END 2025-05-21 20:46 | disposition home or self-care (01) ==
PROVIDERS: Emergency Provider Emergency Medicine Emergency Medical Services; PCP Internal Medicine
DX: R10.9 Unspecified abdominal pain (principal)
CPT/HCPCS: 36415; 70450; 70496; 70498; 80048; 80061; 80076; 80307; 81003; 82947; 83690; 84484; 85025; 85610; 85730; 93005; 99285; J2405; Q9967

== ENCOUNTER → 2025-05-21 13:59 | Outpatient (BNV) | payer MEDICARE, SELFPAY | PROVIDERS: Emergency Provider Emergency Medicine Emergency Medical Services; PCP Internal Medicine; Visit Provider Radiology Diagnostic Radiology | DX: I72.0 Aneurysm of carotid artery (principal); R42 Dizziness and giddiness | CPT/HCPCS: 70450; 70496; 70498 ==

== ENCOUNTER → 2025-05-21 14:02 | Outpatient (BNV) | payer MEDICARE, SELFPAY | PROVIDERS: Emergency Provider Emergency Medicine Emergency Medical Services; PCP Internal Medicine; Visit Provider Internal Medicine Cardiovascular Disease | DX: R00.1 Bradycardia, unspecified (principal); I44.0 Atrioventricular block, first degree | CPT/HCPCS: 93010 ==

== ENCOUNTER 2025-05-24 10:05 | Inpatient (IN) | payer MEDICARE, SELFPAY ==
[2025-05-24] VITALS (7 sets, daily range): BP systolic 144–200; BP diastolic 58–80; PULSE 80–120; RESP 14–20; TEMP 36.9–38.1; O2SAT 95–98; BMI 17.6; BMI 16.9
--- NOTE | ~2025-05-24 | CT_ITS ---
EXAMINATION: CT HEAD WITHOUT CONTRAST (STROKE PROTOCOL) CLINICAL INFORMATION: Left-sided weakness. Change in mental status. Concerning stroke. COMPARISON: May 21, 2025. TECHNIQUE: Contiguous axial imaging was performed from the skull base to vertex without intravenous administration of contrast. This CT examination was performed using dose optimization techniques as appropriate, variously including the following: *Automated exposure control *Adjustment of mA and/or kV according to patient size (this includes techniques or standardized protocols for targeted exams where dose is matched to indication/reason for exam; i.e. extremities or head) *Use of iterative reconstruction technique DLP: 772 mGy-cm FINDINGS: Extensive area of hypodensity and gonzalez-white matter effacement with the questionable areas of isodensity involving the entire opercular branches of the right MCA causing the effacement of the insular subinsular external capsule opercular and parietal lobe. No mass effect, midline shift, hydrocephalus or herniation. Posterior cranial fossa contents demonstrated negative cisterna magna. Normal position of the cerebellar tonsils. Sellar/suprasellar region demonstrated no gross masses. Calcified plaques in the cavernous supracavernous segments both ICA. Polypoid paranasal sinus disease. Tympanic cavities and mastoid cells are aerated.. CT/CT head for STROKE IMPRESSION: Acute right MCA territory infarct/ischemia. Questionable microhemorrhages component. This critical result was discussed with the emergency department at 10:23 AM hours on May 24, 2025.. It was ascertained that the content and urgency of the report was understood at the time of direct communication. Electronically signed by: Fede Ashby MD 05/24/2025 10:33 AM EDT
--- NOTE | ~2025-05-24 | CT_ITS ---
EXAMINATION: CT CHEST ANGIOGRAPHY WITH IV CONTRAST INDICATION: evaluate for pulm AVMs - CVA, hx of HHT COMPARISON: There is an is made with the prior examination dated 07/05/2022. TECHNIQUE: Helical CT scan of the chest was performed following administration of intravenous contrast (65 mL Omnipaque 350). The contrast bolus was timed to optimally opacify the pulmonary arteries. Thin sections were obtained through the pulmonary arteries. Coronal and sagittal reformatted images were generated. 3D/MIP reconstructed images are also obtained and reviewed. This CT exam was performed with one or more of the following dose reduction techniques: automated exposure control, adjustment of the mA and/or kV according to patient size, use of iterative reconstruction technique. DLP: 110 mGy-cm CHEST: THYROID: The thyroid gland is unremarkable. PULMONARY ARTERIES: No intraluminal filling defects are identified within the pulmonary arteries to suggest pulmonary emboli. LUNGS: There is mild to moderate emphysema. There is dependent atelectasis in both lower lobes. No pulmonary nodules or vascular malformations are identified. MEDIASTINUM: There is no mediastinal lymphadenopathy. PASTORA: There is no hilar lymphadenopathy. CARDIOVASCULATURE: The heart is markedly enlarged. There is no pericardial effusion. The thoracic aorta is normal in caliber. DEGREE OF CORONARY CALCIFICATION: not evaluable, due to dense contrast in the coronary arteries. PLEURA: There is no pleural effusion. No pneumothorax. MAIN AIRWAYS: The mainstem bronchi and proximal branches are patent. AXILLA: There is no axillary lymphadenopathy. UPPER ABDOMEN: There is dilatation of the hepatic artery and dilatation of multiple hepatic arterial branches in the left lobe of the liver. Small blushes of contrast enhancement are seen in the left lobe, consistent with telangiectasias and shunting. No early filling of the hepatic or portal veins is identified. The spleen is normal in size. The adrenals are unremarkable. There are bilateral renal cysts measuring up to 4.5 cm on the right and 5.1 cm on the left. BONES AND SOFT TISSUES: Unremarkable. CT/CT angio chest PE protocol IMPRESSION: 1. No evidence of pulmonary emboli. 2. No evidence of vascular malformations in the lungs. 3. Mild to moderate emphysema. Marked cardiomegaly. 4. Findings consistent with the findings consistent with HHT involvement in the liver as described. Electronically signed by: Say Ugarte MD 05/26/2025 10:14 AM EDT
--- NOTE | ~2025-05-24 | XR_ITS ---
EXAMINATION: XR CHEST 1 VIEW HISTORY: AMS COMPARISON: There are no prior studies available for comparison. FINDINGS: A single AP portable view of the chest performed at 10:57 AM is submitted. There is prominence of the pulmonary vasculature, consistent with congestion. There is a probable small left pleural effusion. No pneumothorax. The heart is enlarged. There is degenerative disc disease of the spine. XR/XR chest 1V IMPRESSION: Cardiomegaly and mild pulmonary vascular congestion. Probable small left pleural effusion. Electronically signed by: Say Ugarte MD 05/24/2025 11:11 AM EDT
--- NOTE | ~2025-05-24 | CT_ITS ---
EXAMINATION: CT HEAD WITHOUT CONTRAST CLINICAL INFORMATION: 4 stability post CVA. Question hemorrhage. COMPARISON: CT brain 05/24/2025 TECHNIQUE: Contiguous axial imaging was performed from the skull base to vertex without intravenous administration of contrast. This CT examination was performed using dose optimization techniques as appropriate, variously including the following: *Automated exposure control *Adjustment of mA and/or kV according to patient size (this includes techniques or standardized protocols for targeted exams where dose is matched to indication/reason for exam; i.e. extremities or head) *Use of iterative reconstruction technique FINDINGS: There is a dense right MCA hypodensity involving the parietal lobe it appears the temporal lobe has been spared. There is mild right to left midline shift secondary to mass effect. Right lateral ventricle is mildly compressed and shifted to the left of midline. No acute hemorrhagic component seen at this time. Scattered within the area of right parietal infarction infarction there that are preserved normal cortex along the superior sylvian fissure. Bone windows reveal no calvarial abnormality. Bilateral paranasal sinuses and mastoid air cells are well-aerated. There is a small polyp or retention cyst right maxillary sinus. Visualized calvarium and the scalp soft tissues are normal. CT/CT head/brain wo IV con IMPRESSION: Dense right MCA infarction involving most of the parietal lobe. The temporal lobe appears spared. No hemorrhagic conversion in the area of infarct. Mild to moderate right to left midline shift is noted and stable. Electronically signed by: William Chavarria MD 05/27/2025 12:44 PM EDT
--- NOTE | ~2025-05-24 | CT_ITS ---
EXAMINATION: CTA NECK WITH CONTRAST (STROKE) CTA BRAIN WITH CONTRAST (STROKE) CLINICAL INFORMATION: Left-sided deficit. Change in mental status. Acute stroke. COMPARISON: May 21, 2025. TECHNIQUE: CTA of the head and neck was performed in the axial plane from the mediastinum to the skull vertex using 70 mL Omnipaque 350 intravenous contrast. Additional reformatted multiplanar images including maximum intensity projection MIP images are generated on the CT workstation. This CT examination was performed using dose optimization techniques as appropriate, variously including the following: *Automated exposure control *Adjustment of mA and/or kV according to patient size (this includes techniques or standardized protocols for targeted exams where dose is matched to indication/reason for exam; i.e. extremities or head) *Use of iterative reconstruction technique. DLP: 648 mGy-cm FINDINGS: The degree of stenosis determined by criteria similar to NASCET. Chest CTA: Calcified plaques in the periphery of the thoracic aortic arch without focal stenosis or intimal flap. Normal diameter. Calcified plaques in the origin of the main branches. Limited [id number]. Neck CTA: Right CCA: Normal patency. No focal stenosis. No intimal flap. Right ICA: Calcified plaque. Normal patency. No focal stenosis. No intimal flap. Tortuosity. Left CCA: Normal patency. No focal stenosis. No intimal flap. Left ICA: Calcified plaque representing 60% stenosis. No intimal flap. Tortuosity. V1/V2 segments: Calcified plaque in the origin at the subclavian arteries. Tortuosity. Normal patency. No focal stenosis. No intimal flap. Codominant vertebral arteries. Brain CTA: Anterior cerebral circulation: ICAs: Calcified plaques. Normal patency. No focal stenosis. No abrupt cut off. There is a 3 x 2 mm contrast enhanced vascular abnormality at the left ICA terminus with a cephalad orientation and a focal neck. MCA's: Normal patency. No focal stenosis. No abrupt cut off. There is asymmetric decreased intraluminal enhancement of the opercular branches right MCA. ACAs: Normal patency. No focal stenosis. No abrupt cut off. Ophthalmic arteries are patent without vascular irregularity. Posterior communicating arteries are patent with a robust right artery. No gross vascular abnormality. Anterior communicating artery is short and patent. No vascular irregularity. Posterior cerebral circulation: V3/V4 segments: Normal patency. No focal stenosis. No intimal flap. Codominant. Posterior inferior cerebral arteries are patent without vascular irregularity. Basilar artery: Normal patency. No focal stenosis. No intimal flap. Anterior inferior cerebral arteries are patent without vascular irregularity. Superior cerebellar arteries are patent without gross vascular irregularity. occupational medicine specialist: Normal patency. No focal stenosis. No abrupt cut off. Ancillary findings: Extensive volume loss gonzalez-white matter effacement and hypodensity involving the right MCA territory. Magna cisterna magna. Incomplete fusion posterior arch of C1. Subcentimeter low density nodules, right thyroid gland. Absent left thyroid lobe. Pulmonary mosaic pattern. Centrilobular and paraseptal emphysematous changes, lung apices. Multilevel spondylosis. Secretions within the left piriform sinus. 2 mm granuloma, right lung apex.. CT/CT angio head neck STROKE IMPRESSION: Acute right MCA territory infarct with decreased enhancement of the opercular branches and no definite main embolus on the CT angiogram. 3 x 2 mm nonruptured aneurysm, left ICA terminus. 60% stenosis secondary to calcified plaque, left ICA. No dissection. Emphysematous changes. Probable aspiration with questionable penetration. Status post left hemithyroidectomy and subcentimeter cystic nodule right thyroid lobe This critical test result is communicated to: Dr. Dee Sorenson at 11:16 AM on May 24, 2025 the [employer]. Electronically signed by: Fede Ashby MD 05/24/2025 11:19 AM EDT
--- NOTE | 2025-05-24 10:08 | ECG_ITS ---
Test Reason : stroke symptoms Blood Pressure : */* mmHG Vent. Rate : 114 BPM Atrial Rate : 340 BPM P-R Int : * ms QRS Dur : 88 ms QT Int : 338 ms P-R-T Axes : * -31 71 degrees QTcB Int : 465 ms Atrial fibrillation Left axis deviation Anterior infarct , age undetermined Abnormal ECG When compared with ECG of 21-May-2025 14:29, Rhythm change Vent. rate has increased by 60 bpm Referred By: Dee Sorenson Electronically Signed By: XI YOST
--- NOTE | 2025-05-24 10:12 | ED.GENADULT ---
HPI - General Adult General Chief complaint: Altered Mental Status Stated complaint: STROKE ALERT, LEFT SIDE WEAKNESS, SLURRED Time Seen by Provider: 05/24/25 10:09 Source: patient, EMS, RN notes reviewed and old records reviewed Mode of arrival: EMS Limitations: other (Garbled speech) History of Present Illness ED Provider: KARTHIK Pelaez HPI narrative: 75-year-old male with medical history of pheochromocytoma, HTN, vitamin B12 deficiency, anxiety presents to ED by EMS after patient was found down in his home. EMS explains a neighbor called for a well check on the patient, who was found down on the ground and soiled with urine. Patient currently with garbled speech and is incredibly difficult to understand. MD complaint: AMS, found down Related Data Home Medications ?Medication ?Instructions ?Recorded ?Confirmed ascorbic acid (vitamin C) 1,000 mg 1 g PO DAILY 03/01/21 04/02/25 tablet ferrous sulfate 325 mg (65 mg 325 mg PO DAILY 03/01/21 04/02/25 iron) tablet (Feosol) magnesium oxide 400 mg PO DAILY 03/01/21 04/02/25 vitamin B complex 1 tab PO DAILY 03/01/21 04/02/25 cyanocobalamin (vitamin B-12) 250 0 mcg PO DAILY 06/23/21 04/02/25 mcg tablet vitamin A 3,000 mcg (10,000 unit) 0 unit PO DAILY 06/23/21 04/02/25 capsule brimonidine 0.2 % eye drops drp ophthalmic (eye) 06/04/24 04/02/25 kelp PO 06/04/24 04/02/25 vitamin E (dl, acetate) 450 mg 450 mg PO DAILY 06/04/24 04/02/25 (1,000 unit) capsule latanoprost 0.005 % eye drops 1 drp ophthalmic (eye) BEDTIME 05/24/25 05/24/25 Previous Rx's ?Medication ?Instructions ?Recorded amlodipine 10 mg tablet 10 mg PO DAILY #90 tabs 10/07/24 levothyroxine 25 mcg tablet 25 mcg PO DAILY #90 tabs 10/07/24 (Synthroid) metoprolol succinate 50 mg 50 mg PO DAILY #90 tabs 12/11/24 tablet,extended release 24 hr calcitriol 0.25 mcg capsule 0.25 mcg PO DAILY #90 caps 02/08/25 Allergies Allergy/AdvReac Type Severity Reaction Status Date / Time hydrochlorothiazide Allergy Unknown Unknown Verified 05/24/25 10:40 lisinopril Allergy Unknown Unknown Verified 05/24/25 10:40 Review of Systems Review of Systems: Can not perform accurate ROS as patient has garbled speech, and is difficult to understand. [facility] Past Medical History Medical History Lower urinary tract symptoms Compression fx, thoracic spine Microscopic hematuria Nocturia Pheochromocytoma Uncontrolled hypertension Screening for prostate cancer Screening for diabetes mellitus Finger numbness Right wrist pain Numbness and tingling in both hands Hematuria Fracture of triquetral bone of wrist Dizziness Urinary urgency Wrist pain, acute Femoral fracture Frequency of micturition Medicare annual wellness visit, initial Cataract Seizure disorder Hypertension Vitamin B12 deficiency Anxiety Hereditary hemorrhagic telangiectasia Surgical History History of lobectomy of thyroid History of colonoscopy History of hip surgery History of hydrocelectomy H/O brain surgery Family History Family History Mother CAD (coronary artery disease) Social History Social History Household Members: None Housing: House Do you presently have visiting nurse or other home services: No Alcohol intake: never Comment: I don't really have a number; low Patient Tobacco Use Status: Former Tobacco user Tobacco use type: Cigarette Years Smoked: 1994 stopped Smoked in Last 30 Days: Yes e-Cigarette/Vaping Use: Never Used Second Hand Smoke Exposure: No Use of substances other than those prescribed or required for medical reasons: No Currently Displaying Signs/Symptoms of Drug Intoxication Withdrawal: No Advance Directives: Yes Advance Directives on File: Yes Advance Directives Date on File: 06/23/21 Do you have a plan to hurt others: No Plan Recently lost weight without trying: Yes How much weight loss: 2-13 pounds Nutrition Risks: Dental problems, Difficulty chewing and Difficulty swallowing service: No Current occupational status: retired Current occupation: left hand dominant Cognitive needs: No Hearing needs: No Vision needs: No Physical Exam ED Vital Signs: Vital Signs - 24 hr 05/24/25 10:36 05/24/25 11:33 05/24/25 13:01 Temperature 100.6 F H 100.0 F 99.8 F Pulse Rate 120 H 108 H 114 H Respiratory Rate 20 14 15 Blood Pressure 167/73 H 149/79 H 152/77 H Pulse Oximetry 96 98 96 Oxygen Delivery Method Room Air Room Air Room Air 05/24/25 16:32 Temperature 100.0 F Pulse Rate 98 Respiratory Rate 20 Blood Pressure 170/80 H Pulse Oximetry 97 Oxygen Delivery Method Room Air BMI result Body Mass Index 17.6 GENERAL APPEARANCE: ?AxO, hard to understand patient due to garbled speech, unable to assess his level of orientation. HEENT: ?NC, AT. MMM. EOMI, clear conjunctiva, oropharynx clear. Currently in C collar NECK: ?Supple without lymphadenopathy.? No stiffness or restricted ROM. HEART:? Normal rate and regular rhythm, normal S1/S2, no m/r/g LUNGS:? CTAB, moving air well. No crackles or wheezes are heard. ABDOMEN: ?Soft, nontender, nondistended BACK: No CVAT, no obvious deformity. EXTREMITIES: ?Without cyanosis, clubbing or edema. NEUROLOGICAL: Patient is alert and following commands, unable to move the L upper extremity, mild ataxia to B/L lower extremities Skin: ?Warm and dry without any rash. NIH Stroke Scale Internal: Initial- Upon Arrival Level of Consciousness: Alert Level of Consciousness Questions: Answers both questions correctly Level of Consciousness Commands: Performs both tasks correctly Best Gaze: Forced deviation (R sided ) Visual: No visual loss Facial Palsy: Normal Motor Arm (Right): No drift Motor Arm (Left): No movement Motor Leg (Right): No drift Motor Leg (Left): Some effort against gravity Limb Ataxia: Present in two limbs (b/L lower extremities ) Sensory: Normal Best Language: No aphasia Dysarthia: Mild to moderate dysarthria (garbled speech ) Extinction and Inattention: No abnormality Score: 11 Medications Administered Generic Name Dose Route Start Last Admin Trade Name Freq PRN Reason Stop Dose Admin Aspirin 300 mg 05/24/25 18:45 05/24/25 20:28 Aspirin 300 Mg Supp.Rect RI 300 mg DAILY YASMINE Administration Heparin Sodium (Porcine) 5,000 unit 05/24/25 17:15 05/25/25 01:28 Heparin Sodium,Porcine 5,000 Unit/Ml Vial SUBCUT 5,000 unit Q8H YASMINE Administration Sodium Chloride 3 ml 05/25/25 00:00 05/25/25 01:11 0.9 % Sodium Chloride Flush 3 Ml Syringe IVFLUSH Not Given QSHIFT YASMINE Discontinued Medications Generic Name Dose Route Start Last Admin Trade Name Freq PRN Reason Stop Dose Admin Lactated Ringer's 1,000 mls @ 999 mls/hr 05/24/25 10:08 05/24/25 11:43 Lr IV 05/24/25 11:08 Infused .Q1H1M ONE Infusion Ceftriaxone Sodium 2 gm/ 50 mls @ 100 mls/hr 05/24/25 10:11 05/24/25 11:24 Sodium Chloride IV 05/24/25 10:40 Infused ONCE ONE Infusion Acetaminophen 1,000 mg in 100 mls @ 400 mls/hr 05/24/25 11:29 05/24/25 11:51 Ofirmev IV 05/24/25 11:43 Infused ONCE ONE Infusion Iohexol 100 ml 05/24/25 10:29 05/24/25 10:30 Iohexol 350 Mg/Ml 100 Ml Infus..Btl IV 05/24/25 10:30 70 ml ONCE ONE Administration Medical Decision Making Medical Decision Making MDM Narrative: 75-year-old male with medical history of pheochromocytoma, HTN, vitamin B12 deficiency, anxiety presents to ED by EMS after patient was found down in his home. EMS explains a neighbor called for a well check on the patient, who was found down on the ground and soiled with urine. Patient currently with garbled speech and is incredibly difficult to understand. Was recently seen in the ED on 05/21/2025 due to abdominal pain, with difficulty thinking and speaking. Patient had labs, CT head/brain, CTA head and neck which was negative for any acute findings. Patient was discharged home and instructed to follow up with Urology. EKG reveals a flutter, left axis deviation, lateral ST depression no significant ST elevation, initial troponin of 34 Labs without leukocytosis/leukopenia, left shift of 82.8, H&H stable, hypernatremia of 147, lactic acid of 2.5, CPK of 401, CRP of 16.32 Course At 11:15 I suspected infection, Patient medicated with IV fluids and 2g of ceftriaxone for bacterial coverage. Does not meet sepsis criteria. CT head/brain reveals an acute right MCA territory infarct/ischemia CTA head/neck reveals an acute right MCA territory infarct with decreased enhancement of the upper killer branches and no definite main embolus on CT angiogram. 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 Subcentimeter cystic nodule of the R thyroid lobe Speech/swallow eval reveals patient is unable to swallow at this time, they are recommending moist oral swabs for oral mucosa. I spoke with Stroke nurse Liz Michel, who reviewed the patients images with Dr. Barrios who recommend admission to medicine. I spoke with Dr. Silva who will admit patient to medicine service. Differential Diagnosis Differential Diagnoses: The differential diagnosis associated with the presentation includes ICH Stroke Dysrhythmia Electrolyte abnormality Admission/Observation Consideration of admission/observation: Escalation of care including admission/observation considered Consult Healthcare Provider Management of the patient was discussed with: Hospitalist (Dr. Silva) Lab Data MDM Lab Attestation statement: I reviewed the patient's lab results. 05/25/25 05:15 05/25/25 05:15 Labs: Lab Results 05/24/25 05/24/25 05/24/25 Range/Units 10:20 10:20 10:20 WBC 9.5 (4.8-10.8) X10*3/uL RBC 5.16 D (4.60-5.80) X10*6/uL Hgb 16.1 D (14.0-18.0) g/dl Hct 49.1 D (42.0-52.0) % MCV 95.2 (80.0-98.0) fL MCH 31.2 (27.0-33.0) pg MCHC 32.8 (31.0-36.0) g/dl RDW 13.2 (11.0-16.0) % Plt Count 196 (160-400) X10*3/uL MPV 11.0 (9.4-12.4) fL Immature Gran % (Auto) 0.3 (0.0-0.4) % Neut % (Auto) 82.8 H (45-73) % Lymph % (Auto) 6.7 L (20-40) % [place] % (Auto) 9.9 (2-11) % Eos % (Auto) 0.0 (0-4) % Baso % (Auto) 0.3 (0-2) % Lymph # (Auto) 0.6 L (1.2-4.9) X10*3/uL [place] # (Auto) 0.9 (0.1-1.2) X10*3/uL Eos # (Auto) 0.0 (0.0-0.4) X10*3/uL Baso # (Auto) 0.0 (0.0-0.2) X10*3/uL Abs Immat Gran (auto) 0.03 (0.00-0.03) X10*3/uL Absolute Neuts (auto) 7.8 (2.0-8.3) x10*3/uL Absolute Nucleated RBC 0.000 (0.0-0.012) X10*3/uL Nucleated RBC % (auto) 0.0 (0.0-0.2) /100WBC PT 14.1 H (10.9-12.4) SEC INR 1.2 H (0.9-1.1) VBG pH (7.32-7.43) VBG pCO2 mmHg VBG pO2 mmHg VBG HCO3 (22-26) mmol/L VBG O2 Saturation % VBG Base Excess mmol/L Sodium 147 H (135-145) mmol/L Potassium 3.7 D (3.3-5.1) mmol/L Chloride 112 H (96-108) mmol/L Carbon Dioxide 23 (22-29) mmol/L Anion Gap 16 (12-20) BUN 24 H (9-16) mg/dL Creatinine 1.02 (0.5-1.4) mg/dL Estim Creat Clear Calc 45.0 Estimated GFR > 60 Random Glucose 129 H (60-115) mg/dL Lactic Acid 2.5 H* (0.5-2.0) mmol/L Lactic Acid F/U @ 2Hr (0.5-2.0) mmol/L Lactic Acid F/U @ 4Hr (0.5-2.0) mmol/L Calcium 8.9 (8.4-10.2) mg/dL Magnesium 2.3 (1.6-2.6) mg/dL Total Bilirubin 1.0 (0.0-1.0) mg/dL Direct Bilirubin 0.4 (0.0-0.5) mg/dL AST 61 H (5-37) U/L ALT 39 (0-40) U/L Alkaline Phosphatase 136 H (39-117) U/L Total Creatine Kinase 401 H (38-174) U/L Troponin I High Sens 34.0 D (<3.5-35.0) ng/L C-Reactive Protein 16.32 H (< or = 0.50) mg/dL Total Protein 7.3 (6.5-8.0) g/dL Albumin 3.8 (3.5-5.0) g/dL Lipase 13 (8-78) U/L Procalcitonin 0.18 ng/mL TSH 1.06 Cancelled (0.32-4.0) uIU/mL Urine Color Urine Appearance Urine pH (5.0-9.0) Ur Specific [place] (1.005-1.025) Urine Protein (Neg-Trace) mg/dL Urine Glucose (UA) (Negative) mg/dL Urine Ketones (Negative) mg/dL Urine Blood (Negative) Urine Nitrite (Negative) Ur Leukocyte Esterase (Negative) Urine RBC (0-2) /HPF Urine WBC (0-5) /HPF Ur Squamous Epith Cells (0-2) /HPF Urine Bacteria (None Seen) Hyaline Casts (0-2) /LPF Urine Opiates Screen (Not Detect) Ur Buprenorphine Scrn (Not Detect) ng/mL Ur Oxycodone Screen (Not Detect) ng/mL Urine Methadone Screen (Not Detect) ng/mL Urine Fentanyl Screen (Not Detect) Ur Barbiturates Screen (Not Detect) Ur Phencyclidine Scrn (Not Detect) Ur Amphetamines Screen (Not Detect) U Benzodiazepines Scrn (Not Detect) Urine Cocaine Screen (Not Detect) U Marijuana (THC) Screen (Not Detect) Ethyl Alcohol < 10 Cancelled mg/dL COVID-19 (FELIX) (Negative) COVID-19 Clin Com 05/24/25 05/24/25 05/24/25 Range/Units 10:28 10:52 11:46 WBC (4.8-10.8) X10*3/uL RBC (4.60-5.80) X10*6/uL Hgb (14.0-18.0) g/dl Hct (42.0-52.0) % MCV (80.0-98.0) fL MCH (27.0-33.0) pg MCHC (31.0-36.0) g/dl RDW (11.0-16.0) % Plt Count (160-400) X10*3/uL MPV (9.4-12.4) fL Immature Gran % (Auto) (0.0-0.4) % Neut % (Auto) (45-73) % Lymph % (Auto) (20-40) % [place] % (Auto) (2-11) % Eos % (Auto) (0-4) % Baso % (Auto) (0-2) % Lymph # (Auto) (1.2-4.9) X10*3/uL [place] # (Auto) (0.1-1.2) X10*3/uL Eos # (Auto) (0.0-0.4) X10*3/uL Baso # (Auto) (0.0-0.2) X10*3/uL Abs Immat Gran (auto) (0.00-0.03) X10*3/uL Absolute Neuts (auto) (2.0-8.3) x10*3/uL Absolute Nucleated RBC (0.0-0.012) X10*3/uL Nucleated RBC % (auto) (0.0-0.2) /100WBC PT (10.9-12.4) SEC INR (0.9-1.1) VBG pH 7.47 H (7.32-7.43) VBG pCO2 38 mmHg VBG pO2 38 mmHg VBG HCO3 27 H (22-26) mmol/L VBG O2 Saturation 60.0 % VBG Base Excess 4.3 mmol/L Sodium (135-145) mmol/L Potassium (3.3-5.1) mmol/L Chloride (96-108) mmol/L Carbon Dioxide (22-29) mmol/L Anion Gap (12-20) BUN (9-16) mg/dL Creatinine (0.5-1.4) mg/dL Estim Creat Clear Calc Estimated GFR Random Glucose (60-115) mg/dL Lactic Acid (0.5-2.0) mmol/L Lactic Acid F/U @ 2Hr (0.5-2.0) mmol/L Lactic Acid F/U @ 4Hr (0.5-2.0) mmol/L Calcium (8.4-10.2) mg/dL Magnesium (1.6-2.6) mg/dL Total Bilirubin (0.0-1.0) mg/dL Direct Bilirubin (0.0-0.5) mg/dL AST (5-37) U/L ALT (0-40) U/L Alkaline Phosphatase (39-117) U/L Total Creatine Kinase (38-174) U/L Troponin I High Sens (<3.5-35.0) ng/L C-Reactive Protein (< or = 0.50) mg/dL Total Protein (6.5-8.0) g/dL Albumin (3.5-5.0) g/dL Lipase (8-78) U/L Procalcitonin ng/mL TSH (0.32-4.0) uIU/mL Urine Color Yellow Urine Appearance Clear Urine pH 6.5 (5.0-9.0) Ur Specific [place] >= 1.030 H (1.005-1.025) Urine Protein 100 (2+) H (Neg-Trace) mg/dL Urine Glucose (UA) Negative (Negative) mg/dL Urine Ketones 15 (Negative) mg/dL Urine Blood Large (3+) H (Negative) Urine Nitrite Negative (Negative) Ur Leukocyte Esterase Negative (Negative) Urine RBC >20 H (0-2) /HPF Urine WBC 0-5 (0-5) /HPF Ur Squamous Epith Cells 0-2 (0-2) /HPF Urine Bacteria None Seen (None Seen) Hyaline Casts 0-2 (0-2) /LPF Urine Opiates Screen Not Detected (Not Detect) Ur Buprenorphine Scrn Not Detected (Not Detect) ng/mL Ur Oxycodone Screen Not Detected (Not Detect) ng/mL Urine Methadone Screen Not Detected (Not Detect) ng/mL Urine Fentanyl Screen Not Detected (Not Detect) Ur Barbiturates Screen Not Detected (Not Detect) Ur Phencyclidine Scrn Not Detected (Not Detect) Ur Amphetamines Screen Not Detected (Not Detect) U Benzodiazepines Scrn Not Detected (Not Detect) Urine Cocaine Screen Not Detected (Not Detect) U Marijuana (THC) Screen Not Detected (Not Detect) Ethyl Alcohol mg/dL COVID-19 (FELIX) Negative (Negative) COVID-19 Clin Com See Note 05/24/25 05/24/25 Range/Units 12:46 14:57 WBC (4.8-10.8) X10*3/uL RBC (4.60-5.80) X10*6/uL Hgb (14.0-18.0) g/dl Hct (42.0-52.0) % MCV (80.0-98.0) fL MCH (27.0-33.0) pg MCHC (31.0-36.0) g/dl RDW (11.0-16.0) % Plt Count (160-400) X10*3/uL MPV (9.4-12.4) fL Immature Gran % (Auto) (0.0-0.4) % Neut % (Auto) (45-73) % Lymph % (Auto) (20-40) % [place] % (Auto) (2-11) % Eos % (Auto) (0-4) % Baso % (Auto) (0-2) % Lymph # (Auto) (1.2-4.9) X10*3/uL [place] # (Auto) (0.1-1.2) X10*3/uL Eos # (Auto) (0.0-0.4) X10*3/uL Baso # (Auto) (0.0-0.2) X10*3/uL Abs Immat Gran (auto) (0.00-0.03) X10*3/uL Absolute Neuts (auto) (2.0-8.3) x10*3/uL Absolute Nucleated RBC (0.0-0.012) X10*3/uL Nucleated RBC % (auto) (0.0-0.2) /100WBC PT (10.9-12.4) SEC INR (0.9-1.1) VBG pH (7.32-7.43) VBG pCO2 mmHg VBG pO2 mmHg VBG HCO3 (22-26) mmol/L VBG O2 Saturation % VBG Base Excess mmol/L Sodium (135-145) mmol/L Potassium (3.3-5.1) mmol/L Chloride (96-108) mmol/L Carbon Dioxide (22-29) mmol/L Anion Gap (12-20) BUN (9-16) mg/dL Creatinine (0.5-1.4) mg/dL Estim Creat Clear Calc Estimated GFR Random Glucose (60-115) mg/dL Lactic Acid (0.5-2.0) mmol/L Lactic Acid F/U @ 2Hr 2.6 H* (0.5-2.0) mmol/L Lactic Acid F/U @ 4Hr 1.7 (0.5-2.0) mmol/L Calcium (8.4-10.2) mg/dL Magnesium (1.6-2.6) mg/dL Total Bilirubin (0.0-1.0) mg/dL Direct Bilirubin (0.0-0.5) mg/dL AST (5-37) U/L ALT (0-40) U/L Alkaline Phosphatase (39-117) U/L Total Creatine Kinase (38-174) U/L Troponin I High Sens (<3.5-35.0) ng/L C-Reactive Protein (< or = 0.50) mg/dL Total Protein (6.5-8.0) g/dL Albumin (3.5-5.0) g/dL Lipase (8-78) U/L Procalcitonin ng/mL TSH (0.32-4.0) uIU/mL Urine Color Urine Appearance Urine pH (5.0-9.0) Ur Specific [place] (1.005-1.025) Urine Protein (Neg-Trace) mg/dL Urine Glucose (UA) (Negative) mg/dL Urine Ketones (Negative) mg/dL Urine Blood (Negative) Urine Nitrite (Negative) Ur Leukocyte Esterase (Negative) Urine RBC (0-2) /HPF Urine WBC (0-5) /HPF Ur Squamous Epith Cells (0-2) /HPF Urine Bacteria (None Seen) Hyaline Casts (0-2) /LPF Urine Opiates Screen (Not Detect) Ur Buprenorphine Scrn (Not Detect) ng/mL Ur Oxycodone Screen (Not Detect) ng/mL Urine Methadone Screen (Not Detect) ng/mL Urine Fentanyl Screen (Not Detect) Ur Barbiturates Screen (Not Detect) Ur Phencyclidine Scrn (Not Detect) Ur Amphetamines Screen (Not Detect) U Benzodiazepines Scrn (Not Detect) Urine Cocaine Screen (Not Detect) U Marijuana (THC) Screen (Not Detect) Ethyl Alcohol mg/dL COVID-19 (FELIX) (Negative) COVID-19 Clin Com Independent Interpretation I performed an independent interpretation of an: EKG Interpretation: I personally interpreted the EKG which reveals a flutter, left axis deviation, ST depression in lateral leads, no significant ST-elevation Vent. Rate : 114 BPM Atrial Rate : 340 BPM P-R Int : * ms QRS Dur : 88 ms QT Int : 338 ms P-R-T Axes : * -31 71 degrees QTcB Int : 465 ms Atrial flutter with variable A-V block Left axis deviation Anterior infarct , age undetermined Abnormal ECG When compared with ECG of 21-May-2025 14:29, Atrial flutter has replaced Sinus rhythm Vent. rate has increased by [address] now depressed in Lateral leads Nonspecific T wave abnormality, worse in Inferior leads Nonspecific T wave abnormality now evident in Lateral leads I personally interpreted the CXR which reveals pulmonary congestion, cardiomegaly, I agree with the radiologist's interpretation Radiology Impression Discussion of test interpretation with radiology: I have reviewed the radiologist's reading. Radiologist Impression: CT head/brain FINDINGS: Extensive area of hypodensity and gonzalez-white matter effacement with the questionable areas of isodensity involving the entire opercular branches of the right MCA causing the effacement of the insular subinsular external capsule opercular and parietal lobe. No mass effect, midline shift, hydrocephalus or herniation. Posterior cranial fossa contents demonstrated negative cisterna magna. Normal position of the cerebellar tonsils. Sellar/suprasellar region demonstrated no gross masses. Calcified plaques in the cavernous supracavernous segments both ICA. Polypoid paranasal sinus disease. Tympanic cavities and mastoid cells are aerated.. CT/CT head for STROKE IMPRESSION: Acute right MCA territory infarct/ischemia. Questionable microhemorrhages component. This critical result was discussed with the emergency department at 10:23 AM hours on May 24, 2025.. It was ascertained that the content and urgency of the report was understood at the time of direct communication. Electronically signed by: Fede Ashby MD 05/24/2025 10:33 AM EDT Dictated By: Fede Frias MD Signed By: <Electronically signed by Fede Portillo MD in OV> 05/24/25 1033 CTA head/neck CXR Independent Historian Clinical information obtained from an independent historian. History obtained from or confirmed by: EMS External Record Review External record reviewed: Inpatient record, Office record and Outpatient record Chronic Conditions Patient?s care impacted by: Hypertension and Other (pheochromcytoma, vitamin B12 deficiency, anxiety ) Discharge Plan Discharge Clinical Impression: Cerebral infarction Qualifiers: Cerebral infarction mechanism: unspecified mechanism Qualified Code(s): I63.9 - Cerebral infarction, unspecified Patient Disposition: Admitted As Inpatient Interventions: Admission Worksheet (ED) Last Done: 05/24/25 18:03 Discharge Date/Time: 05/24/25 19:09
[2025-05-24 10:30] LABS: MANUAL DIFF FLAG NO
[2025-05-24] MEDS: iohexoL 350 MG/ML 100 ML INFUS..BTL IV (10:30)
[2025-05-24 10:31] LABS: Venous Blood Gas Refer to POC result
[2025-05-24 10:32] LABS: VBG HCO3 27 mmol/L (22-26); VBG O2 % Saturation 60.0 %
[2025-05-24 10:32] LABS: Hematocrit 49.1 % (42.0-52.0); Hemoglobin 16.1 g/dl (14.0-18.0); Imm Gran Abs Auto 0.03 X10*3/uL (0.00-0.03); Imm Gran Pct Auto 0.3 % (0.0-0.4); Lymphocytes Absolute Auto 0.6 X10*3/uL (1.2-4.9); Mean Corpuscular HGB Conc 32.8 g/dl (31.0-36.0); Mean Corpuscular Hemoglobin 31.2 pg (27.0-33.0); Mean Corpuscular Volume 95.2 fL (80.0-98.0); NRBC Abs Auto 0.000 X10*3/uL (0.0-0.012); NRBC Pct Auto 0.0 /100WBC (0.0-0.2); Platelet Count 196 X10*3/uL (160-400); Red Blood Count 5.16 X10*6/uL (4.60-5.80); White Blood Count 9.5 X10*3/uL (4.8-10.8)
[2025-05-24 10:36] LABS: INTERNATIONAL NORM RATIO 1.2 (0.9-1.1); Prothrombin Time 14.1 SEC (10.9-12.4)
[2025-05-24] MEDS: Lactated Ringers 1,000 ML 999 ML IV (10:53)
[2025-05-24 10:55] LABS: Alanine Aminotransferase 39 U/L (0-40); Albumin Level 3.8 g/dL (3.5-5.0); Alkaline Phosphatase 136 U/L (39-117); Anion Gap 16 (12-20); Aspartate Amino Transferase 61 U/L (5-37); Blood Urea Nitrogen 24 mg/dL (9-16); Calcium 8.9 mg/dL (8.4-10.2); Carbon Dioxide 23 mmol/L (22-29); Chloride 112 mmol/L (96-108); Creatinine Clr Calc Pharmacy 45.0; Estimated Glomerular Filt Rate > 60; Lipase 13 U/L (8-78); Magnesium 2.3 mg/dL (1.6-2.6); Potassium 3.7 mmol/L (3.3-5.1); Sodium 147 mmol/L (135-145); Total Protein 7.3 g/dL (6.5-8.0); Troponin-I High Sensitivity 34.0 ng/L (<3.5-35.0)
[2025-05-24 11:10] LABS: Procalcitonin 0.18 ng/mL
--- NOTE | 2025-05-24 11:17 | PC.NURSE ---
pt's neighbor called for a well being call, pt found on the floor and c-josefa, pt's last well time would be 05/21/25 when seen in the ED. pt is alert and oriented, skin pwd, respirations even and unlabored, pt is coming in as a stroke per ems with the entire left sided weakness-unable to move the left arm is able to move the left leg a little, slurred/garbled speech , no facial droop, a-fib on the monitor 120-130's delay in the ABX because the pt was in CT and waiting for blood coutures to be drawn, also straight cath placed but no urine out put-per Dr upton to hang the ABX before the urine sample,
[2025-05-24 11:19] LABS: COVID-19 Test Negative (Negative); IDNOW Serial# 55D5AD1C
[2025-05-24 11:53] LABS: Appearance Urine Clear; Glucose Urine UA Negative (Negative); PH 6.5 (5.0-9.0); Specific Gravity - Urine >= 1.030 (1.005-1.025); UMIC TRIGGER UACC YES
[2025-05-24 12:06] LABS: Cannabinoid Screen Urine Not Detected (Not Detect)
--- NOTE | 2025-05-24 12:17 | MHC.EDTECH ---
male purewick placed on pt with excellent tolleranc e
[2025-05-24 12:30] LABS: Reflex Lactate? Lactic Acid Added
[2025-05-24 13:06] LABS: ~Lactic Acid-LAB USE ONLY 2.6 mmol/L (0.5-2.0)
--- NOTE | 2025-05-24 13:55 | MHC.EDTECH ---
Pt transferred to hospital bed, bed alarm on, call [facility] within reach
--- NOTE | 2025-05-24 13:56 | MHC.EDTECH ---
pt pulled off [place]
--- NOTE | 2025-05-24 14:08 | PC.NURSE ---
did a bedside swallow evaluation with one sip of water with a tablespoon pt started to cough, did not continuo the test, failed the pt and speech consult ordered
--- OUTSIDE RECORDS SUMMARY | 2025-05-24 14:25 | XMS_ITS | Patient Health Record ---
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 Problem Screening for malignant neoplasm of rectum (034510978) Encounter for screening for malignant neoplasm of rectum (Z12.12) Active confirmed Plan Of Treatment Future Test Test Name Order Date COLONOSCOPY 06/05/2016 Insurance Providers Payer Name Payer Address Payer Phone Subscriber Number Group Number Insured Name Patient Relationship to Insured Coverage Start Date Coverage End Date MEDICARE OF [place] [address] [place] [address] [id number] GINA KEY Self - patient is the insured [employer] ATTN CLAIMS [address] [place] [address] [id number] GINA KEY Self - patient is the insured Medical (General) History Medical History History ICD Code EGD 06/2006--question of gas tric telangiectasias, but otherwise normal upper endoscopy History of ischemic colitis--colonoscopy 06/2006--no polyps Hereditary hemorrhagic telan giectasia--history of epistaxis and anemia--on Iron supplements Seizure disorder Denies ME,DM,CVA,Lung disease,renal dise ase HTN Surgical History Surgery Date(Month/Year) Craniotomy as a child for a head injury Hydrocele 2016
--- NOTE | 2025-05-24 14:26 | PM.NEUROCN ---
History of Present Illness Data of Consult Service Date: 05/24/25 Primary Care Provider: Ye Silveira MD [facility] Reason for consult: Stroke 75 years old man with history of epilepsy since he was in his 20s or 30s and cerebellar ataxia who came to hospital with new onset of left-sided weakness. Apparently he was found home on the floor and time of onset was unclear. His head CT revealed probably a subacute large middle cerebral artery infarct in I saw him in emergency room. There was no sign of any seizure. He was not in any physical distress. Review of Systems Review of Systems: No cold or flu-like illness. No witness history of trauma or report of trauma. He was found on the ground. No chest pain or shortness of breath palpitation. No seizure. [facility] Past Medical History Medical History Lower urinary tract symptoms Compression fx, thoracic spine Microscopic hematuria Nocturia Pheochromocytoma Uncontrolled hypertension Screening for prostate cancer Screening for diabetes mellitus Finger numbness Right wrist pain Numbness and tingling in both hands Hematuria Fracture of triquetral bone of wrist Dizziness Urinary urgency Wrist pain, acute Femoral fracture Frequency of micturition Medicare annual wellness visit, initial Cataract Seizure disorder Hypertension Vitamin B12 deficiency Anxiety Hereditary hemorrhagic telangiectasia Family History Family History Mother CAD (coronary artery disease) Surgical History Surgical History History of lobectomy of thyroid History of colonoscopy History of hip surgery History of hydrocelectomy H/O brain surgery Social History Social History Household Members: None Housing: House Do you presently have visiting nurse or other home services: No Alcohol intake: never Comment: I don't really have a number; low Patient Tobacco Use Status: Former Tobacco user Tobacco use type: Cigarette Years Smoked: 1994 stopped Smoked in Last 30 Days: Yes e-Cigarette/Vaping Use: Never Used Second Hand Smoke Exposure: No Use of substances other than those prescribed or required for medical reasons: No Advance Directives: Yes Advance Directives on File: Yes Advance Directives Date on File: 06/23/21 Do you have a plan to hurt others: No Plan service: No Current occupational status: retired Current occupation: left hand dominant Cognitive needs: No Hearing needs: No Vision needs: No Meds Allergies Allergy/AdvReac Type Severity Reaction Status Date / Time hydrochlorothiazide Allergy Unknown Unknown Verified 05/24/25 10:40 lisinopril Allergy Unknown Unknown Verified 05/24/25 10:40 Home Medications ?Medication ?Instructions ?Recorded ?Confirmed ?Last Taken ?Type ascorbic acid (vitamin C) 1,000 mg 1 g PO DAILY 03/01/21 04/02/25 Unknown History tablet ferrous sulfate 325 mg (65 mg 325 mg PO DAILY 03/01/21 04/02/25 Unknown History iron) tablet (Feosol) magnesium oxide 400 mg PO DAILY 03/01/21 04/02/25 Unknown History vitamin B complex 1 tab PO DAILY 03/01/21 04/02/25 Unknown History cyanocobalamin (vitamin B-12) 250 0 mcg PO DAILY 06/23/21 04/02/25 Unknown History mcg tablet vitamin A 3,000 mcg (10,000 unit) 0 unit PO DAILY 06/23/21 04/02/25 Unknown History capsule brimonidine 0.2 % eye drops drp ophthalmic (eye) 06/04/24 04/02/25 Unknown History kelp PO 06/04/24 04/02/25 Unknown History vitamin E (dl, acetate) 450 mg 450 mg PO DAILY 06/04/24 04/02/25 Unknown History (1,000 unit) capsule Physical Exam Vital Signs: Vital Signs: Last Vital Signs Temp 99.8 F 05/24/25 13:01 Pulse 114 H 05/24/25 13:01 Resp 15 05/24/25 13:01 BP 152/77 H 05/24/25 13:01 Pulse Ox 96 05/24/25 13:01 O2 Del Method Room Air 05/24/25 13:01 BMI result Body Mass Index 17.6 Neuro: Other: Mental Status: He was little bit drowsy but able to recognize me right away in make a conversation and follow commands. Spontaneity and fluency of speech were intact. Cranial Nerves: CN II: Dense left hemianopsia. CN III, IV, : Rightward gaze. accommodation. Extraocular movements are normal. CN V: Facial sensation is normal. CN VII: Left-sided facial weakness CN VIII: Hearing intact to bedside conversation is normal. CN IX, X: Palate elevates symmetrically. CN XI: Shoulder shrug and head turn symmetrical. CN XII: Tongue midline without atrophy or fasciculations. Motor: He was unable to move his left arm but was able to lift his left leg against gravity. There was moderate left-sided neglect. Extrapyramidal: Full facial expressions and blinking. No rigidity. Movements are appropriate with no tremor or abnormality. Speech: Normal; no dysarthria or tremor. Results Labs 05/24/25 10:20 05/24/25 10:20 Labs: Short CBC 05/24/25 Range/Units 10:20 WBC 9.5 (4.8-10.8) X10*3/uL Hgb 16.1 D (14.0-18.0) g/dl Hct 49.1 D (42.0-52.0) % Plt Count 196 (160-400) X10*3/uL BMP 05/24/25 10:20 Sodium 147 H Potassium 3.7 D Chloride 112 H Carbon Dioxide 23 BUN 24 H Creatinine 1.02 Calcium 8.9 Cardiac Enzymes 05/24/25 Range/Units 10:20 Total Creatine Kinase 401 H (38-174) U/L Liver Function 05/24/25 Range/Units 10:20 Total Bilirubin 1.0 (0.0-1.0) mg/dL Direct Bilirubin 0.4 (0.0-0.5) mg/dL AST 61 H (5-37) U/L ALT 39 (0-40) U/L Alkaline Phosphatase 136 H (39-117) U/L Albumin 3.8 (3.5-5.0) g/dL Urine 05/24/25 Range/Units 11:46 Urine Color Yellow Urine Appearance Clear Urine pH 6.5 (5.0-9.0) Ur Specific [place] >= 1.030 H (1.005-1.025) Urine Protein 100 (2+) H (Neg-Trace) mg/dL Urine Glucose (UA) Negative (Negative) mg/dL CTA NECK WITH CONTRAST (STROKE) CTA BRAIN WITH CONTRAST (STROKE) CLINICAL INFORMATION: Left-sided deficit. Change in mental status. Acute stroke. COMPARISON: May 21, 2025. TECHNIQUE: CTA of the head and neck was performed in the axial plane from the mediastinum to the skull vertex using 70 mL Omnipaque 350 intravenous contrast. Additional reformatted multiplanar images including maximum intensity projection MIP images are generated on the CT workstation. This CT examination was performed using dose optimization techniques as appropriate, variously including the following: *Automated exposure control *Adjustment of mA and/or kV according to patient size (this includes techniques or standardized protocols for targeted exams where dose is matched to indication/reason for exam; i.e. extremities or head) *Use of iterative reconstruction technique. DLP: 648 mGy-cm FINDINGS: The degree of stenosis determined by criteria similar to NASCET. Chest CTA: Calcified plaques in the periphery of the thoracic aortic arch without focal stenosis or intimal flap. Normal diameter. Calcified plaques in the origin of the main branches. Limited [id number]. Neck CTA: Right CCA: Normal patency. No focal stenosis. No intimal flap. Right ICA: Calcified plaque. Normal patency. No focal stenosis. No intimal flap. Tortuosity. Left CCA: Normal patency. No focal stenosis. No intimal flap. Left ICA: Calcified plaque representing 60% stenosis. No intimal flap. Tortuosity. V1/V2 segments: Calcified plaque in the origin at the subclavian arteries. Tortuosity. Normal patency. No focal stenosis. No intimal flap. Codominant vertebral arteries. Brain CTA: Anterior cerebral circulation: ICAs: Calcified plaques. Normal patency. No focal stenosis. No abrupt cut off. There is a 3 x 2 mm contrast enhanced vascular abnormality at the left ICA terminus with a cephalad orientation and a focal neck. MCA's: Normal patency. No focal stenosis. No abrupt cut off. There is asymmetric decreased intraluminal enhancement of the opercular branches right MCA. ACAs: Normal patency. No focal stenosis. No abrupt cut off. Ophthalmic arteries are patent without vascular irregularity. Posterior communicating arteries are patent with a robust right artery. No gross vascular abnormality. Anterior communicating artery is short and patent. No vascular irregularity. Posterior cerebral circulation: V3/V4 segments: Normal patency. No focal stenosis. No intimal flap. Codominant. Posterior inferior cerebral arteries are patent without vascular irregularity. Basilar artery: Normal patency. No focal stenosis. No intimal flap. Anterior inferior cerebral arteries are patent without vascular irregularity. Superior cerebellar arteries are patent without gross vascular irregularity. hammer setter: Normal patency. No focal stenosis. No abrupt cut off. Ancillary findings: Extensive volume loss gonzalez-white matter effacement and hypodensity involving the right MCA territory. Magna cisterna magna. Incomplete fusion posterior arch of C1. Subcentimeter low density nodules, right thyroid gland. Absent left thyroid lobe. Pulmonary mosaic pattern. Centrilobular and paraseptal emphysematous changes, lung apices. Multilevel spondylosis. Secretions within the left piriform sinus. 2 mm granuloma, right lung apex.. CT/CT angio head neck STROKE IMPRESSION: Acute right MCA territory infarct with decreased enhancement of the opercular branches and no definite main embolus on the CT angiogram. 3 x 2 mm nonruptured aneurysm, left ICA terminus. 60% stenosis secondary to calcified plaque, left ICA. No dissection. Emphysematous changes. Probable aspiration with questionable penetration. Status post left hemithyroidectomy and subcentimeter cystic nodule right thyroid lobe Assessment and Plan (1) Cerebral infarction: Qualifiers: Cerebral infarction mechanism: unspecified mechanism Qualified Code(s): I63.9 - Cerebral infarction, unspecified Status: Acute 75 years old man with large subacute right middle cerebral artery ischemic infarct resulting in left hemiparesis mostly affecting his face and arm. He also has left hemianopsia. This probably happened 12-36 hours before. Unfortunately it could not be treated with any acute intervention. My recommendation is subcu heparin for DVT prophylaxis, baby aspirin, cardiac evaluation for any source of embolism, in involvement of PT and OT. Procedures Date of Service Date of Service: 05/24/25
[2025-05-24 14:49] LABS: Reflex Lactate? 2 Y
[2025-05-24 15:15] LABS: ~Lactic Acid-LAB USE ONLY 1.7 mmol/L (0.5-2.0)
--- NOTE | 2025-05-24 18:58 | P.HPHOSP_ITS ---
History of Present Illness Date of Service: 05/24/25 Attending physician on admission: Berlin Silva Chief Complaint: Altered mental status, left-sided weakness, and slurred speech. This is a 75-year-old left-hand dominant male with a history of epilepsy (since his 20s or 30s), cerebellar ataxia, Hereditary hemorrhagic telangiectasia, pheochromocytoma, hypertension, vitamin B12 deficiency, and anxiety, who presented to the ED after being found down at home by a neighbor. The exact time of symptom onset is unclear; the patient reports symptoms may have started on Saturday, Saturday, or Saturday, but is unable to specify. No collateral history is available. EMS found the patient on the ground, soiled with urine, with garbled speech and left-sided weakness. On arrival, he was alert but difficult to understand. He was last seen in the ED on 05/21/2025 for abdominal pain, lightheadedness, and transient speech/thinking difficulties, but was discharged after negative imaging and resolution of symptoms. On this presentation, the patient was noted to have garbled speech, left upper extremity paralysis, and mild ataxia of both lower extremities. Neurology evaluation revealed dense left hemianopsia, rightward gaze preference, left facial weakness, inability to move the left arm, and moderate left-sided neglect. There was no evidence of seizure activity or trauma. Imaging (CT and CTA) revealed a large right MCA territory infarct, likely subacute (estimated 12?36 hours old), with decreased enhancement of the opercular branches of the right MCA, but no large vessel occlusion or definite embolus. 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 Speech and swallow evaluation indicates the patient is currently unable to swallow safely. Review of Systems 2 Review of Systems: Yes Unobtainable due to mental condition and Unobtainable due to mental status [facility] Medical History Lower urinary tract symptoms Compression fx, thoracic spine Microscopic hematuria Nocturia Pheochromocytoma Uncontrolled hypertension Screening for prostate cancer Screening for diabetes mellitus Finger numbness Right wrist pain Numbness and tingling in both hands Hematuria Fracture of triquetral bone of wrist Dizziness Urinary urgency Wrist pain, acute Femoral fracture Frequency of micturition Medicare annual wellness visit, initial Cataract Seizure disorder Hypertension Vitamin B12 deficiency Anxiety Hereditary hemorrhagic telangiectasia Family History Mother CAD (coronary artery disease) Surgical History History of lobectomy of thyroid History of colonoscopy History of hip surgery History of hydrocelectomy H/O brain surgery Social History Household Members: None Housing: House Do you presently have visiting nurse or other home services: No Alcohol intake: never Comment: I don't really have a number; low Patient Tobacco Use Status: Former Tobacco user Tobacco use type: Cigarette Years Smoked: 1994 stopped e-Cigarette/Vaping Use: Never Used Second Hand Smoke Exposure: No Advance Directives Date on File: 06/23/21 service: No Current occupational status: retired Current occupation: left hand dominant Cognitive needs: No Hearing needs: No Vision needs: No Meds Allergies Allergy/AdvReac Type Severity Reaction Status Date / Time hydrochlorothiazide Allergy Unknown Unknown Verified 05/24/25 10:40 lisinopril Allergy Unknown Unknown Verified 05/24/25 10:40 Active Medications: Current Medications Acetaminophen (Acetaminophen 325 Mg Tablet) 650 mg PO Q6H PRN PRN Reason: Pain, Mild 1-3,fever,headache Aspirin (Aspirin 300 Mg Supp.Rect) 300 mg VA DAILY YASMINE Calcium Carbonate (Calcium Carbonate 750 Mg Tab.Chew) 750 mg PO Q4H PRN PRN Reason: Heartburn Heparin Sodium (Porcine) (Heparin Sodium,Porcine 5,000 Unit/Ml Vial) 5,000 unit SUBCUT Q8H [facility] Last Admin: 05/24/25 18:36 Dose: 5,000 unit Magnesium Hydroxide (Milk Of Magnesia 30 Ml Oral.Susp) 30 ml PO DAILY PRN PRN Reason: Constipation Melatonin (Melatonin 3 Mg Tablet) 6 mg PO BEDTIME PRN PRN Reason: Insomnia Sodium Chloride (0.9 % Sodium Chloride Flush 3 Ml Syringe) 3 ml IVFLUSH QSHIFT [facility] Home Medications ?Medication ?Instructions ?Recorded ?Confirmed ?Last Taken ?Type ascorbic acid (vitamin C) 1,000 mg 1 g PO DAILY 04/02/25 Unknown History tablet ferrous sulfate 325 mg (65 mg 325 mg PO DAILY 03/01/21 04/02/25 Unknown History iron) tablet (Feosol) magnesium oxide 400 mg PO DAILY 03/01/2112/20 Unknown History vitamin B complex 1 tab PO DAILY 03/01/2112/20 Unknown History cyanocobalamin (vitamin B-12) 250 0 mcg PO DAILY 06/2304/02/25 Unknown History mcg tablet vitamin A 3,000 mcg (10,000 unit) 0 unit PO DAILY 05/3004/02/25 Unknown History capsule brimonidine 0.2 % eye drops drp ophthalmic (eye) 06/0404/02/25 Unknown History kelp PO 06/04/24 04/02/25 Unknown History vitamin E (dl, acetate) 450 mg 450 mg PO DAILY 4 04/02/25 Unknown History (1,000 unit) capsule latanoprost 0.005 % eye drops 1 drp ophthalmic (eye) B EDTIME 05/24/25 05/24/25 Unknown History Physical Exam 2 Vital Signs and Narrative: Vital Signs: Last Vital Signs Temp 100.0 F 05/24/25 16:32 Pulse 98 05/24/25 16:32 Resp 20 05/24/25 16:32 BP 170/80 H 05/24/25 16:32 Pulse Ox 97 05/24/25 16:32 O2 Del Method Room Air 05/24/25 16:32 BMI result Body Mass Index 17.6 General: Alert, drowsy but arousable, able to recognize examiner and follow commands. Speech is garbled but spontaneous and fluent. HEENT: Normocephalic, atraumatic, mucous membranes moist, EOMI, clear conjunctiva, oropharynx clear. Neck: Supple, no lymphadenopathy, no stiffness. Cardiac: Regular rate and rhythm, normal S1/S2, no murmurs/rubs/gallops. Lungs: Clear to auscultation bilaterally, no crackles or wheezes. Adomen: Soft, nontender, nondistended. Back: No CVA tenderness, no deformity. Extremities: No cyanosis, clubbing, or edema. Skin: Multiple sites of petechiae at the fingertips and toes; multiple telangiectasias noted throughout body & face Neurological: - Mental Status: Drowsy but arousable, r ecognizes examiner, follows commands. Speech spontaneous and fluent. - Cranial Nerves: II: Dense left hemianopsia III, IV, : Rightward gaze preference, EOMI otherwise normal V: Facial sensation normal VII: Left facial weakness VIII: Hearing intact IX, X: Palate elevates symmetrically XI: Shoulder shrug/head turn symmetric XII: Tongue midline, no atrophy/fasciculations - Motor: Unable to move left arm; left l eg can be lifted against gravity. Moderate left-sided neglect. - Extrapyramidal: No rigidity, tremor, o r abnormal movements. - Speech: expressive aphasia with possib le receptive element Results Labs 05/24/25 10:20 05/24/25 10:20 Labs: Laboratory Results - last 24 hr 05/24/25 05/24/25 05/24/25 10:20 10:20 10:20 MCV 95.2 MCH 31.2 MCHC 32.8 RDW 13.2 Plt Count 196 MPV 11.0 Immature Gran % (Auto) 0.3 Neut % (Auto) 82.8 H Lymph % (Auto) 6.7 L Sanders % (Auto) 9.9 Eos % (Auto) 0.0 Baso % (Auto) 0.3 Lymph # (Auto) 0.6 L Sanders # (Auto) 0.9 Eos # (Auto) 0.0 Baso # (Auto) 0.0 Abs Immat Gran (auto) 0.03 Absolute Neuts (auto) 7.8 Absolute Nucleated RBC 0.000 Nucleated RBC % (auto) 0.0 PT 14.1 H INR 1.2 H VBG pH VBG pCO2 VBG pO2 VBG HCO3 VBG O2 Saturation VBG Base Excess Anion Gap 16 Estim Creat Clear Calc 45.0 Estimated GFR > 60 Random Glucose 129 H Lactic Acid 2.5 H* Lactic Acid F/U @ 2Hr Lactic Acid F/U @ 4Hr Calcium 8.9 Magnesium 2.3 Total Bilirubin 1.0 Direct Bilirubin 0.4 AST 61 H ALT 39 Alkaline Phosphatase 136 H Total Creatine Kinase 401 H Troponin I High Sens 34.0 D C-Reactive Protein 16.32 H Total Protein 7.3 Albumin 3.8 Lipase 13 Procalcitonin 0.18 TSH 1.06 Cancelled Urine Color Urine Appearance Urine pH Ur Specific [place] Urine Protein Urine Glucose (UA) Urine Ketones Urine Blood Urine Nitrite Ur Leukocyte Esterase Urine RBC Urine WBC Ur Squamous Epith Cells Urine Bacteria Hyaline Casts Urine Opiates Screen Ur Buprenorphine Scrn Ur Oxycodone Screen Urine Methadone Screen Urine Fentanyl Screen Ur Barbiturates Screen Ur Phencyclidine Scrn Ur Amphetamines Screen U Benzodiazepines Scrn Urine Cocaine Screen U Marijuana (THC) Screen Ethyl Alcohol < 10 Cancelled COVID-19 ([facility]IX) COVID-19 Clin Com 05/24/25 05/24/25 05/24/25 10:28 10:52 11:46 MCV MCH MCHC RDW Plt Count MPV Immature Gran % (Auto) Neut % (Auto) Lymph % (Auto) Sanders % (Auto) Eos % (Auto) Baso % (Auto) Lymph # (Auto) Sanders # (Auto) Eos # (Auto) Baso # (Auto) Abs Immat Gran (auto) Absolute Neuts (auto) Absolute Nucleated RBC Nucleated RBC % (auto) PT INR VBG pH 7.47 H VBG pCO2 38 VBG pO2 38 VBG HCO3 27 H VBG O2 Saturation 60.0 VBG Base Excess 4.3 Anion Gap Estim Creat Clear Calc Estimated GFR Random Glucose Lactic Acid Lactic Acid F/U @ 2Hr Lactic Acid F/U @ 4Hr Calcium Magnesium Total Bilirubin Direct Bilirubin AST ALT Alkaline Phosphatase Total Creatine Kinase Troponin I High Sens C-Reactive Protein Total Protein Albumin Lipase Procalcitonin TSH Urine Color Yellow Urine Appearance Clear Urine pH 6.5 Ur Specific [place] >= 1.030 H Urine Protein 100 (2+) H Urine Glucose (UA) Negative Urine Ketones 15 Urine Blood Large (3+) H Urine Nitrite Negative Ur Leukocyte Esterase Negative Urine RBC >20 H Urine WBC 0-5 Ur Squamous Epith Cells 0-2 Urine Bacteria None Seen Hyaline Casts 0-2 Urine Opiates Screen Not Detected Ur Buprenorphine Scrn Not Detected Ur Oxycodone Screen Not Detected Urine Methadone Screen Not Detected Urine Fentanyl Screen Not Detected Ur Barbiturates Screen Not Detected Ur Phencyclidine Scrn Not Detected Ur Amphetamines Screen Not Detected U Benzodiazepines Scrn Not Detected Urine Cocaine Screen Not Detected U Marijuana (THC) Screen Not Detected Ethyl Alcohol COVID-19 ([facility]) Negative COVID-19 Clin Com See Note 05/24/25 05/24/25 12:46 14:57 MCV MCH MCHC RDW Plt Count MPV Immature Gran % (Auto) Neut % (Auto) Lymph % (Auto) Sanders % (Auto) Eos % (Auto) Baso % (Auto) Lymph # (Auto) Sanders # (Auto) Eos # (Auto) Baso # (Auto) Abs Immat Gran (auto) Absolute Neuts (auto) Absolute Nucleated RBC Nucleated RBC % (auto) PT INR VBG pH VBG pCO2 VBG pO2 VBG HCO3 VBG O2 Saturation VBG Base Excess Anion Gap Estim Creat Clear Calc Estimated GFR Random Glucose Lactic Acid Lactic Acid F/U @ 2Hr 2.6 H* Lactic Acid F/U @ 4Hr 1.7 Calcium Magnesium Total Bilirubin Direct Bilirubin AST ALT Alkaline Phosphatase Total Creatine Kinase Troponin I High Sens C-Reactive Protein Total Protein Albumin Lipase Procalcitonin TSH Urine Color Urine Appearance Urine pH Ur Specific [place] Urine Protein Urine Glucose (UA) Urine Ketones Urine Blood Urine Nitrite Ur Leukocyte Esterase Urine RBC Urine WBC Ur Squamous Epith Cells Urine Bacteria Hyaline Casts Urine Opiates Screen Ur Buprenorphine Scrn Ur Oxycodone Screen Urine Methadone Screen Urine Fentanyl Screen Ur Barbiturates Screen Ur Phencyclidine Scrn Ur Amphetamines Screen U Benzodiazepines Scrn Urine Cocaine Screen U Marijuana (THC) Screen Ethyl Alcohol COVID-19 ([facility]) COVID-19 Clin Com Imaging Radiologist's Impressions: Impressions Head CT 05/24/25 10:10 IMPRESSION: Acute right MCA territory infarct/ischemia. Questionable microhemorrhages component. This critical result was discussed with the emergency department at 10:23 AM hours on May 24, 2025.. It was ascertained that the content and urgency of the report was understood at the time of direct communication. Electronically signed by: Fede Ashby MD 05/24/2025 10:33 AM EDT Head/Neck CTA 05/24/25 10:18 IMPRESSION: Acute right MCA territory infarct with decreased enhancement of the opercular branches and no definite main embolus on the CT angiogram. 3 x 2 mm nonruptured aneurysm, left ICA terminus. 60% stenosis secondary to calcified plaque, left ICA. No dissection. Emphysematous changes. Probable aspiration with questionable penetration. Status post left hemithyroidectomy and subcentimeter cystic nodule right thyroid lobe This critical test result is communicated to: Dr. Dee Sorenson at 11:16 AM on May 24, 2025 the [employer] [facility]. Electronically signed by: Fede Ashby MD 05/24/2025 11:19 AM EDT RP Chest X-Ray 05/24/25 10:57 IMPRESSION: Cardiomegaly and mild pulmonary vascular congestion. Probable small left pleural effusion. Electronically signed by: Say Ugarte MD 05/24/2025 11:11 AM EDT RP Assessment and Plan (1) Hypertension: Qualifiers: Hypertension type: primary hypertension Qualified Code(s): I10 - Essential (primary) hypertension Status: Acute (2) Thyroid goiter: Status: Acute (3) Hypothyroid: Qualifiers: Hypothyroidism type: acquired Qualified Code(s): E03.9 - Hypothyroidism, unspecified Status: Acute (4) Vitamin D deficiency: Status: Acute (5) Vitamin D deficiency: Status: Acute (6) Constipation: Qualifiers: Constipation type: slow transit constipation Qualified Code(s): K59.01 - Slow transit constipation Status: Acute (7) Cerebral infarction: Qualifiers: Cerebral infarction mechanism: unspecified mechanism Qualified Code(s): I63.9 - Cerebral infarction, unspecified Status: Acute (8) Peripheral neuropathy: Qualifiers: Peripheral neuropathy type: polyneuropathy, unspecified Qualified Code(s): G62.9 - Polyneuropathy, unspecified Status: Acute (9) Hereditary hemorrhagic telangiectasia: Status: Acute (10) Acute CVA (cerebrovascular accident): Status: Acute (11) Atrial flutter: Qualifiers: Atrial flutter type: typical Qualified Code(s): I48.3 - Typical atrial flutter Status: Acute Plan 75-year-old left-hand dominant male with a history of epilepsy, cerebellar ataxia, pheochromocytoma, hypertension, and vitamin B12 deficiency, presenting after being found down at home with unclear time of onset, now with dense left hemiparesis, right gaze preference, left hemianopsia, and moderate neglect, found to have a large right MCA territory infarct on imaging, complicated by new atrial flutter and dysphagia Acute Right MCA Territory Infarct (Ischemic Stroke) Large right MCA territory infarct, likely subacute (12?36 hours old), with dense left hemiplegia, right gaze preference, left hemianopsia, and neglect. Not a candidate for thrombolysis or thrombectomy due to unclear time of onset and absence of large vessel occlusion. PLAN * Admit to stroke unit/medicine service * ASA 300mg daily VA * Atorvastatin 80mg OD PO once able to intake PO * Monitor neurological status closely (NIHSS, neuro checks) * Maintain permissive hypertension (goal SBP < 180 mmHg) * DVT prophylaxis with SCDs; avoid pharmacologic prophylaxis until hemorrhagic transformation is excluded * Swallow evaluation: NPO, oral care with moist swabs, consider early enteral access if prolonged NPO anticipated * Early physical, occupational, and speech therapy consults * Monitor for complications: aspiration, infection, cerebral edema, hemorrhagic transformation Atrial Flutter (New Onset) New atrial flutter with variable AV block, left axis deviation, and ST changes on EKG. No prior history of atrial flutter; possible cardioembolic source for stroke. PLAN * Telemetry monitoring * Cardiology consult for atrial flutter management and anticoagulation recommendations * Assess for rate vs. rhythm control as appropriate * Initiate anticoagulation for secondary stroke prevention (timing per neurology/cardiology, considering infarct size and risk of hemorrhagic transformation) * Continue patient metoprolol 50mg OD PO ER * Echocardiogram to assess for structural heart disease and intracardiac thrombus Dysphagia and Aspiration Risk Failed swallow evaluation; high risk for aspiration. * Strict NPO status * Oral care with moist swabs * Speech therapy to reassess swallowing * Consider early enteral feeding (NG or PEG) if prolonged NPO anticipated Hypertension History of uncontrolled hypertension; currently elevated BP, likely contributing to stroke risk. PLAN * Continue home antihypertensives as tolerated (amlodipine, metoprolol, etc.) * Maintain permissive hypertension in acute stroke phase (SBP < 180 mmHg) * Reassess BP goals after acute phase Secondary Stroke Prevention Multiple vascular risk factors (HTN, atrial flutter, possible carotid disease). PLAN * Atorvastatin 80mg OD PO (once able to intake PO) * Antiplatelet therapy (hold if anticoagulation started) * Address modifiable risk factors: optimize BP, glucose, lipids * Smoking cessation counseling (former smoker) * Outpatient follow-up for carotid disease and aneurysm Carotid Artery Disease Intracranial Aneurysm 3 mm left ICA terminus aneurysm and 60% left ICA stenosis (calcified plaque) on imaging. PLAN * No acute intervention indicated for aneurysm or carotid stenosis at this time * Outpatient neurosurgery and vascular surgery follow-up for further evaluation and management * Monitor for symptoms of TIA or aneurysm rupture Seizure Disorder/Epilepsy History of epilepsy, no witnessed seizure activity during this admission. PLAN * Continue home antiepileptic regimen if applicable * Monitor for seizure activity * EEG if clinical suspicion arises Pheochromocytoma Remote history, unclear current activity. PLAN * Monitor for paroxysmal hypertension, tachycardia, or other symptoms * No acute management required unless symptomatic Malnutrition/Low BMI BMI 17.6, at risk for malnutrition, especially with NPO status. * Nutrition consult * Monitor prealbumin, albumin, and weight * Early enteral nutrition if unable to resume oral intake CHRONIC MEDICAL CONDITIONS Vitamin B12 deficiency Hereditary Hemorrhagic Telangiectasia Anxiety QUALITY METRICS - VTE:SCDs - CODE STATUS:Ful - DIET: NPO Quality Stroke Does the patient have a stroke diagnosis?: Yes Reason for No Anti-thrombotic by Day Two: N/A - Med Ordered VTE Prior VTE?: No VTE Risk Level:: Medical - moderate - high VTE Device Contraindication: N/A - Device Ordered VTE Drug Contraindication: N/A - Med Ordered
--- NOTE | 2025-05-24 21:14 | PC.NURSE ---
patient is able to communicate needs. points to mouth and states in garbled voice that he would like something to eat. informed of reason for NPO status and potential implications of aspiration. patient in agreement, verbalized I want to get better. call [facility] in reach, seizure precautions in place, HOB at least 30 degrees, bed alarm on, #20 LFA intact, patent, flushed. patient is strong on right side, flaccid left arm with ability to feel painful stimuli to nailbeds. wash cloth rolled and placed into flaccid left hands to prevent contracture
[2025-05-25] VITALS (7 sets, daily range): BP systolic 101–170; BP diastolic 54–78; PULSE 75–102; RESP 16–18; TEMP 36.8–37.1; O2SAT 94–98; BMI 18.0
[2025-05-25 06:30] LABS: Hematocrit 44.2 % (42.0-52.0); Hemoglobin 14.5 g/dl (14.0-18.0); Mean Corpuscular HGB Conc 32.8 g/dl (31.0-36.0); Mean Corpuscular Hemoglobin 31.2 pg (27.0-33.0); Mean Corpuscular Volume 95.1 fL (80.0-98.0); NRBC Abs Auto 0.000 X10*3/uL (0.0-0.012); NRBC Pct Auto 0.0 /100WBC (0.0-0.2); Platelet Count 176 X10*3/uL (160-400); Red Blood Count 4.65 X10*6/uL (4.60-5.80); White Blood Count 7.1 X10*3/uL (4.8-10.8)
[2025-05-25 06:35] LABS: Anion Gap 12 (12-20); Blood Urea Nitrogen 26 mg/dL (9-16); Calcium 8.3 mg/dL (8.4-10.2); Carbon Dioxide 24 mmol/L (22-29); Chloride 118 mmol/L (96-108); Cholesterol 136 mg/dL (<200); Creatinine Clr Calc Pharmacy 42.1; Estimated Glomerular Filt Rate > 60; HDL Cholesterol 51 mg/dL (>40); Potassium 3.4 mmol/L (3.3-5.1); Sodium 151 mmol/L (135-145); Triglycerides 61 mg/dL (<150)
[2025-05-25 06:50] LABS: Procalcitonin 0.16 ng/mL
--- NOTE | 2025-05-25 07:00 | CA_ITS ---
Transthoracic Echocardiogram Patient (Last, First, Middle): Terry Aguirre A Gender: Male Date of : 1950 Age: 75 Procedure Date: 05/25/2025 Procedure Type: Transthoracic Echocardiogram Location: [facility] [place] Height: 170.18 cm Weight: 48.99 kg BSA: 1.56 m2 Heart Rate: bpm BP: 119 / 73 mmHg Field Nurse Case Manager: Referring MD: Berlin Silva MD Symptoms: CVA Study Quality: Adequate ECG Rhythm: Atrial Fibrillation Conclusions: - The left ventricular systolic function is normal. The calculated ejection fraction is 65% by biplane method. - [id number] concentric left ventricular hypertrophy. - The left atrium is severely dilated. - No obvious valvular pathology seen on this study. Findings Left Ventricle Normal left ventricular cavity size. The left ventricular systolic function is normal. The calculated ejection fraction is 65% by biplane method. There is no evidence of regional wall motion abnormalities. Diastolic function is indeterminate on the basis of available data. [id number] concentric left ventricular hypertrophy. Right Ventricle Normal right ventricular cavity size and systolic function. Atria The left atrium is severely dilated. The right atrium is normal in size. Aortic Valve There is a normal trileaflet aortic valve. There is no aortic valve stenosis. There is trace (trivial) aortic valve regurgitation. Mitral Valve The mitral valve appears normal. There is trace mitral valve regurgitation. There is no mitral valve stenosis. Pulmonic Valve The pulmonic valve is likely normal. Tricuspid Valve Normal tricuspid valve structure. There is trace tricuspid valve regurgitation. There is no evidence of pulmonary hypertension. Great Vessels The asc aorta is normal in size. Venous The inferior vena cava is normal in size and collapses greater than 50% with inspiration. Pericardium/Pleural There is no evidence of pericardial effusion. Prior Study Comparison No prior study available for comparison. Recommendations, Care & Conclusions No obvious valvular pathology seen on this study. Measurements 2D Linear Measurements IVSd: 1.61 0.6-0.9/0.6-1.0 cm LVIDd: 4.00 3.9-5.3/4.2-5.9 cm LVIDd Index: 2.56 2.4-3.2/2.2-3.1 cm/m2 LVIDs: 2.84 2.0-3.6 cm LVPWd: 1.69 0.7-1.1 cm Ao Root: 4.20 2.1-3.5 cm LA Diam: 4.70 2.7-3.8/3.0-4.0 cm LAIDs Index: 3.01 1.5-2.3 cm/m2 LV Mass: 338.02 67-162/88-224 g LV Mass Index: 216.68 43-95/49-115 g/m2 LVOT Diam: 2.10 3.0+(-)1.3 cm 2D Systolic Function EF 4C: 67.20 >55% EF 2C: 61.50 >55% EF BiP: 65.00 >55% Mitral Valve MV Pk E: 1.06 MV Decel Time: 197.00 E'Lateral: 8.49 E'Medial: 8.92 E/E' Med: 11.90 E/E' Lat: 12.50 PHT: 58.00 MVA PHT: 3.79 Decel Glades: 5.37 Aortic Valve AoV Pk Le[place]: 1.12 AoV Mn Le[place]: 0.74 AoV VTI: 0.19 AoV Pk Grad: 5.00 Aov Mn Grad: 2.00 FRANK Cont.VTI: 2.20 LVOT LVOT Pk Le[place]: 0.80 LVOT Mn León: 0.46 LVOT VTI: 0.12 LVOT Pk Grad: 3.00 LVOT Mn Grad: 1.00 LVOT Diam: 2.10 LVOT Area: 3.46 Diastolic Function MV Pk E: 1.06 E'Medial: 8.92 E/E' Med: 11.90 E' Laterial: 8.49 E/E' Lat: 12.50 Tricuspid Valve TR Pk Le[place]: 1.91 TR Pk Grad: 15.00 RA Press: 3.00 RVSP: 18.00 Great Vessels Aorta Ao Root-2D: 4.20 2.0-3.7 cm Ao Asc: 3.80 2.1-3.4 cm Pulmonary Valve PV Pk Le[place]: 0.92 Peak PV Grad: 3.00 Updated in Other Vendor System with Status of Final Fredi Colin MD electronically signed on 05/26/2025 10:14:12 AM with status of Final
[2025-05-25 07:07] LABS: Atypical Lymph Absolute Manual 0.1 x10*3/uL; Atypical Lymphs Percent Manual 1 % (0-6); Band Neutrophils Percent 1 % (3-5); Basophils Abs Manual 0.1 X10*3/uL (0.0-0.2); Basophils Percent Manual 1 % (0-2); Lymphocytes Absolute Manual 0.4 X10*3/uL (1.2-4.9); Lymphocytes Percent Manual 5 % (20-40); Monocytes Absolute Manual 0.4 X10*3/uL (0.1-1.2); Monocytes Percent Manual 6 % (2-11); Neutrophils Absolute Manual 6.2 X10*3/uL (2.0-8.3); Neutrophils Percent Manual 86 % (45-73)
[2025-05-25 07:10] LABS: Burr Cells 2+ (3-5) /OIF; Large Platelet PRESENT; Ovalocytes 1+ (5-14) /OIF; RBC Morphology NOTED
--- NOTE | 2025-05-25 09:37 | MHC.CM.PN ---
IMM GIVEN 05/25. THIS CM MET WITH PATIENT, HE STATES HE LIVES ALONE AT HOME, SELF-CARE. PATIENT STATES HE HAS A CANE AND A WALKER, BUT DOESN'T REALLY USE THEM. PATIENT STATES HE WILL ARRANGE HIS OWN TRANSPORT HOME AT DISCHARGE. PATIENT STATES HIS BROTHER LAURA IS HIS HCP, COPY REQUESTED. PCP: DR. JOE FRASER
--- NOTE | 2025-05-25 10:06 | PM.CNCAR ---
History of Present Illness History of Present Illness Date of Service: 05/25/25 Chief complaint: acute CVA, aspiration PNA Narrative: This is a cardiology consultation regarding atrial fibrillation. Patient has many comorbidities listed including epilepsy, cerebellar ataxia, hereditary hemorrhagic telangiectasia, pheochromocytoma among others. Patient is difficult to understand because of his speech issue after the stroke. Any case, he states there was no previous cardiac history like coronary artery disease or myocardial infarction. When I questioned him if he has any prior atrial fibrillation I am not clear what he is saying. Otherwise, he has got no active complaints like chest pains or shortness of breath. At the current time, he is admitted with a diagnosis of acute right MCA territory infarct and in that setting, he has been documented to have atrial flutter of new onset. We had asked to see him for further evaluation. Review of Systems Review of Systems: Yes all other systems are reviewed and are negative Constitutional: Constitutional: Reports as per HPI and Reports no additional constitutional complaints Eyes: Eyes: Reports as per HPI and Denies no additional eye complaints ENT: Denies system reviewed and no additional complaints, except as documented and Reports as per HPI Cardiovascular: Cardiovascular: Reports as per HPI, Reports no additional cardiovascular complaints, Denies acrocyanosis, Denies cool extremities, Denies chest pain, Denies leg edema, Denies lightheadedness, Denies palpitations and Denies dyspnea Respiratory: Respiratory: Reports as per HPI, Denies no additional respiratory complaints and Denies dyspnea Gastrointestinal: Gastrointestinal: Reports as per HPI and Denies no additional gastrointestinal complaints Genitourinary: Genitourinary: Reports no additional male genitourinary complaints and Reports as per HPI Musculoskeletal: Musculoskeletal: Reports no additional musculoskeletal complaints and Reports as per HPI Integumentary/Breasts: Skin/Breast: Reports system reviewed and no additional complaints, except as docu Neurologic: Reports system reviewed and no additional complaints, except as documented and Reports as per HPI Psychiatric: Psychiatric: Reports no additional psychiatric complaints and Reports as per HPI Endocrine: Endocrine: Reports no additional endocrine complaints, Reports as per HPI and Denies palpitations Hematologic/Lymphatic: Hematologic/Lymphatic: Reports no additional hematologic/lymphatic complaints and Reports as per HPI Allergic/Immunologic: Allergic/Immunologic: Reports no additional allergic/immunologic complaints and Reports as per HPI [facility] Past Medical History Medical History Lower urinary tract symptoms Compression fx, thoracic spine Microscopic hematuria Nocturia Pheochromocytoma Uncontrolled hypertension Screening for prostate cancer Screening for diabetes mellitus Finger numbness Right wrist pain Numbness and tingling in both hands Hematuria Fracture of triquetral bone of wrist Dizziness Urinary urgency Wrist pain, acute Femoral fracture Frequency of micturition Medicare annual wellness visit, initial Cataract Seizure disorder Hypertension Vitamin B12 deficiency Anxiety Hereditary hemorrhagic telangiectasia Family History Family History Mother CAD (coronary artery disease) Surgical History Surgical History History of lobectomy of thyroid History of colonoscopy History of hip surgery History of hydrocelectomy H/O brain surgery Social History Social History Household Members: None Housing: House Do you presently have visiting nurse or other home services: No Alcohol intake: never Comment: I don't really have a number; low Patient Tobacco Use Status: Former Tobacco user Tobacco use type: Cigarette Years Smoked: 1994 stopped Smoked in Last 30 Days: Yes e-Cigarette/Vaping Use: Never Used Second Hand Smoke Exposure: No Use of substances other than those prescribed or required for medical reasons: No Currently Displaying Signs/Symptoms of Drug Intoxication Withdrawal: No Advance Directives: Yes Advance Directives on File: Yes Advance Directives Date on File: 06/23/21 Do you have a plan to hurt others: No Plan Recently lost weight without trying: Yes How much weight loss: 2-13 pounds Nutrition Risks: Dental problems, Difficulty chewing and Difficulty swallowing service: No Current occupational status: retired Current occupation: left hand dominant Cognitive needs: No Hearing needs: No Vision needs: No Meds Allergies Allergy/AdvReac Type Severity Reaction Status Date / Time hydrochlorothiazide Allergy Unknown Unknown Verified 05/24/25 10:40 lisinopril Allergy Unknown Unknown Verified 05/24/25 10:40 Active Medications: Current Medications Acetaminophen (Acetaminophen 325 Mg Tablet) 650 mg PO Q6H PRN PRN Reason: Pain, Mild 1-3,fever,headache Aspirin (Aspirin 300 Mg Supp.Rect) 300 mg MS DAILY YASMINE Last Admin: 05/24/25 20:28 Dose: 300 mg Calcium Carbonate (Calcium Carbonate 750 Mg Tab.Chew) 750 mg PO Q4H PRN PRN Reason: Heartburn Carvedilol (Carvedilol 12.5 Mg Tablet) 12.5 mg PO BID [facility]; Protocol Heparin Sodium (Porcine) (Heparin Sodium,Porcine 5,000 Unit/Ml Vial) 5,000 unit SUBCUT Q8H [facility] Last Admin: 05/25/25 01:28 Dose: 5,000 unit Magnesium Hydroxide (Milk Of Magnesia 30 Ml Oral.Susp) 30 ml PO DAILY PRN PRN Reason: Constipation Melatonin (Melatonin 3 Mg Tablet) 6 mg PO BEDTIME PRN PRN Reason: Insomnia Sodium Chloride (0.9 % Sodium Chloride Flush 3 Ml Syringe) 3 ml IVFLUSH QSHIFT [facility] Last Admin: 05/25/25 01:11 Dose: Not Given Home Medications ?Medication ?Instructions ?Recorded ?Confirmed ?Last Taken ?Type ascorbic acid (vitamin C) 1,000 mg 1 g PO DAILY 03/01/21 04/02/25 Unknown History tablet ferrous sulfate 325 mg (65 mg 325 mg PO DAILY 03/01/21 04/02/25 Unknown History iron) tablet (Feosol) magnesium oxide 400 mg PO DAILY 03/01/21 04/02/25 Unknown History vitamin B complex 1 tab PO DAILY 03/01/21 04/02/25 Unknown History cyanocobalamin (vitamin B-12) 250 0 mcg PO DAILY 06/23/21 04/02/25 Unknown History mcg tablet vitamin A 3,000 mcg (10,000 unit) 0 unit PO DAILY 06/23/21 04/02/25 Unknown History capsule brimonidine 0.2 % eye drops drp ophthalmic (eye) 06/04/24 04/02/25 Unknown History kelp PO 06/04/24 04/02/25 Unknown History vitamin E (dl, acetate) 450 mg 450 mg PO DAILY 06/04/24 04/02/25 Unknown History (1,000 unit) capsule latanoprost 0.005 % eye drops 1 drp ophthalmic (eye) BEDTIME 05/24/25 05/24/25 Unknown History Physical Exam Vital Signs: Vital Signs: Last Vital Signs Temp 98.2 F 05/25/25 07:25 Pulse 78 05/25/25 07:25 Resp 16 05/25/25 07:25 BP 170/78 H 05/25/25 07:25 Pulse Ox 96 05/25/25 07:25 O2 Del Method Room Air 05/25/25 07:25 BMI result Body Mass Index 16.9 Const: General: comfortable and no acute distress Orientation/consciousness: patient oriented x3 HEENT: Other: Unremarkable Head: Yes normal to inspection Neck: Neck: Yes normal visual inspection Chest: Chest palpation & inspection: normal inspection of the chest Resp: Auscultation: clear to auscultation bilaterally Cardio: Palpation: normal PMI Heart sounds: S1 normal heart sound present, S2 normal heart sound present, no gallops, Murmur heart sound present systolic II/ and no rubs GI: Palpation (GI): Soft to palpation Back/Spine/Pelvis: Other: unremarkable Skin: General skin exam: no rashes or lesions noted Neuro: General: patient oriented x3 Extrem: General: Yes normal to inspection Psych: Mental Status: mental status grossly normal Objective Labs and Meds 05/25/25 05:15 05/25/25 05:15 Lab results: Laboratory Results - last 24 hr 05/24/25 05/24/25 05/24/25 10:20 10:20 10:20 WBC 9.5 RBC 5.16 D Hgb 16.1 D Hct 49.1 D MCV 95.2 MCH 31.2 MCHC 32.8 RDW 13.2 Plt Count 196 MPV 11.0 Immature Gran % (Auto) 0.3 Neut % (Auto) 82.8 H Lymph % (Auto) 6.7 L [place] % (Auto) 9.9 Eos % (Auto) 0.0 Baso % (Auto) 0.3 Lymph # (Auto) 0.6 L [place] # (Auto) 0.9 Eos # (Auto) 0.0 Baso # (Auto) 0.0 Abs Immat Gran (auto) 0.03 Absolute Neuts (auto) 7.8 Absolute Nucleated RBC 0.000 Nucleated RBC % (auto) 0.0 Neutrophils % (Manual) Band Neutrophils % Lymphocytes % (Manual) Atypical Lymphs % (Man) Monocytes % (Manual) Basophils % (Manual) Abs Neuts (Manual) Lymphocytes # (Manual) Atyp Lymphs # (Manual) Monocytes # (Manual) Basophils # (Manual) Platelet Estimate Large Platelets Plt Morphology Comment RBC Morphology Ovalocytes [place] Cells PT 14.1 H INR 1.2 H VBG pH VBG pCO2 VBG pO2 VBG HCO3 VBG O2 Saturation VBG Base Excess Sodium 147 H Potassium 3.7 D Chloride 112 H Carbon Dioxide 23 Anion Gap 16 BUN 24 H Creatinine 1.02 Estim Creat Clear Calc 45.0 Estimated GFR > 60 Random Glucose 129 H Estimat Average Glucose Hemoglobin A1c % Lactic Acid 2.5 H* Lactic Acid F/U @ 2Hr Lactic Acid F/U @ 4Hr Calcium 8.9 Magnesium 2.3 Total Bilirubin 1.0 Direct Bilirubin 0.4 AST 61 H ALT 39 Alkaline Phosphatase 136 H Total Creatine Kinase 401 H Troponin I High Sens 34.0 D C-Reactive Protein 16.32 H Total Protein 7.3 Albumin 3.8 Triglycerides Cholesterol LDL Cholesterol, Calc HDL Cholesterol Lipase 13 Procalcitonin 0.18 TSH 1.06 Cancelled Urine Color Urine Appearance Urine pH Ur Specific [place] Urine Protein Urine Glucose (UA) Urine Ketones Urine Blood Urine Nitrite Ur Leukocyte Esterase Urine RBC Urine WBC Ur Squamous Epith Cells Urine Bacteria Hyaline Casts Urine Opiates Screen Ur Buprenorphine Scrn Ur Oxycodone Screen Urine Methadone Screen Urine Fentanyl Screen Ur Barbiturates Screen Ur Phencyclidine Scrn Ur Amphetamines Screen U Benzodiazepines Scrn Urine Cocaine Screen U Marijuana (THC) Screen Ethyl Alcohol < 10 Cancelled COVID-19 ([facility]) COVID-19 Clin Com 05/24/25 05/24/25 05/24/25 10:28 10:52 11:46 WBC RBC Hgb Hct MCV MCH MCHC RDW Plt Count MPV Immature Gran % (Auto) Neut % (Auto) Lymph % (Auto) [place] % (Auto) Eos % (Auto) Baso % (Auto) Lymph # (Auto) [place] # (Auto) Eos # (Auto) Baso # (Auto) Abs Immat Gran (auto) Absolute Neuts (auto) Absolute Nucleated RBC Nucleated RBC % (auto) Neutrophils % (Manual) Band Neutrophils % Lymphocytes % (Manual) Atypical Lymphs % (Man) Monocytes % (Manual) Basophils % (Manual) Abs Neuts (Manual) Lymphocytes # (Manual) Atyp Lymphs # (Manual) Monocytes # (Manual) Basophils # (Manual) Platelet Estimate Large Platelets Plt Morphology Comment RBC Morphology Ovalocytes [place] Cells PT INR VBG pH 7.47 H VBG pCO2 38 VBG pO2 38 VBG HCO3 27 H VBG O2 Saturation 60.0 VBG Base Excess 4.3 Sodium Potassium Chloride Carbon Dioxide Anion Gap BUN Creatinine Estim Creat Clear Calc Estimated GFR Random Glucose Estimat Average Glucose Hemoglobin A1c % Lactic Acid Lactic Acid F/U @ 2Hr Lactic Acid F/U @ 4Hr Calcium Magnesium Total Bilirubin Direct Bilirubin AST ALT Alkaline Phosphatase Total Creatine Kinase Troponin I High Sens C-Reactive Protein Total Protein Albumin Triglycerides Cholesterol LDL Cholesterol, Calc HDL Cholesterol Lipase Procalcitonin TSH Urine Color Yellow Urine Appearance Clear Urine pH 6.5 Ur Specific [place] >= 1.030 H Urine Protein 100 (2+) H Urine Glucose (UA) Negative Urine Ketones 15 Urine Blood Large (3+) H Urine Nitrite Negative Ur Leukocyte Esterase Negative Urine RBC >20 H Urine WBC 0-5 Ur Squamous Epith Cells 0-2 Urine Bacteria None Seen Hyaline Casts 0-2 Urine Opiates Screen Not Detected Ur Buprenorphine Scrn Not Detected Ur Oxycodone Screen Not Detected Urine Methadone Screen Not Detected Urine Fentanyl Screen Not Detected Ur Barbiturates Screen Not Detected Ur Phencyclidine Scrn Not Detected Ur Amphetamines Screen Not Detected U Benzodiazepines Scrn Not Detected Urine Cocaine Screen Not Detected U Marijuana (THC) Screen Not Detected Ethyl Alcohol COVID-19 ([facility]ELIX) Negative COVID-19 Clin Com See Note 05/24/25 05/24/25 05/25/25 12:46 14:57 05:15 WBC 7.1 RBC 4.65 Hgb 14.5 Hct 44.2 MCV 95.1 MCH 31.2 MCHC 32.8 RDW 13.4 Plt Count 176 MPV 11.5 Immature Gran % (Auto) Cancelled Neut % (Auto) Cancelled Lymph % (Auto) Cancelled [place] % (Auto) Cancelled Eos % (Auto) Cancelled Baso % (Auto) Cancelled Lymph # (Auto) Cancelled [place] # (Auto) Cancelled Eos # (Auto) Cancelled Baso # (Auto) Cancelled Abs Immat Gran (auto) Cancelled Absolute Neuts (auto) Cancelled Absolute Nucleated RBC 0.000 Nucleated RBC % (auto) 0.0 Neutrophils % (Manual) 86 H Band Neutrophils % 1 L Lymphocytes % (Manual) 5 L Atypical Lymphs % (Man) 1 Monocytes % (Manual) 6 Basophils % (Manual) 1 Abs Neuts (Manual) 6.2 Lymphocytes # (Manual) 0.4 L Atyp Lymphs # (Manual) 0.1 Monocytes # (Manual) 0.4 Basophils # (Manual) 0.1 Platelet Estimate NORMAL Large Platelets PRESENT Plt Morphology Comment NOTED RBC Morphology NOTED Ovalocytes 1+ (5-14) [place] Cells 2+ (3-5) PT INR VBG pH VBG pCO2 VBG pO2 VBG HCO3 VBG O2 Saturation VBG Base Excess Sodium 151 H Potassium 3.4 Chloride 118 H Carbon Dioxide 24 Anion Gap 12 BUN 26 H Creatinine 1.05 Estim Creat Clear Calc 42.1 Estimated GFR > 60 Random Glucose 96 Estimat Average Glucose 97 Hemoglobin A1c % 5.0 Lactic Acid Lactic Acid F/U @ 2Hr 2.6 H* Lactic Acid F/U @ 4Hr 1.7 Calcium 8.3 L D Magnesium Total Bilirubin Direct Bilirubin AST ALT Alkaline Phosphatase Total Creatine Kinase Troponin I High Sens C-Reactive Protein Total Protein Albumin Triglycerides 61 Cholesterol 136 LDL Cholesterol, Calc 73 HDL Cholesterol 51 Lipase Procalcitonin 0.16 TSH Urine Color Urine Appearance Urine pH Ur Specific [place] Urine Protein Urine Glucose (UA) Urine Ketones Urine Blood Urine Nitrite Ur Leukocyte Esterase Urine RBC Urine WBC Ur Squamous Epith Cells Urine Bacteria Hyaline Casts Urine Opiates Screen Ur Buprenorphine Scrn Ur Oxycodone Screen Urine Methadone Screen Urine Fentanyl Screen Ur Barbiturates Screen Ur Phencyclidine Scrn Ur Amphetamines Screen U Benzodiazepines Scrn Urine Cocaine Screen U Marijuana (THC) Screen Ethyl Alcohol COVID-19 ([facility]) COVID-19 Clin Com ECG Interpretation: EKG with atrial flutter versus coarse atrial fibrillation at 114/Min. Imaging Radiologist's impression: Impressions Head CT 05/24/25 10:10 IMPRESSION: Acute right MCA territory infarct/ischemia. Questionable microhemorrhages component. This critical result was discussed with the emergency department at 10:23 AM hours on May 24, 2025.. It was ascertained that the content and urgency of the report was understood at the time of direct communication. Electronically signed by: Fede Ashby MD 05/24/2025 10:33 AM EDT Head/Neck CTA 05/24/25 10:18 IMPRESSION: Acute right MCA territory infarct with decreased enhancement of the opercular branches and no definite main embolus on the CT angiogram. 3 x 2 mm nonruptured aneurysm, left ICA terminus. 60% stenosis secondary to calcified plaque, left ICA. No dissection. Emphysematous changes. Probable aspiration with questionable penetration. Status post left hemithyroidectomy and subcentimeter cystic nodule right thyroid lobe This critical test result is communicated to: Dr. Dee Sorenson at 11:16 AM on May 24, 2025 [facility]. Electronically signed by: Fede Ashby MD 05/24/2025 11:19 AM EDT RP Chest X-Ray 05/24/25 10:57 IMPRESSION: Cardiomegaly and mild pulmonary vascular congestion. Probable small left pleural effusion. Electronically signed by: Say Ugarte MD 05/24/2025 11:11 AM EDT RP Assessment and Plan (1) Atrial flutter with rapid ventricular response: Status: Acute (2) Acute CVA (cerebrovascular accident): Status: Acute Plan EKG from May 21 shows sinus bradycardia at 54/Min with prolonged MS at 260 milliseconds. Corrected QT is also slightly prolonged at 491 milliseconds. In the repeat EKG from this admission, he is in atrial flutter versus coarse atrial fibrillation at 114/Min. Head CTA with a acute right MCA territory infarct/ischemia. Questionable microhemorrhages. In the CTA component, left ICA aneurysm, 3/2 mm, nonruptured. 60% stenosis secondary to calcific plaque left ICA. With regard to the atrial flutter/ fibrillation, it seems that he was just in sinus bradycardia within the last few days. At that time, listed to be on metoprolol ER 50 mg daily. He is currently on carvedilol which is also an acceptable alternative. If LVEF is normal on the echocardiogram, can also use diltiazem. He needs an echocardiogram for cardiac function assessment. Ideally needs anticoagulation but I am not clear about the aneurysm/microhemorrhage is that is documented in the CTA and also with a history of hereditary hemorrhagic telangiectasia if any obvious contraindication to anticoagulation due to increased chance of major bleeds. We will need to verify this with Neurology/Hematology. Discussed with Dr. Silva. Procedures Date of Service Date of Service: 05/25/25
--- NOTE | 2025-05-25 10:29 | PHA.MEDREC ---
Pharmacy Consult ? Medication Reconciliation Pharmacy has completed the medication reconciliation.Med rec complete using pharmacy and medical record history
--- NOTE | 2025-05-25 11:08 | MHC.CLN ---
PT IS MODERATELY MALNOURISHED-QUALIFIES FOR NON SEVERE MALNUTRITION IN THE CONTEXT OF CHRONIC ILLNESS PT WITH MILDLY DEPLETED SUBCUTANEOUS FAT AND MUSCLE MASS WITH 9% NONSIGNIFICANT WT LOSS X 1YEAR DIET ADVANCED TO CARDIAC PUREED WITH HT LIQ-RECOMMEND LIBERALIZING DIET TO INCREASE KCALS (D/C CARDIAC) PT REPORTED INTOLERANCES TO DAIRY, SOME NUTS AND FATS RECOMMEND ADDING ENSURE CLEAR TID TO INCREASE KCALS (DOES NOT WANT REGULAR ENSURE) SUPPLEMENT TO PROVIDE 720KCALS, 24G PROTEIN MONITOR PO INTAKE AND ENCOURAGE SUPPLEMENTS
[2025-05-25] MEDS: 0.9 % Sodium Chloride Flush 3 ML SYRINGE IVFLUSH ×3 (11:24→20:58)
--- NOTE | 2025-05-25 11:27 | MHC.SL.SWA ---
Speech Pathologist Impression: Risk of Aspiration Due to: Moderate to severe oral pharyngeal dysphagia Dysphasia Diet Status: Liquid Consistency and Strategies for Safe Swallow: Liquid Intake Recommendation: Honey Thick Liquid Intake Strategies: Solid Food Consistency: Dietary Recommendations: Pureed (NDD1) Additional Modifications to Solid Foods: Oral Medication Intake: Crushed with Puree Please contact the pharmacy regarding appropriate crushable or liquid drug formulations that are available whenever modified delivery is recommended. Compensatory Strategies and Precautions to be Taken for Safe Swallow: Patient requires careful positioning at meals: Patient should be upright with HOB at 90 degrees, cue patient to bring head to midline before presenting food, or support/bolster so head is at midline and not tilted back. Patient requires 1-1 feeding, strict aspiration precautions. Discontinue feeding with coughing after swallow, wet' sounding vocal quality, increased upper airway congestion. With medication administration, follow crushed meds in puree by tsp, with sip/tsp of Honey Thick liquid to clear any residual in mouth. During meals, alternate liquids and solids. Supervision While Eating and Drinking for Safe Swallow: Total Assistance (1:1) Foods to Avoid: Swallowing Recommended Treatments: Compensatory strategies, Acute Rehab for Swallow/Speech following inpatient stay. Recommendation for Speech: Inpatient Speech Therapy Speech Therapy through Rehab Facility Comment: Patient presents with moderate to severe oral pharyngeal dysphagia and moderate to severe dysarthria. Patient has additional needs regarding positioning and assistance at meals due to level and severity of stroke affecting L side, oral motor function. Recommend Recommend START diet of Puree (NDD1) with HONEY THICK liquids (by tsp or controlled cup sip, no straws), Pills crushed in puree. Patient requires 1-1 feeding with strict aspiration precautions. Patient needs careful positioning, cuing at meals: Place patient's head of bed at full upright position (90 degrees), Patient tilts head upward, cue or reposition head to midline before presenting food. On administration of crushed pills in puree, follow with tsp/sip of honey thick liquid to clear any residual from mouth. MD, RD, RN notified by secure text of recommendation, with further 1-1 with RN in person. White board annotated in room re: diet. [facility]ING COACH will follow as inpatient M-F, Patient will need acute rehab for Speech/Swallow needs. Frequency/Duration: Date Range for Service Req: Timeline to reassess: Medical Technologist Prn Clinican/Clinical Fellow: No Supervisory Statement: I have reviewed and agree with the student/clinical fellow's documentation: N/A Speech Language Pathologist: Ana Nair M.A., [facility]
--- NOTE | 2025-05-25 13:45 | MHC.CM.PN ---
PT AND OT EVALUATED PATIENT AND RECOMMEND ACUTE REHAB. ACUTE REHAB REFERRALS SENT IN [facility], AWAITING BED OFFER. THIS CM MET WITH PATIENT TO COMPLETE HCP, IT IS NOW ON FILE.
--- NOTE | 2025-05-25 16:12 | P.PNIM_ITS ---
Subjective Subjective Date of Service: 05/25/25 Interval History: No new complaints today. The patient reports feeling well overall. Has persistent dense expressive aphasia, and dense left-sided neglect with right gaze preference. Left lower extremity moving well in bed, 4/5 Left upper extremity immobile; with dense hemiparesis 0/5. Review of Systems Review of Systems: Yes all other systems are reviewed and are negative Physical Exam 2 Exam: Exam: General: Alert, arousable, able to recognize examiner and follow commands. Speech is garbled but spontaneous and fluent. HEENT: Normocephalic, atraumatic, mucous membranes moist, EOMI, clear conjunctiva, oropharynx clear. Neck: Supple, no lymphadenopathy, no stiffness. Cardiac: Regular rate and rhythm, normal S1/S2, no murmurs/rubs/gallops. Lungs: Clear to auscultation bilaterally, no crackles or wheezes. Adomen: Soft, nontender, nondistended. Back: No CVA tenderness, no deformity. Extremities: No cyanosis, clubbing, or edema. Skin: Multiple sites of petechiae at the fingertips and toes; multiple telangiectasias noted throughout body & face Neurological: - Mental Status: Spontaneously arousable , recognizes examiner, follows commands. Speech spontaneous and fluent. - Cranial Nerves:II: Dense left hemianop zee III, IV, : Rightward gaze preference, EOMI otherwise normal V: Facial sensation normal VII: Left facial weakness VIII: Hearing intact IX, X: Palate elevates symmetrically XI: Shoulder shrug/head turn symmetric XII: Tongue midline, no atrophy/fasciculations - Motor: Unable to move left arm (0/5); left leg can be lifted against gravity (4/5). Moderate left-sided neglect. - Extrapyramidal: No rigidity, tremor, o r abnormal movements. - Speech: expressive aphasia with possib le receptive element Vital Signs: Vital Signs: Last Vital Signs Temp 98.7 F 05/25/25 11:24 Pulse 98 05/25/25 11:24 Resp 18 05/25/25 11:24 BP 157/78 H 05/25/25 11:24 Pulse Ox 96 05/25/25 11:24 O2 Del Method Room Air 05/25/25 11:24 BMI result Body Mass Index 18.0 Objective Data Active Medications Acetaminophen (Acetaminophen 325 Mg Tablet) 650 mg PO Q6H PRN PRN Reason: Pain, Mild 1-3,fever,headache Aspirin (Aspirin 81 Mg Tab.Chew) 81 mg PO DAILY [facility] Last Admin: 05/25/25 11:23 Dose: 81 mg Documented By: DEANA Atorvastatin Calcium (Atorvastatin Calcium 80 Mg Tablet) 80 mg PO BEDTIME [facility] Calcium Carbonate (Calcium Carbonate 750 Mg Tab.Chew) 750 mg PO Q4H PRN PRN Reason: Heartburn Carvedilol (Carvedilol 12.5 Mg Tablet) 12.5 mg PO BID [facility]; Protocol Last Admin: 05/25/25 11:23 Dose: 12.5 mg Documented By: DEANA Heparin Sodium (Porcine) (Heparin Sodium,Porcine 5,000 Unit/Ml Vial) 5,000 unit SUBCUT Q8H [facility] Last Admin: 05/25/25 11:23 Dose: 5,000 unit Documented By: DEANA Magnesium Hydroxide (Milk Of Magnesia 30 Ml Oral.Susp) 30 ml PO DAILY PRN PRN Reason: Constipation Melatonin (Melatonin 3 Mg Tablet) 6 mg PO BEDTIME PRN PRN Reason: Insomnia Sodium Chloride (0.9 % Sodium Chloride Flush 3 Ml Syringe) 3 ml IVFLUSH QSHIFT [facility] Last Admin: 05/25/25 11:24 Dose: 3 ml Documented By: DEANA Labs 05/25/25 05:15 05/25/25 05:15 Labs: Laboratory Results - last 24 hr 05/25/25 05:15 MCV 95.1 MCH 31.2 MCHC 32.8 RDW 13.4 Plt Count 176 MPV 11.5 Immature Gran % (Auto) Cancelled Neut % (Auto) Cancelled Lymph % (Auto) Cancelled [place]oup % (Auto) Cancelled Eos % (Auto) Cancelled Baso % (Auto) Cancelled Lymph # (Auto) Cancelled Troup # (Auto) Cancelled Eos # (Auto) Cancelled Baso # (Auto) Cancelled Abs Immat Gran (auto) Cancelled Absolute Neuts (auto) Cancelled Absolute Nucleated RBC 0.000 Nucleated RBC % (auto) 0.0 Neutrophils % (Manual) 86 H Band Neutrophils % 1 L Lymphocytes % (Manual) 5 L Atypical Lymphs % (Man) 1 Monocytes % (Manual) 6 Basophils % (Manual) 1 Abs Neuts (Manual) 6.2 Lymphocytes # (Manual) 0.4 L Atyp Lymphs # (Manual) 0.1 Monocytes # (Manual) 0.4 Basophils # (Manual) 0.1 Platelet Estimate NORMAL Large Platelets PRESENT Plt Morphology Comment NOTED RBC Morphology NOTED Ovalocytes 1+ (5-14) Deysi Cells 2+ (3-5) Anion Gap 12 Estim Creat Clear Calc 42.1 Estimated GFR > 60 Random Glucose 96 Estimat Average Glucose 97 Hemoglobin A1c % 5.0 Calcium 8.3 L D Triglycerides 61 Cholesterol 136 LDL Cholesterol, Calc 73 HDL Cholesterol 51 Procalcitonin 0.16 Microbiology Microbiology Results: Microbiology 05/24/25 10:52 Blood Culture - Preliminary Blood - Venous No growth after 24 hours. 05/24/25 10:22 Blood Culture - Preliminary Blood - Venous No growth after 24 hours. Assessment and Plan (1) Atrial flutter with rapid ventricular response: Status: Acute (2) Hypertension: Status: Acute (3) Thyroid goiter: Status: Acute (4) Acute CVA (cerebrovascular accident): Status: Acute (5) Peripheral neuropathy: Status: Acute (6) Hereditary hemorrhagic telangiectasia: Status: Acute Plan 75-year-old left-hand dominant male with a history of epilepsy, cerebellar ataxia, pheochromocytoma, hypertension, and vitamin B12 deficiency, presenting after being found down at home with unclear time of onset, now with dense left hemiparesis, right gaze preference, left hemianopsia, and moderate neglect, found to have a large right MCA territory infarct on imaging, complicated by new atrial flutter and dysphagia Acute Right MCA Territory Infarct (Ischemic Stroke) Large right MCA territory infarct, likely subacute (12?36 hours old), with dense left hemiplegia, right gaze preference, left hemianopsia, and neglect. Not a candidate for thrombolysis or thrombectomy due to unclear time of onset and absence of large vessel occlusion. PLAN * Admit to stroke unit/medicine service * ASA 300mg daily [place] --> 81mg OD PO * Atorvastatin 80mg OD PO once able to intake PO * Monitor neurological status closely (NIHSS, neuro checks) * Maintain permissive hypertension (goal SBP < 180 mmHg) * DVT prophylaxis with SCDs; avoid pharmacologic prophylaxis until hemorrhagic transformation is excluded * Swallow evaluation: NDD1 * oral care with moist swabs, consider early enteral access * Early physical, occupational, and speech therapy consults * Monitor for complications: aspiration, infection, cerebral edema, hemorrhagic transformation Atrial Flutter (New Onset) New atrial flutter with variable AV block, left axis deviation, and ST changes on EKG. No prior history of atrial flutter; possible cardioembolic source for stroke. Patient has history of HHT (hereditary hemorrhagic telangiectasia), and may represent a higher bleeding risk. Patient would benefit significantly from anticoagulation; especially if suspected cardioembolic CVA May require Watchman procedure PLAN * Telemetry monitoring * Cardiology consult for atrial flutter management and anticoagulation recommendations * Assess for rate vs. rhythm control as appropriate * Initiate anticoagulation for secondary stroke prevention (timing per neurology/cardiology, considering infarct size and risk of hemorrhagic transformation) * Continue patient metoprolol 50mg OD PO ER * Echocardiogram to assess for structural heart disease and intracardiac thrombus Dysphagia and Aspiration Risk Failed swallow evaluation; high risk for aspiration. * NPO -> NDD1 as per Speech and swallow * Oral care with moist swabs * Speech therapy to reassess swallowing * Consider early enteral feeding (NG or PEG) Hypertension History of uncontrolled hypertension; currently elevated BP, likely contributing to stroke risk. PLAN * Continue home antihypertensives as tolerated (amlodipine, metoprolol, etc.) * Maintain permissive hypertension in acute stroke phase (SBP < 180 mmHg) * Reassess BP goals after acute phase Secondary Stroke Prevention Multiple vascular risk factors (HTN, atrial flutter, possible carotid disease). PLAN * Atorvastatin 80mg OD PO * Antiplatelet therapy (hold if anticoagulation started) * Address modifiable risk factors: optimize BP, glucose, lipids * Smoking cessation counseling (former smoker) * Outpatient follow-up for carotid disease and aneurysm Carotid Artery Disease Intracranial Aneurysm 3 mm left ICA terminus aneurysm and 60% left ICA stenosis (calcified plaque) on imaging. PLAN * No acute intervention indicated for aneurysm or carotid stenosis at this time * Outpatient neurosurgery and vascular surgery follow-up for further evaluation and management * Monitor for symptoms of TIA or aneurysm rupture Seizure Disorder/Epilepsy History of epilepsy, no witnessed seizure activity during this admission. PLAN * Continue home antiepileptic regimen if applicable * Monitor for seizure activity * EEG if clinical suspicion arises Pheochromocytoma Remote history, unclear current activity. PLAN * Monitor for paroxysmal hypertension, tachycardia, or other symptoms * No acute management required unless symptomatic Malnutrition/Low BMI BMI 17.6, at risk for malnutrition, especially with NPO status. * Nutrition consult * Monitor prealbumin, albumin, and weight * Early enteral nutrition if unable to resume oral intake CHRONIC MEDICAL CONDITIONS Vitamin B12 deficiency Hereditary Hemorrhagic Telangiectasia Anxiety QUALITY METRICS - VTE:SCDs -> Heparin 5000 TID SQ - CODE STATUS:Full - DIET: NPO Total time managing care of this patient today: 35 minutes. Quality Stroke Does the patient have a stroke diagnosis?: Yes Reason for No Anti-thrombotic by Day Two: N/A - Med Ordered VTE Prior VTE?: No VTE Risk Level:: Medical - moderate - high VTE Device Contraindication: N/A - Device Ordered VTE Drug Contraindication: N/A - Med Ordered
--- NOTE | 2025-05-25 17:08 | PM.HEMONCCN ---
Subjective - Subjective Chief complaint: Consult for: Patient: new to practice Consult date: 05/25/25 Requesting Physician: [place]. Primary Care Provider: Ye Silveira MD Family Provider: Ye Silveira MD. Medical Summary: DIAGNOSIS: HHT. CVA. 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 He has a history of epilepsy (since his 20s or 30s), cerebellar ataxia, Hereditary hemorrhagic telangiectasia, pheochromocytoma, hypertension, vitamin B12 deficiency, and anxiety. He presented to the ED after being found down at home by a neighbor. The exact time of symptom onset is unclear; the patient reports symptoms may have started on Saturday, Saturday, or Saturday, but is unable to specify. No collateral history is available. EMS found the patient on the ground, soiled with urine, with garbled speech and left-sided weakness. On arrival, he was alert but difficult to understand. He was last seen in the ED on 05/21/2025 for abdominal pain, lightheadedness, and transient speech/thinking difficulties, but was discharged after negative imaging and resolution of symptoms. On this presentation, the patient was noted to have garbled speech, left upper extremity paralysis, and mild ataxia of both lower extremities. Neurology evaluation revealed dense left hemianopsia, rightward gaze preference, left facial weakness, inability to move the left arm, and moderate left-sided neglect. There was no evidence of seizure activity or trauma. Imaging (CT and CTA) revealed a large right MCA territory infarct, likely subacute (estimated 12?36 hours old), with decreased enhancement of the opercular branches of the right MCA, but no large vessel occlusion or definite embolus. 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 Speech and swallow evaluation indicates the patient is currently unable to swallow safely. Medical History:) Lower urinary tract symptoms Compression fx, thoracic spine Microscopic hematuria Nocturia Pheochromocytoma Uncontrolled hypertension Screening for prostate cancer Screening for diabetes mellitus Finger numbness Right wrist pain Numbness and tingling in both hands Hematuria Fracture of triquetral bone of wrist Dizziness Urinary urgency Wrist pain, acute Femoral fracture Frequency of micturition Medicare annual wellness visit, initial Cataract Seizure disorder Hypertension Vitamin B12 deficiency Anxiety Hereditary hemorrhagic telangiectasia Surgical History:) History of lobectomy of thyroid History of colonoscopy History of hip surgery History of hydrocelectomy H/O brain surgery Family History: Mother CAD (coronary artery disease) Social History:) Alcohol intake: never Comment: I don't really have a number; low Patient Tobacco Use Status: Former Tobacco user Tobacco use type: Cigarette Years Smoked: 1994 stopped e-Cigarette/Vaping Use: Never Used Review of Systems Review of Systems: Unobtainable due to mental condition and Unobtainable due to mental status Review of Systems - Neurologic Reports system reviewed and no additional complaints, except as documented, Reports as per [facility] Oncology Screenings - ECOG Performance Status ECOG Performance Status: 3 [facility] Medical History: Medical History (Last Reviewed 05/25/25 @ 09:38 by Garima Del Toro PT) Anxiety Cataract Compression fx, thoracic spine Dizziness Femoral fracture Finger numbness Fracture of triquetral bone of wrist Frequency of micturition Hematuria Hereditary hemorrhagic telangiectasia Hypertension Lower urinary tract symptoms Medicare annual wellness visit, initial Microscopic hematuria Nocturia Numbness and tingling in both hands Pheochromocytoma Right wrist pain Screening for diabetes mellitus Screening for prostate cancer Seizure disorder Uncontrolled hypertension Urinary urgency Vitamin B12 deficiency Wrist pain, acute Functional capacity: wheelchair bound Family History: Family History (Last Reviewed 05/25/25 @ 01:01 by Devin Quinones RN) Mother CAD (coronary artery disease) Surgical History: Surgical History (Last Reviewed 05/25/25 @ 09:38 by Garima Del Toro PT) H/O brain surgery History of colonoscopy History of hip surgery History of hydrocelectomy History of lobectomy of thyroid Social History: Social History (Last Reviewed 12/06/23 @ 15:29 by YESSENIA Bolton) Living Situation History: Household Members: None Housing: House Do you presently have visiting nurse or other home services: No Tobacco History: Patient Tobacco Use Status: Former Tobacco user Tobacco use type: Cigarette Years Smoked: 1994 stopped e-Cigarette/Vaping Use: Never Used Second Hand Smoke Exposure: No Advance Directives: Advance Directives Date on File: 06/23/21 Occupation Assessmet: service: No Current occupational status: retired Current occupation: left hand dominant Home Medications and Allergies Current Medications: Current Medications Acetaminophen (Acetaminophen 325 Mg Tablet) 650 mg PO Q6H PRN PRN Reason: Pain, Mild 1-3,fever,headache Aspirin (Aspirin 81 Mg Tab.Chew) 81 mg PO DAILY [facility] Last Admin: 05/25/25 11:23 Dose: 81 mg Atorvastatin Calcium (Atorvastatin Calcium 80 Mg Tablet) 80 mg PO BEDTIME [facility] Calcium Carbonate (Calcium Carbonate 750 Mg Tab.Chew) 750 mg PO Q4H PRN PRN Reason: Heartburn Carvedilol (Carvedilol 12.5 Mg Tablet) 12.5 mg PO BID [facility]; Protocol Last Admin: 05/25/25 11:23 Dose: 12.5 mg Heparin Sodium (Porcine) (Heparin Sodium,Porcine 5,000 Unit/Ml Vial) 5,000 unit SUBCUT Q8H [facility] Last Admin: 05/25/25 11:23 Dose: 5,000 unit Magnesium Hydroxide (Milk Of Magnesia 30 Ml Oral.Susp) 30 ml PO DAILY PRN PRN Reason: Constipation Melatonin (Melatonin 3 Mg Tablet) 6 mg PO BEDTIME PRN PRN Reason: Insomnia Sodium Chloride (0.9 % Sodium Chloride Flush 3 Ml Syringe) 3 ml IVFLUSH QSHIFT [facility] Last Admin: 05/25/25 11:24 Dose: 3 ml Home Medications ?Medication ?Instructions ?Recorded ?Confirmed ?Type ascorbic acid (vitamin C) 1,000 mg 1 g PO DAILY 03/01/21 05/25/25 History tablet ferrous sulfate 325 mg (65 mg 325 mg PO DAILY 03/01/21 05/25/25 History iron) tablet (Feosol) magnesium oxide 400 mg PO DAILY 03/01/21 05/25/25 History vitamin B complex 1 tab PO DAILY 03/01/21 05/25/25 History cyanocobalamin (vitamin B-12) 250 0 mcg PO DAILY 06/23/21 04/02/25 History mcg tablet vitamin A 3,000 mcg (10,000 unit) 0 unit PO DAILY 06/23/21 04/02/25 History capsule brimonidine 0.2 % eye drops 1 drp ophthalmic (eye) BID 06/04/24 05/25/25 History kelp PO 06/04/24 04/02/25 History vitamin E (dl, acetate) 450 mg 450 mg PO DAILY 06/04/24 05/25/25 History (1,000 unit) capsule latanoprost 0.005 % eye drops 1 drp ophthalmic (eye) BEDTIME 05/24/25 05/25/25 History Allergies Allergy/AdvReac Type Severity Reaction Status Date / Time hydrochlorothiazide Allergy Unknown Unknown Verified 05/24/25 10:40 lisinopril Allergy Unknown Unknown Verified 05/24/25 10:40 Physical Exam Vital signs: Vital Signs Temp 98.4 F 05/25/25 16:00 Pulse 88 05/25/25 16:00 Resp 18 05/25/25 16:00 BP 123/66 05/25/25 16:00 Pulse Ox 98 05/25/25 16:00 O2 Del Method Room Air 05/25/25 16:00 Intake & Output 05/24/25 05/25/25 05/25/25 18:59 06:59 18:59 Intake Total 1150 / 1150 Output Total 300 / 300 100 / 100 Balance 1150 / 850 -300 / 850 -100 / -100 Urine Output (Average ml/kg/hr) 0.51 0.17 Intake: Intake, IV Amount 1150 / 1150 Acetaminophen 1,000 mg In 100 100 / 100 ml @ 400 mls/hr IV ONCE ONE Rx# :[id number] Lactated Ringers 1,000 ml @ 999 1000 / 1000 mls/hr IV .Q1H1M ONE Rx#: [id number] cefTRIAXone sodium 2 gm In 0.9 50 / 50 % Sodium Chloride 50 ml @ 100 mls/hr IV ONCE ONE Rx#: [id number] Output: Output, Urine Amount 300 / 300 100 / 100 Other: NPO Yes Lunch % Eaten 100% Eating (Feeding) Ability 1:1 Feed Urine purewick Urine Color Yellow Weight 49 kg 49 kg Weight 49 kg - Constitutional Present: moderate distress - Routine HEENT Exam Head: Present: normal inspection, normocephalic Eye: Present: normal appearance ENT: Present: mucous membranes moist - Routine Neck Exam Present: supple - Routine Respiratory Exam Present: CTAB - Routine Cardiovascular Exam Cardiovascular: Present: RRR, S1, S2 - Routine Abdominal Exam Present: soft, nontender Hem/Onc Consult Result - Labs CBC & Chem 7: 05/28/25 06:37 05/28/25 06:37 Labs: Short CBC 05/25/25 Range/Units 05:15 WBC 7.1 (4.8-10.8) X10*3/uL Hgb 14.5 (14.0-18.0) g/dl Hct 44.2 (42.0-52.0) % Plt Count 176 (160-400) X10*3/uL [facility] 05/25/25 05:15 Sodium 151 H Potassium 3.4 Chloride 118 H Carbon Dioxide 24 BUN 26 H Creatinine 1.05 Calcium 8.3 L D Assessment and Plan Patient Active problem list reviewed?: Yes (1) Hereditary hemorrhagic telangiectasia Status: Acute Assessment and plan: This is an unfortunate 75-year-old gentleman, with history of HHT, who presented with a stroke. CTA of the head and neck: Acute right MCA territory infarct with decreased enhancement of the opercular branches and no definite main embolus on the CT angiogram. 3 x 2 mm nonruptured aneurysm, left ICA terminus. 60% stenosis secondary to calcified plaque, left ICA. No dissection. Emphysematous changes. Probable aspiration with questionable penetration. Status post left hemithyroidectomy and subcentimeter cystic nodule right thyroid lobe Chest x-ray: Cardiomegaly and mild pulmonary vascular congestion. Probable small left pleural effusion. Stroke in the context of hereditary hemorrhagic telangiectasia is most often caused by paradoxical emboli, traveling through abnormal blood vessels in the lungs.(pulmonary AVMs.) Other less common causes include gas emboli, or hyperviscosity from blood shunting. Patients with HHT have a higher risk of stroke than the general population. Question is if patients with HHT can be anticoagulated. It is okay to anticoagulate patients for stroke, however careful management is required, due to increased risk of bleeding, particularly epistaxis and GI bleeding. The new oral anticoagulants, DOACs may be preferred over warfarin due to a low risk of intracranial hemorrhage. THAN: Pre screening for pulmonary AVMs is required before starting anticoagulation. Recommend a CTA, of the chest. If no AVMs are seen we can proceed with anticoagulation. Would use that for the short term, as a bridge, till a Watchman procedure would be feasible. Thank you for consult, CC: Po. ADDENDUM: CAT SCAN OF CHEST: PE protocol: 1. No evidence of pulmonary emboli. 2. No evidence of vascular malformations in the lungs. 3. Mild to moderate emphysema. Marked cardiomegaly. 4. Findings consistent with the findings consistent with HHT involvement in the liver as described. 5. UPPER ABDOMEN: There is dilatation of the hepatic artery and dilatation of multiple hepatic arterial branches in the left lobe of the liver. Small blushes of contrast enhancement are seen in the left lobe, consistent with telangiectasias and shunting. No early filling of the hepatic or portal veins is identified. The spleen is normal in size. The adrenals are unremarkable. There are bilateral renal cysts measuring up to 4.5 cm on the right and 5.1 cm on the left. BONES AND SOFT TISSUES: Unremarkable. - Time Spent With Patient Time Spent with Patient (in minutes): 30
--- NOTE | 2025-05-25 19:42 | PC.NURSE ---
Patient Belongings Patient requested belongings around 17:30, this RN went through belongings documentation where it was charted being sent to security, called security and no belongings were found in [place] or safe, security assisted this RN and searched room and patient belongings closet on the unit with no luck, HCP Jhonathan called around 19:30 where he stated he took everything home with him this AM.
[2025-05-26] VITALS (8 sets, daily range): BP systolic 114–151; BP diastolic 55–69; PULSE 60–88; RESP 14–18; TEMP 36.3–37.7; O2SAT 93–100
[2025-05-26 07:27] LABS: Hematocrit 40.2 % (42.0-52.0); Hemoglobin 13.4 g/dl (14.0-18.0); Mean Corpuscular HGB Conc 33.3 g/dl (31.0-36.0); Mean Corpuscular Hemoglobin 31.2 pg (27.0-33.0); Mean Corpuscular Volume 93.5 fL (80.0-98.0); NRBC Abs Auto 0.000 X10*3/uL (0.0-0.012); NRBC Pct Auto 0.0 /100WBC (0.0-0.2); Platelet Count 165 X10*3/uL (160-400); Red Blood Count 4.30 X10*6/uL (4.60-5.80); White Blood Count 5.1 X10*3/uL (4.8-10.8)
[2025-05-26 07:46] LABS: Anion Gap 13 (12-20); Blood Urea Nitrogen 40 mg/dL (9-16); Calcium 7.7 mg/dL (8.4-10.2); Carbon Dioxide 22 mmol/L (22-29); Chloride 118 mmol/L (96-108); Creatinine Clr Calc Pharmacy 41.3; Estimated Glomerular Filt Rate > 60; Potassium 2.9 mmol/L (3.3-5.1); Sodium 150 mmol/L (135-145)
[2025-05-26 08:03] LABS: Magnesium 2.1 mg/dL (1.6-2.6)
[2025-05-26] MEDS: Potassium Chloride/H20 10 MEQ/100 ML PIGGYBACK 100 MEQ IV ×4 (08:12→12:55)
[2025-05-26] MEDS: 0.9 % Sodium Chloride Flush 3 ML SYRINGE IVFLUSH ×2 (08:18→21:47)
[2025-05-26 09:01] LABS: Band Neutrophils Percent 6 % (3-5); Lymphocytes Absolute Manual 0.5 X10*3/uL (1.2-4.9); Lymphocytes Percent Manual 10 % (20-40); Monocytes Absolute Manual 0.6 X10*3/uL (0.1-1.2); Monocytes Percent Manual 11 % (2-11); Neutrophils Absolute Manual 4.0 X10*3/uL (2.0-8.3); Neutrophils Percent Manual 73 % (45-73)
[2025-05-26 09:02] LABS: Burr Cells 2+ (3-5) /OIF; Ovalocytes 1+ (5-14) /OIF; RBC Morphology NOTED
[2025-05-26] MEDS: iohexoL 350 MG/ML 100 ML INFUS..BTL IV (09:52)
--- NOTE | 2025-05-26 10:59 | MHC.CM.PN ---
Addendum entered by Ana Conrad RN 05/26/25 14:39: PT PREFERS [facility] HIS BROTHER/HCP LIVES IN [facility] UPDATED. Original Note: EMR REVIEWED, PT W/ACUTE CVA/A FLUTTER/R/O IIH, PER HOSPITALIST PT WILL REMAIN INPT FOR CONT'D TX OF A [facility], [facility] FOLLOWING, [facility] REVIEWING, CM TO MEET W/PT TO DETERMINE PREFERRED FACILITY AND CONT TO FOLLOW.
--- NOTE | 2025-05-26 13:35 | MHC.CLN ---
CONSULT AND F/U PT IS MODERATELY MALNOURISHED-QUALIFIES FOR NON SEVERE MALNUTRITION IN THE CONTEXT OF CHRONIC ILLNESS PT WITH MILDLY DEPLETED SUBCUTANEOUS FAT AND MUSCLE MASS WITH 9% NONSIGNIFICANT WT LOSS X 1YEAR PO INTAKE 100% X1 MEAL DIET RX: PUREED WITH HT LIQ-COMMERCIAL INTERN FOLLOWING PT REPORTED INTOLERANCES TO DAIRY, SOME NUTS AND FATS RECEIVING ENSURE CLEAR TID TO INCREASE KCALS (DOES NOT WANT REGULAR ENSURE) SUPPLEMENT PROVIDES 720KCALS, 24G PROTEIN MONITOR PO INTAKE AND ENCOURAGE SUPPLEMENTS
--- NOTE | 2025-05-26 13:53 | P.PNIM_ITS ---
Subjective Subjective Date of Service: 05/26/25 Interval History: Communicating today with much improved speech as compared to yesterday. Speech is clear, with notable improvement in word-finding difficulty. Able to communicate more spontaneously, with reduced drowsiness. Plan for CTA chest to evaluate for pulmonary AVMs, as per Hematology recommendations-input is greatly appreciated. 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 Guidance from hematology is to start patient on apixaban 5 mg b.i.d. p.o. - this is to be a temporary bridge until a Watchman procedure can ideally be performed - which will be coordinated with Cardiology. Review of Systems Review of Systems: Yes all other systems are reviewed and are negative Physical Exam 2 Exam: Exam: General: Alert, arousable, able to recognize examiner and follow commands. Speech is garbled but spontaneous and fluent; great improvement noted. HEENT: Normocephalic, atraumatic, mucous membranes moist, EOMI, clear conjunctiva, oropharynx clear. Neck: Supple, no lymphadenopathy, no stiffness. Cardiac: Regular rate and rhythm, normal S1/S2, no murmurs/rubs/gallops. Lungs: Clear to auscultation bilaterally, no crackles or wheezes. Adomen: Soft, nontender, nondistended. Back: No CVA tenderness, no deformity. Extremities: No cyanosis, clubbing, or edema. Skin: Multiple sites of petechiae at the fingertips and toes; multiple telangiectasias noted throughout body & face Neurological: - Mental Status: Spontaneously arousable , recognizes examiner, follows commands. Speech spontaneous and fluent. - Cranial Nerves:II: Dense left hemianop siaIII, IV, : Rightward gaze preference, EOMI otherwise normal V: Facial sensation normal VII: Left facial weakness VIII: Hearing intact IX, X: Palate elevates symmetrically XI: Shoulder shrug/head turn symmetric XII: Tongue midline, no atrophy/fasciculations - Motor: Unable to move left arm (0/5); left leg can be lifted against gravity (4/5). Moderate left-sided neglect. - Extrapyramidal: No rigidity, tremor, o r abnormal movements. - Speech: expressive aphasia improved wi thout receptive element Vital Signs: Vital Signs: Last Vital Signs Temp 98.9 F 05/26/25 12:04 Pulse 76 05/26/25 12:04 Resp 18 05/26/25 12:04 BP 141/63 H 05/26/25 12:04 Pulse Ox 100 05/26/25 12:04 O2 Del Method Nasal Cannula 05/26/25 12:04 O2 Flow Rate 2 05/26/25 12:04 BMI result Body Mass Index 18.0 Objective Data Active Medications Acetaminophen (Acetaminophen 325 Mg Tablet) 650 mg PO Q6H PRN PRN Reason: Pain, Mild 1-3,fever,headache Last Admin: 05/25/25 21:20 Dose: 650 mg Documented By: REAGAN Aspirin (Aspirin 81 Mg Tab.Chew) 81 mg PO DAILY [facility] Last Admin: 05/26/25 08:25 Dose: 81 mg Documented By: SCOTT Atorvastatin Calcium (Atorvastatin Calcium 80 Mg Tablet) 80 mg PO BEDTIME [facility] Last Admin: 05/25/25 20:58 Dose: 80 mg Documented By: REAGAN Calcium Carbonate (Calcium Carbonate 750 Mg Tab.Chew) 750 mg PO Q4H PRN PRN Reason: Heartburn Carvedilol (Carvedilol 12.5 Mg Tablet) 12.5 mg PO BID [facility]; Protocol Last Admin: 05/26/25 08:26 Dose: 12.5 mg Documented By: SCOTT Heparin Sodium (Porcine) (Heparin Sodium,Porcine 5,000 Unit/Ml Vial) 5,000 unit SUBCUT Q8H [facility] Last Admin: 05/26/25 08:32 Dose: 5,000 unit Documented By: SCOTT Dextrose (D5w) 500 mls @ 75 mls/hr IVCONT .Q6H40M [facility] Stop: 05/26/25 14:39 Last Admin: 05/26/25 13:08 Dose: 75 mls/hr Documented By: SCOTT Magnesium Hydroxide (Milk Of Magnesia 30 Ml Oral.Susp) 30 ml PO DAILY PRN PRN Reason: Constipation Melatonin (Melatonin 3 Mg Tablet) 6 mg PO BEDTIME PRN PRN Reason: Insomnia Sodium Chloride (0.9 % Sodium Chloride Flush 3 Ml Syringe) 3 ml IVFLUSH QSHIFT [facility] Last Admin: 05/26/25 08:18 Dose: 3 ml Documented By: SCOTT Labs 05/26/25 07:04 05/26/25 07:04 Labs: Laboratory Results - last 24 hr 05/26/25 07:04 MCV 93.5 MCH 31.2 MCHC 33.3 RDW 13.2 Plt Count 165 MPV 10.5 Immature Gran % (Auto) Cancelled Neut % (Auto) Cancelled Lymph % (Auto) Cancelled [place] % (Auto) Cancelled Eos % (Auto) Cancelled Baso % (Auto) Cancelled Lymph # (Auto) Cancelled [place] # (Auto) Cancelled Eos # (Auto) Cancelled Baso # (Auto) Cancelled Abs Immat Gran (auto) Cancelled Absolute Neuts (auto) Cancelled Absolute Nucleated RBC 0.000 Nucleated RBC % (auto) 0.0 Neutrophils % (Manual) 73 Band Neutrophils % 6 H Lymphocytes % (Manual) 10 L Monocytes % (Manual) 11 Abs Neuts (Manual) 4.0 Lymphocytes # (Manual) 0.5 L Monocytes # (Manual) 0.6 Platelet Estimate NORMAL Plt Morphology Comment NORMAL RBC Morphology NOTED Ovalocytes 1+ (5-14) Deysi Cells 2+ (3-5) Anion Gap 13 Estim Creat Clear Calc 41.3 Estimated GFR > 60 Random Glucose 129 H Calcium 7.7 L D Magnesium 2.1 Microbiology Microbiology Results: Microbiology 05/24/25 10:52 Blood Culture - Preliminary Blood - Venous No growth after 48 hours. 05/24/25 10:22 Blood Culture - Preliminary Blood - Venous No growth after 48 hours. Assessment and Plan (1) Atrial flutter: Status: Acute (2) Atrial flutter with rapid ventricular response: Status: Acute (3) Hypertension: Status: Acute (4) Cerebral infarction: Status: Acute (5) Acute CVA (cerebrovascular accident): Status: Acute (6) Hereditary hemorrhagic telangiectasia: Status: Acute Plan 75-year-old left-hand dominant male with a history of epilepsy, cerebellar ataxia, pheochromocytoma, hypertension, and vitamin B12 deficiency, presenting after being found down at home with unclear time of onset, now with dense left hemiparesis, right gaze preference, left hemianopsia, and moderate neglect, found to have a large right MCA territory infarct on imaging, complicated by new atrial flutter and dysphagia Acute Right MCA Territory Infarct (Ischemic Stroke) Large right MCA territory infarct, likely subacute (12?36 hours old), with dense left hemiplegia, right gaze preference, left hemianopsia, and neglect. Not a candidate for thrombolysis or thrombectomy due to unclear time of onset and absence of large vessel occlusion. PLAN * Admit to stroke unit/medicine service * ASA 300mg daily MO --> 81mg OD PO * Atorvastatin 80mg OD PO once able to intake PO * Monitor neurological status closely (NIHSS, neuro checks) * Maintain permissive hypertension (goal SBP < 180 mmHg) * DVT prophylaxis with SCDs; avoid pharmacologic prophylaxis until hemorrhagic transformation is excluded * Swallow evaluation: NDD1 * oral care with moist swabs, consider early enteral access * Early physical, occupational, and speech therapy consults * Monitor for complications: aspiration, infection, cerebral edema, hemorrhagic transformation Atrial Flutter (New Onset) New atrial flutter with variable AV block, left axis deviation, and ST changes on EKG. No prior history of atrial flutter; possible cardioembolic source for stroke. Patient has history of HHT (hereditary hemorrhagic telangiectasia), and may represent a higher bleeding risk. Patient would benefit significantly from anticoagulation; especially if suspected cardioembolic CVA May require Watchman procedure PLAN * Telemetry monitoring * Cardiology consult for atrial flutter management and anticoagulation recommendations * Assess for rate vs. 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 Last episode of heavy epistaxis occurring 10 years ago. No anticoagulation in the past. In the setting of the patient's atrial flutter, with new acute right MCA territory infarct, concerns or for cardioembolic CVA. In the setting, Hematology was consulted-recommendations greatly appreciated. CTA chest was obtained to reveal possibility of pulmonary AVMs-this was -ve. CTA chest revealed some hepatic changes consistent with age HTN, such as hepatic artery dilation and branch dilation. As per recommendations from Hematology; can start apixaban 5 mg b.i.d. p.o. to reduce recurrent CVA with a flutter. PLAN * Hematology input greatly appreciated * Apixaban 5 mg b.i.d. p.o. - we will run this by Neurology to ensure safety of starting this medication * Further coordination with Cardiology for possible Watchman procedure placement in the setting of apixaban bridge * Monitor for changes in mental status or regression of examination that would suggest hemorrhagic conversion of ischemic CVA Dysphagia and Aspiration Risk Failed swallow evaluation; high risk for aspiration. * NPO -> NDD1 as per Speech and swallow * Oral care with moist swabs * Speech therapy to reassess swallowing * Consider early enteral feeding (NG or PEG) Hypertension History of uncontrolled hypertension; currently elevated BP, likely contributing to stroke risk. PLAN * Continue home antihypertensives as tolerated (amlodipine, metoprolol, etc.) * Maintain permissive hypertension in acute stroke phase (SBP < 180 mmHg) * Reassess BP goals after acute phase Secondary Stroke Prevention Multiple vascular risk factors (HTN, atrial flutter, possible carotid disease). PLAN * Atorvastatin 80mg OD PO * Antiplatelet therapy (hold if anticoagulation started) * Address modifiable risk factors: optimize BP, glucose, lipids * Smoking cessation counseling (former smoker) * Outpatient follow-up for carotid disease and aneurysm Carotid Artery Disease Intracranial Aneurysm 3 mm left ICA terminus aneurysm and 60% left ICA stenosis (calcified plaque) on imaging. PLAN * No acute intervention indicated for aneurysm or carotid stenosis at this time * Outpatient neurosurgery and vascular surgery follow-up for further evaluation and management * Monitor for symptoms of TIA or aneurysm rupture Seizure Disorder/Epilepsy History of epilepsy, no witnessed seizure activity during this admission. PLAN * Continue home antiepileptic regimen if applicable * Monitor for seizure activity * EEG if clinical suspicion arises Pheochromocytoma Remote history, unclear current activity. PLAN * Monitor for paroxysmal hypertension, tachycardia, or other symptoms * No acute management required unless symptomatic Malnutrition/Low BMI BMI 17.6, at risk for malnutrition, especially with NPO status. * Nutrition consult * Monitor prealbumin, albumin, and weight * Early enteral nutrition if unable to resume oral intake CHRONIC MEDICAL CONDITIONS Vitamin B12 deficiency Anxiety QUALITY METRICS - VTE: Heparin 5000 TID SQ --> Apixaban 5mg BID PO - CODE STATUS:Full - DIET: NDD1 Total time managing care of this patient today: 45 minutes. Quality Stroke Does the patient have a stroke diagnosis?: Yes Reason for No Anti-thrombotic by Day Two: N/A - Med Ordered VTE Prior VTE?: No VTE Risk Level:: Medical - moderate - high VTE Device Contraindication: N/A - Device Ordered VTE Drug Contraindication: N/A - Med Ordered
[2025-05-26 14:11] LABS: Anion Gap 12 (12-20); Blood Urea Nitrogen 39 mg/dL (9-16); Calcium 7.9 mg/dL (8.4-10.2); Carbon Dioxide 20 mmol/L (22-29); Chloride 116 mmol/L (96-108); Creatinine Clr Calc Pharmacy 39.1; Estimated Glomerular Filt Rate > 60; Potassium 3.9 mmol/L (3.3-5.1); Sodium 144 mmol/L (135-145)
--- NOTE | 2025-05-26 14:46 | MHC.SL.SWA ---
Speech Pathologist Impression: Moderate oral phase dysphagia d/t L sided facial weakness, mild pharyngeal dysphagia Risk of Aspiration Due to: Significance of L sided facial weakness Acute phase of recovery s/p CVA Dysphasia Diet Status: Recc NDD1 with NTL. 1:1 feeding, aspiration precautions (upright positioning, slow pacing) NDD1 (purees) diet and NTL by straw, cue pt to take small sips (if he forgets) use oral swab to sweep L interior cheek after eating to clear residual (pooled/pocketed) material from mouth, assist pt in wiping L side of mouth when anterior loss occurs meds crushed in puree, follow with sips of liquid to clear, oral swab if needed Liquid Consistency and Strategies for Safe Swallow: Liquid Intake Recommendation: [place] Thick Liquid Intake Strategies: Small Sips Solid Food Consistency: Dietary Recommendations: Pureed (NDD1) Additional Modifications to Solid Foods: Oral Medication Intake: Crushed with Puree Please contact the pharmacy regarding appropriate crushable or liquid drug formulations that are available whenever modified delivery is recommended. Compensatory Strategies and Precautions to be Taken for Safe Swallow: Sitting Upright (90 deg) Liquids from Straw Small Bites and Sips Alternate Liquids/Solids Rate of Ingestion Change Supervision While Eating and Drinking for Safe Swallow: Total Assistance (1:1) Foods to Avoid: Swallowing Recommended Treatments: Oral Motor Exercises Thermal Stimulation Compens. Strategy Educat. Recommendation for Speech: Inpatient Speech Therapy Speech Therapy through Rehab Facility Comment: Pt seen for dysphagia treatment. Pt presents with moderate flaccid L sided facial posture, limited ROM of tongue in moving to L side and decreased sensation of L side of mouth, resulting in poor lip control during PO intake, anterior loss of fluids by cup sip, pooling of material in L buccal cavity, and intermittent collecting of residual mucous on L side of mouth. Pt is able to follow cues, has improved motor speech coordination and is showing more awareness of L sided movements with reminders. Pt encouraged to use effortful swallow, lingual stretch to L side, lingual sweep and rote motor speech sequences to improve OM functioning during initial phase of recovery. Pt trialed with sips of HTL, tps of HTL, controlled sips of NTL by straw, tsps of puree and consecutive sips of NTL by straw. Pt tolerated all trials without overt s/s of aspiration, voicing remained clear s/p swallow. Mild to moderate anterior loss and pooling of residual material evident on all trials d/t L sided facial weakness. MD and RN notified of [facility] changes/safety precautions via secure text. [facility] continues to provide treatment, pt will need ongoing [facility] intervention to address dysphagia and dysarthria at the next setting. Frequency/Duration: Daily M-F Date Range for Service Req: Timeline to reassess: Editor Managing Director Clinican/Clinical Fellow: No Supervisory Statement: I have reviewed and agree with the student/clinical fellow's documentation: N/A Speech Language Pathologist: Nicole Daniel M.S., [facility]
--- NOTE | 2025-05-26 14:54 | MHC.SLORD ---
Speech Language Pathology Order Status: Dysarthria remains mild d/t L sided facial weakness. Pt is intelligible in connected speech, pt is good candidate for OM strengthening exercises to improve motor speech production at the next level of care. Inpatient POST FORM REMOVER continues to treat for dysphagia management, relative to strengthening/promoting resumption of oropharyngeal swallow.
--- NOTE | 2025-05-26 17:50 | HO.WOUND ---
Wound Consult: Initial 75yr old? [place] [facility] [place] - See progress notes and H&P for detailed history.? Wound consult placed for Buttock.? Patient agreeable to assessment and photo documentation.? Buttock / Coccyx Etiology: ??Redness no PI noted to area Wound Bed: intact red blanchable tissue Drainage / Odor: None Goals of Treatment: ? Foam dressing to aid in pressure redistribution Recommendations: 1. Turn and Reposition every 2 hours and as needed for patient comfort.? Use pillows or wedges to support off loading positions. 2. Off Load all bony prominences with use of pillows and heel boots if needed.? Apply Preventative foams where needed. ? 3. Monitor for incontinence and moisture control, use barrier creams when needed for prevention and treatment. 4. Provide adequate and supplemental nutrition.? 5. Continue low air loss mattress. 6. When applicable maintain blood glucose levels per Providers order. Coccyx - Off Load Pressure with Q2 hr turns and use of pillows - Routine cleansing.? Apply skin prep allow to dry.? Cover with foam dressing to aid in off loading and protection from friction. Change every 3 days and PRN. Re-consult wound care Nurse for wound deterioration or wound changes.
[2025-05-27 03:43] VITALS: BP 142/74; PULSE 66; RESP 16; TEMP 36.2; O2SAT 97
[2025-05-27 07:28] LABS: Hematocrit 39.2 % (42.0-52.0); Hemoglobin 13.1 g/dl (14.0-18.0); Mean Corpuscular HGB Conc 33.4 g/dl (31.0-36.0); Mean Corpuscular Hemoglobin 31.6 pg (27.0-33.0); Mean Corpuscular Volume 94.7 fL (80.0-98.0); NRBC Abs Auto 0.000 X10*3/uL (0.0-0.012); NRBC Pct Auto 0.0 /100WBC (0.0-0.2); Platelet Count 159 X10*3/uL (160-400); Red Blood Count 4.14 X10*6/uL (4.60-5.80); White Blood Count 5.1 X10*3/uL (4.8-10.8)
[2025-05-27 07:31] LABS: Anion Gap 10 (12-20); Blood Urea Nitrogen 30 mg/dL (9-16); Calcium 7.7 mg/dL (8.4-10.2); Carbon Dioxide 22 mmol/L (22-29); Chloride 114 mmol/L (96-108); Creatinine Clr Calc Pharmacy 51.4; Estimated Glomerular Filt Rate > 60; Potassium 3.4 mmol/L (3.3-5.1); Sodium 143 mmol/L (135-145)
[2025-05-27 07:33] VITALS: BP 137/66; PULSE 77; RESP 18; TEMP 36.4; O2SAT 98
[2025-05-27 07:49] LABS: Band Neutrophils Percent 8 % (3-5); Basophils Abs Manual 0.1 X10*3/uL (0.0-0.2); Basophils Percent Manual 1 % (0-2); Eosinophils Absolute Manual 0.2 X10*3/uL (0.0-0.4); Eosinophils Percent Manual 4 % (0-4); Lymphocytes Absolute Manual 0.4 X10*3/uL (1.2-4.9); Lymphocytes Percent Manual 8 % (20-40); Metamyelocytes Absolute 0.1 X10*3/uL; Metamyelocytes Percent 1 %; Monocytes Absolute Manual 0.8 X10*3/uL (0.1-1.2); Monocytes Percent Manual 16 % (2-11); Neutrophils Absolute Manual 3.6 X10*3/uL (2.0-8.3); Neutrophils Percent Manual 62 % (45-73)
[2025-05-27 07:51] LABS: Burr Cells 1+ (0-2) /OIF; Large Platelet PRESENT; Ovalocytes 1+ (5-14) /OIF; RBC Morphology NOTED; Toxic Granulation PRESENT
[2025-05-27] MEDS: 0.9 % Sodium Chloride Flush 3 ML SYRINGE IVFLUSH ×3 (08:41→21:50)
[2025-05-27 11:08] VITALS: BP 134/64; PULSE 71; RESP 18; TEMP 36.4; O2SAT 98
--- NOTE | 2025-05-27 11:33 | MHC.SL.SWA ---
Speech Pathologist Impression: Risk of Aspiration Due to: Dysphasia Diet Status: Continue on PUREE (NDD1) with [place] THICK liquids, by single, controlled straw sip or controlled cup sip, pills crushed in puree. Please CHECK that liquids that come on tray are at NECTAR THICK consistency and not too thin. Continue 1-1 feeding. Liquid Consistency and Strategies for Safe Swallow: Liquid Intake Recommendation: [place] Thick Liquid Intake Strategies: Small Sips Solid Food Consistency: Dietary Recommendations: Pureed (NDD1) Additional Modifications to Solid Foods: Oral Medication Intake: Crushed with Puree Please contact the pharmacy regarding appropriate crushable or liquid drug formulations that are available whenever modified delivery is recommended. Compensatory Strategies and Precautions to be Taken for Safe Swallow: Sitting Upright (90 deg) Liquids from Straw Small Bites and Sips Alternate Liquids/Solids Rate of Ingestion Change Supervision While Eating and Drinking for Safe Swallow: Total Assistance (1:1) Foods to Avoid: Swallowing Recommended Treatments: Oral Motor Exercises Thermal Stimulation Compens. Strategy Educat. Recommendation for Speech: Inpatient Speech Therapy Speech Therapy through Rehab Facility Comment: Patient seen at breakfast this morning for assessment of toleration of current diet at meal and oral motor/speech TX. At meal, Patient had clear Ensure marked [place] Thick as a drink, this was trialed with straw, with patient unfortunately immediately and repetitively coughing after swallow. CODE OFFICIAL then checked consistency of the container which was not at expected thickness and was closer to a regular thin texture. CODE OFFICIAL then thickened drink to correct consistency (nectar) and made second attempt with straw, cuing patient to take small individual sips. With appropriate thickness and this level of cuing patient tolerated without any additional signs of aspiration. Patient also tolerated puree meal, with no evidence of oral pocketing or residual after swallow (improved oral management). Patient is appropriately responsive and clearly comprehending cuing and instruction. After meal was completed, patient completed a series of oral motor exercises (labial smile pucker, tongue lateralization and resistance exercises) as well as speech (p-t-k exercises, slow clear repetition of buttercup , slow clear articulation of days of week, count to ten, all with >80% accuracy with moderate cuing). Patient expressing sadness and frustration today, however he was very responsive, polite and encouraged by therapist regarding his steady progress. Pt needs assist to eat d/t L sided hemiplegia, recc 1-1 feeding with strict aspiration precautions. CODE OFFICIAL will follow as inpatient M-F, Patient will need acute rehab for Speech/Swallow needs. Frequency/Duration: Date Range for Service Req: Timeline to reassess: Master Cosmetologist Clinican/Clinical Fellow: No Supervisory Statement: I have reviewed and agree with the student/clinical fellow's documentation: N/A Speech Language Pathologist: Ana Nair M.A., CCC-CODE OFFICIAL
--- NOTE | 2025-05-27 14:21 | P.PNIM_ITS ---
Subjective Subjective Date of Service: 05/27/25 Interval History: No new complaints or issues today. The patient feels well overall. Speech progressively improving. CT brain without performed as per Neurology recommendations. Evaluating for possible hemorrhagic conversion of ischemic CVA-stability scan CT brain revealing no hemorrhagic conversion of the area of infarct, with [id number] right to left midline shift that is stable Review of Systems Review of Systems: Yes all other systems are reviewed and are negative Physical Exam 2 Exam: Exam: General: Alert, arousable, able to recognize examiner and follow commands. Speech is garbled but spontaneous and fluent; improvement noted. HEENT: Normocephalic, atraumatic, mucous membranes moist, EOMI, clear conjunctiva, oropharynx clear. Neck: Supple, no lymphadenopathy, no stiffness. Cardiac: Regular rate and rhythm, normal S1/S2, no murmurs/rubs/gallops. Lungs: Clear to auscultation bilaterally, no crackles or wheezes. Adomen: Soft, nontender, nondistended. Back: No CVA tenderness, no deformity. Extremities: No cyanosis, clubbing, or edema. Skin: Multiple sites of petechiae at the fingertips and toes; multiple telangiectasias noted throughout body & face Neurological: - Mental Status: Spontaneously arousable , recognizes examiner, follows commands. Speech spontaneous and fluent. - Cranial Nerves:II: Dense left hemianop siaIII, IV, : Rightward gaze preference, EOMI otherwise normalV: Facial sensation normal VII: Left facial weakness VIII: Hearing intact IX, X: Palate elevates symmetrically XI: Shoulder shrug/head turn symmetric XII: Tongue midline, no atrophy/fasciculations - Motor: Unable to move left arm (0/5); left leg can be lifted against gravity (4/5). Moderate left-sided neglect. - Extrapyramidal: No rigidity, tremor, o r abnormal movements. - Speech: expressive aphasia improved wi thout receptive element Vital Signs: Vital Signs: Last Vital Signs Temp 97.6 F 05/27/25 11:08 Pulse 71 05/27/25 11:08 Resp 18 05/27/25 11:08 BP 134/64 05/27/25 11:08 Pulse Ox 98 05/27/25 11:08 O2 Del Method Room Air 05/27/25 11:08 O2 Flow Rate 2 10/29/25 12:04 BMI result Body Mass Index 18.0 Objective Data Active Medications Acetaminophen (Acetaminophen 325 Mg Tablet) 650 mg PO Q6H PRN PRN Reason: Pain, Mild 1-3,fever,headache Last Admin: 05/25/25 21:20 Dose: 650 mg Documented By: REAGAN Aspirin (Aspirin 81 Mg Tab.Chew) 81 mg PO DAILY [facility] Last Admin: 05/27/25 08:41 Dose: 81 mg Documented By: WILLAM Atorvastatin Calcium (Atorvastatin Calcium 80 Mg Tablet) 80 mg PO BEDTIME [facility] Last Admin: 05/26/25 21:47 Dose: 80 mg Documented By: REAGAN Calcium Carbonate (Calcium Carbonate 750 Mg Tab.Chew) 750 mg PO Q4H PRN PRN Reason: Heartburn Carvedilol (Carvedilol 12.5 Mg Tablet) 12.5 mg PO BID [facility]; Protocol Last Admin: 05/27/25 08:41 Dose: 12.5 mg Documented By: WILLAM Heparin Sodium (Porcine) (Heparin Sodium,Porcine 5,000 Unit/Ml Vial) 5,000 unit SUBCUT Q8H [facility] Last Admin: 05/27/25 08:41 Dose: 5,000 unit Documented By: WILLAM Magnesium Hydroxide (Milk Of Magnesia 30 Ml Oral.Susp) 30 ml PO DAILY PRN PRN Reason: Constipation Melatonin (Melatonin 3 Mg Tablet) 6 mg PO BEDTIME PRN PRN Reason: Insomnia Sodium Chloride (0.9 % Sodium Chloride Flush 3 Ml Syringe) 3 ml IVFLUSH QSHIFT [facility] Last Admin: 05/27/25 08:41 Dose: 3 ml Documented By: WILLAM Labs 05/27/25 06:28 05/27/25 06:28 Labs: Laboratory Results - last 24 hr 05/27/25 06:28 MCV 94.7 MCH 31.6 MCHC 33.4 RDW 13.1 Plt Count 159 L MPV 11.2 Immature Gran % (Auto) Cancelled Neut % (Auto) Cancelled Lymph % (Auto) Cancelled [place] % (Auto) Cancelled Eos % (Auto) Cancelled Baso % (Auto) Cancelled Lymph # (Auto) Cancelled [place] # (Auto) Cancelled Eos # (Auto) Cancelled Baso # (Auto) Cancelled Abs Immat Gran (auto) Cancelled Absolute Neuts (auto) Cancelled Absolute Nucleated RBC 0.000 Nucleated RBC % (auto) 0.0 Neutrophils % (Manual) 62 Band Neutrophils % 8 H Lymphocytes % (Manual) 8 L Monocytes % (Manual) 16 H Eosinophils % (Manual) 4 Basophils % (Manual) 1 Metamyelocytes % 1 Abs Neuts (Manual) 3.6 Lymphocytes # (Manual) 0.4 L Monocytes # (Manual) 0.8 Eosinophils # (Manual) 0.2 Basophils # (Manual) 0.1 Metamyelocytes # 0.1 Toxic Granulation PRESENT Platelet Estimate NORMAL Large Platelets PRESENT Plt Morphology Comment NOTED RBC Morphology NOTED Ovalocytes 1+ (5-14) Deysi Cells 1+ (0-2) Anion Gap 10 L Estim Creat Clear Calc 51.4 Estimated GFR > 60 Random Glucose 101 Calcium 7.7 L Microbiology Microbiology Results: Microbiology 05/24/25 10:52 Blood Culture - Preliminary Blood - Venous No growth after 48 hours. 05/24/25 10:22 Blood Culture - Preliminary Blood - Venous No growth after 48 hours. Assessment and Plan (1) Atrial flutter with rapid ventricular response: Status: Acute (2) Cerebral infarction: Status: Acute (3) Acute CVA (cerebrovascular accident): Status: Acute (4) Hereditary hemorrhagic telangiectasia: Status: Acute Plan 75-year-old left-hand dominant male with a history of epilepsy, cerebellar ataxia, pheochromocytoma, hypertension, and vitamin B12 deficiency, presenting after being found down at home with unclear time of onset, now with dense left hemiparesis, right gaze preference, left hemianopsia, and moderate neglect, found to have a large right MCA territory infarct on imaging, complicated by new atrial flutter and dysphagia Acute Right MCA Territory Infarct (Ischemic Stroke) Large right MCA territory infarct, likely subacute (12?36 hours old), with dense left hemiplegia, right gaze preference, left hemianopsia, and neglect. Not a candidate for thrombolysis or thrombectomy due to unclear time of onset and absence of large vessel occlusion. Neurology recommending holding off AC for at least [address] brain without IV contrast -ve for for hemorrhagic conversion PLAN * Admit to stroke unit/medicine service * ASA 81mg OD PO * Atorvastatin 80mg OD PO once able to intake PO * Monitor neurological status closely (NIHSS, neuro checks) * Maintain permissive hypertension (goal SBP < 180 mmHg) * DVT prophylaxis with heparin 5000 t.i.d. SBO * Swallow evaluation: NDD1 * oral care with moist swabs, consider early enteral access * Early physical, occupational, and speech therapy consults * Monitor for complications: aspiration, infection, cerebral edema, hemorrhagic transformation Atrial Flutter (New Onset) New atrial flutter with variable AV block, left axis deviation, and ST changes on EKG. No prior history of atrial flutter; possible cardioembolic source for stroke. Patient has history of HHT (hereditary hemorrhagic telangiectasia), and may represent a higher bleeding risk. Patient would benefit significantly from anticoagulation; especially if suspected cardioembolic CVA May require Watchman procedure Neurology recommending holding off AC for at least [address] brain without IV contrast -ve for for hemorrhagic conversion PLAN * Telemetry monitoring * Cardiology consult for atrial flutter management and anticoagulation recommendations * Assess for rate vs. 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 Last episode of heavy epistaxis occurring 10 years ago. No anticoagulation in the past. In the setting of the patient's atrial flutter, with new acute right MCA territory infarct, concerns or for cardioembolic CVA. In the setting, Hematology was consulted-recommendations greatly appreciated. CTA chest was obtained to reveal possibility of pulmonary AVMs-this was -ve. CTA chest revealed some hepatic changes consistent with age HTN, such as hepatic artery dilation and branch dilation. As per recommendations from Hematology; can start apixaban 5 mg b.i.d. p.o. to reduce recurrent CVA with a flutter. Neurology recommending holding off AC for at least [address] brain without IV contrast -ve for for hemorrhagic conversion PLAN * Hematology input greatly appreciated * Neurology reccomending holding off AC for at least 1 week (no apixaban for now) * Further coordination with Cardiology for possible Watchman procedure placement in the setting of apixaban bridge * Monitor for changes in mental status or regression of examination that would suggest hemorrhagic conversion of ischemic CVA Dysphagia and Aspiration Risk Failed swallow evaluation; high risk for aspiration. * NPO -> NDD1 as per Speech and swallow * Oral care with moist swabs * Speech therapy to reassess swallowing * Consider early enteral feeding (NG or PEG) Hypertension History of uncontrolled hypertension; currently elevated BP, likely contributing to stroke risk. PLAN * Continue home antihypertensives as tolerated (amlodipine, metoprolol, etc.) * Maintain permissive hypertension in acute stroke phase (SBP < 180 mmHg) * Reassess BP goals after acute phase Secondary Stroke Prevention Multiple vascular risk factors (HTN, atrial flutter, possible carotid disease). PLAN * Atorvastatin 80mg OD PO * Address modifiable risk factors: optimize BP, glucose, lipids * Smoking cessation counseling (former smoker) * Outpatient follow-up for carotid disease and aneurysm Carotid Artery Disease Intracranial Aneurysm 3 mm left ICA terminus aneurysm and 60% left ICA stenosis (calcified plaque) on imaging. PLAN * No acute intervention indicated for aneurysm or carotid stenosis at this time * Outpatient neurosurgery and vascular surgery follow-up for further evaluation and management * Monitor for symptoms of TIA or aneurysm rupture Seizure Disorder/Epilepsy History of epilepsy, no witnessed seizure activity during this admission. PLAN * Continue home antiepileptic regimen if applicable * Monitor for seizure activity * EEG if clinical suspicion arises Pheochromocytoma Remote history, unclear current activity. PLAN * Monitor for paroxysmal hypertension, tachycardia, or other symptoms * No acute management required unless symptomatic Malnutrition/Low BMI BMI 17.6, at risk for malnutrition, especially with NPO status. * Nutrition consult * Monitor prealbumin, albumin, and weight * Early enteral nutrition if unable to resume oral intake CHRONIC MEDICAL CONDITIONS Vitamin B12 deficiency Anxiety QUALITY METRICS - VTE: Heparin 5000 TID SQ - CODE STATUS:Full - DIET: NDD1 Total time managing care of this patient today: 45 minutes. Quality Stroke Does the patient have a stroke diagnosis?: Yes Reason for No Anti-thrombotic by Day Two: N/A - Med Ordered VTE Prior VTE?: No VTE Risk Level:: Medical - moderate - high VTE Device Contraindication: N/A - Device Ordered VTE Drug Contraindication: N/A - Med Ordered
[2025-05-27 15:20] VITALS: BP 141/68; PULSE 77; RESP 18; TEMP 36.6; O2SAT 99
[2025-05-27 19:47] VITALS: BP 145/65; PULSE 70; RESP 18; TEMP 37.1; O2SAT 97
[2025-05-27 21:40] VITALS: BP 144/66; PULSE 75
[2025-05-28] VITALS (7 sets, daily range): BP systolic 109–145; BP diastolic 59–68; PULSE 66–87; RESP 16–18; TEMP 36.3–36.9; O2SAT 92–99
[2025-05-28 07:38] LABS: Hematocrit 37.9 % (42.0-52.0); Hemoglobin 12.8 g/dl (14.0-18.0); Mean Corpuscular HGB Conc 33.8 g/dl (31.0-36.0); Mean Corpuscular Hemoglobin 31.6 pg (27.0-33.0); Mean Corpuscular Volume 93.6 fL (80.0-98.0); NRBC Abs Auto 0.000 X10*3/uL (0.0-0.012); NRBC Pct Auto 0.0 /100WBC (0.0-0.2); Platelet Count 174 X10*3/uL (160-400); Red Blood Count 4.05 X10*6/uL (4.60-5.80); White Blood Count 5.9 X10*3/uL (4.8-10.8)
[2025-05-28 07:47] LABS: Anion Gap 9 (12-20); Blood Urea Nitrogen 23 mg/dL (9-16); Calcium 7.6 mg/dL (8.4-10.2); Carbon Dioxide 22 mmol/L (22-29); Chloride 116 mmol/L (96-108); Creatinine Clr Calc Pharmacy 58.9; Estimated Glomerular Filt Rate > 60; Potassium 3.3 mmol/L (3.3-5.1); Sodium 144 mmol/L (135-145)
[2025-05-28 08:03] LABS: Band Neutrophils Percent 2 % (3-5); Eosinophils Absolute Manual 0.2 X10*3/uL (0.0-0.4); Eosinophils Percent Manual 3 % (0-4); Lymphocytes Absolute Manual 0.7 X10*3/uL (1.2-4.9); Lymphocytes Percent Manual 12 % (20-40); Metamyelocytes Absolute 0.1 X10*3/uL; Metamyelocytes Percent 1 %; Monocytes Absolute Manual 0.6 X10*3/uL (0.1-1.2); Monocytes Percent Manual 11 % (2-11); Neutrophils Absolute Manual 4.3 X10*3/uL (2.0-8.3); Neutrophils Percent Manual 71 % (45-73)
[2025-05-28 08:09] LABS: Toxic Granulation PRESENT
[2025-05-28 08:10] LABS: RBC Morphology NORMAL
[2025-05-28] MEDS: 0.9 % Sodium Chloride Flush 3 ML SYRINGE IVFLUSH (09:44)
--- NOTE | 2025-05-28 10:34 | P.CONGS_ITS ---
History of Present Illness Consult details Consult date: 05/28/25 Reason for consult: other (Carotid stenosis) Narrative: 75-year-old gentleman with a history of epilepsy presented to the hospital with altered mental status left-sided weakness and slurred speech. He reports that the symptoms began Saturday or Saturday this past weekend but is unable to clearly identify date of actual event. He presented to the emergency room and upon workup he had a CT of the head which demonstrated a large right MCA territory infarct. Upon imaging of the neck with CTA it demonstrated 60% stenosis of the left ICA. He now presents to us for vascular evaluation. Review of Systems 2 Review of Systems: Yes all other systems are reviewed and are negative Constitutional: Constitutional: Reports no additional constitutional complaints ENT: Reports Normal hearing present Cardiovascular: Cardiovascular: Denies chest pain, Denies chest pain at rest, Denies chest pain with activity and Denies pedal edema Respiratory: Respiratory: Denies cough Gastrointestinal: Gastrointestinal: Denies abdominal pain Musculoskeletal: Musculoskeletal: Denies abnormal gait, Denies muscle cramps and Denies radiating pain into limb Integumentary/Breasts: Skin/Breast: Denies skin ulcer and Denies wounds Neurologic: Reports Normal hearing present and Denies abnormal gait Psychiatric: Psychiatric: Reports no additional psychiatric complaints PMFSH Past Medical History Medical History Lower urinary tract symptoms Compression fx, thoracic spine Microscopic hematuria Nocturia Pheochromocytoma Uncontrolled hypertension Screening for prostate cancer Screening for diabetes mellitus Finger numbness Right wrist pain Numbness and tingling in both hands Hematuria Fracture of triquetral bone of wrist Dizziness Urinary urgency Wrist pain, acute Femoral fracture Frequency of micturition Medicare annual wellness visit, initial Cataract Seizure disorder Hypertension Vitamin B12 deficiency Anxiety Hereditary hemorrhagic telangiectasia Family History Family History Mother CAD (coronary artery disease) Surgical History Surgical History History of lobectomy of thyroid History of colonoscopy History of hip surgery History of hydrocelectomy H/O brain surgery Social History Social History Household Members: None Housing: House Do you presently have visiting nurse or other home services: No Alcohol intake: never Comment: I don't really have a number; low Patient Tobacco Use Status: Former Tobacco user Tobacco use type: Cigarette Years Smoked: 1994 stopped Smoked in Last 30 Days: Yes e-Cigarette/Vaping Use: Never Used Second Hand Smoke Exposure: No Use of substances other than those prescribed or required for medical reasons: No Currently Displaying Signs/Symptoms of Drug Intoxication Withdrawal: No Advance Directives: Yes Advance Directives on File: Yes Advance Directives Date on File: 06/23/21 Do you have a plan to hurt others: No Plan Recently lost weight without trying: Yes How much weight loss: 2-13 pounds Nutrition Risks: Dental problems, Difficulty chewing and Difficulty swallowing service: No Current occupational status: retired Current occupation: left hand dominant Cognitive needs: No Hearing needs: No Vision needs: No Meds Allergies Allergy/AdvReac Type Severity Reaction Status Date / Time hydrochlorothiazide Allergy Unknown Unknown Verified 05/24/25 10:40 lisinopril Allergy Unknown Unknown Verified 05/24/25 10:40 Active Medications: Current Medications Acetaminophen (Acetaminophen 325 Mg Tablet) 650 mg PO Q6H PRN PRN Reason: Pain, Mild 1-3,fever,headache Last Admin: 05/25/25 21:20 Dose: 650 mg Aspirin (Aspirin 81 Mg Tab.Chew) 81 mg PO DAILY [facility] Last Admin: 05/28/25 09:36 Dose: 81 mg Atorvastatin Calcium (Atorvastatin Calcium 80 Mg Tablet) 80 mg PO BEDTIME [facility] Last Admin: 05/27/25 21:40 Dose: 80 mg Calcium Carbonate (Calcium Carbonate 750 Mg Tab.Chew) 750 mg PO Q4H PRN PRN Reason: Heartburn Carvedilol (Carvedilol 25 Mg Tablet) 25 mg PO BID [facility]; Protocol Last Admin: 05/28/25 09:36 Dose: 25 mg Heparin Sodium (Porcine) (Heparin Sodium,Porcine 5,000 Unit/Ml Vial) 5,000 unit SUBCUT Q8H [facility] Last Admin: 05/28/25 09:36 Dose: 5,000 unit Magnesium Hydroxide (Milk Of Magnesia 30 Ml Oral.Susp) 30 ml PO DAILY PRN PRN Reason: Constipation Melatonin (Melatonin 3 Mg Tablet) 6 mg PO BEDTIME PRN PRN Reason: Insomnia Sodium Chloride (0.9 % Sodium Chloride Flush 3 Ml Syringe) 3 ml IVFLUSH QSHIFT [facility] Last Admin: 05/28/25 09:44 Dose: 3 ml Home Medications ?Medication ?Instructions ?Recorded ?Confirmed ?Last Taken ?Type ascorbic acid (vitamin C) 1,000 mg 1 g PO DAILY 05/25/25 Unknown History tablet ferrous sulfate 325 mg (65 mg 325 mg PO DAILY 03/01/21 05/25/25 Unknown History iron) tablet (Feosol) magnesium oxide 400 mg PO DAILY 03/01/21 Unknown History vitamin B complex 1 tab PO DAILY 03/01/2104/29 Unknown History cyanocobalamin (vitamin B-12) 250 0 mcg PO DAILY 06/2304/02/25 Unknown History mcg tablet vitamin A 3,000 mcg (10,000 unit) 0 unit PO DAILY 05/3004/02/25 Unknown History capsule brimonidine 0.2 % eye drops 1 drp ophthalmic (eye) BID 06/04/24 05/25/25 Unknown History kelp PO 06/04/24 04/02/25 Unknown History vitamin E (dl, acetate) 450 mg 450 mg PO DAILY 4 05/25/25 Unknown History (1,000 unit) capsule latanoprost 0.005 % eye drops 1 drp ophthalmic (eye) B EDTIME 05/24/25 05/25/25 Unknown History Physical Exam 2 Vital Signs: Vital Signs: Last Vital Signs Temp 97.5 F 05/28/25 08:00 Pulse 76 05/28/25 08:00 Resp 18 05/28/25 08:00 BP 143/68 H 05/28/25 08:00 Pulse Ox 92 05/28/25 08:00 O2 Del Method Room Air 05/28/25 08:00 O2 Flow Rate 2 05/26/25 12:04 BMI result Body Mass Index 18.0 Const: General: cooperative, healthy appearing and comfortable O rientation/consciousness: oriented to person, oriented to place and oriented to time HEENT: Head: Yes normal to inspection Neck: Neck: Yes normal visual inspection Carotids: no bruits Chest: Chest palpation & inspection: normal inspection of the chest Resp: Effort & Inspection: normal respiratory effort and able to speak in complete sentences Auscultation: clear to auscultation bilaterally, no crackles, no rales, no rhonchi and no wheezes Cardio: Rate: regular rate Rhythm: regular rhythm Heart sounds: S1 normal heart sound present and S2 normal heart sound present Bruits: no carotid bruits Peripheral pulses: Peripheral pulses 2+ throughout GI: Inspection: Yes normal to inspection Skin: Wounds: no wounds Hair: normal Neuro: Other: Obvious speech disturbance and left-sided weakness General: oriented to person, oriented to place and oriented to time C ranial nerves: Yes CN's II-XII intact bilaterally and Yes Normal hearing present Cognition (Neuro): normal cognition Extrem: Other: venous exam: No significant superficial varicosities or spider telangiectasias, minimal edema General: No clubbing, No cyanosis and No edema Psych: Appearance: grossly normal Mental Status: mental status grossly normal Speech and movement: Normal speech and movement present Results Labs 05/28/25 06:37 05/28/25 06:37 Labs: Abnormal lab results 05/28/25 Range/Units 06:37 RBC 4.05 L (4.60-5.80) X10*6/uL Hgb 12.8 L (14.0-18.0) g/dl Hct 37.9 L (42.0-52.0) % Band Neutrophils % 2 L (3-5) % Lymphocytes % (Manual) 12 L (20-40) % Lymphocytes # (Manual) 0.7 L (1.2-4.9) X10*3/uL Chloride 116 H (96-108) mmol/L Anion Gap 9 L (12-20) BUN 23 H (9-16) mg/dL Calcium 7.6 L (8.4-10.2) mg/dL Short CBC 05/28/25 Range/Units 06:37 WBC 5.9 (4.8-10.8) X10*3/uL Hgb 12.8 L (14.0-18.0) g/dl Hct 37.9 L (42.0-52.0) % Plt Count 174 (160-400) X10*3/uL BMP 05/28/25 06:37 Sodium 144 Potassium 3.3 Chloride 116 H Carbon Dioxide 22 BUN 23 H Creatinine 0.75 Calcium 7.6 L Urine 05/24/25 Range/Units 11:46 Urine Color Yellow Urine Appearance Clear Urine pH 6.5 (5.0-9.0) Ur Specific [place] >= 1.030 H (1.005-1.025) Urine Protein 100 (2+) H (Neg-Trace) mg/dL Urine Glucose (UA) Negative (Negative) mg/dL All other labs normal. Assessment and Plan (1) Left carotid stenosis: Status: Acute Plan In short patient does have high-grade left carotid stenosis. The patient will need to be surveilled as an outpatient. I do not believe that the left-sided carotid stenosis is associated with a right-sided infarct. Continue medical and neurologic workup. Once again happy to see him as an outpatient. Thank you for allowing us to assist in his care. Procedures Date of Service Date of Service: 05/28/25
--- NOTE | 2025-05-28 11:16 | MHC.CLN ---
F/U PT IS MODERATELY MALNOURISHED-QUALIFIES FOR NON SEVERE MALNUTRITION IN THE CONTEXT OF CHRONIC ILLNESS SEE ASSESSMENT DATED 05/25/25 PO INTAKE 50-100% WITH X1 REFUSAL DIET RX: PUREED WITH NT LIQ-VENTILATED RIB FITTER FOLLOWING RECEIVING ENSURE CLEAR TID TO INCREASE KCALS (DOES NOT WANT REGULAR ENSURE) SUPPLEMENT PROVIDES 720KCALS, 24G PROTEIN WITH 100% ACCEPTANCE CONTINUE TO MONITOR PO INTAKE AND ENCOURAGE SUPPLEMENTS
--- NOTE | 2025-05-28 12:36 | MHC.SL.SWA ---
Speech Pathologist Impression: Risk of Aspiration Due to: Dysphasia Diet Status: Continue on PUREE (NDD1) with NECTAR THICK liquids, by single, controlled straw sip or controlled cup sip, pills crushed in puree. Please CHECK that liquids that come on tray are at NECTAR THICK consistency and not too thin. Continue 1-1 feeding. Liquid Consistency and Strategies for Safe Swallow: Liquid Intake Recommendation: Shelby Thick Liquid Intake Strategies: Small Sips Solid Food Consistency: Dietary Recommendations: Pureed (NDD1) Additional Modifications to Solid Foods: Oral Medication Intake: Crushed with Puree Please contact the pharmacy regarding appropriate crushable or liquid drug formulations that are available whenever modified delivery is recommended. Compensatory Strategies and Precautions to be Taken for Safe Swallow: Sitting Upright (90 deg) Liquids from Straw Small Bites and Sips Alternate Liquids/Solids Rate of Ingestion Change Supervision While Eating and Drinking for Safe Swallow: Total Assistance (1:1) Foods to Avoid: Swallowing Recommended Treatments: Oral Motor Exercises Thermal Stimulation Compens. Strategy Educat. Recommendation for Speech: Inpatient Speech Therapy Speech Therapy through Rehab Facility Comment: Patient presents with moderate to severe oral pharyngeal dysphagia and moderate to severe dysarthria. Patient has additional needs regarding positioning and assistance at meals due to level and severity of stroke affecting L side, oral motor function. Improvements evident. Patient seen in room this morning for dysphagia treatment. Patient see OOB in chair with RN in room administering medication. RN and ST repositioning patient for PO intake; patient leaning towards R side and head tilted back. Patient observed taking medication crushed in applesauce, patient self-advocating/recalling recommendations and reminded RN that he would need a liquid wash. Patient with decreased tolerance in diet of NDD1, Shelby Thick Liquids; increase in coughing and throat clearing this date. Patient's cough perceived as stronger than previous sessions. Patient consuming NTLs via controlled straw sips; min cueing needed for patient to utilize labial seal and bolus hold prior to swallow. Patient also consuming multiple tsps of applesauce. Patient politely refusing breakfast this date; RN aware and will GRS go over menu options with patient. Despite notable coughing and throat clearing, patient's vocal quality remaining clear and no tearing of eyes noted. Patient independently recalling strategies and reporting maybe I'm going to fast, with straw sips of NTL. HTL trialed this date to assess if downgraded needed, similar presentation to NTL. One episode of anterior labial leakage from R side. Recommend continuing current diet of NDD1, NTLs as many factors likely contributing to decrease in tolerance this date: 1. patient with nosebleed and attending to nose bleed. 2. patient reporting sleep was fair last night; noted fatigue, patient closing eyes during treatment requiring verbal stimuli 3. patient's positioning; requiring repositioning and light head hold to ensure adequate positioning and maintain midline. No oral motor exercises completed this date d/t patient's fatigue. [employer] to continue to follow. Recommend diet of Puree (NDD1) with NECTAR THICK liquids (cue pt to take small sips by straw), Pills crushed in puree, follow with sip of NTL. Pt needs assist to eat d/t L sided hemiplegia, recc 1-1 feeding with strict aspiration precautions. [employer] will follow as inpatient M-F, Patient will need acute rehab for Speech/Swallow needs. Frequency/Duration: Date Range for Service Req: Timeline to reassess: Fibreglass Laminator Clinican/Clinical Fellow: No Supervisory Statement: I have reviewed and agree with the student/clinical fellow's documentation: N/A Speech Language Pathologist: Maylin Rojas M.A., CCC-[employer]
--- NOTE | 2025-05-28 14:04 | P.CDIM_ITS ---
PROVIDER RESPONSE TEXT: To clarify, the appropriate diagnosis supported by the clinical indicators: Hypernatremia QUERY TEXT: PHYSICIAN'S DOCUMENTATION REQUEST Date of Query: 05/26/2025 11:17 AM EDT Patient Name: Terry Aguirre Admit Date: 05/24/2025 Dear Berlin Silva MD, A review of the medical record indicates additional documentation may be needed. Please review below and update the documentation accordingly. Clinical Indicators: LABS: Sodium 151 H 150 H Based on the above, is there a diagnosis that correlates with the findings? Hypernatremia Labs indicate a diagnosis of (please specify) Other (explain) Clinically unable to determine (explain) Thank you, Nataliia Araujo, CCS, CDIS Use of terms such as suspected, likely, concern for, or probable (associated with a specific diagnosis that is being evaluated, monitored, or treated as if it exists) are acceptable and can be coded in the inpatient setting, when documented at the time of discharge. Please use your independent medical judgment in providing your response. THIS QUERY IS PART OF THE PERMANENT MEDICAL RECORD
--- NOTE | 2025-05-28 14:04 | P.CDIM_ITS ---
PROVIDER RESPONSE TEXT: To clarify, the appropriate diagnosis supported by the clinical indicators: Moderate QUERY TEXT: PHYSICIAN'S DOCUMENTATION REQUEST Date of Query: 05/26/2025 07:33 AM EDT Patient Name: Terry Aguirre Admit Date: 05/24/2025 Dear Berlin Silva MD, A review of the medical record indicates additional documentation may be needed. Please review below and update the documentation accordingly Clinical indicators: Clinical nutrition notes dated 05/25/25 - Patient is moderately malnourished- qualifies for non-severe malnutrition in the context of chronic illness. Mildly depleted subcutaneous fat and muscle mass with 9% nonsignificant wt loss x 1 year. Diet advanced to cardiac pureed, recommend adding Ensure clear TID to increase Kcals. Monitor and encourage supplements. BMI 18.0 49kg 5ft 5in If possible, please provide additional specificity regarding the severity of the malnutrition using the above information: Mild Moderate Severe Other (explain) Clinically unable to determine (explain) Thank you, Nataliia Araujo, CCS, CDIS Use of terms such as suspected, likely, concern for, or probable (associated with a specific diagnosis that is being evaluated, monitored, or treated as if it exists) are acceptable and can be coded in the inpatient setting, when documented at the time of discharge. Please use your independent medical judgment in providing your response. THIS QUERY IS PART OF THE PERMANENT MEDICAL RECORD
--- NOTE | 2025-05-28 14:59 | P.PNIM_ITS ---
Subjective Subjective Date of Service: 05/28/25 Interval History: Feels well today. Improved speech overall; remains with some element of expressive aphasia and slurred speech. Patient has been started on aspirin; suffered with epistaxis today. Anticoagulation was planned to be started in the next Need clarification regarding epistaxis, especially in the setting of patient's age HHT Review of Systems Review of Systems: Yes all other systems are reviewed and are negative Physical Exam 2 Exam: Exam: General: Alert, arousable, able to recognize examiner and follow commands. Speech is garbled but spontaneous and fluent; improvement noted. HEENT: Normocephalic, atraumatic, mucous membranes moist, EOMI, clear conjunctiva, oropharynx clear. Neck: Supple, no lymphadenopathy, no stiffness. Cardiac: Regular rate and rhythm, normal S1/S2, no murmurs/rubs/gallops. Lungs: Clear to auscultation bilaterally, no crackles or wheezes. Adomen: Soft, nontender, nondistended. Back: No CVA tenderness, no deformity. Extremities: No cyanosis, clubbing, or edema. Skin: Multiple sites of petechiae at the fingertips and toes; multiple telangiectasias noted throughout body & face Neurological: - Mental Status: Spontaneously arousable , recognizes examiner, follows commands. Speech spontaneous and fluent. - Cranial Nerves:II: Dense left hemianop siaIII, IV, : Rightward gaze preference, EOMI otherwise normalV: Facial sensation normalVII: Left facial weakness VIII: Hearing intact IX, X: Palate elevates symmetrically XI: Shoulder shrug/head turn symmetric XII: Tongue midline, no atrophy/fasciculations - Motor: Unable to move left arm (0/5); left leg can be lifted against gravity (4/5). Moderate left-sided neglect. - Extrapyramidal: No rigidity, tremor, o r abnormal movements. - Speech: expressive aphasia improved wi thout receptive element Vital Signs: Vital Signs: Last Vital Signs Temp 97.9 F 05/28/25 12:00 Pulse 66 05/28/25 12:00 Resp 18 05/28/25 12:00 BP 135/67 05/28/25 12:00 Pulse Ox 97 05/28/25 12:00 O2 Del Method Room Air 05/28/25 12:00 O2 Flow Rate 2 05/26/25 12:04 BMI result Body Mass Index 18.0 Objective Data Active Medications Acetaminophen (Acetaminophen 325 Mg Tablet) 650 mg PO Q6H PRN PRN Reason: Pain, Mild 1-3,fever,headache Last Admin: 05/25/25 21:20 Dose: 650 mg Documented By: REAGAN Aspirin (Aspirin 81 Mg Tab.Chew) 81 mg PO DAILY [facility] Last Admin: 05/28/25 09:36 Dose: 81 mg Documented By: NASIMA Atorvastatin Calcium (Atorvastatin Calcium 80 Mg Tablet) 80 mg PO BEDTIME [facility] Last Admin: 05/27/25 21:40 Dose: 80 mg Documented By: FOGARTB Calcium Carbonate (Calcium Carbonate 750 Mg Tab.Chew) 750 mg PO Q4H PRN PRN Reason: Heartburn Carvedilol (Carvedilol 25 Mg Tablet) 25 mg PO BID [facility]; Protocol Last Admin: 05/28/25 09:36 Dose: 25 mg Documented By: NASIMA Heparin Sodium (Porcine) (Heparin Sodium,Porcine 5,000 Unit/Ml Vial) 5,000 unit SUBCUT Q8H [facility] Last Admin: 05/28/25 09:36 Dose: 5,000 unit Documented By: NASIMA Magnesium Hydroxide (Milk Of Magnesia 30 Ml Oral.Susp) 30 ml PO DAILY PRN PRN Reason: Constipation Melatonin (Melatonin 3 Mg Tablet) 6 mg PO BEDTIME PRN PRN Reason: Insomnia Sodium Chloride (0.9 % Sodium Chloride Flush 3 Ml Syringe) 3 ml IVFLUSH QSHIFT [facility] Last Admin: 05/28/25 09:44 Dose: 3 ml Documented By: NASIMA Labs 05/28/25 06:37 05/28/25 06:37 Labs: Laboratory Results - last 24 hr 05/28/25 06:37 MCV 93.6 MCH 31.6 MCHC 33.8 RDW 13.2 Plt Count 174 MPV 11.4 Immature Gran % (Auto) Cancelled Neut % (Auto) Cancelled Lymph % (Auto) Cancelled [place] % (Auto) Cancelled Eos % (Auto) Cancelled Baso % (Auto) Cancelled Lymph # (Auto) Cancelled [place] # (Auto) Cancelled Eos # (Auto) Cancelled Baso # (Auto) Cancelled Abs Immat Gran (auto) Cancelled Absolute Neuts (auto) Cancelled Absolute Nucleated RBC 0.000 Nucleated RBC % (auto) 0.0 Neutrophils % (Manual) 71 Band Neutrophils % 2 L Lymphocytes % (Manual) 12 L Monocytes % (Manual) 11 Eosinophils % (Manual) 3 Metamyelocytes % 1 Abs Neuts (Manual) 4.3 Lymphocytes # (Manual) 0.7 L Monocytes # (Manual) 0.6 Eosinophils # (Manual) 0.2 Metamyelocytes # 0.1 Toxic Granulation PRESENT Platelet Estimate NORMAL Plt Morphology Comment NORMAL RBC Morphology NORMAL Anion Gap 9 L Estim Creat Clear Calc 58.9 Estimated GFR > 60 Random Glucose 94 Calcium 7.6 L Assessment and Plan (1) Atrial flutter with rapid ventricular response: Status: Acute (2) Left carotid stenosis: Status: Acute (3) Cerebral infarction: Status: Acute (4) Acute CVA (cerebrovascular accident): Status: Acute (5) Hereditary hemorrhagic telangiectasia: Status: Acute (6) Hypertension: Status: Acute Plan 75-year-old left-hand dominant male with a history of epilepsy, cerebellar ataxia, pheochromocytoma, hypertension, and vitamin B12 deficiency, presenting after being found down at home with unclear time of onset, now with dense left hemiparesis, right gaze preference, left hemianopsia, and moderate neglect, found to have a large right MCA territory infarct on imaging, complicated by new atrial flutter and dysphagia Acute Right MCA Territory Infarct (Ischemic Stroke) Large right MCA territory infarct, likely subacute (12?36 hours old), with dense left hemiplegia, right gaze preference, left hemianopsia, and neglect. Not a candidate for thrombolysis or thrombectomy due to unclear time of onset and absence of large vessel occlusion. Neurology recommending holding off AC for at least [address] brain without IV contrast -ve for for hemorrhagic conversion PLAN * Admit to stroke unit/medicine service * ASA 81mg OD PO * Atorvastatin 80mg OD PO once able to intake PO * Monitor neurological status closely (NIHSS, neuro checks) * Maintain permissive hypertension (goal SBP < 180 mmHg) * DVT prophylaxis with heparin 5000 t.i.d. SBO * Swallow evaluation: NDD1 * oral care with moist swabs, consider early enteral access * Early physical, occupational, and speech therapy consults * Monitor for complications: aspiration, infection, cerebral edema, hemorrhagic transformation Atrial Flutter (New Onset) New atrial flutter with variable AV block, left axis deviation, and ST changes on EKG. No prior history of atrial flutter; possible cardioembolic source for stroke. Patient has history of HHT (hereditary hemorrhagic telangiectasia), and may represent a higher bleeding risk. Patient would benefit significantly from anticoagulation; especially if suspected cardioembolic CVA May require Watchman procedure Neurology recommending holding off AC for at least [address] brain without IV contrast -ve for for hemorrhagic conversion PLAN * Telemetry monitoring * Cardiology consult for atrial flutter management and anticoagulation recommendations * Assess for rate vs. 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 Last episode of heavy epistaxis occurring 10 years ago. No anticoagulation in the past. In the setting of the patient's atrial flutter, with new acute right MCA territory infarct, concerns or for cardioembolic CVA. In the setting, Hematology was consulted-recommendations greatly appreciated. CTA chest was obtained to reveal possibility of pulmonary AVMs-this was -ve. CTA chest revealed some hepatic changes consistent with age HTN, such as hepatic artery dilation and branch dilation. As per recommendations from Hematology; can start apixaban 5 mg b.i.d. p.o. to reduce recurrent CVA with a flutter. Neurology recommending holding off AC for at least [address] brain without IV contrast -ve for for hemorrhagic conversion PLAN * Hematology input greatly appreciated * Apixaban to be started at 2.5mg BID PO in 1 week as per neuro reccs * Further coordination with Cardiology for possible Watchman procedure placement in the setting of apixaban bridge * Monitor for changes in mental status or regression of examination that would suggest hemorrhagic conversion of ischemic CVA Dysphagia and Aspiration Risk Failed swallow evaluation; high risk for aspiration. * NPO -> NDD1 as per Speech and swallow * Oral care with moist swabs * Speech therapy to reassess swallowing * Consider early enteral feeding (NG or PEG) Hypertension History of uncontrolled hypertension; currently elevated BP, likely contributing to stroke risk. PLAN * Continue home antihypertensives as tolerated (amlodipine, metoprolol, etc.) * Maintain permissive hypertension in acute stroke phase (SBP < 180 mmHg) * Reassess BP goals after acute phase Secondary Stroke Prevention Multiple vascular risk factors (HTN, atrial flutter, possible carotid disease). PLAN * Atorvastatin 80mg OD PO * Address modifiable risk factors: optimize BP, glucose, lipids * Smoking cessation counseling (former smoker) * Outpatient follow-up for carotid disease and aneurysm Carotid Artery Disease Intracranial Aneurysm 3 mm left ICA terminus aneurysm and 60% left ICA stenosis (calcified plaque) on imaging. PLAN * No acute intervention indicated for aneurysm or carotid stenosis at this time * Outpatient neurosurgery and vascular surgery follow-up for further evaluation and management * Monitor for symptoms of TIA or aneurysm rupture Seizure Disorder/Epilepsy History of epilepsy, no witnessed seizure activity during this admission. PLAN * Continue home antiepileptic regimen if applicable * Monitor for seizure activity * EEG if clinical suspicion arises Pheochromocytoma Remote history, unclear current activity. PLAN * Monitor for paroxysmal hypertension, tachycardia, or other symptoms * No acute management required unless symptomatic Malnutrition/Low BMI BMI 17.6, at risk for malnutrition, especially with NPO status. * Nutrition consult * Monitor prealbumin, albumin, and weight * Early enteral nutrition if unable to resume oral intake CHRONIC MEDICAL CONDITIONS Vitamin B12 deficiency Anxiety QUALITY METRICS - VTE: Heparin 5000 TID SQ - CODE STATUS:Full - DIET: NDD1 Total time managing care of this patient today: 45 minutes. Quality Stroke Does the patient have a stroke diagnosis?: Yes Reason for No Anti-thrombotic by Day Two: N/A - Med Ordered VTE Prior VTE?: No VTE Risk Level:: Medical - moderate - high VTE Device Contraindication: N/A - Device Ordered VTE Drug Contraindication: N/A - Med Ordered
--- NOTE | 2025-05-28 15:36 | P.DS_ITS ---
DS: Providers Provider Date of Service: 05/28/25 Date of admission: 05/24/25 16:58 Date of discharge: 05/28/25 Primary care physician: Ye Silveira MD Consults: 05/24/25 19:14 Consult to Cardiology Routine Consulting Provider: [facility] Reason for consultation: acute CVA, new aflutter Consult to Neurology Routine Consulting Provider: [facility] Reason for consultation: acute CVA 05/25/25 08:58 Consult to Hematology / Oncology Routine Consulting Provider: [facility] Reason for consultation: HHT; post CVA 05/26/25 00:19 Consult to Wound Care Routine Consulting Provider: [facility] Reason for consultation: redness coccyx 05/28/25 07:51 Consult to Vascular Surgery Routine Consulting Provider: [facility] Reason for consultation: Left ICA aneurysm-post isch.CVA-needs AC for flutter-hx of HHT Has provider been notified: No DS: Diagnosis Discharge Diagnosis (1) Atrial flutter with rapid ventricular response: Status: Acute (2) Left carotid stenosis: Status: Acute (3) Cerebral infarction: Status: Acute (4) Acute CVA (cerebrovascular accident): Status: Acute (5) Hereditary hemorrhagic telangiectasia: Status: Acute (6) Hypertension: Status: Acute DS: Summary Hospital Course Hospital Course: HOSPITAL COURSE History of Present Illness: Mr. Aguirre, a 75-year-old left-hand dominant male with a history of epilepsy, cerebellar ataxia, HHT, hypertension, pheochromocytoma, and vitamin B12 deficiency, was found down at home with unclear time of symptom onset. He presented with dense left hemiparesis, right gaze preference, left hemianopsia, and moderate neglect. Initial imaging revealed a large right MCA territory infarct, likely subacute (12?36 hours old), with no large vessel occlusion or definite embolus. He was not a candidate for thrombolysis or thrombectomy due to unclear onset and absence of large vessel occlusion. Acute Right MCA Territory Infarct (Ischemic Stroke) Likely cardioembolic in setting of Aflutter (new onset) Large right MCA territory infarct, likely subacute (12?36 hours old), with dense left hemiplegia, right gaze preference, left hemianopsia, and neglect. Not a candidate for thrombolysis or thrombectomy due to unclear time of onset and absence of large vessel occlusion. Neurology recommending holding off AC for at least [address] brain without IV contrast -ve for for hemorrhagic conversion RECOMMENDATIONS * ASA 81mg OD PO * Atorvastatin 80mg OD PO * DVT prophylaxis with heparin 5000 t.i.d. ; DC after starting apixaban * Swallow evaluation: NDD1 * oral care with moist swabs, consider early enteral access * Early physical, occupational, and speech therapy consults * Monitor for complications: aspiration, infection, cerebral edema, hemorrhagic transformation * Start Apixaban 2.5mg BID PO on May 31 for Aflutter Atrial Flutter (New Onset) New atrial flutter with variable AV block, left axis deviation, and ST changes on EKG. No prior history of atrial flutter; possible cardioembolic source for stroke. Patient has history of HHT (hereditary hemorrhagic telangiectasia), and may represent a higher bleeding risk. Patient would benefit significantly from anticoagulation; especially if suspected cardioembolic CVA May require Watchman procedure in the future - follow with Cardiology Neurology recommending holding off AC for at least [address] brain without IV contrast -ve for for hemorrhagic conversion PLAN * Assess for rate vs. rhythm control as appropriate * Initiate anticoagulation for secondary stroke prevention (timing per neurology/cardiology, considering infarct size and risk of hemorrhagic transformation) * Carvedilol 25mg BID PO * Start Apixaban 2.5mg BID PO on May 31 for Aflutter * Continue ASA 81mg OD PO Hereditary Hemorrhagic Telangiectasia Patient has diagnosis of HHT baseline. Last episode of heavy epistaxis occurring 10 years ago. No anticoagulation in the past. In the setting of the patient's atrial flutter, with new acute right MCA territory infarct, concerns or for cardioembolic CVA. In the setting, Hematology was consulted-recommendations greatly appreciated. CTA chest was obtained to reveal possibility of pulmonary AVMs-this was -ve. CTA chest revealed some hepatic changes consistent with age HTN, such as hepatic artery dilation and branch dilation. As per recommendations from Hematology; can start apixaban 5 mg b.i.d. p.o. to reduce recurrent CVA with a flutter. Neurology recommending holding off AC for at least [address] brain without IV contrast -ve for for hemorrhagic conversion Suffered brief episode of epistaxis Dysphagia and Aspiration Risk Failed swallow evaluation; high risk for aspiration. * NPO -> NDD1 as per Speech and swallow * Oral care with moist swabs * Speech therapy to reassess swallowing * Consider early enteral feeding (NG or PEG) Hypertension Hypertensive urgency History of uncontrolled hypertension; currently elevated BP, likely contributing to stroke risk. PLAN * Reassess BP goals after acute phase * Carvedilol 25mg BID PO Carotid Artery Disease Intracranial Aneurysm 3 mm left ICA terminus aneurysm and 60% left ICA stenosis (calcified plaque) on imaging. PLAN * No acute intervention indicated for aneurysm or carotid stenosis at this time * Outpatient neurosurgery and vascular surgery follow-up for further evaluation and management * Monitor for symptoms of TIA or aneurysm rupture Seizure Disorder/Epilepsy History of epilepsy, no witnessed seizure activity during this admission. PLAN * Continue home antiepileptic regimen if applicable * Monitor for seizure activity * EEG if clinical suspicion arises Malnutrition/Low BMI BMI 17.6, at risk for malnutrition, especially with new CVA * Monitor prealbumin, albumin, and weight * Continue to follow outpatient speech & personal lines advisor reccs * Early enteral nutrition if unable to resume oral intake DISCHARGE MEDICATIONS (To be reconciled at discharge; current plan as of last note): * Aspirin 81 mg PO daily * Atorvastatin 80 mg PO nightly * Carvedilol 25 mg PO BID * Apixaban 2.5 mg PO BID (to start 1 week post-stroke, per neurology/hematology) * Continue home supplements (vitamin B12, vitamin C, magnesium, etc.) * PRN acetaminophen, magnesium hydroxide, melatonin as needed Hold/Discontinue: * Heparin for DVT prophylaxis to be discontinued once apixaban initiated DISCHARGE INSTRUCTIONS * Stroke:?Monitor for new or worsening neurological symptoms (weakness, speech changes, vision loss, severe headache). * Bleeding:?Monitor for signs of bleeding (epistaxis, GI bleeding, hematuria, petechiae). Report any significant bleeding immediately. * Diet:?NDD1 or as advanced by speech therapy; consider enteral feeding if oral intake remains inadequate. * Activity:?Encourage participation in physical, occupational, and speech therapy as tolerated. * Follow-up Appointments: * Neurology: For stroke follow-up and anticoagulation timing * Cardiology: For atrial flutter management, echocardiogram, and possible Watchman procedure * Hematology: For HHT management and anticoagulation monitoring * Vascular surgery/neurosurgery: For left ICA stenosis and aneurysm surveillance * Nutrition: For ongoing assessment and support * Medications:?Take all medications as prescribed. Do not start or stop any medications without consulting your care team. * Advance Directives:?On file and reviewed. Status at Discharge Cognitive/behavioral status at discharge: Alert and oriented to person place time and situation Time Attestation Total time managing care of this patient today: 60 mintues. Discharge Coordination Time (in mins): 35 Quality: Safe Use of Opioids Does Pt have an Active Cancer Diagnosis on the Problem List?: No Quality: Stroke Does the patient have a stroke diagnosis?: Yes Reason for No Anti-thrombotic at DC: N/A - Med Ordered Reason for No Anticoagulant at DC: N/A - Med Ordered Reason Not Initiating IV-Tpa: Not indicated Reason for No Anti-thrombotic by Day Two: Not indicated Reason for No Statin at DC: N/A - Med Ordered Physical Exam Exam: Exam: General: Alert, arousable, able to recognize examiner and follow commands. Speech is garbled but spontaneous and fluent; improvement noted. HEENT: Normocephalic, atraumatic, mucous membranes moist, EOMI, clear conjunctiva, oropharynx clear. Neck: Supple, no lymphadenopathy, no stiffness. Cardiac: Regular rate and rhythm, normal S1/S2, no murmurs/rubs/gallops. Lungs: Clear to auscultation bilaterally, no crackles or wheezes. Adomen: Soft, nontender, nondistended. Back: No CVA tenderness, no deformity. Extremities: No cyanosis, clubbing, or edema. Skin: Multiple sites of petechiae at the fingertips and toes; multiple telangiectasias noted throughout body & face Neurological: - Mental Status: Spontaneously arousable , recognizes examiner, follows commands. Speech spontaneous and fluent. - Cranial Nerves:II: Dense left hemianop siaIII, IV, : Rightward gaze preference, EOMI otherwise normalV: Facial sensation normalVII: Left facial weaknessVIII: Hearing intact IX, X: Palate elevates symmetrically XI: Shoulder shrug/head turn symmetric XII: Tongue midline, no atrophy/fasciculations - Motor: Unable to move left arm (0/5); left leg can be lifted against gravity (4+/5). Moderate left-sided neglect. - Extrapyramidal: No rigidity, tremor, o r abnormal movements. - Speech: expressive aphasia improved wi thout receptive element Vital Signs: Vital Signs: Last Vital Signs Temp 97.9 F 05/28/25 12:00 Pulse 66 05/28/25 12:00 Resp 18 05/28/25 12:00 BP 135/67 05/28/25 12:00 Pulse Ox 97 05/28/25 12:00 O2 Del Method Room Air 05/28/25 12:00 O2 Flow Rate 2 05/26/25 12:04 BMI result Body Mass Index 18.0 DS: Data Data Completed and Pending Completed studies during hospitalization [Text1]: Procedures Reposition Right Upper Femur with Intramedullary Internal Fixation Device, Percutaneous Approach (06/23/21) Labs on day of discharge: Laboratory Results - last 24 hr 05/28/25 06:37 WBC 5.9 RBC 4.05 L Hgb 12.8 L Hct 37.9 L MCV 93.6 MCH 31.6 MCHC 33.8 RDW 13.2 Plt Count 174 MPV 11.4 Immature Gran % (Auto) Cancelled Neut % (Auto) Cancelled Lymph % (Auto) Cancelled Tripp % (Auto) Cancelled Eos % (Auto) Cancelled Baso % (Auto) Cancelled Lymph # (Auto) Cancelled Tripp # (Auto) Cancelled Eos # (Auto) Cancelled Baso # (Auto) Cancelled Abs Immat Gran (auto) Cancelled Absolute Neuts (auto) Cancelled Absolute Nucleated RBC 0.000 Nucleated RBC % (auto) 0.0 Neutrophils % (Manual) 71 Band Neutrophils % 2 L Lymphocytes % (Manual) 12 L Monocytes % (Manual) 11 Eosinophils % (Manual) 3 Metamyelocytes % 1 Abs Neuts (Manual) 4.3 Lymphocytes # (Manual) 0.7 L Monocytes # (Manual) 0.6 Eosinophils # (Manual) 0.2 Metamyelocytes # 0.1 Toxic Granulation PRESENT Platelet Estimate NORMAL Plt Morphology Comment NORMAL RBC Morphology NORMAL Sodium 144 Potassium 3.3 Chloride 116 H Carbon Dioxide 22 Anion Gap 9 L BUN 23 H Creatinine 0.75 Estim Creat Clear Calc 58.9 Estimated GFR > 60 Random Glucose 94 Calcium 7.6 L Preliminary micro results at discharge 05/24/25 10:52 Blood Culture - Preliminary Blood - Venous No growth after 48 hours. 05/24/25 10:22 Blood Culture - Preliminary Blood - Venous No growth after 48 hours. Discharge Plan Discharge Anticipated Discharge Date/Time: 05/28/25 15:54 Patient Disposition: Xfer Inpatient Rehab Fac Discharge Diagnosis: Acute CVA with left hemiplegia Referrals: [facility] [Outside] - 1 Day Referral Note: ACUTE REHAB Rafael Butler MD [Physician, Vascular Surgery] - 1 Week Po,Ye Chaparro MD [Primary Care Provider, Internal Medicine] - 1 Week Discharge Medications: New aspirin 81 mg Tablet,Chewable 81 mg PO DAILY 30 Days Qty: 30 0RF carvedilol 25 mg Tablet 25 mg PO BID 30 Days Qty: 60 0RF Protocol: Hold for SBP/HR < HOLD for SBP < : 90 HOLD for HR < : 60 atorvastatin 80 mg Tablet 80 mg PO BEDTIME 30 Days Qty: 30 0RF Continued levothyroxine [Synthroid] 25 mcg tablet 25 mcg PO DAILY Qty: 90 3RF calcitriol 0.25 mcg capsule 0.25 mcg PO DAILY Qty: 90 2RF vitamin A 10,000 unit Capsule 0 unit PO DAILY Rx Instructions: PATIENT NOT SURE OF WHAT DOSE cyanocobalamin (vitamin B-12) 250 mcg Tablet 0 mcg PO DAILY Rx Instructions: PT UNSURE OF WHAT DOSE HE TAKES latanoprost 0.005 % drops 1 drp ophthalmic (eye) BEDTIME ascorbic acid (vitamin C) 1,000 mg tablet 1 g PO DAILY ferrous sulfate [Feosol] 325 mg (65 mg iron) tablet 325 mg PO DAILY magnesium oxide 400 mg magnesium tablet 400 mg PO DAILY vitamin B complex Tablet 1 tab PO DAILY brimonidine 0.2 % drops 1 drp ophthalmic (eye) BID kelp PO vitamin E (dl, acetate) 450 mg (1,000 unit) capsule 450 mg PO DAILY Discontinued amlodipine 10 mg tablet 10 mg PO DAILY Qty: 90 2RF metoprolol succinate 50 mg tablet extended release 24 hr 50 mg PO DAILY Qty: 90 1RF Discharge Orders: Discharge Order (Routine); Ordered 05/28/25 Ordered By: Berlin Silva Diet: As per speech reccs Activity on Discharge: As tolerated Stand Alone Forms: Patient Portal Discharge page Print Language: Yakut Care Plan Goals: Extensive issues, as above Health Concerns: Extensive issues as above Plan of Treatment: DISCHARGE MEDICATIONS * Aspirin 81 mg PO daily * Atorvastatin 80 mg PO nightly * Carvedilol 25 mg PO BID * Apixaban 2.5 mg PO BID (to start May 31) * Continue home supplements (vitamin B12, vitamin C, magnesium, etc.) * PRN acetaminophen, magnesium hydroxide, melatonin as needed Hold/Discontinue: * Heparin for DVT prophylaxis to be discontinued once apixaban initiated DISCHARGE INSTRUCTIONS * Stroke:?Monitor for new or worsening neurological symptoms (weakness, speech changes, vision loss, severe headache). * Bleeding:?Monitor for signs of bleeding (epistaxis, GI bleeding, hematuria, petechiae). Report any significant bleeding immediately. * Diet:?NDD1 or as advanced by speech therapy; consider enteral feeding if oral intake remains inadequate. * Activity:?Encourage participation in physical, occupational, and speech therapy as tolerated. * Neurology: For stroke follow-up and anticoagulation timing * Cardiology: For atrial flutter management, start Apixaban on 31 May. Follow up with Cardiology outpatient for Watchman procedure * Hematology: For HHT management and anticoagulation monitoring * Vascular surgery/neurosurgery: For left ICA stenosis and aneurysm surveillance with Dr. Butler (Vascular Surgery) * Nutrition: For ongoing assessment and support * Medications:?Take all medications as prescribed. Do not start or stop any medications without consulting your care team. FOLLOW-UP * Primary Care:?Within 1 week of discharge * Neurology:?Within 1?2 weeks * Cardiology:?Within 1?2 weeks * Hematology:?As scheduled * Vascular Surgery/Neurosurgery:?Outpatient follow-up for ICA stenosis and aneurysm; As scheduled * Speech/Physical/Occupational Therapy:?As arranged Assessment: Hemodynamically stable.
--- NOTE | 2025-05-28 16:18 | MHC.CM.PN ---
IMM 05/28/25, PT MEDICALLY CLEARED FOR DC TO [facility] D/T [facility] NOT HAVING ANY BEDS, PER PT REQUEST CM ATTEMPTED TO CONTACT PT'S BROTHER/HCP, NO ANSWER AND DETAILED MESSAGE LEFT, [facility] FOR BLS TRANSPORT AT 5:30PM.
== END 2025-05-28 21:00 | DRG 65 ==
LOC: HO.ED 11:18 → HO.EDOVER 17:06 → HO.IMC 17:40
PROVIDERS: Admitting Provider Hospitalist; Emergency Provider Emergency Medicine; PCP Internal Medicine; Visit Provider Hospitalist
DX: I63.411 Cerebral infarction due to embolism of right middle cerebral artery (principal); E44.0 Moderate protein-calorie malnutrition; I48.92 Unspecified atrial flutter; Z68.1 Body mass index [BMI] 19.9 or less, adult; E87.0 Hyperosmolality and hypernatremia; I78.0 Hereditary hemorrhagic telangiectasia; R13.10 Dysphagia, unspecified; I10 Essential (primary) hypertension; G40.909 Epilepsy, unspecified, not intractable, without status epilepticus; E03.9 Hypothyroidism, unspecified; F41.9 Anxiety disorder, unspecified; I65.22 Occlusion and stenosis of left carotid artery; R47.01 Aphasia; I25.10 Atherosclerotic heart disease of native coronary artery without angina pectoris; E53.8 Deficiency of other specified B group vitamins; R04.0 Epistaxis; R29.711 NIHSS score 11; I16.0 Hypertensive urgency; Z20.822 Contact with and (suspected) exposure to COVID-19; Z87.891 Personal history of nicotine dependence; Z79.890 Hormone replacement therapy; Z79.899 Other long term (current) drug therapy
CPT/HCPCS: 36415; 70450; 70496; 70498; 71045; 71275; 80048; 80061; 80076; 80307; 81001; 81003; 82550; 82803; 82947; 83036; 83605; 83690; 83735; 84145; 84443; 84484; 85007; 85025; 85027; 85610; 85730; 86140; 87040; 87635; 92526; 92610; 93005; 93306; 97110; 97112; 97162; 97166; 97530; 99285; J0131; J0696; J1644; J2405; J3480; J7120; Q9957; Q9967

== ENCOUNTER → 2025-05-24 10:07 | Outpatient (BNV) | payer MEDICARE, SELFPAY | PROVIDERS: Emergency Provider Emergency Medicine; Visit Provider Radiology Diagnostic Radiology | DX: I63.511 Cerebral infarction due to unspecified occlusion or stenosis of right middle cerebral artery (principal); I65.22 Occlusion and stenosis of left carotid artery; I72.0 Aneurysm of carotid artery; J43.9 Emphysema, unspecified; Z98.890 Other specified postprocedural states | CPT/HCPCS: 70450; 70496; 70498 ==

== ENCOUNTER → 2025-05-24 10:08 | Outpatient (BNV) | payer MEDICARE, SELFPAY | PROVIDERS: Admitting Provider Hospitalist; Emergency Provider Emergency Medicine; PCP Internal Medicine; Visit Provider Internal Medicine | DX: I48.91 Unspecified atrial fibrillation (principal) | CPT/HCPCS: 93010 ==

== ENCOUNTER → 2025-05-24 11:17 | Outpatient (BNV) | payer MEDICARE, SELFPAY | PROVIDERS: Emergency Provider Emergency Medicine; PCP Internal Medicine; Visit Provider Psychiatry & Neurology Neurology | DX: I63.9 Cerebral infarction, unspecified (principal) | CPT/HCPCS: 99222 ==

== ENCOUNTER 2025-05-24 16:58 | Outpatient (BNV) | payer MEDICARE, SELFPAY | END 2025-05-27 12:08 | PROVIDERS: Admitting Provider Hospitalist; Emergency Provider Emergency Medicine; PCP Internal Medicine; Visit Provider Radiology Diagnostic Radiology | DX: I63.311 Cerebral infarction due to thrombosis of right middle cerebral artery (principal) | CPT/HCPCS: 70450 ==

== ENCOUNTER 2025-05-24 16:58 | Outpatient (BNV) | payer MEDICARE, SELFPAY | END 2025-05-26 09:44 | PROVIDERS: Admitting Provider Hospitalist; Emergency Provider Emergency Medicine; PCP Internal Medicine; Visit Provider Radiology Diagnostic Radiology | DX: J43.9 Emphysema, unspecified (principal); I51.7 Cardiomegaly | CPT/HCPCS: 71275 ==

== ENCOUNTER 2025-05-24 16:58 | Outpatient (BNV) | payer MEDICARE, SELFPAY | END 2025-05-25 07:00 | PROVIDERS: Admitting Provider Hospitalist; Emergency Provider Emergency Medicine; PCP Internal Medicine; Visit Provider Internal Medicine | DX: I42.2 Other hypertrophic cardiomyopathy (principal); I51.7 Cardiomegaly | CPT/HCPCS: 93306 ==

== ENCOUNTER → 2025-05-24 16:58 | Outpatient (BNV) | payer MEDICARE, SELFPAY | PROVIDERS: Admitting Provider Hospitalist; Emergency Provider Emergency Medicine; PCP Internal Medicine; Visit Provider Internal Medicine | DX: I48.92 Unspecified atrial flutter (principal); I63.9 Cerebral infarction, unspecified | CPT/HCPCS: 99223 ==

== ENCOUNTER → 2025-05-24 16:58 | Outpatient (BNV) | payer MEDICARE, SELFPAY | PROVIDERS: Admitting Provider Hospitalist; Emergency Provider Emergency Medicine; PCP Internal Medicine; Visit Provider Surgery Vascular Surgery | DX: I65.22 Occlusion and stenosis of left carotid artery (principal) | CPT/HCPCS: 99222 ==

== ENCOUNTER → 2025-05-24 16:58 | Outpatient (BNV) | payer MEDICARE, SELFPAY | PROVIDERS: Admitting Provider Hospitalist; Emergency Provider Emergency Medicine; PCP Internal Medicine; Visit Provider Internal Medicine Medical Oncology | DX: I78.0 Hereditary hemorrhagic telangiectasia (principal) | CPT/HCPCS: 99222 ==

== ENCOUNTER 2025-07-12 09:15 | Outpatient (REF) | payer SELFPAY ==
[2025-07-12 07:55] LABS: MANUAL DIFF FLAG NO
[2025-07-12 08:05] LABS: Hematocrit 31.8 % (42.0-52.0); Hemoglobin 9.6 g/dl (14.0-18.0); Imm Gran Abs Auto 0.01 X10*3/uL (0.00-0.03); Imm Gran Pct Auto 0.3 % (0.0-0.4); Lymphocytes Absolute Auto 0.5 X10*3/uL (1.2-4.9); Mean Corpuscular HGB Conc 30.2 g/dl (31.0-36.0); Mean Corpuscular Hemoglobin 32.4 pg (27.0-33.0); Mean Corpuscular Volume 107.4 fL (80.0-98.0); NRBC Abs Auto 0.000 X10*3/uL (0.0-0.012); NRBC Pct Auto 0.0 /100WBC (0.0-0.2); Platelet Count 165 X10*3/uL (160-400); Red Blood Count 2.96 X10*6/uL (4.60-5.80); White Blood Count 3.0 X10*3/uL (4.8-10.8)
[2025-07-12 08:50] LABS: Anion Gap 8 (12-20); Blood Urea Nitrogen 15 mg/dL (9-16); Calcium 7.6 mg/dL (8.4-10.2); Carbon Dioxide 27 mmol/L (22-29); Chloride 114 mmol/L (96-108); Estimated Glomerular Filt Rate > 60; Potassium 4.0 mmol/L (3.3-5.1); Sodium 145 mmol/L (135-145)
== END 2025-07-12 09:16 | disposition home or self-care (01) ==
LOC: HO.MMNH2L 09:15
PROVIDERS: Visit Provider Physician Assistant Medical
DX: J98.8 Other specified respiratory disorders (principal)
CPT/HCPCS: 36415; 80048; 85025

== ENCOUNTER 2025-07-25 07:55 | Outpatient (REF) | payer SELFPAY ==
--- OUTSIDE RECORDS SUMMARY | 2025-07-25 08:06 | XMS_ITS | Patient Health Record ---
Author Organization [facility] Address [address] [place] [address] Care Team Providers Care Assistive Technology Trainer Name Role Phone Po Ye OLIVAS Primary Care Provider Say Dominguez [phone] Reason For Referral No Information Medications Medication SIG (Take, Route, Frequency, Duration) Notes Start Date End Date Status Phenytoin Sodium Extended 100 MG Capsule TK ONE C PO TID Oral; Duration: 30 Active amLODIPine Besylate 10 MG Tablet TK 1 T PO ONCE A DAY Oral; Duration: 30 Active iron Active Metoprolol Succinate ER 25 MG Tablet Extended Release 24 Hour TK 1 T PO D Oral; Duration: 30 Active Immunizations Vaccine Route Administration Date Status Comme nts Influenza Unknown 04/28/2016 Administered Social History Social History Additional Details Category Social Info Options Details Miscellaneous: Marital status: single Occupation: retired Section Notes: Nonsmoker > 10 yrs; no sig a lcohol Problems Problem Type SNOMED Code ICD Code Onset Dates Problem Status W/U Status Risk Notes Problem Screening for malignant neoplasm of colon (034699432) Encounter for screening for malignant neoplasm of colon (Z12.11) Active confirmed Problem Hereditary hemorrhagic telangiectasia (78022669) 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 Problem Screening for malignant neoplasm of rectum (511329861) Encounter for screening for malignant neoplasm of rectum (Z12.12) Active confirmed Plan Of Treatment Future Test Test Name Order Date COLONOSCOPY 06/05/2016 Insurance Providers Payer Name Payer Address Payer Phone Subscriber Number Group Number Insured Name Patient Relationship to Insured Coverage Start Date Coverage End Date MEDICARE OF [place] [address] [place] [address] [id number] GINA KEY Self - patient is the insured [employer] ATTN CLAIMS [address] [place] [address] [phone] [id number] GINA KEY Self - patient is the insured Medical (General) History Medical History History ICD Code EGD 06/2006--question of gas tric telangiectasias, but otherwise normal upper endoscopy History of ischemic colitis--colonoscopy 06/2006--no polyps Hereditary hemorrhagic telan giectasia--history of epistaxis and anemia--on Iron supplements Seizure disorder Denies CT,DM,CVA,Lung disease,renal dise ase HTN Surgical History Surgery Date(Month/Year) Craniotomy as a child for a head injury Hydrocele 2016
[2025-07-25 09:06] LABS: Chlamydia pneumoniae PCR Not Detected (Not Detect.); Coronavirus 229E PCR Not Detected (Not Detect.); Coronavirus HKU1 PCR Not Detected (Not Detect.); Coronavirus NL63 PCR Not Detected (Not Detect.); Coronavirus OC43 PCR Not Detected (Not Detect.); Influenza A H3 PCR Detected (Not Detect.); RSV PCR Not Detected (Not Detect.); Rhino/Enterovirus PCR Not Detected (Not Detect.)
[2025-07-25 09:07] LABS: Influenza A H1 PCR Not Detected (Not Detect.); Influenza A H1-2009 PCR Not Detected (Not Detect.); SARS-CoV-2 PCR Not Detected (Not Detect.)
== END 2025-07-25 07:56 | disposition home or self-care (01) ==
LOC: HO.MMNH2L 07:55
PROVIDERS: Visit Provider Student in an Organized Health Care Education/Training Program
DX: R05.9 Cough, unspecified (principal); R50.9 Fever, unspecified
CPT/HCPCS: 87633